=== PATIENT | male | born 1970 | race Caucasian/White ===

== ENCOUNTER 2017-06-14 12:54 | Emergency (ER) | payer OTHER ==
[2017-06-14 13:02] VITALS: BP 105/61; PULSE 82; O2SAT 96
--- NOTE | 2017-06-14 13:23 | ERPHSYRPT ---
- History of Present Illness Time Seen by Provider: 06/14/17 13:16 Source: patient, family Exam Limitations: no limitations Patient Subjective Stated Complaint: Pt states "I was in [facility] not to long ago and they hit my rt foot off of a chair and it still hurts." Triage Nursing Assessment: Pt alert and oriented X 3, skin pwd pt ambulates with a limp, able to put weight on his foot, able to speak in full sentences. Physician History: 47-year-old male came to the emergency room with complaining of right foot and right ankle pain, which has been for last 2-3 weeks. Patient states that he was at [facility] and was admitted four weeks ago with multiorgan failure in ICU at [facility] where his right ankle and foot hit by the chair and since then he has a pain in his top part of the right fourth and lateral side of right ankle. Patient denies any swelling or redness, but has little bit difficulty in walking due to pain. Method of Injury: other (chair hit right foot and ankle) Allergies/Adverse Reactions: No Known Drug Allergies Allergy (Verified 06/14/17 13:03) Home Medications: Atorvastatin Calcium [Lipitor 20MG Tablet] 80 mg PO HS 03/22/15 [History] Buspirone HCl [Buspar] 7.5 mg PO BID 03/22/15 [History] Insulin Detemir [Levemir] 60 unit SQ BID 03/22/15 [History] Magnesium 400 tab PO BID 07/10/15 [History] Aspirin EC 325 mg [Ecotrin 325 MG] 325 mg PO DAILY 01/18/16 [History] Carvedilol 37.5 mg PO BID 01/18/16 [History] Pregabalin [Lyrica 100Mg] 100 mg PO TID 01/18/16 [History] Venlafaxine HCl ER 75 mg [Effexor XR 75 MG] 75 mg PO DAILY 01/18/16 [ History] Acetaminophen/Diphenhydramine [Tylenol Pm Ex-Strength Caplet] 500 mg PO HSPRN PRN 02/07/16 [History] Allopurinol 100 mg [Zyloprim 100 mg] 100 mg PO BID 02/07/16 [History] Desvenlafaxine Succinate [Pristiq] 50 mg PO DAILY 02/07/16 [History] Hydrocodone Bit/Acetaminophen [Martelle 10-325 Tablet] 1 each PO Q4-6HPRN PRN 02/06 [History] Isosorbide Mononitrate 30 mg [Imdur 30 MG] 30 mg PO DAILY 02/07/16 [History ] Metformin HCl 500 mg [Glucophage 500 MG] 500 mg PO BID 02/07/16 [History] Hx Tetanus, Diphtheria Vaccination/Date Given: Yes Hx Influenza Vaccination/Date Given: Yes Hx Pneumococcal Vaccination/Date Given: Yes Immunizations Up to Date: Yes - Review of Systems Constitutional: No Symptoms Eyes: No Symptoms Musculoskeletal: Injury (right foot and ankle injury ), No Deformity, No Joint Redness, No Joint Pain, No Joint Swelling - Past Medical History Pertinent Past Medical History: Yes Neurological History: No Pertinent History ENT History: No Pertinent History Cardiac History: Coronary Artery Disease, High Cholesterol, Hypertension, Myocardial Infarction ([place]) Respiratory History: No Pertinent History Endocrine Medical History: Diabetes Type II Musculoskeletal History: Other GI Medical History: Pancreatitis History: No Pertinent History Psycho-Social History: No Pertinent History Male Reproductive Disorders: No Pertinent History Other Medical History: 6 [place]'S IN PAST SINCE FEBRUARY 2015 PER PT REPORT, STENT X1 , chronic back pain - Past Surgical History Past Surgical History: Yes Neuro Surgical History: No Pertinent History Cardiac: Cardiac Catheterization, Cardiac Stent, Internal Defibrillator Respiratory: No Pertinent History Gastrointestinal: Cholecystectomy, Hernia Repair Genitourinary: No Pertinent History Musculoskeletal: Orthopedic Surgery Male Surgical History: No Pertinent History Other Surgical History: elbow - Social History Smoking Status: Former smoker Exposure to second hand smoke: Yes Alcohol Use: Socially Drug Use: none Patient Lives Alone: No Significant Family History: heart disease, diabetes, hypertension - Nursing Vital Signs Nursing Vital Signs: Initial Vital Signs Temperature 97.8 F 06/14/17 12:56 Pulse Rate 82 06/14/17 12:56 Respiratory Rate 16 06/14/17 12:56 Blood Pressure 105/61 06/14/17 12:56 O2 Sat by Pulse Oximetry 96 06/14/17 12:56 Pain Scale Pain Intensity 7 - Physical Exam General Appearance: no apparent distress Eyes, Ears, Nose, Throat Exam: normal ENT inspection Neck Exam: normal inspection Cardiovascular/Respiratory Exam: chest non-tender Gastrointestinal/Abdominal Exam: non-tender Ankle Exam: right ankle: soft tissue tenderness Foot Exam: right foot: soft tissue tenderness SpO2: 96 Oxygen Delivery: Room Air Ordered Tests: Active Orders 24 hr Category Date Time Status ANKLE (3 VIEWS) Stat Exams 06/14/17 13:01 Taken FOOT (MINIMUM 3 VIEWS) Stat Exams 06/14/17 13:01 Taken - Departure Time of Disposition: 13:31 Departure Disposition: Home Clinical Impression: Foot pain, right Ankle joint pain Qualifiers: Laterality: right Qualified Code(s): M25.571 - Pain in right ankle and joints of right foot Condition: Stable Critical Care Time: No Referrals: GIRMA JACKSON [Primary Care Provider] - Instructions: Foot Pain Additional Instructions: SPRAINS/STRAINS/CONTUSIONS 1. Rest the affected area as much as possible for the next few days. 2. Apply ice to the affected area for 20-30 minutes at a time, several times a day. 3. If you receive an elastic wrap, wear it only while awake for comfort and support. Re-wrap the elastic wrap if it feels too tight or too loose. 4. If swelling is present, elevate the affected part above the level of the heart for at least 2 to 3 days. 5. Use splints, slings, or crutches as instructed. 6. Watch for severe swelling, coldness, numbness, and discoloration of the fingers and toes. See your family physician or return to the emergency department if any of these are noted.
--- NOTE | 2017-06-14 20:37 | XRAY ---
Indication: Ankle pain. No known injury. Comparison: July 15, 2007. 3 views of the right ankle again demonstrates tiny spurring of the distal tibia anteriorly with now tiny well circumscribed ossification posterior to the ankle either degenerative versus old injury. No other bony, articular, or soft tissue abnormalities.
--- NOTE | 2017-06-14 20:42 | XRAY ---
Indication: Foot pain. No known injury. Comparison: July 15, 2007. 3 nonweightbearing views of the right foot obtained. No bony, articular, or soft tissue abnormalities.
== END 2017-06-14 13:37 | disposition home or self-care (01) ==
LOC: ED 12:54
DX: M25.571 Pain in right ankle and joints of right foot (principal); W22.8XXA Striking against or struck by other objects, initial encounter
CPT/HCPCS: 73610; 73630; 99283

== ENCOUNTER 2017-09-24 08:43 | Observation (INO) | payer MEDICARE, OTHER ==
--- NOTE | 2017-09-24 09:06 | ERPHSYRPT ---
- History of Present Illness Time Seen by Provider: 09/24/17 08:56 Source: patient Exam Limitations: no limitations Patient Subjective Stated Complaint: increase sob for 2 days now, no fever, cough nonproductive, Triage Nursing Assessment: pt alert, walked in ,resp easy, skin w/d, chest clear Physician History: 47-year-old white male with history of hypercholesterolemia coronary artery disease high blood pressure diabetes chronic pain patient arrives with shortness of breath cough symptoms 2 days states she's been aching all over nausea and vomiting. No fevers no chest pain. Past medical history includes coronary artery disease, hypercholesterolemia, high blood pressure, myocardial infarction, diabetes, pancreatitis, multiple myocardial infarction, cardiac stent, chronic back pain. Past surgical history includes cardiac catheter cardiac stent defibrillator pacer, cholecystectomy, hernia repair, elbow surgery. Social history patient denies tobacco use.. Timing/Duration: today Activities at Onset: none Severity of Dyspnea-Max: moderate Severity of Dyspnea-Current: moderate Possible Cause: occasional episodes Modifying Factors: Improves With: nothing (no) Associated Symptoms: cough, No constant, No intermittent, No anxiety, No chest pain/discomfort, No edema, No fever, No insomnia, No loss of appetite, No lightheadedness, No wheezing, No weakness, No ankle swelling, No chills, No hemoptysis, No calf pain, No dizziness, No heaviness, No heart racing, No lightheadedness, No leg swelling, No muscle spasms feet, No muscle spasms hands , No painful breathing, No productive cough, No sweating, No tightness, No tingling face International travel in last 2 weeks: No Allergies/Adverse Reactions: No Known Drug Allergies Allergy (Verified 09/24/17 08:55) Home Medications: Atorvastatin Calcium [Lipitor 20MG Tablet] 80 mg PO HS 03/22/15 [History] Buspirone HCl [Buspar] 7.5 mg PO BID 03/22/15 [History] Magnesium 400 tab PO BID 07/10/15 [History] Aspirin EC 325 mg [Ecotrin 325 MG] 325 mg PO DAILY 01/18/16 [History] Carvedilol 25 mg PO BID 01/18/16 [History] Pregabalin [Lyrica 100Mg] 100 mg PO TID 01/18/16 [History] Venlafaxine HCl ER 75 mg [Effexor XR 75 MG] 75 mg PO DAILY 01/18/16 [ History] Acetaminophen/Diphenhydramine [Tylenol Pm Ex-Strength Caplet] 500 mg PO HSPRN PRN 02/07/16 [History] Allopurinol 100 mg [Zyloprim 100 mg] 100 mg PO BID 02/07/16 [History] Metformin HCl 500 mg [Glucophage 500 MG] 500 mg PO BID 02/07/16 [History] Albuterol Sulfate Mdi [Proair Hfa MDI] 09/24/17 [History] Aripiprazole [Aripiprazole] 09/24/17 [History] Liraglutide [Victoza 2-Devin] 09/24/17 [History] Sacubitril/Valsartan [Entresto 24 mg-26 mg Tablet] 09/24/17 [History] Testosterone Cypionate [Depo-Testosterone] 09/24/17 [History] Tiotropium [place] [Spiriva] 18 cap 09/24/17 [History] Warfarin Sodium [Warfarin Sodium] 5 mg DAILY 09/24/17 [History] Zolpidem Tartrate [Zolpidem Tartrate] 09/24/17 [History] Hx Tetanus, Diphtheria Vaccination/Date Given: No Hx Influenza Vaccination/Date Given: No Hx Pneumococcal Vaccination/Date Given: No Immunizations Up to Date: Yes - Review of Systems Constitutional: No Fever, No Chills Eyes: No Symptoms, No Discharge, No Eye Pain, No Eye Redness, No Itchy, No Photophobia, No Tearing, No Vision Changes, No Double Vision, No Foreign Body Sensation Ears, Nose, & Throat: No Symptoms, No Ear Pain, No Ear Discharge, No Hearing Changes, No Tinnitus, No Nose Pain, No Nose Congestion, No Nose Discharge, No Sinus Drainage, No Epistaxis, No Mouth Pain, No Mouth Swelling, No Loose Teeth, No Throat Pain, No Throat Swelling, No Hoarse, No Painful Swallowing, No Snoring , No Stridor Respiratory: Cough, Dyspnea, No Cyanosis, No Stridor, No Wheezing Cardiac: No Chest Pain, No Edema, No Syncope Abdominal/Gastrointestinal: Nausea, Vomiting, No Abdominal Pain, No Diarrhea, No Constipation, No Hematemesis, No Hematochezia, No Melena, No Dysphagia, No Appetite Changes Genitourinary Symptoms: No Dysuria Musculoskeletal: Myalgias, No Arthralgias, No Back Pain, No Neck Pain, No Deformity, No Fall, No Injury, No Joint Redness, No Joint Pain, No Joint Swelling, No Other Skin: No Rash Neurological: No Dizziness, No Focal Weakness, No Sensory Changes Psychological: No Symptoms Endocrine: No Symptoms All Other Systems: Reviewed and Negative - Past Medical History Pertinent Past Medical History: Yes Neurological History: Migraines, Peripheral Neuropathy, Other ENT History: No Pertinent History Cardiac History: Congestive Heart Failure, Other Respiratory History: Pneumonia, Other Endocrine Medical History: Diabetes Type II, Other Musculoskeletal History: Osteoarthritis GI Medical History: Pancreatitis History: No Pertinent History Psycho-Social History: No Pertinent History Male Reproductive Disorders: No Pertinent History Other Medical History: numbness in R foot, great toe to dorsum of foot. Kidney failure noted. 3L O2 at night. Defibrillator. - Past Surgical History Past Surgical History: Yes Neuro Surgical History: No Pertinent History Cardiac: Cardiac Catheterization, Cardiac Stent, Internal Defibrillator Respiratory: No Pertinent History Gastrointestinal: Cholecystectomy, Hernia Repair Genitourinary: No Pertinent History Musculoskeletal: Orthopedic Surgery Male Surgical History: No Pertinent History Other Surgical History: elbow - Social History Smoking Status: Never smoker Exposure to second hand smoke: No Alcohol Use: Socially Drug Use: none Patient Lives Alone: No Significant Family History: heart disease, diabetes, hypertension - Nursing Vital Signs Nursing Vital Signs: Initial Vital Signs Temperature 97.4 F 09/24/17 08:51 Pulse Rate 109 H 09/24/17 08:51 Respiratory Rate 20 09/24/17 08:51 Blood Pressure 112/78 09/24/17 08:51 O2 Sat by Pulse Oximetry 93 L 09/24/17 08:51 Pain Scale Pain Intensity 3 - Physical Exam General Appearance: no apparent distress, alert, other (occasional cough) Eye Exam: PERRL/EOMI Ears, Nose, Throat Exam: hearing grossly normal, normal ENT inspection, normal pharynx, No abnormal TM (R), No abnormal TM (L), No sinus pain/drainage, No hearing decreased, No nasal congestion, No pharyngeal erythema, No tonsillar exudate, No tonsillar swelling Neck Exam: normal inspection, non-tender, supple, full range of motion Respiratory Exam: normal breath sounds, lungs clear, airway intact, No chest tenderness, No respiratory distress, No diminished breath sounds, No accessory muscle use, No prolonged expirations, No crackles/rales, No rhonchi, No wheezing , No pleural rub Cardiovascular/Chest Exam: normal heart sounds, regular rate/rhythm Abdominal/Gastrointestinal Exam: soft, No tenderness, No distention, No mass Extremity Exam: non-tender, normal range of motion, normal inspection, no calf tenderness, no pedal edema Peripheral Pulses Exam: dorsalis-pedis (R): 2+, dorsalis-pedis (L): 2+ Neurologic Exam: alert, oriented x 3, cooperative, systems project manager II-XII nml as tested, sensation nml, No motor deficits Skin Exam: normal color, warm, No dry SpO2 Interpretation: normal (93%) SpO2: 93 Oxygen Delivery: Room Air - Course Nursing assessment & vital signs reviewed: Yes EKG Interpreted by Me: RATE (100 bpm), Sinus Rhythm, Left [place] Deviation, Other (EKG: Sinus rhythm, 100 bpm, left axis deviation, no acute ST or T wave changes noted\) - Radiology Exams Chest X-ray Interpretation: Discussed w/ radiologist (chest x-ray: Right middle lobe atelectasis/infiltrate, left-sided single lead pacer, bony thorax intact) Ordered Tests: Active Orders 24 hr Category Date Time Status Skein Winding Operator STAT Care 09/24/17 09:01 Active EKG-ER Only STAT Care 09/24/17 09:00 Active IV Insertion STAT Care 09/24/17 09:00 Active Pulse Oximetry (ED) STAT Care 09/24/17 09:00 Active CHEST 1 VIEW (PORTABLE) Stat Exams 09/24/17 09:00 Completed ARTERIAL BLOOD GASES Urgent Lab 09/24/17 09:01 Completed BLOOD CULTURE Stat Lab 09/24/17 10:35 Received CBC W DIFF Stat Lab 09/24/17 09:00 Completed CMP Stat Lab 09/24/17 09:00 Completed CULTURE,SPUTUM Stat Lab 09/24/17 10:25 Uncollected D-DIMER QUANTITATION Stat Lab 09/24/17 09:00 Completed NT PRO BNP Stat Lab 09/24/17 09:00 Completed PROTIME WITH INR Stat Lab 09/24/17 09:00 Completed PTT Stat Lab 09/24/17 09:00 Completed TROPONIN Q3H Lab 09/24/17 09:00 Completed TROPONIN Q3H Lab 09/24/17 12:00 Ordered TROPONIN Q3H Lab 09/24/17 15:00 Ordered TROPONIN Q3H Lab 09/24/17 18:00 Ordered TROPONIN Q3H Lab 09/24/17 21:00 Ordered Respiratory Nebulizer STAT RT 09/24/17 10:22 Completed Medication Summary Generic Name Dose Route Start Last Admin Trade Name Freq PRN Reason Stop Dose Admin Ceftriaxone Sodium/Dextrose 1 g in 50 mls @ 100 mls/hr 09/24/17 11:23 Rocephin 1 Gm-D5w 50 Ml Bag IV 09/24/17 11:52 STAT STA Methylprednisolone Sodium Succinate 125 mg 09/24/17 11:23 Solu-Medrol 125 Mg IV 09/24/17 11:24 STAT ONE Discontinued Medications Generic Name Dose Route Start Last Admin Trade Name Freq PRN Reason Stop Dose Admin Albuterol/Ipratropium 3 ml 09/24/17 10:21 09/24/17 10:32 Duoneb 0.5-3 Mg/3 Ml Neb IH 09/24/17 10:22 3 ml STAT ONE Administration Albuterol/Ipratropium Confirm 09/24/17 10:28 Duoneb 0.5-3 Mg/3 Ml Neb Administered 09/24/17 10:29 Dose 3 ml IH .STK-MED ONE Lab/Rad Data: Laboratory Result Diagrams 09/24/17 09:00 09/24/17 09:00 Laboratory Results 09/24/17 09/24/17 09/24/17 Range/Units 09:01 09:00 09:00 WBC (4.0-10.5) K/mm3 RBC (4.1-5.6) M/mm3 Hgb (12.5-18.0) gm/dl Hct (42-50) % MCV (78-100) fl MCH (26-32) pg MCHC (32-36) g/dl RDW (11.5-14.0) % Plt Count (150-450) K/mm3 MPV (6-9.5) fl Gran % (36.0-66.0) % Lymphocytes % (24.0-44.0) % Monocytes % (0.0-12.0) % Eosinophils % (0.00-5.0) % Basophils % (0.0-0.4) % Basophils # (0-0.4) INR 2.19 (0.8-3.0) APTT 49.2 H (24.1-36.1) SECONDS D-Dimer < 215.0 (0-500) ng/mL Puncture Site RIGHT RADIAL pCO2 43 (35-45) mmHg pO2 58 L (75-100) mmHg Base Excess 4.4 H (-2.0-2.0) O2 Saturation 90.8 L (94-100) g/dF ABG pH 7.44 (7.35-7.45) ABG HCO3 29.2 H* (22-28) ABG O2 Sat (Measured) 92.9 L (95-100) % Gideon Test YES A-a Gradient 38 a/A Ratio 0.60 Hemoglobin 15.8 Carboxyhemoglobin 1.7 (0.0-6.9) % THgb Methemoglobin 0.5 L (1.4-1.5) % Temperature 37.0 C POC O2 Flow Rate 21 % Sodium (136-145) mEq/L Potassium 4.4 (3.5-5.1) mEq/L Chloride (98-107) mEq/L Carbon Dioxide (21-32) mEq/L Anion Gap (5-15) MEQ/L BUN (9-20) mg/dL Creatinine (0.55-1.30) mg/dl Estimated GFR ML/MIN Glucose (70-110) MG/DL Calcium (8.5-10.1) mg/dL Total Bilirubin (0.2-1.0) mg/dL AST (15-37) U/L ALT (12-78) U/L Alkaline Phosphatase (46-116) U/L Troponin I (0.000-0.056) ng/ml NT-Pro-B Natriuret Pep (0-125) pg/ml Serum Total Protein (6.4-8.2) gm/dL Albumin (3.4-5.0) g/dL Influenza Type A Ag NEGATIVE (NEGATIVE) Influenza Type B Ag NEGATIVE (NEGATIVE) RSV (PCR) NEGATIVE (Negative) 09/24/17 09/24/17 09/24/17 Range/Units 09:00 09:00 09:00 WBC 7.1 (4.0-10.5) K/mm3 RBC 5.16 (4.1-5.6) M/mm3 Hgb 14.7 (12.5-18.0) gm/dl Hct 46.9 (42-50) % MCV 90.9 (78-100) fl MCH 28.5 (26-32) pg MCHC 31.3 L (32-36) g/dl RDW 16.1 H (11.5-14.0) % Plt Count 201 (150-450) K/mm3 MPV 11.2 H (6-9.5) fl Gran % 64.0 (36.0-66.0) % Lymphocytes % 16.4 L (24.0-44.0) % Monocytes % 14.3 H (0.0-12.0) % Eosinophils % 5.0 (0.00-5.0) % Basophils % 0.3 (0.0-0.4) % Basophils # 0.02 (0-0.4) INR (0.8-3.0) APTT (24.1-36.1) SECONDS D-Dimer (0-500) ng/mL Puncture Site pCO2 (35-45) mmHg pO2 (75-100) mmHg Base Excess (-2.0-2.0) O2 Saturation (94-100) g/dF ABG pH (7.35-7.45) ABG HCO3 (22-28) ABG O2 Sat (Measured) (95-100) % Gideon Test A-a Gradient a/A Ratio Hemoglobin Carboxyhemoglobin (0.0-6.9) % THgb Methemoglobin (1.4-1.5) % Temperature C POC O2 Flow Rate % Sodium 130 L (136-145) mEq/L Potassium 3.9 (3.5-5.1) mEq/L Chloride 100 (98-107) mEq/L Carbon Dioxide 27.4 (21-32) mEq/L Anion Gap 6.4 (5-15) MEQ/L BUN 11 (9-20) mg/dL Creatinine 1.01 (0.55-1.30) mg/dl Estimated GFR > 60 ML/MIN Glucose 120 H (70-110) MG/DL Calcium 8.3 L (8.5-10.1) mg/dL Total Bilirubin 0.40 (0.2-1.0) mg/dL AST 26 (15-37) U/L ALT 34 (12-78) U/L Alkaline Phosphatase 73 (46-116) U/L Troponin I 0.024 (0.000-0.056) ng/ml NT-Pro-B Natriuret Pep 544 H (0-125) pg/ml Serum Total Protein 6.8 (6.4-8.2) gm/dL Albumin 3.2 L (3.4-5.0) g/dL Influenza Type A Ag (NEGATIVE) Influenza Type B Ag (NEGATIVE) RSV (PCR) (Negative) - Progress Progress: improved Air Movement: fair Progress Note: 09/24/17 11:24 Patient improved after DuoNeb treatment still feels somewhat short of breath. Case is discussed with Dr. Desai who is contract law specialist for the patient's physician, Dr. Ley. Patient is a high risk patient he has had multiple MIs as well as cardiac stent and pacemaker. Will go ahead and give patient Solu-Medrol 125 plan to admit patient for pneumonia and continue serial enzymes. Diagnosis pneumonia, bronchospasm. Blood Culture(s) Obtained: Yes Antibiotics given: Yes - Departure Time of Disposition: 11:25 Departure Disposition: Observation Clinical Impression: Shortness of breath, Bronchospasm Pneumonia Qualifiers: Pneumonia type: due to unspecified organism Laterality: right Lung location: middle lobe of lung Qualified Code(s): J18.1 - Lobar pneumonia, unspecified organism Condition: Fair Critical Care Time: No Referrals: GIRMA LEY [Primary Care Provider] -
[2017-09-24 09:17] LABS: BASOPHIL % 0.3 % (0.0-0.4); Lymphocytes % 16.4 % (24.0-44.0); Mean Cell Volume 90.9 fl (78-100); Mean Corpuscular Hemoglobin 28.5 pg (26-32); Mean Platelet Volume 11.2 fl (6-9.5); Monocytes % 14.3 % (0.0-12.0); Platelet Count 201 K/mm3 (150-450); Red Blood Count 5.16 M/mm3 (4.1-5.6); Red Cell Distribution Width 16.1 % (11.5-14.0); White Blood Count 7.1 K/mm3 (4.0-10.5)
[2017-09-24 09:27] LABS: A-aADO2 38; ARTERIAL BLD GAS O2 SATURATION 92.9 % (95-100); ARTERIAL BLOOD GAS BASE EXCESS 4.4 (-2.0-2.0); ARTERIAL BLOOD GAS FIO2 21 %; ARTERIAL BLOOD GAS PO2 58 mmHg (75-100); ARTERIAL BLOOD GAS pH 7.44 (7.35-7.45)
[2017-09-24 09:28] LABS: ALLEN TEST OK? YES
--- NOTE | 2017-09-24 09:28 | XRAY ---
Indication: Cough and short of breath. Comparison: September 15, 2016. Portable chest now demonstrates right middle lobe infiltrate/atelectasis. Remaining heart and lungs unremarkable again with left-sided single lead pacemaker. Bony thorax intact.
[2017-09-24 09:49] LABS: ALBUMIN 3.2 g/dL (3.4-5.0); ALKALINE PHOSPHATASE 73 U/L (46-116); ANION GAP 6.4 MEQ/L (5-15); BLOOD UREA NITROGEN 11 mg/dL (9-20); CHLORIDE 100 mEq/L (98-107); Carbon Dioxide 27.4 mEq/L (21-32); Glucose 120 MG/DL (70-110); Potassium 3.9 mEq/L (3.5-5.1); SGOT/AST 26 U/L (15-37); SGPT/ALT 34 U/L (12-78); SODIUM 130 mEq/L (136-145); Total Protein 6.8 gm/dL (6.4-8.2)
[2017-09-24 09:53] LABS: INR 2.19 (0.8-3.0); PROTIME 24.6 SECONDS (8.83-12.87)
[2017-09-24 09:55] LABS: PTT 49.2 SECONDS (24.1-36.1)
[2017-09-24] MEDS ORDERED: DUONEB 0.5-3 MG/3 ml Neb IH ONE ×2 (10:21→10:28)
[2017-09-24] MEDS ORDERED: solu-MEDROL 125 MG IV ONE (11:23)
[2017-09-24] MEDS ORDERED: ROCEPHIN 1 Gm-D5w 50 ml Bag** 1 G/50 ML IVPB IV STA (11:23)
[2017-09-24] MEDS ORDERED: solu-MEDROL 125 MG ONE (11:26)
[2017-09-24] MEDS ORDERED: ROCEPHIN 1 Gm-D5w 50 ml Bag** 1 G/50 ML IVPB IV ONE (11:26)
[2017-09-24] MEDS ORDERED: DUONEB 0.5-3 MG/3 ml Neb IH PRN (12:21)
[2017-09-24] MEDS: Zithromax 500 MG/ 250 ML NaCl Premix 500 MG/250 ML IVPB IV SCH (13:29)
[2017-09-24] MEDS ORDERED: Lasix 40 MG/4 ML IV ONE (16:12)
[2017-09-24] MEDS ORDERED: OXYCODONE HCL PO PRN (16:30)
[2017-09-24] MEDS ORDERED: INSULIN DEGLUDEC SQ SCH (16:30)
[2017-09-24] MEDS ORDERED: Nitrostat 0.4 MG Tablet SL SCH (16:30)
[2017-09-24] MEDS ORDERED: ACETAMINOPHEN PO PRN (16:30)
[2017-09-24] MEDS ORDERED: Ventolin Hfa MDI IH PRN (16:30)
[2017-09-24] MEDS ORDERED: MEDICATION INTERVENTION MC PRN ×2 (16:57→17:02)
[2017-09-24] MEDS ORDERED: PROVENTIL COMMON CANISTER IH PRN (17:09)
[2017-09-24] MEDS: solu-MEDROL 125 MG IV SCH ×2 (17:49→23:22)
[2017-09-24] MEDS: PERCOCET TABLET 5/325MG PO PRN ×2 (17:50→22:31)
[2017-09-24] MEDS: Coumadin 5 MG PO SCH (17:50)
[2017-09-24] MEDS: Glucophage 500 MG PO SCH (17:51)
[2017-09-24] MEDS: LYRICA 100MG PO SCH ×2 (17:51→21:34)
[2017-09-24] MEDS: COREG 12.5 MG PO SCH (21:31)
[2017-09-24] MEDS: ENTRESTO 49 MG-51 MG TABLET PO SCH (21:31)
[2017-09-24] MEDS: ZYLOPRIM 300 MG PO SCH (21:32)
[2017-09-24] MEDS: LIPITOR 40MG PO SCH (21:32)
[2017-09-24] MEDS: NovoLOG Insulin SQ PRN (21:38)
[2017-09-24] MEDS ORDERED: ZYLOPRIM 100 MG PO SCH (22:00)
[2017-09-24] MEDS ORDERED: NON-FORMULARY ITEM (Carvedilol [Carvedilol] 25 MG) PO SCH (22:00)
[2017-09-24] MEDS ORDERED: NON-FORMULARY ITEM (Sacubitril/Valsartan [Entresto 24 Mg-26 Mg Tablet] 1 TAB) PO SCH (22:00)
[2017-09-24] MEDS ORDERED: ATORVASTATIN CALCIUM 80 MG PO SCH (22:00)
[2017-09-24] MEDS: Ambien 10 MG PO PRN (22:31)
[2017-09-25] MEDS: solu-MEDROL 125 MG IV SCH (05:06)
[2017-09-25] MEDS: PERCOCET TABLET 5/325MG PO PRN ×5 (05:15→21:56)
[2017-09-25 05:42] LABS: BASOPHIL % 0.2 % (0.0-0.4); Lymphocytes % 12.9 % (24.0-44.0); Mean Cell Volume 90.6 fl (78-100); Mean Corpuscular Hemoglobin 28.1 pg (26-32); Mean Platelet Volume 11.8 fl (6-9.5); Monocytes % 3.9 % (0.0-12.0); Platelet Count 192 K/mm3 (150-450); Red Blood Count 5.24 M/mm3 (4.1-5.6); Red Cell Distribution Width 15.6 % (11.5-14.0); White Blood Count 5.2 K/mm3 (4.0-10.5)
[2017-09-25 06:00] LABS: ALBUMIN 2.9 g/dL (3.4-5.0); ALKALINE PHOSPHATASE 76 U/L (46-116); ANION GAP 10.7 MEQ/L (5-15); BLOOD UREA NITROGEN 15 mg/dL (9-20); CHLORIDE 101 mEq/L (98-107); Glucose 302 MG/DL (70-110); Potassium 4.4 mEq/L (3.5-5.1); SGOT/AST 24 U/L (15-37); SGPT/ALT 29 U/L (12-78); SODIUM 132 mEq/L (136-145); Total Protein 6.7 gm/dL (6.4-8.2)
[2017-09-25] MEDS ORDERED: Spiriva 18 Mcg/Cap Inhaler IH ONE (06:38)
[2017-09-25] MEDS: Spiriva 18 Mcg/Cap Inhaler IH SCH (06:53)
[2017-09-25] MEDS: Glucophage 500 MG PO SCH ×2 (07:32→16:57)
[2017-09-25] MEDS: NovoLOG Insulin SQ PRN ×3 (07:32→20:09)
--- NOTE | 2017-09-25 07:57 | HP ---
CHIEF COMPLAINT: Shortness of breath, increased swelling in the abdomen and arms. HISTORY OF PRESENT ILLNESS: The patient is a 47 year-old white male patient with a known history of coronary artery disease. He sees Dr. Solorio in [place]. He has a known myocardiopathy. His last ejection fraction was noted to be 30%. He did have left bundle branch block-type pattern on his EKG. The patient reports that the entire family has been sick recently at home with upper respiratory symptoms. The patient presented himself to the emergency room due to the above complaints concerned about his heart. PAST MEDICAL/SURGICAL HISTORY: Otherwise significant for diabetes mellitus type 2, osteoarthritis. He has had previous history of pancreatitis. He has previous history of kidney failure. He wears oxygen at night. He had an implanted defibrillator. HOME MEDICATIONS: Currently include atorvastatin 80 mg daily, Buspar 7.5 mg b.i.d., magnesium 400 mg b.i.d., aspirin 325 a day, carvedilol 25 mg b.i.d., Lyrica 100 mg t.i.d., Effexor 75 mg a day, Allopurinol 100 mg b.i.d., Metformin 500 mg b.i.d., Albuterol, Victoza, Entresto , testosterone injections, Spiriva, warfarin 5 mg a day , aripiprazole and Ambien. ALLERGIES: NKDA. PHYSICAL EXAMINATION: Revealed a well nourished, well developed 47 year-old white male presently sitting upright in bed and speaking with me without difficulty wearing oxygen per nasal cannula. VITAL SIGNS: Temperature 97.4F, pulse 109, respiratory rate 20, blood pressure 112/78. O2 saturation noted to be 93% on room air. HEENT: Normocephalic, atraumatic. Pupils equal round reactive to light. Extraocular movements intact. Oropharynx is pink and moist. NECK: Supple without lymphadenopathy, thyromegaly or JVD. CHEST: Clear to auscultation with good air movement bilaterally. HEART: Regular without significant murmurs, rubs or gallops heard. ABDOMEN: Soft, mildly distended. No palpable masses are felt. EXTREMITIES: Without significant clubbing, cyanosis or edema. NEUROLOGIC: The patient is alert and oriented x3. LAB DATA AND TESTS: Revealed atelectasis or infiltrate in the perihilar region. He had negative influenza A, B and respiratory syncytial virus. His pro-time was 2.19. His glucose 120, BUN 11, creatinine 1.01. Sodium was low at 130. Potassium was normal. Liver enzymes were normal. ProBNP was slightly elevated at 544. Troponin was 0.024. ASSESSMENT: A patient with exacerbation of his heart failure. He has been admitted. We will be giving him IV Lasix, will continue his usual home medications. We will be monitoring his troponins for any elevation aggressively. He has also been placed empirically on antibiotics and IV steroids for the infiltrate on his chest x-ray to cover the possibility of developing pneumonia.
--- NOTE | 2017-09-25 08:20 | PCM.NOTE ---
Date and Time: 09/25/17812 Subjective Assessment: He is still sob even with walking from the bed to the bathroom. Overnight the monitor showed HR into the 200s but when checked at bedside the HR would be low 100s. - Review of Systems Constitutional: No Fever Respiratory: Cough Objective Exam General Appearance: no apparent distress, alert, obese Neurologic Exam: oriented x 3, cooperative, normal mood/affect Skin Exam: normal color, warm, dry Ears, Nose, Throat Exam: moist mucous membranes Neck Exam: normal inspection Respiratory Exam: normal breath sounds, lungs clear, wheezing, No crackles/rales , No rhonchi Cardiovascular Exam: regular rate/rhythm, normal heart sounds, No murmur Extremity Exam: No pedal edema, No swelling Back Exam: normal inspection, No rash OBJECTIVE DATA Vital Signs: Vital Signs - 24 hr Temp Pulse Resp BP Pulse Ox 09/25/17 07:10 97.6 F 100 H 20 98/55 96 09/25/17 07:08 96 H 20 93 L 09/25/17 05:30 97.6 F 107 H 20 122/70 96 09/25/17 04:00 18 09/24/17 23:49 20 09/24/17 23:34 98.1 F 112 H 20 112/68 96 09/24/17 20:00 98.1 F 102 H 18 125/65 09/24/17 16:23 22 09/24/17 16:00 98.7 F 80 22 113/78 93 L 09/24/17 14:47 93 L 09/24/17 13:34 100 H 18 93 L 09/24/17 12:58 98.7 F 110 H 22 111/69 96 09/24/17 12:23 18 09/24/17 12:21 98.7 F 100 H 18 111/69 93 L 09/24/17 12:03 96 H 18 113/76 95 09/24/17 11:35 100 H 18 108/69 94 L 09/24/17 11:26 93 L 09/24/17 10:44 67 18 119/69 94 L 09/24/17 10:32 88 18 94 L 09/24/17 09:50 22 97 09/24/17 09:47 98.2 F 88 18 138/74 93 L 09/24/17 08:51 97.4 F 109 H 20 112/78 93 L Oxygen-Last 24 hours O2 Percentage 3 Liters = 32% O2 Percentage 3 Liters = 32% O2 Percentage 3 Liters = 32% O2 Percentage 3 Liters = 32% O2 Percentage 3 Liters = 32% O2 Percentage 3 Liters = 32% Pain Assessment - Last Documented Pain Intensity 6 Pain Scale Used 0-10 Pain Scale Intake and Output: Intake & Output 09/22/17 09/23/17 09/24/17 09/25/17 11:59 11:59 11:59 11:59 Intake Total 1598 Output Total 250 Balance 1348 Weight 113.398 kg Lab Results: Accuchecks Date 09/24/17 Date 09/24/17 Date 09/24/17 Date 09/24/17 Time 23:05 Time 16:30 Time 16:00 Accucheck Value: 245 Accucheck Value: 262 Accucheck Value: 132 Accucheck Value: 142 Accucheck Value: 128 Lab Results-Last 24 Hours 09/24/17 09/24/17 09/24/17 Range/Units 14:58 18:30 21:00 WBC (4.0-10.5) K/mm3 RBC (4.1-5.6) M/mm3 Hgb (12.5-18.0) gm/dl Hct (42-50) % MCV (78-100) fl MCH (26-32) pg MCHC (32-36) g/dl RDW (11.5-14.0) % Plt Count (150-450) K/mm3 MPV (6-9.5) fl Gran % (36.0-66.0) % Lymphocytes % (24.0-44.0) % Monocytes % (0.0-12.0) % Eosinophils % (0.00-5.0) % Basophils % (0.0-0.4) % Basophils # (0-0.4) Sodium (136-145) mEq/L Potassium (3.5-5.1) mEq/L Chloride (98-107) mEq/L Carbon Dioxide (21-32) mEq/L Anion Gap (5-15) MEQ/L BUN (9-20) mg/dL Creatinine (0.55-1.30) mg/dl Estimated GFR ML/MIN Glucose (70-110) MG/DL Calcium (8.5-10.1) mg/dL Total Bilirubin (0.2-1.0) mg/dL AST (15-37) U/L ALT (12-78) U/L Alkaline Phosphatase (46-116) U/L Troponin I 0.022 0.018 0.023 (0.000-0.056) ng/ml Serum Total Protein (6.4-8.2) gm/dL Albumin (3.4-5.0) g/dL 09/25/17 09/25/17 Range/Units 05:25 05:25 WBC 5.2 (4.0-10.5) K/mm3 RBC 5.24 (4.1-5.6) M/mm3 Hgb 14.7 (12.5-18.0) gm/dl Hct 47.5 (42-50) % MCV 90.6 (78-100) fl MCH 28.1 (26-32) pg MCHC 30.9 L (32-36) g/dl RDW 15.6 H (11.5-14.0) % Plt Count 192 (150-450) K/mm3 MPV 11.8 H (6-9.5) fl Gran % 83.0 H (36.0-66.0) % Lymphocytes % 12.9 L (24.0-44.0) % Monocytes % 3.9 (0.0-12.0) % Eosinophils % 0.0 (0.00-5.0) % Basophils % 0.2 (0.0-0.4) % Basophils # 0.01 (0-0.4) Sodium 132 L (136-145) mEq/L Potassium 4.4 (3.5-5.1) mEq/L Chloride 101 (98-107) mEq/L Carbon Dioxide 25.0 (21-32) mEq/L Anion Gap 10.7 (5-15) MEQ/L BUN 15 (9-20) mg/dL Creatinine 1.11 (0.55-1.30) mg/dl Estimated GFR > 60 ML/MIN Glucose 302 H (70-110) MG/DL Calcium 8.8 (8.5-10.1) mg/dL Total Bilirubin 0.30 (0.2-1.0) mg/dL AST 24 (15-37) U/L ALT 29 (12-78) U/L Alkaline Phosphatase 76 (46-116) U/L Troponin I (0.000-0.056) ng/ml Serum Total Protein 6.7 (6.4-8.2) gm/dL Albumin 2.9 L (3.4-5.0) g/dL Multi-Disciplinary Progress Notes: Multi-Disciplinary Progress Notes 09/24/17 15:14 Case Management Note by Julia Syed MEDICARE OUTPATIENT OBSERVATION GIVEN TO PT SIGNED AND COPY TO CHART AND PT. Initialized on 09/24/17 15:14 - END OF NOTE Assessment/Plan (1) CHF (congestive heart failure) Current Visit: No Status: Chronic Qualifiers: Congestive heart failure type: systolic Congestive heart failure chronicity : acute on chronic Qualified Code(s): I50.23 - Acute on chronic systolic ( congestive) heart failure Assessment & Plan: Will give more IV lasix daily; recheck labs again tomorrow. If no echo done with in the last 6 mo, needs to be repeated. Code(s): I50.9 - HEART FAILURE, UNSPECIFIED (2) Pneumonia Current Visit: Yes Status: Acute Qualifiers: Pneumonia type: due to unspecified organism Laterality: right Lung location: middle lobe of lung Qualified Code(s): J18.1 - Lobar pneumonia, unspecified organism Assessment & Plan: On zithromax and rocephin, with IV solumedrol at 80mg IV q6h. Code(s): J18.9 - PNEUMONIA, UNSPECIFIED ORGANISM (3) Shortness of breath Current Visit: Yes Status: Acute Assessment & Plan: I think both due to pneumonia and CHF exacerbation. Code(s): R06.02 - SHORTNESS OF BREATH (4) Diabetes mellitus, insulin dependent (IDDM), uncontrolled Current Visit: No Status: Acute Qualifiers: Diabetes mellitus complication status: with neurologic complications Diabetes mellitus complication detail: with unspecified neuropathy Qualified Code(s): E10.40 - Type 1 diabetes mellitus with diabetic neuropathy, unspecified ; E10.65 - Type 1 diabetes mellitus with hyperglycemia; E10.65 - Type 1 diabetes mellitus with hyperglycemia; E10.65 - Type 1 diabetes mellitus with hyperglycemia; E10.65 - Type 1 diabetes mellitus with hyperglycemia Assessment & Plan: Will restart home Victoza. Code(s): E10.65 - TYPE 1 DIABETES MELLITUS WITH HYPERGLYCEMIA (5) Anticoagulation adequate Current Visit: Yes Status: Acute Assessment & Plan: Pt on coumadin since this summer, he was on blood thinner with hx afib but found to have "a blood clot in my heart" and bridged with lovenox to coumadin. Current INR sufficient. Followed by Dr. Solorio. Code(s): Z79.01 - [facility] (CURRENT) USE OF ANTICOAGULANTS
[2017-09-25] MEDS ORDERED: NovoLOG Insulin SQ PRN (08:37)
[2017-09-25] MEDS: Klor Con 10 MEQ PO SCH (09:07)
[2017-09-25] MEDS: Abilify 10 MG PO SCH (09:08)
[2017-09-25] MEDS: Vitamin C 500 MG PO SCH (09:08)
[2017-09-25] MEDS: Ecotrin 325 MG PO SCH (09:09)
[2017-09-25] MEDS: Zithromax 500 MG/ 250 ML NaCl Premix 500 MG/250 ML IVPB IV SCH (09:09)
[2017-09-25] MEDS: LYRICA 100MG PO SCH ×3 (09:09→21:57)
[2017-09-25] MEDS: ROCEPHIN 1 Gm-D5w 50 ml Bag** 1 G/50 ML IVPB IV SCH (09:09)
[2017-09-25] MEDS: MAG-OX 400 PO SCH (09:09)
[2017-09-25] MEDS: ZYLOPRIM 300 MG PO SCH ×2 (09:10→21:56)
[2017-09-25] MEDS: ENTRESTO 49 MG-51 MG TABLET PO SCH ×2 (09:10→21:56)
[2017-09-25] MEDS: COREG 12.5 MG PO SCH ×2 (09:10→21:56)
[2017-09-25] MEDS ORDERED: PATIENT OWN MEDICATION SQ SCH (10:00)
[2017-09-25] MEDS ORDERED: NON-FORMULARY ITEM (Aripiprazole [Aripiprazole] 5 mg) PO SCH (10:00)
[2017-09-25] MEDS ORDERED: MAGNESIUM PO SCH (10:00)
[2017-09-25] MEDS ORDERED: NON-FORMULARY ITEM (Potassium Chloride [K-Dur] 20 MEQ) PO SCH (10:00)
[2017-09-25] MEDS ORDERED: FLUCELVAX QUAD 2017-2018 SYR IM ONE (10:00)
[2017-09-25] MEDS ORDERED: Lasix 40 MG PO SCH (10:00)
[2017-09-25] MEDS ORDERED: Coumadin 2 MG PO SCH (10:00)
[2017-09-25] MEDS: PATIENT OWN MEDICATION SQ SCH ×2 (10:28→10:29)
[2017-09-25] MEDS: Furosemide 100mg/10 ml Vial IV SCH (10:28)
[2017-09-25] MEDS: solu-MEDROL 40 MG IV SCH ×2 (14:10→21:57)
[2017-09-25] MEDS: Coumadin 5 MG PO SCH (17:54)
[2017-09-25] MEDS: LIPITOR 40MG PO SCH (21:57)
[2017-09-25] MEDS: Ambien 10 MG PO PRN (21:57)
[2017-09-26] MEDS: PERCOCET TABLET 5/325MG PO PRN ×2 (02:53→07:02)
[2017-09-26 05:41] LABS: Mean Cell Volume 90.8 fl (78-100); Mean Corpuscular Hemoglobin 28.2 pg (26-32); Mean Platelet Volume 11.1 fl (6-9.5); Platelet Count 225 K/mm3 (150-450); Red Cell Distribution Width 15.7 % (11.5-14.0); White Blood Count 11.3 K/mm3 (4.0-10.5)
[2017-09-26] MEDS: solu-MEDROL 40 MG IV SCH (06:00)
[2017-09-26 06:26] LABS: ANION GAP 13.1 MEQ/L (5-15); BLOOD UREA NITROGEN 18 mg/dL (9-20); CHLORIDE 102 mEq/L (98-107); Carbon Dioxide 25.7 mEq/L (21-32); Glucose 351 MG/DL (70-110); Potassium 4.6 mEq/L (3.5-5.1); SODIUM 136 mEq/L (136-145)
[2017-09-26] MEDS: Spiriva 18 Mcg/Cap Inhaler IH SCH (07:13)
[2017-09-26] MEDS: NovoLOG Insulin SQ PRN (08:26)
[2017-09-26] MEDS: Glucophage 500 MG PO SCH (08:26)
[2017-09-26] MEDS: ENTRESTO 49 MG-51 MG TABLET PO SCH (10:00)
[2017-09-26 10:08] LABS: INR 4.61 (0.8-3.0); PROTIME 52.1 SECONDS (8.83-12.87)
[2017-09-26] MEDS: ROCEPHIN 1 Gm-D5w 50 ml Bag** 1 G/50 ML IVPB IV SCH (10:11)
[2017-09-26] MEDS: Furosemide 100mg/10 ml Vial IV SCH (10:11)
[2017-09-26] MEDS: ZYLOPRIM 300 MG PO SCH (10:12)
[2017-09-26] MEDS: Ecotrin 325 MG PO SCH (10:12)
[2017-09-26] MEDS: MAG-OX 400 PO SCH (10:12)
[2017-09-26] MEDS: Abilify 10 MG PO SCH (10:12)
[2017-09-26] MEDS: LYRICA 100MG PO SCH (10:12)
[2017-09-26] MEDS: Vitamin C 500 MG PO SCH (10:12)
[2017-09-26] MEDS: COREG 12.5 MG PO SCH (10:12)
--- NOTE | 2017-09-26 10:12 | PCM.DS ---
Discharge Summary Date of Admission: 09/24/17 12:15 Date of Discharge: 09/26/17 Admitting Physician: GIRMA JACKSON Primary Care Provider: GIRMA JACKSON Allergies Allergies No Known Drug Allergies Allergy (Verified 09/24/17 08:55) Hospital Summary - Vitals & Intake/Output Vital Signs: Vital Signs Temperature 97.9 F 09/26/17 06:50 Pulse Rate 102 H 09/26/17 07:13 Respiratory Rate 18 09/26/17 08:00 Blood Pressure 124/78 09/26/17 06:50 O2 Sat by Pulse Oximetry 91 L 09/26/17 07:13 Oxygen-Last Documented O2 Percentage 3 Liters = 32% Intake & Output: Intake & Output 09/23/17 09/24/17 09/25/17 09/26/17 11:59 11:59 11:59 11:59 Intake Total 1977 144 Output Total 250 600 Balance 1728 840 Weight 113.398 kg - Lab Result Diagrams: 09/26/17 05:25 09/26/17 05:25 Lab Results-Last 24 Hrs: Accuchecks Date 09/26/17 Date 09/25/17 Time 07:30 Time 20:30 Accucheck Value: 351 Accucheck Value: 354 Accucheck Value: 283 Accucheck Value: 311 Lab Results-Last 24 Hours 09/25/17 09/26/17 09/26/17 Range/Units 05:00 05:25 05:25 WBC 11.3 H (4.0-10.5) K/mm3 RBC 4.90 (4.1-5.6) M/mm3 Hgb 13.8 (12.5-18.0) gm/dl Hct 44.5 (42-50) % MCV 90.8 (78-100) fl MCH 28.2 (26-32) pg MCHC 31.0 L (32-36) g/dl RDW 15.7 H (11.5-14.0) % Plt Count 225 (150-450) K/mm3 MPV 11.1 H (6-9.5) fl INR (0.8-3.0) Sodium 136 (136-145) mEq/L Potassium 4.6 (3.5-5.1) mEq/L Chloride 102 (98-107) mEq/L Carbon Dioxide 25.7 (21-32) mEq/L Anion Gap 13.1 (5-15) MEQ/L BUN 18 (9-20) mg/dL Creatinine 1.04 (0.55-1.30) mg/dl Estimated GFR > 60 ML/MIN Glucose 351 H (70-110) MG/DL Hemoglobin A1c 7.2 H (4.5-6.2) Calcium 9.0 (8.5-10.1) mg/dL NT-Pro-B Natriuret Pep 1225 H (0-125) pg/ml 09/26/17 Range/Units 06:00 WBC (4.0-10.5) K/mm3 RBC (4.1-5.6) M/mm3 Hgb (12.5-18.0) gm/dl Hct (42-50) % MCV (78-100) fl MCH (26-32) pg MCHC (32-36) g/dl RDW (11.5-14.0) % Plt Count (150-450) K/mm3 MPV (6-9.5) fl INR 4.61 H (0.8-3.0) Sodium (136-145) mEq/L Potassium (3.5-5.1) mEq/L Chloride (98-107) mEq/L Carbon Dioxide (21-32) mEq/L Anion Gap (5-15) MEQ/L BUN (9-20) mg/dL Creatinine (0.55-1.30) mg/dl Estimated GFR ML/MIN Glucose (70-110) MG/DL Hemoglobin A1c (4.5-6.2) Calcium (8.5-10.1) mg/dL NT-Pro-B Natriuret Pep (0-125) pg/ml Micro Results-Entire Visit: Accuchecks Date 09/26/17 Date 09/25/17 Time 07:30 Time 20:30 Accucheck Value: 351 Accucheck Value: 354 Accucheck Value: 283 Accucheck Value: 311 - Procedures and Test Procedures and Tests throughout Hospitalization: Therapy Orders & Screens 09/24/17 13:26 Respiratory Nebulizer PRN Comment: Diagnosis: Shortness of Breath 09/24/17 13:58 Oxygen NASAL CANNULA 3 lpm Comment: Diagnosis: Shortness of Breath 09/26/17 07:00 Respiratory MDI BID Comment: Diagnosis: Shortness of Breath - Discharge Disposition: Home, Self-Care Condition: Fair Prescriptions: New Prednisone 20 mg [Deltasone 20 mg] 20 mg PO DAILY #5 tablet Cefdinir 300 mg [Omnicef 300 mg] 300 mg PO BID #10 capsule Continue Atorvastatin Calcium [Lipitor 20MG Tablet] 80 mg PO HS Magnesium 400 tab PO DAILY Furosemide [Lasix] 40 mg PO BID #0 tablet Pregabalin [Lyrica 100Mg] 100 mg PO TID Carvedilol 25 mg PO BID Aspirin EC 325 mg [Ecotrin 325 MG] 325 mg PO DAILY Allopurinol 100 mg [Zyloprim 100 mg] 300 mg PO BID Metformin HCl 500 mg [Glucophage 500 MG] 500 mg PO BID Potassium Chloride [K-Dur] 20 meq PO DAILY #30 tab.er.prt Albuterol Sulfate [Ventolin Hfa] 18 gm IH Q4H PRN #1 hfa.aer.ad PRN Reason: Shortness Of Breath Nitroglycerin 0.4 mg Tablet [Nitrostat 0.4 MG Tablet] 0.4 mg SL .[id number] #1 bottle Zolpidem Tartrate 10 mg PO HS Tiotropium [place] [Spiriva] 18 inh DAILY Testosterone Cypionate [Depo-Testosterone] 1.2 ml IM UD Sacubitril/Valsartan [Entresto 24 mg-26 mg Tablet] 24 - 26 mg PO BID Liraglutide [Victoza 2-Devin] 1.2 mg SQ DAILY Aripiprazole 5 mg PO DAILY Albuterol Sulfate Mdi [Proair Hfa MDI] 18 gm IH Q4H PRN PRN PRN Reason: Shortness Of Breath Ascorbic Acid/Ascorbate Sodium [Vit C-Lesli Hips 500 mg Chew Tb] 1,000 mg PO DAILY Oxycodone HCl/Acetaminophen [Percocet 7.5-325 mg Tablet] 1 tab PO Q4-6HPRN PRN PRN Reason: Pain Insulin Lispro [Humalog] 100 unit SQ UD Insulin Degludec [Tresiba Flextouch U-100] 100 ml SQ DAILY Changed Warfarin Sodium 0 mg PO DAILY #1 tablet Additional Instructions: no warfarin today or tomorrow. Restart at 4mg daily on Thursday and have INR on Thursday drawn. Follow up with: GIRMA JACKSON [Primary Care Provider] - 10/20/17 10:15 am Forms: Patient Portal Information
[2017-09-26] MEDS: Klor Con 10 MEQ PO SCH (10:14)
[2017-09-26] MEDS: PATIENT OWN MEDICATION SQ SCH ×2 (10:14→10:15)
--- NOTE | 2017-09-26 10:15 | PCM.DS ---
Discharge Summary Date of Admission: 09/24/17 12:15 Date of Discharge: 09/26/17 Admitting Physician: GIRMA JACKSON Primary Care Provider: GIRMA JACKSON Allergies Allergies No Known Drug Allergies Allergy (Verified 09/24/17 08:55) Hospital Summary - Hospital Course Hospital Course: He presented to the ED where he was found to have pneumonia and copd exacerbation. He was treated with rocephin and azithromycin and iv steroids. He did well and was tolerating room air. His home medications for diabetes and heart failure were continued except he was place on IV lasix. He was feeling well on the morning of discharge and anxious to go home. He intermittently used nasal cannule oxygen which is what he does at home already. He had no chest pains, swelling or shortness of breath at the time of discharge. With the antibiotics his inr was supratherapeutic on the morning of discharge with no bleeding. He was given instructions to hold for today and tomorrow and repeat level on Thursday. He follows with Dr. Solorio for cardiology. He and his had good understanding and requested discharge to home today. - Vitals & Intake/Output Vital Signs: Vital Signs Temperature 97.9 F 09/26/17 06:50 Pulse Rate 102 H 09/26/17 07:13 Respiratory Rate 18 09/26/17 08:00 Blood Pressure 124/78 09/26/17 06:50 O2 Sat by Pulse Oximetry 91 L 09/26/17 07:13 Oxygen-Last Documented O2 Percentage 3 Liters = 32% Intake & Output: Intake & Output 09/23/17 09/24/17 09/25/17 09/26/17 11:59 11:59 11:59 11:59 Intake Total 1978 1440 Output Total 250 600 Balance 1728 840 Weight 113.398 kg - Lab Result Diagrams: 09/26/17 05:25 09/26/17 05:25 Lab Results-Last 24 Hrs: Accuchecks Date 09/26/17 Date 09/25/17 Time 07:30 Time 20:30 Accucheck Value: 351 Accucheck Value: 354 Accucheck Value: 283 Accucheck Value: 311 Lab Results-Last 24 Hours 09/25/17 09/26/17 09/26/17 Range/Units 05:00 05:25 05:25 WBC 11.3 H (4.0-10.5) K/mm3 RBC 4.90 (4.1-5.6) M/mm3 Hgb 13.8 (12.5-18.0) gm/dl Hct 44.5 (42-50) % MCV 90.8 (78-100) fl MCH 28.2 (26-32) pg MCHC 31.0 L (32-36) g/dl RDW 15.7 H (11.5-14.0) % Plt Count 225 (150-450) K/mm3 MPV 11.1 H (6-9.5) fl INR (0.8-3.0) Sodium 136 (136-145) mEq/L Potassium 4.6 (3.5-5.1) mEq/L Chloride 102 (98-107) mEq/L Carbon Dioxide 25.7 (21-32) mEq/L Anion Gap 13.1 (5-15) MEQ/L BUN 18 (9-20) mg/dL Creatinine 1.04 (0.55-1.30) mg/dl Estimated GFR > 60 ML/MIN Glucose 351 H (70-110) MG/DL Hemoglobin A1c 7.2 H (4.5-6.2) Calcium 9.0 (8.5-10.1) mg/dL NT-Pro-B Natriuret Pep 1225 H (0-125) pg/ml 09/26/ Range/Units 06:00 WBC (4.0-10.5) K/mm3 RBC (4.1-5.6) M/mm3 Hgb (12.5-18.0) gm/dl Hct (42-50) % MCV (78-100) fl MCH (26-32) pg MCHC (32-36) g/dl RDW (11.5-14.0) % Plt Count (150-450) K/mm3 MPV (6-9.5) fl INR 4.61 H (0.8-3.0) Sodium (136-145) mEq/L Potassium (3.5-5.1) mEq/L Chloride (98-107) mEq/L Carbon Dioxide (21-32) mEq/L Anion Gap (5-15) MEQ/L BUN (9-20) mg/dL Creatinine (0.55-1.30) mg/dl Estimated GFR ML/MIN Glucose (70-110) MG/DL Hemoglobin A1c (4.5-6.2) Calcium (8.5-10.1) mg/dL NT-Pro-B Natriuret Pep (0-125) pg/ml Micro Results-Entire Visit: Accuchecks Date 09/26/17 Date 09/25/17 Time 07:30 Time 20:30 Accucheck Value: 351 Accucheck Value: 354 Accucheck Value: 283 Accucheck Value: 311 - Procedures and Test Procedures and Tests throughout Hospitalization: Therapy Orders & Screens 09/24/17 13:26 Respiratory Nebulizer PRN Comment: Diagnosis: Shortness of Breath 09/24/17 13:58 Oxygen NASAL CANNULA 3 lpm Comment: Diagnosis: Shortness of Breath 09/26/17 07:00 Respiratory MDI BID Comment: Diagnosis: Shortness of Breath Discharge Exam General Appearance: no apparent distress, alert Neurologic Exam: alert, oriented x 3, cooperative, normal mood/affect, nml cerebellar function, sensation nml, No motor deficits Skin Exam: normal color, warm, dry Eye Exam: PERRL, EOMI, eyes nml inspection Ears, Nose, Throat Exam: normal ENT inspection, pharynx normal, moist mucous membranes Neck Exam: normal inspection, non-tender, supple, full range of motion Respiratory Exam: normal breath sounds, lungs clear, No respiratory distress Cardiovascular Exam: regular rate/rhythm, normal heart sounds Gastrointestinal/Abdomen Exam: soft, No tenderness, No mass Extremity Exam: normal inspection, normal range of motion Back Exam: normal inspection, normal range of motion, No CVA tenderness, No vertebral tenderness Male Genitalia Exam: deferred Rectal Exam: deferred Final Diagnosis/Problem List - Final Discharge Diagnosis/Problem (1) Pneumonia Status: Acute (2) COPD exacerbation Status: Acute (3) Congestive heart failure Status: Chronic (4) Diabetes mellitus, insulin dependent (IDDM), uncontrolled Status: Acute (5) Supratherapeutic INR Status: Acute - Discharge Disposition: Home, Self-Care Condition: Fair Prescriptions: New Prednisone 20 mg [Deltasone 20 mg] 20 mg PO DAILY #5 tablet Cefdinir 300 mg [Omnicef 300 mg] 300 mg PO BID #10 capsule Continue Atorvastatin Calcium [Lipitor 20MG Tablet] 80 mg PO HS Magnesium 400 tab PO DAILY Furosemide [Lasix] 40 mg PO BID #0 tablet Pregabalin [Lyrica 100Mg] 100 mg PO TID Carvedilol 25 mg PO BID Aspirin EC 325 mg [Ecotrin 325 MG] 325 mg PO DAILY Allopurinol 100 mg [Zyloprim 100 mg] 300 mg PO BID Metformin HCl 500 mg [Glucophage 500 MG] 500 mg PO BID Potassium Chloride [K-Dur] 20 meq PO DAILY #30 tab.er.prt Albuterol Sulfate [Ventolin Hfa] 18 gm IH Q4H PRN #1 hfa.aer.ad PRN Reason: Shortness Of Breath Nitroglycerin 0.4 mg Tablet [Nitrostat 0.4 MG Tablet] 0.4 mg SL .[id number] #1 bottle Zolpidem Tartrate 10 mg PO HS Tiotropium [place] [Spiriva] 18 inh DAILY Testosterone Cypionate [Depo-Testosterone] 1.2 ml IM UD Sacubitril/Valsartan [Entresto 24 mg-26 mg Tablet] 24 - 26 mg PO BID Liraglutide [Victoza 2-Devin] 1.2 mg SQ DAILY Aripiprazole 5 mg PO DAILY Albuterol Sulfate Mdi [Proair Hfa MDI] 18 gm IH Q4H PRN PRN PRN Reason: Shortness Of Breath Ascorbic Acid/Ascorbate Sodium [Vit C-Lesli Hips 500 mg Chew Tb] 1,000 mg PO DAILY Oxycodone HCl/Acetaminophen [Percocet 7.5-325 mg Tablet] 1 tab PO Q4-6HPRN PRN PRN Reason: Pain Insulin Lispro [Humalog] 100 unit SQ UD Insulin Degludec [Tresiba Flextouch U-100] 100 ml SQ DAILY Changed Warfarin Sodium 0 mg PO DAILY #1 tablet Instructions: Heart Failure, Chronic Obstructive Pulmonary Disease, Pneumonia - - Adult, Shortness of Breath, Chest Pain Additional Instructions: no warfarin today or tomorrow. Restart at 4mg daily on Thursday and have INR on Thursday drawn. Follow up with: GIRMA JACKSON [Primary Care Provider] - 10/20/17 10:15 am Forms: Patient Portal Information
[2017-09-26] MEDS: Zithromax 500 MG/ 250 ML NaCl Premix 500 MG/250 ML IVPB IV SCH (10:31)
[2017-09-26 11:28] VITALS: BP 125/76; PULSE 105; O2SAT 92
[2017-10-02] MEDS ORDERED: DEPO-TESTOSTERONE IM SCH (10:00)
== END 2017-09-26 11:30 | disposition home or self-care (01) ==
LOC: ED 08:43 → MED SURG 12:15
PROVIDERS: ADMIT Family Medicine; ATTEND Family Medicine
DX: J18.1 Lobar pneumonia, unspecified organism (principal); J44.1 Chronic obstructive pulmonary disease with (acute) exacerbation; I50.23 Acute on chronic systolic (congestive) heart failure; I50.84 End stage heart failure; E10.65 Type 1 diabetes mellitus with hyperglycemia; R79.1 Abnormal coagulation profile; Z79.4 Long term (current) use of insulin; Z79.899 Other long term (current) drug therapy; I25.10 Atherosclerotic heart disease of native coronary artery without angina pectoris; M19.90 Unspecified osteoarthritis, unspecified site; Z99.81 Dependence on supplemental oxygen; Z95.810 Presence of automatic (implantable) cardiac defibrillator; Z79.01 Long term (current) use of anticoagulants
CPT/HCPCS: 36000; 36415; 36600; 71010; 80048; 80053; 82375; 82803; 82962; 83036; 83880; 84484; 85025; 85027; 85379; 85610; 85730; 87040; 87070; 87631; 93005; 93041; 93268; 94640; 94760; 96360; 96365; 96367; 96374; 99285; G0008; G0378; J0456; J0696; J1940; J2920; J2930; 90682; A9270-GY

== ENCOUNTER 2017-09-28 08:17 | Inpatient (IN) | payer MEDICARE, OTHER ==
[2017-09-28] MEDS ORDERED: TYLENOL 325 MG PO ONE (08:58)
[2017-09-28] MEDS ORDERED: SUBLIMAZE 100 MCG/2 ML IV ONE ×2 (08:58→10:14)
[2017-09-28] MEDS ORDERED: Sodium Chloride 0.9% 1000 ML 1,000 ML IV SCH (09:00)
[2017-09-28] MEDS ORDERED: DUONEB 0.5-3 MG/3 ml Neb IH ONE ×2 (09:03→09:13)
--- NOTE | 2017-09-28 09:03 | ERPHSYRPT ---
- History of Present Illness Time Seen by Provider: 09/28/17 08:52 Source: patient Patient Subjective Stated Complaint: pt states he was admittied in hospital for a few days for pnuemonia and discharged on 09/26/17/ states he began running a fever last night. Triage Nursing Assessment: pt flushed, warm, dry. lung sounds diminshed throughout. dry cough noted. Physician History: CC: fever, cough Hx; 47 y/o patient of Dr Ley with hx of CHF on coumadidn. He was admitted last week with pneumonia. He is on levaquin. He has chronic CHF. He had flu vaccine in hospital. Flu swab negative on admission. He has full body aches, headache, cough, wheezing, fever, chills, malaise. Symptoms severe. Timing/Duration: day(s) (few) Severity: severe Allergies/Adverse Reactions: No Known Drug Allergies Allergy (Verified 09/28/17 08:35) Home Medications: Atorvastatin Calcium [Lipitor 20MG Tablet] 80 mg PO HS 03/22/15 [History] Magnesium 400 tab PO DAILY 07/10/15 [History] Aspirin EC 325 mg [Ecotrin 325 MG] 325 mg PO DAILY 01/18/16 [History] Carvedilol 25 mg PO BID 01/18/16 [History] Pregabalin [Lyrica 100Mg] 100 mg PO TID 01/18/16 [History] Allopurinol 100 mg [Zyloprim 100 mg] 300 mg PO BID 02/07/16 [History] Metformin HCl 500 mg [Glucophage 500 MG] 500 mg PO BID 02/07/16 [History] Albuterol Sulfate Mdi [Proair Hfa MDI] 18 gm IH Q4H PRN PRN 09/24/17 [ History] Aripiprazole 5 mg PO DAILY 09/24/17 [History] Ascorbic Acid/Ascorbate Sodium [Vit C-Lesli Hips 500 mg Chew Tb] 1,000 mg PO DAILY 09/24/17 [History] Insulin Degludec [Tresiba Flextouch U-100] 100 ml SQ DAILY 09/24/17 [History] Insulin Lispro [Humalog] 100 unit SQ UD 09/24/17 [History] Liraglutide [Victoza 2-Devin] 1.2 mg SQ DAILY 09/24/17 [History] Oxycodone HCl/Acetaminophen [Percocet 7.5-325 mg Tablet] 1 tab PO Q4-6HPRN PRN 09/24/17 [History] Sacubitril/Valsartan [Entresto 24 mg-26 mg Tablet] 24 - 26 mg PO BID 09/24/17 [ History] Testosterone Cypionate [Depo-Testosterone] 1.2 ml IM UD 09/24/17 [History] Tiotropium [place] [Spiriva] 18 inh DAILY 09/24/17 [History] Zolpidem Tartrate 10 mg PO HS 09/24/17 [History] Warfarin Sodium 4 mg PO DAILY 09/28/17 [History] Hx Tetanus, Diphtheria Vaccination/Date Given: Yes (up to date) Hx Influenza Vaccination/Date Given: Yes Hx Pneumococcal Vaccination/Date Given: No Immunizations Up to Date: Yes - Review of Systems Constitutional: Fever, Chills, Fatigue, Malaise, Weakness Eyes: No Symptoms Ears, Nose, & Throat: Throat Pain Respiratory: Cough, Dyspnea Cardiac: No Chest Pain Abdominal/Gastrointestinal: No Abdominal Pain, No Vomiting, No Diarrhea Genitourinary Symptoms: No Dysuria Musculoskeletal: Myalgias Skin: No Rash Neurological: Headache, No Focal Weakness, No Parasthesia All Other Systems: Reviewed and Negative - Past Medical History Pertinent Past Medical History: Yes Neurological History: Migraines, Peripheral Neuropathy, Other ENT History: No Pertinent History Cardiac History: Congestive Heart Failure, Other Respiratory History: Pneumonia, Other Endocrine Medical History: Diabetes Type II, Other Musculoskeletal History: Osteoarthritis, Other GI Medical History: Pancreatitis History: No Pertinent History Psycho-Social History: No Pertinent History Male Reproductive Disorders: No Pertinent History Other Medical History: AICD. CHF - Past Surgical History Past Surgical History: Yes Neuro Surgical History: No Pertinent History Cardiac: Cardiac Catheterization, Cardiac Stent, Internal Defibrillator Respiratory: No Pertinent History Gastrointestinal: Cholecystectomy, Hernia Repair Genitourinary: No Pertinent History Musculoskeletal: Orthopedic Surgery Male Surgical History: No Pertinent History Other Surgical History: elbow - Social History Smoking Status: Former smoker Exposure to second hand smoke: No Alcohol Use: Socially Drug Use: none Patient Lives Alone: No Significant Family History: heart disease, diabetes, hypertension - Nursing Vital Signs Nursing Vital Signs: Initial Vital Signs Temperature 9.7 F 09/28/17 08:30 Pulse Rate 118 H 09/28/17 08:30 Respiratory Rate 24 09/28/17 08:30 Blood Pressure 98/66 09/28/17 08:30 O2 Sat by Pulse Oximetry 91 L 09/28/17 08:30 Pain Scale Pain Intensity 4 - Physical Exam General Appearance: alert Eye Exam: PERRL/EOMI Ears, Nose, Throat Exam: normal ENT inspection, dry mucous membranes Neck Exam: normal inspection, non-tender, supple, No meningismus Respiratory Exam: rhonchi, wheezing Cardiovascular Exam: regular rate/rhythm Gastrointestinal/Abdomen Exam: soft, No tenderness, No distention Back Exam: normal inspection Extremity Exam: normal inspection, normal range of motion, pedal edema (trace) Neurologic Exam: alert, oriented x 3, cooperative, chip applying machine tender II-XII nml as tested, sensation nml, No motor deficits Skin Exam: warm, dry, No rash SpO2 Interpretation: borderline oxygenation SpO2: 91 Oxygen Delivery: Room Air - Course Nursing assessment & vital signs reviewed: Yes EKG Interpreted by Me: RATE ([id number]), Sinus Tach, NORMAL AXIS, Other (IVCD, QTc 429, no acute change from prior) - Radiology Exams cxr X-ray Interpretation: Teleradiologist Report (nonacute chest) Ordered Tests: Active Orders 24 hr Category Date Time Status Director Of Food And Nutrition Services STAT Care 09/28/17 08:57 Active Clean Catch Urine Specimen STAT Care 09/28/17 08:57 Active EKG-ER Only STAT Care 09/28/17 09:03 Active IV Insertion STAT Care 09/28/17 08:57 Active Pulse Oximetry (ED) STAT Care 09/28/17 08:57 Active CHEST 1 VIEW (PORTABLE) Stat Exams 09/28/17 08:57 Completed BLOOD CULTURE Stat Lab 09/28/17 09:21 Received CBC W DIFF Stat Lab 09/28/17 08:50 Completed CMP Stat Lab 09/28/17 08:50 Completed CULTURE,URINE Stat Lab 09/28/17 08:57 Ordered Lactic Acid Stat Lab 09/28/17 08:57 Completed Manual Differential NC Stat Lab 09/28/17 08:50 Completed NT PRO BNP Stat Lab 09/28/17 08:50 Completed PROTIME WITH INR Stat Lab 09/28/17 08:50 Completed PTT Stat Lab 09/28/17 08:50 Completed UA Stat Lab 09/28/17 08:57 Ordered Respiratory Nebulizer STAT RT 09/28/17 09:03 Completed Medication Summary Generic Name Dose Route Start Last Admin Trade Name Behzad PRN Reason Stop Dose Admin Sodium Chloride 1,000 mls @ 100 mls/hr 09/28/17 09:00 09/28/17 09:31 Sodium Chloride 0.9% 1000 Ml IV 10/28/17 08:59 100 mls/hr .Q10H DESTINEE Administration Discontinued Medications Generic Name Dose Route Start Last Admin Trade Name Behzad PRN Reason Stop Dose Admin Acetaminophen 975 mg 09/28/17 08:58 09/28/17 09:31 Tylenol 325 Mg PO 09/28/17 08:59 975 mg STAT ONE Administration Acetaminophen Confirm 09/28/17 09:29 Tylenol 325 Mg Administered 09/28/17 09:30 Dose 975 mg .ROUTE .STK-MED ONE Albuterol/Ipratropium 3 ml 09/28/17 09:03 09/28/17 09:24 Duoneb 0.5-3 Mg/3 Ml Neb IH 09/28/17 09:04 3 ml STAT ONE Administration Albuterol/Ipratropium Confirm 09/28/17 09:13 Duoneb 0.5-3 Mg/3 Ml Neb Administered 09/28/17 09:14 Dose 3 ml IH .STK-MED ONE Fentanyl Citrate 50 mcg 09/28/17 08:58 09/28/17 09:31 Sublimaze 100 Mcg/2 Ml IV 09/28/17 08:59 50 mcg STAT ONE Administration Fentanyl Citrate Confirm 09/28/17 09:29 Sublimaze 100 Mcg/2 Ml Administered 09/28/17 09:30 Dose 100 mcg .ROUTE .STK-MED ONE Fentanyl Citrate 50 mcg 09/28/17 10:14 09/28/17 10:23 Sublimaze 100 Mcg/2 Ml IV 09/28/17 10:15 50 mcg STAT ONE Administration Fentanyl Citrate Confirm 09/28/17 10:22 Sublimaze 100 Mcg/2 Ml Administered 09/28/17 10:23 Dose 100 mcg .ROUTE .STK-MED ONE Lab/Rad Data: Laboratory Result Diagrams 09/28/17 08:50 09/28/17 08:50 Laboratory Results 09/28/17 09/28/17 09/28/17 Range/Units 08:57 08:50 08:50 WBC (4.0-10.5) K/mm3 RBC (4.1-5.6) M/mm3 Hgb (12.5-18.0) gm/dl Hct (42-50) % MCV (78-100) fl MCH (26-32) pg MCHC (32-36) g/dl RDW (11.5-14.0) % Plt Count (150-450) K/mm3 MPV (6-9.5) fl Segmented Neutrophils (36.-66.) % Band Neutrophils (0.0-2.0) % Lymphocytes (Manual) (24-44) % Monocytes (Manual) (0.0-12.0) % Eosinophils (Manual) (0.00-3.0) % Differential Comment Toxic Granulation Platelet Estimate (NORMAL) Poikilocytosis Anisocytosis INR (0.8-3.0) APTT (24.1-36.1) SECONDS Sodium (136-145) mEq/L Potassium (3.5-5.1) mEq/L Chloride (98-107) mEq/L Carbon Dioxide (21-32) mEq/L Anion Gap (5-15) MEQ/L BUN (9-20) mg/dL Creatinine (0.55-1.30) mg/dl Estimated GFR ML/MIN Glucose (70-110) MG/DL Lactic Acid 1.6 (0.4-2.0) Calcium (8.5-10.1) mg/dL Total Bilirubin (0.2-1.0) mg/dL AST (15-37) U/L ALT (12-78) U/L Alkaline Phosphatase (46-116) U/L NT-Pro-B Natriuret Pep 849 H (0-125) pg/ml Serum Total Protein (6.4-8.2) gm/dL Albumin (3.4-5.0) g/dL Influenza Type A Ag POSITIVE (NEGATIVE) Influenza Type B Ag NEGATIVE (NEGATIVE) RSV (PCR) NEGATIVE (Negative) 09/28/17 09/28/17 09/28/17 Range/Units 08:50 08:50 08:50 WBC 11.5 H (4.0-10.5) K/mm3 RBC 5.15 (4.1-5.6) M/mm3 Hgb 14.6 (12.5-18.0) gm/dl Hct 46.0 (42-50) % MCV 89.3 (78-100) fl MCH 28.3 (26-32) pg MCHC 31.7 L (32-36) g/dl RDW 15.9 H (11.5-14.0) % Plt Count 194 (150-450) K/mm3 MPV 11.1 H (6-9.5) fl Segmented Neutrophils 71 H (36.-66.) % Band Neutrophils 1 (0.0-2.0) % Lymphocytes (Manual) 13 L (24-44) % Monocytes (Manual) 14 H (0.0-12.0) % Eosinophils (Manual) 1 (0.00-3.0) % Differential Comment ABNORMAL Toxic Granulation 1+ Platelet Estimate NORMAL (NORMAL) Poikilocytosis 1+ Anisocytosis 1+ INR 2.05 (0.8-3.0) APTT 38.6 H (24.1-36.1) SECONDS Sodium 136 (136-145) mEq/L Potassium 3.3 L (3.5-5.1) mEq/L Chloride 99 (98-107) mEq/L Carbon Dioxide 31.2 (21-32) mEq/L Anion Gap 8.9 (5-15) MEQ/L BUN 17 (9-20) mg/dL Creatinine 1.10 (0.55-1.30) mg/dl Estimated GFR > 60 ML/MIN Glucose 171 H (70-110) MG/DL Lactic Acid (0.4-2.0) Calcium 7.9 L (8.5-10.1) mg/dL Total Bilirubin 0.40 (0.2-1.0) mg/dL AST 24 (15-37) U/L ALT 29 (12-78) U/L Alkaline Phosphatase 65 (46-116) U/L NT-Pro-B Natriuret Pep (0-125) pg/ml Serum Total Protein 6.3 L (6.4-8.2) gm/dL Albumin 2.9 L (3.4-5.0) g/dL Influenza Type A Ag (NEGATIVE) Influenza Type B Ag (NEGATIVE) RSV (PCR) (Negative) - Progress Progress Note: 09/28/17 10:33 Pt already on omnicef and prednisone. He continues to wheeze. Neb given. He has positive flu A. He has headache but no nuchal rigidity. He has multiple comorbidities making him high risk for flu. Called Dr Ley who advised obs, tamiflu. Pt agrees. Discussed with .: Jil Will see patient in: hospital (observation) Counseled pt/family regarding: lab results, diagnosis, need for follow-up, rad results - Departure Time of Disposition: 10:34 Departure Disposition: Observation Clinical Impression: Influenza A, Hx of chronic congestive heart failure, Type 2 diabetes mellitus, COPD exacerbation Condition: Fair Critical Care Time: No Referrals: GIRMA LEY [Primary Care Provider] -
[2017-09-28 09:07] LABS: Mean Cell Volume 89.3 fl (78-100); Mean Corpuscular Hemoglobin 28.3 pg (26-32); Mean Platelet Volume 11.1 fl (6-9.5); Platelet Count 194 K/mm3 (150-450); Red Blood Count 5.15 M/mm3 (4.1-5.6); Red Cell Distribution Width 15.9 % (11.5-14.0); White Blood Count 11.5 K/mm3 (4.0-10.5)
[2017-09-28 09:23] LABS: ALBUMIN 2.9 g/dL (3.4-5.0); ALKALINE PHOSPHATASE 65 U/L (46-116); ANION GAP 8.9 MEQ/L (5-15); BLOOD UREA NITROGEN 17 mg/dL (9-20); CHLORIDE 99 mEq/L (98-107); Carbon Dioxide 31.2 mEq/L (21-32); Glucose 171 MG/DL (70-110); Potassium 3.3 mEq/L (3.5-5.1); SGOT/AST 24 U/L (15-37); SGPT/ALT 29 U/L (12-78); SODIUM 136 mEq/L (136-145); Total Protein 6.3 gm/dL (6.4-8.2)
--- NOTE | 2017-09-28 09:26 | XRAY ---
Indication: Fever and short of breath. Possible sepsis. Comparison: September 15, 2016. Portable chest is clear today. Heart and mediastinal structures within normal limits again with left-sided single lead pacemaker. Bony thorax intact. No new/acute findings. Impression: Nonacute chest.
[2017-09-28 09:28] LABS: BAND 1 % (0.0-2.0); Eosinophil 1 % (0.00-3.0); Total Cells Counted 100
[2017-09-28 09:29] LABS: ANISOCYTOSIS 1+; Platelet Estimate NORMAL (NORMAL); Poikilocytosis 1+; Toxic Granulation 1+
[2017-09-28] MEDS ORDERED: TYLENOL 325 MG ONE (09:29)
[2017-09-28] MEDS ORDERED: SUBLIMAZE 100 MCG/2 ML ONE ×2 (09:29→10:22)
[2017-09-28 09:48] LABS: INR 2.05 (0.8-3.0)
[2017-09-28 09:51] LABS: PTT 38.6 SECONDS (24.1-36.1)
[2017-09-28 10:35] LABS: Bilirubin NEGATIVE (NEGATIVE); COMPLETE URINE MICROSCOPIC? YES; Collection Type CCMS; Glucose NEGATIVE (NEGATIVE); Leukocyte Esterase TRACE (NEGATIVE)
[2017-09-28] MEDS ORDERED: PROVENTIL 2.5 MG/3 ML NEB IH ONE ×2 (10:35→10:59)
[2017-09-28] MEDS ORDERED: Tamiflu 75MG Capsule PO ONE ×2 (10:35→11:00)
[2017-09-28 10:40] LABS: Bacteria FEW /HPF (NEGATIVE); Epithelial Cells FEW /HPF (FEW)
[2017-09-28] MEDS ORDERED: NovoLOG Insulin SQ PRN (11:21)
[2017-09-28] MEDS ORDERED: TYLENOL 325 MG PO PRN (11:21)
[2017-09-28] MEDS: DUONEB 0.5-3 MG/3 ml Neb IH SCH ×4 (11:30→22:37)
[2017-09-28] MEDS: Sodium Chloride 0.9% W/ 20 mEq KCl/LITER 1,000 ML IV SCH (12:15)
[2017-09-28] MEDS: solu-MEDROL 125 MG IV SCH ×3 (12:15→23:42)
[2017-09-28] MEDS ORDERED: OXYCODONE HCL PO PRN (15:00)
[2017-09-28] MEDS ORDERED: DUONEB 0.5-3 MG/3 ml Neb IH SCH (15:00)
[2017-09-28] MEDS ORDERED: ACETAMINOPHEN PO PRN (15:00)
[2017-09-28] MEDS ORDERED: ALBUTEROL SULFATE IH PRN (15:10)
[2017-09-28] MEDS: PERCOCET TABLET 5/325MG PO PRN ×3 (15:12→23:42)
[2017-09-28] MEDS ORDERED: Nitrostat 0.4 MG Tablet SL SCH (15:15)
[2017-09-28] MEDS ORDERED: PROVENTIL 2.5 MG/3 ML NEB IH PRN (15:27)
[2017-09-28] MEDS ORDERED: MEDICATION INTERVENTION MC PRN (15:45)
[2017-09-28] MEDS: Lasix 40 MG PO SCH (16:14)
[2017-09-28] MEDS: COREG 12.5 MG PO SCH (16:14)
[2017-09-28] MEDS: Abilify 10 MG PO SCH (16:14)
[2017-09-28] MEDS: LYRICA 100MG PO SCH ×2 (16:14→21:15)
[2017-09-28] MEDS: MAG-OX 400 PO SCH (16:14)
[2017-09-28] MEDS: TORAdol 30 mg Injection IV PRN (16:15)
[2017-09-28] MEDS: ENTRESTO 49 MG-51 MG TABLET PO SCH ×2 (16:15→21:14)
[2017-09-28] MEDS: Klor Con 10 MEQ PO SCH (16:18)
[2017-09-28] MEDS: ZYLOPRIM 300 MG PO SCH (16:18)
[2017-09-28] MEDS: NovoLOG Insulin SQ PRN ×2 (17:02→21:25)
[2017-09-28] MEDS: PATIENT OWN MEDICATION SQ SCH ×2 (17:03)
[2017-09-28] MEDS ORDERED: Coumadin 2 MG PO SCH (18:00)
--- NOTE | 2017-09-28 19:25 | PCM.HP ---
History of Present Illness - Chief Complaint Chief Complaint: Shortness of Breath History of Present Illness: Mr.DICKERSON HINKLE is a 47 year old male pt of mine from [facility] with PMHx DM and CHF who was readmitted to the hospital today after being discharged 2 days ago. He actually felt good upon disharge, then the next day had increased cough and body aches. Started running fever to 101 and came in to ER today where he was dx with Influenza A. He was wheezy and placed on IV steroids. He lives alone and just felt too bad to go home by himself. He feels much better this afternoon/evening. - Review of Systems Constitutional: Fever, Chills, Fatigue Respiratory: Cough, Wheezing Cardiac: Chest Pain ("started to have some" earlier; none currently. Pt has chronic CP.) Abdominal/Gastrointestinal: Vomiting (x1) Psychological: No Anxiety, No Depression, No Suicidal Ideations, No Homicidal Ideations All Other Systems: Reviewed and Negative Medications & Allergies Home Medications: Home Medication List Atorvastatin Calcium [Lipitor 20MG Tablet] 80 mg PO HS 03/22/15 [History Confirmed 09/28/17] Magnesium 400 tab PO DAILY 07/10/15 [History Confirmed 09/28/17] Furosemide [Lasix] 40 mg PO BID #0 tablet 09/20/15 [Rx Confirmed 09/28/17] Aspirin EC 325 mg [Ecotrin 325 MG] 325 mg PO DAILY 01/18/16 [History Confirmed 09/28/17] Carvedilol 25 mg PO BID 01/18/16 [History Confirmed 09/28/17] Pregabalin [Lyrica 100Mg] 100 mg PO TID 01/18/16 [History Confirmed 09/28/17] Allopurinol 100 mg [Zyloprim 100 mg] 300 mg PO BID 02/07/16 [History Confirmed 09/28/17] Metformin HCl 500 mg [Glucophage 500 MG] 500 mg PO BID 02/07/16 [History Confirmed 09/28/17] Albuterol Sulfate [Ventolin Hfa] 18 gm IH Q4H PRN #1 hfa.aer.ad 09/18/16 [Rx Confirmed 09/28/17] Nitroglycerin 0.4 mg Tablet [Nitrostat 0.4 MG Tablet] 0.4 mg SL .[id number] #1 bottle 09/18/16 [Rx Confirmed 09/28/17] Potassium Chloride [K-Dur] 20 meq PO DAILY #30 tab.er.prt 09/18/16 [Rx Confirmed 09/28/17] Albuterol Sulfate Mdi [Proair Hfa MDI] 18 gm IH Q4H PRN PRN 09/24/17 [ History Confirmed 09/28/17] Aripiprazole 5 mg PO DAILY 09/24/17 [History Confirmed 09/28/17] Ascorbic Acid/Ascorbate Sodium [Vit C-Lesli Hips 500 mg Chew Tb] 1,000 mg PO DAILY 09/24/17 [History Confirmed 09/28/17] Insulin Degludec [Tresiba Flextouch U-100] 100 ml SQ DAILY 09/24/17 [History Confirmed 09/28/17] Insulin Lispro [Humalog] 100 unit SQ UD 09/24/17 [History Confirmed 09/28/17] Liraglutide [Victoza 2-Devin] 1.2 mg SQ DAILY 09/24/17 [History Confirmed 09/28/17 ] Oxycodone HCl/Acetaminophen [Percocet 7.5-325 mg Tablet] 1 tab PO Q4-6HPRN PRN 09/24/17 [History Confirmed 09/28/17] Sacubitril/Valsartan [Entresto 24 mg-26 mg Tablet] 24 - 26 mg PO BID 09/24/17 [ History Confirmed 09/28/17] Testosterone Cypionate [Depo-Testosterone] 1.2 ml IM UD 09/24/17 [History Confirmed 09/28/17] Tiotropium [place] [Spiriva] 18 inh DAILY 09/24/17 [History Confirmed 09/28/17] Zolpidem Tartrate 10 mg PO HS 09/24/17 [History Confirmed 09/28/17] Cefdinir 300 mg [Omnicef 300 mg] 300 mg PO BID #10 capsule 09/26/17 [Rx Confirmed 09/28/17] Prednisone 20 mg [Deltasone 20 mg] 20 mg PO DAILY #5 tablet 09/26/17 [Rx Confirmed 09/28/17] Warfarin Sodium 4 mg PO DAILY 09/28/17 [History Confirmed 09/28/17] Allergies/Adverse Reactions: Allergies Allergy/AdvReac Type Severity Reaction Status Date / Time No Known Drug Allergies Allergy Verified 09/28/17 08:35 - Past Medical History Past Medical History: Yes Neurological History: Migraines, Peripheral Neuropathy, Other ENT History: No Pertinent History Cardiac History: Congestive Heart Failure, Other Respiratory History: Pneumonia, Other Endocrine Medical History: Diabetes Type II, Other Musculoskelatal History: Osteoarthritis, Other GI Medical History: Pancreatitis History: No Pertinent History Pyscho-Social History: No Pertinent History Male Reproductive Disorders: No Pertinent History Comment: AICD. . - Past Surgical History Past Surgical History: Yes Neuro Surgical History: No Pertinent History Cardiac History: Cardiac Catheterization, Cardiac Stent, Internal Defibrillator Respiratory Surgery: No Pertinent History GI Surgical History: Cholecystectomy, Hernia Repair Genitourinary Surgical Hx: No Pertinent History Musculskeletal Surgical Hx: Orthopedic Surgery Male Surgical History: No Pertinent History Other Surgical History: elbow - Social History Smoking Status: Former smoker Exposure to second hand smoke: No Alcohol: None Drug Use: none Significant Family History: heart disease, diabetes, hypertension - Physical Exam Vital Signs: Vital Signs - 24 hr Temp Pulse Resp BP Pulse Ox 09/28/17 18:30 91 H 20 95 09/28/17 16:00 97.6 F 96 H 20 123/69 93 L 09/28/17 15:32 92 H 16 93 L 09/28/17 11:28 97.7 F 105 H 24 121/83 95 09/28/17 10:56 91 H 20 93 L 09/28/17 10:50 74 22 121/75 09/28/17 10:34 91 L 09/28/17 10:13 78 18 147/74 95 09/28/17 09:27 111 H 18 92/59 94 L 09/28/17 09:25 113 H 20 94 L 09/28/17 09:18 94 L 09/28/17 08:30 9.7 F 118 H 24 98/66 91 L Oxygen-Last 24 hours O2 Percentage 3 Liters = 32% O2 Percentage 3 Liters = 32% O2 Percentage 2 Liters = 28% O2 Percentage 2 Liters = 28% General Appearance: no apparent distress, alert Neurologic Exam: oriented x 3, cooperative Eye Exam: eyes nml inspection Ears, Nose, Throat Exam: moist mucous membranes Neck Exam: normal inspection, non-tender, No lymphadenopathy Respiratory Exam: normal breath sounds, lungs clear, No crackles/rales, No rhonchi, No wheezing Cardiovascular Exam: regular rate/rhythm, normal heart sounds, No murmur Gastrointestinal/Abdomen Exam: soft, normal bowel sounds, No tenderness, No distention, No mass, No guarding, No rebound Extremity Exam: normal inspection, No pedal edema, No swelling Skin Exam: normal color, warm, diaphoresis Results - Labs Lab/Micro Results: Accuchecks Date 09/28/17 Date 09/28/17 Accucheck Value: 286 Accucheck Value: 187 Accuchecks Date 09/28/17 Date 09/28/17 Accucheck Value: 286 Accucheck Value: 187 - Other Procedures and Tests Respiratory Therapy 09/28/17 11:35 Respiratory Nebulizer Q4H 09/28/17 11:44 Oxygen NASAL CANNULA 3 lpm 09/28/17 11:45 RT Screen per Nursing Assess ONCE Assessment/Plan (1) Influenza A Current Visit: Yes Status: Acute Assessment & Plan: On Tamiflu, with IV fluids and steroids. Code(s): J10.1 - FLU DUE TO OTH IDENT INFLUENZA VIRUS W OTH RESP MANIFEST (2) COPD (chronic obstructive pulmonary disease) Current Visit: Yes Status: Acute Qualifiers: COPD type: emphysema Assessment & Plan: He is on po cefdinir for a COPD exacerbation. Continued. (3) Hx of chronic congestive heart failure Current Visit: Yes Status: Chronic Assessment & Plan: Will check BNP in a.m.; he is currently asx, with no LE edema and no audible crackles. Code(s): Z86.79 - PERSONAL HISTORY OF OTHER DISEASES OF THE CIRCULATORY SYSTEM (4) Chest pain Current Visit: No Status: Acute Qualifiers: Chest pain type: other chest pain Qualified Code(s): R07.89 - Other chest pain; R07.8 - Other chest pain Assessment & Plan: Unsure if cardiac, he does have chronic chest pain. Will go ahead and get a couple of troponins tonight and a repeat EKG. Code(s): R07.9 - CHEST PAIN, UNSPECIFIED (5) Supratherapeutic INR Current Visit: No Status: Acute Assessment & Plan: now down to normal level ; will recheck him in the morning. Code(s): R79.1 - ABNORMAL COAGULATION PROFILE
[2017-09-28] MEDS: LIPITOR 40MG PO SCH (21:14)
[2017-09-28] MEDS: Tamiflu 75MG Capsule PO SCH (21:15)
[2017-09-28] MEDS: CEFDINIR PO SCH (21:20)
[2017-09-28] MEDS: Ambien 10 MG PO PRN (21:25)
[2017-09-28] MEDS ORDERED: NON-FORMULARY ITEM (Sacubitril/Valsartan [Entresto 24 Mg-26 Mg Tablet] 1 TAB) PO SCH (22:00)
[2017-09-28] MEDS ORDERED: ATORVASTATIN CALCIUM 80 MG PO SCH (22:00)
[2017-09-28] MEDS ORDERED: NON-FORMULARY ITEM (Carvedilol [Carvedilol] 25 MG) PO SCH (22:00)
[2017-09-28] MEDS ORDERED: CEFDINIR 300 MG PO SCH (22:00)
[2017-09-28] MEDS ORDERED: ZYLOPRIM 100 MG PO SCH (22:00)
[2017-09-29] MEDS: Sodium Chloride 0.9% W/ 20 mEq KCl/LITER 1,000 ML IV SCH ×3 (00:20→17:25)
[2017-09-29] MEDS: TORAdol 30 mg Injection IV PRN (03:19)
[2017-09-29 06:01] LABS: INR 1.42 (0.8-3.0); PROTIME 15.8 SECONDS (8.83-12.87)
[2017-09-29] MEDS: PERCOCET TABLET 5/325MG PO PRN ×5 (06:12→22:34)
[2017-09-29] MEDS: solu-MEDROL 125 MG IV SCH ×3 (06:13→17:25)
[2017-09-29 06:16] LABS: ALBUMIN 2.6 g/dL (3.4-5.0); ALKALINE PHOSPHATASE 70 U/L (46-116); ANION GAP 10.5 MEQ/L (5-15); BLOOD UREA NITROGEN 25 mg/dL (9-20); CHLORIDE 102 mEq/L (98-107); Carbon Dioxide 28.4 mEq/L (21-32); Glucose 384 MG/DL (70-110); Potassium 4.4 mEq/L (3.5-5.1); SGOT/AST 23 U/L (15-37); SGPT/ALT 34 U/L (12-78); SODIUM 137 mEq/L (136-145); Total Protein 6.1 gm/dL (6.4-8.2)
[2017-09-29] MEDS: DUONEB 0.5-3 MG/3 ml Neb IH SCH ×5 (07:05→23:43)
[2017-09-29] MEDS: ZYLOPRIM 300 MG PO SCH ×2 (07:39→16:22)
[2017-09-29] MEDS: NovoLOG Insulin SQ PRN ×4 (07:39→21:47)
--- NOTE | 2017-09-29 09:04 | PCM.NOTE ---
Date and Time: 09/29/17 0900 Subjective Assessment: He is feeling much better today. - Review of Systems Constitutional: No Fever Respiratory: Cough, Short Of Breath Objective Exam General Appearance: no apparent distress, alert Neurologic Exam: oriented x 3, cooperative Skin Exam: normal color, warm, diaphoresis Ears, Nose, Throat Exam: moist mucous membranes Neck Exam: normal inspection Respiratory Exam: diminished breath sounds, wheezing (exp scattered), No crackles/rales, No rhonchi Cardiovascular Exam: regular rate/rhythm, normal heart sounds, No murmur Extremity Exam: No pedal edema, No swelling Back Exam: normal inspection, No rash OBJECTIVE DATA Vital Signs: Vital Signs - 24 hr Temp Pulse Resp BP Pulse Ox 09/29/17 07:19 98.4 F 88 18 131/77 92 L 09/29/17 03:35 97.3 F 92 H 20 114/65 93 L 09/29/17 03:22 86 18 93 L 09/29/17 00:00 97.4 F 95 H 20 111/62 91 L 09/28/17 22:38 87 18 94 L 09/28/17 19:54 97.5 F 97 H 20 123/74 93 L 09/28/17 18:30 91 H 20 95 09/28/17 16:00 97.6 F 96 H 20 123/69 93 L 09/28/17 15:32 92 H 16 93 L 09/28/17 11:28 97.7 F 105 H 24 121/83 95 09/28/17 10:56 91 H 20 93 L 09/28/17 10:50 74 22 121/75 09/28/17 10:34 91 L 09/28/17 10:13 78 18 147/74 95 09/28/17 09:27 111 H 18 92/59 94 L 09/28/17 09:25 113 H 20 94 L 09/28/17 09:18 94 L Oxygen-Last 24 hours O2 Percentage 3 Liters = 32% O2 Percentage 3 Liters = 32% O2 Percentage 3 Liters = 32% O2 Percentage 3 Liters = 32% O2 Percentage 3 Liters = 32% O2 Percentage 2 Liters = 28% O2 Percentage 2 Liters = 28% Pain Assessment - Last Documented Pain Intensity 7 Pain Scale Used 0-10 Pain Scale Intake and Output: Intake & Output 12/16/17 09/27/17 09/28/17 09/29/17 11:59 11:59 11:59 11:59 Intake Total 2837 Output Total 1250 Balance 1587 Weight 118.025 kg Lab Results: Accuchecks Date 09/29/17 Date 09/28/17 Date 09/28/17 Date 09/28/17 Time 07:30 Time 23:00 Accucheck Value: 317 Accucheck Value: 368 Accucheck Value: 286 Accucheck Value: 187 Lab Results-Last 24 Hours 09/28/17 09/28/17 09/29/17 Range/Units 19:52 22:42 05:10 INR (0.8-3.0) Sodium 137 (136-145) mEq/L Potassium 4.4 (3.5-5.1) mEq/L Chloride 102 (98-107) mEq/L Carbon Dioxide 28.4 (21-32) mEq/L Anion Gap 10.5 (5-15) MEQ/L BUN 25 H (9-20) mg/dL Creatinine 1.16 (0.55-1.30) mg/dl Estimated GFR > 60 ML/MIN Glucose 384 H (70-110) MG/DL Calcium 8.2 L (8.5-10.1) mg/dL Total Bilirubin 0.30 (0.2-1.0) mg/dL AST 23 (15-37) U/L ALT 34 (12-78) U/L Alkaline Phosphatase 70 (46-116) U/L Troponin I 0.019 0.018 (0.000-0.056) ng/ml NT-Pro-B Natriuret Pep 1198 H (0-125) pg/ml Serum Total Protein 6.1 L (6.4-8.2) gm/dL Albumin 2.6 L (3.4-5.0) g/dL 09/29/17 Range/Units 05:10 INR 1.42 (0.8-3.0) Sodium (136-145) mEq/L Potassium (3.5-5.1) mEq/L Chloride (98-107) mEq/L Carbon Dioxide (21-32) mEq/L Anion Gap (5-15) MEQ/L BUN (9-20) mg/dL Creatinine (0.55-1.30) mg/dl Estimated GFR ML/MIN Glucose (70-110) MG/DL Calcium (8.5-10.1) mg/dL Total Bilirubin (0.2-1.0) mg/dL AST (15-37) U/L ALT (12-78) U/L Alkaline Phosphatase (46-116) U/L Troponin I (0.000-0.056) ng/ml NT-Pro-B Natriuret Pep (0-125) pg/ml Serum Total Protein (6.4-8.2) gm/dL Albumin (3.4-5.0) g/dL Assessment/Plan (1) Influenza A Current Visit: Yes Status: Acute Assessment & Plan: Continue current treatment with tamiflu and steroids IV. Feeling better. Code(s): J10.1 - FLU DUE TO OTH IDENT INFLUENZA VIRUS W OTH RESP MANIFEST (2) COPD (chronic obstructive pulmonary disease) Current Visit: Yes Status: Acute Qualifiers: COPD type: emphysema (3) Hx of chronic congestive heart failure Current Visit: Yes Status: Chronic Assessment & Plan: Will turn down IV fluids today. Code(s): Z86.79 - PERSONAL HISTORY OF OTHER DISEASES OF THE CIRCULATORY SYSTEM (4) Chest pain Current Visit: No Status: Acute Qualifiers: Chest pain type: other chest pain Qualified Code(s): R07.89 - Other chest pain; R07.8 - Other chest pain Assessment & Plan: No complaint. Code(s): R07.9 - CHEST PAIN, UNSPECIFIED (5) Supratherapeutic INR Current Visit: No Status: Acute Assessment & Plan: INR low this morning - will increase coumadin and start lovenox. Code(s): R79.1 - ABNORMAL COAGULATION PROFILE
[2017-09-29] MEDS: DELTASONE 20 MG PO SCH (09:57)
[2017-09-29] MEDS: Ecotrin 325 MG PO SCH (09:57)
[2017-09-29] MEDS: ENOXAPARIN SODIUM SQ SCH (09:57)
[2017-09-29] MEDS: Tamiflu 75MG Capsule PO SCH ×2 (09:58→21:46)
[2017-09-29] MEDS: Klor Con 10 MEQ PO SCH (09:58)
[2017-09-29] MEDS: MAG-OX 400 PO SCH (09:58)
[2017-09-29] MEDS: LYRICA 100MG PO SCH ×3 (09:58→21:46)
[2017-09-29] MEDS: Lasix 40 MG PO SCH ×2 (09:58→16:22)
[2017-09-29] MEDS: COREG 12.5 MG PO SCH ×2 (09:58→21:46)
[2017-09-29] MEDS: PATIENT OWN MEDICATION SQ SCH ×2 (09:59→10:00)
[2017-09-29] MEDS: ENTRESTO 49 MG-51 MG TABLET PO SCH ×2 (10:00→21:46)
[2017-09-29] MEDS ORDERED: NON-FORMULARY ITEM (Potassium Chloride [K-Dur] 20 MEQ) PO SCH (10:00)
[2017-09-29] MEDS ORDERED: Spiriva 18 Mcg/Cap Inhaler IH SCH (10:00)
[2017-09-29] MEDS ORDERED: NON-FORMULARY ITEM (Aripiprazole [Aripiprazole] 5 mg) PO SCH (10:00)
[2017-09-29] MEDS ORDERED: INSULIN DEGLUDEC SQ SCH (10:00)
[2017-09-29] MEDS ORDERED: MAGNESIUM PO SCH (10:00)
[2017-09-29] MEDS: Abilify 10 MG PO SCH (10:06)
[2017-09-29] MEDS: CEFDINIR PO SCH ×2 (10:08→21:45)
[2017-09-29] MEDS: Coumadin 2.5 MG PO SCH (17:26)
[2017-09-29] MEDS: Coumadin 2 MG PO SCH (17:26)
[2017-09-29] MEDS: LIPITOR 40MG PO SCH (21:46)
[2017-09-29] MEDS: Ambien 10 MG PO PRN (22:34)
[2017-09-30] MEDS: solu-MEDROL 125 MG IV SCH ×5 (00:12→23:51)
[2017-09-30] MEDS: PERCOCET TABLET 5/325MG PO PRN ×5 (03:13→23:51)
[2017-09-30] MEDS: DUONEB 0.5-3 MG/3 ml Neb IH SCH ×6 (03:17→23:27)
[2017-09-30] MEDS: Sodium Chloride 0.9% W/ 20 mEq KCl/LITER 1,000 ML IV SCH (06:38)
[2017-09-30 08:21] LABS: Mean Cell Volume 87.7 fl (78-100); Mean Corpuscular Hemoglobin 28.2 pg (26-32); Mean Platelet Volume 11.2 fl (6-9.5); Platelet Count 256 K/mm3 (150-450); Red Blood Count 5.36 M/mm3 (4.1-5.6); Red Cell Distribution Width 15.6 % (11.5-14.0); White Blood Count 16.5 K/mm3 (4.0-10.5)
[2017-09-30] MEDS: ZYLOPRIM 300 MG PO SCH ×2 (08:23→17:16)
[2017-09-30] MEDS: NovoLOG Insulin SQ PRN ×4 (08:24→22:13)
[2017-09-30 08:42] LABS: INR 1.63 (0.8-3.0); PROTIME 18.2 SECONDS (8.83-12.87)
--- NOTE | 2017-09-30 08:44 | PCM.NOTE ---
Date and Time: 09/30/17 0839 Subjective Assessment: He was unable to sleep last night due to increasing SOB. Feels swollen now. He had a nebulizer tx this morning that didn't help. Objective Exam General Appearance: no apparent distress, alert Neurologic Exam: oriented x 3, cooperative Skin Exam: normal color, warm, dry, jaundice Respiratory Exam: diminished breath sounds, wheezing, pleural rub (exp scattered ), other (tachypnea, mild), No crackles/rales, No rhonchi Cardiovascular Exam: normal heart sounds, tachycardia, No murmur Extremity Exam: swelling (trace LE edema bilat. RUE edematous, generalized.) OBJECTIVE DATA Vital Signs: Vital Signs - 24 hr Temp Pulse Resp BP Pulse Ox 09/30/17 07:56 106 H 22 92 L 09/30/17 07:15 97.5 F 105 H 18 154/95 94 L 09/30/17 03:18 97.5 F 102 H 15 135/82 93 L 09/30/17 03:17 106 H 16 93 L 09/30/17 00:00 97.9 F 120 H 15 143/95 92 L 09/29/17 23:43 107 H 18 96 09/29/17 20:07 106 H 19 92 L 09/29/17 20:00 97.8 F 110 H 15 136/94 92 L 09/29/17 16:00 97.7 F 108 H 18 128/87 92 L 09/29/17 15:12 88 20 09/29/17 11:33 97.5 F 106 H 18 142/92 93 L 09/29/17 11:29 88 20 Pain Assessment - Last Documented Pain Intensity 8 Pain Scale Used 0-10 Pain Scale Intake and Output: Intake & Output 09/27/17 09/28/17 09/29/17 09/30/17 11:59 11:59 11:59 11:59 Intake Total 2837 2342 Output Total 1250 Balance 1587 2342 Weight 118.025 kg Lab Results: Accuchecks Date 09/29/17 Date 09/29/17 Date 09/29/17 Time 21:30 Time 17:52 Time 11:40 Accucheck Value: 396 Accucheck Value: 286 Accucheck Value: 328 Lab Results-Last 24 Hours 09/30/17 Range/Units 08:18 WBC 16.5 H (4.0-10.5) K/mm3 RBC 5.36 (4.1-5.6) M/mm3 Hgb 15.1 (12.5-18.0) gm/dl Hct 47.0 (42-50) % MCV 87.7 (78-100) fl MCH 28.2 (26-32) pg MCHC 32.1 (32-36) g/dl RDW 15.6 H (11.5-14.0) % Plt Count 256 (150-450) K/mm3 MPV 11.2 H (6-9.5) fl Assessment/Plan (1) Influenza A Current Visit: Yes Status: Acute Assessment & Plan: On tamiflu. Code(s): J10.1 - FLU DUE TO OTH IDENT INFLUENZA VIRUS W OTH RESP MANIFEST (2) CHF (congestive heart failure) Current Visit: No Status: Chronic Assessment & Plan: acute on chronic, 80mg IV lasix daily and recheck BNP now and in the morning. Code(s): I50.9 - HEART FAILURE, UNSPECIFIED (3) COPD (chronic obstructive pulmonary disease) Current Visit: Yes Status: Acute Qualifiers: COPD type: emphysema Assessment & Plan: will check CXR again today. (4) Chest pain Current Visit: No Status: Acute Qualifiers: Chest pain type: other chest pain Code(s): R07.9 - CHEST PAIN, UNSPECIFIED (5) Supratherapeutic INR Current Visit: No Status: Acute Assessment & Plan: recheck INR. Code(s): R79.1 - ABNORMAL COAGULATION PROFILE
[2017-09-30] MEDS: Furosemide 100mg/10 ml Vial IV SCH (09:05)
[2017-09-30] MEDS: Ecotrin 325 MG PO SCH (09:24)
[2017-09-30] MEDS: MAG-OX 400 PO SCH (09:24)
[2017-09-30] MEDS: Klor Con 10 MEQ PO SCH (09:25)
[2017-09-30] MEDS: Abilify 10 MG PO SCH (09:25)
[2017-09-30] MEDS: COREG 12.5 MG PO SCH ×2 (09:28→22:08)
[2017-09-30] MEDS: Tamiflu 75MG Capsule PO SCH ×2 (09:28→22:08)
[2017-09-30] MEDS: CEFDINIR PO SCH ×2 (09:29→22:10)
[2017-09-30] MEDS: LYRICA 100MG PO SCH ×3 (09:29→22:08)
[2017-09-30] MEDS: DELTASONE 20 MG PO SCH (09:29)
[2017-09-30] MEDS: ENTRESTO 49 MG-51 MG TABLET PO SCH ×2 (09:31→22:10)
[2017-09-30 09:47] LABS: ALKALINE PHOSPHATASE 84 U/L (46-116); BLOOD UREA NITROGEN 26 mg/dL (9-20); CHLORIDE 101 mEq/L (98-107); Carbon Dioxide 26.1 mEq/L (21-32); Glucose 357 MG/DL (70-110); Potassium 4.5 mEq/L (3.5-5.1); SGOT/AST 21 U/L (15-37); SGPT/ALT 32 U/L (12-78); SODIUM 136 mEq/L (136-145); Total Protein 6.3 gm/dL (6.4-8.2)
--- NOTE | 2017-09-30 09:53 | XRAY ---
Indication: Flulike symptoms. Short of breath, fever, chills one week. Comparison: September 28 PA/lateral chest demonstrates interval developing bilateral perihilar infiltrates and small bibasilar effusions. Heart is not enlarged with stable left-sided single lead pacemaker.
[2017-09-30] MEDS: PATIENT OWN MEDICATION SQ SCH ×2 (10:03)
[2017-09-30] MEDS: ENOXAPARIN SODIUM SQ SCH (10:06)
[2017-09-30] MEDS: Coumadin 2 MG PO SCH (17:16)
[2017-09-30] MEDS: Coumadin 2.5 MG PO SCH (17:17)
[2017-09-30] MEDS: LIPITOR 40MG PO SCH (22:09)
[2017-09-30] MEDS: Ambien 10 MG PO PRN (22:15)
[2017-10-01] MEDS: DUONEB 0.5-3 MG/3 ml Neb IH SCH ×2 (03:48→07:21)
[2017-10-01] MEDS: PERCOCET TABLET 5/325MG PO PRN ×2 (04:03→07:56)
[2017-10-01] MEDS: solu-MEDROL 125 MG IV SCH (06:05)
[2017-10-01] MEDS: COREG 12.5 MG PO SCH (07:44)
[2017-10-01] MEDS: Klor Con 10 MEQ PO SCH (07:44)
[2017-10-01] MEDS: Ecotrin 325 MG PO SCH (07:45)
[2017-10-01] MEDS: DELTASONE 20 MG PO SCH (07:45)
[2017-10-01] MEDS: ZYLOPRIM 300 MG PO SCH (07:45)
[2017-10-01] MEDS: LYRICA 100MG PO SCH (07:45)
[2017-10-01] MEDS: MAG-OX 400 PO SCH (07:45)
[2017-10-01] MEDS: Tamiflu 75MG Capsule PO SCH (07:45)
[2017-10-01] MEDS: Abilify 10 MG PO SCH (07:45)
[2017-10-01] MEDS: Furosemide 100mg/10 ml Vial IV SCH (07:46)
[2017-10-01] MEDS: ENOXAPARIN SODIUM SQ SCH (07:46)
[2017-10-01] MEDS: ENTRESTO 49 MG-51 MG TABLET PO SCH (07:47)
[2017-10-01] MEDS: CEFDINIR PO SCH (07:47)
[2017-10-01] MEDS: PATIENT OWN MEDICATION SQ SCH ×2 (07:49)
[2017-10-01] MEDS: NovoLOG Insulin SQ PRN (07:50)
[2017-10-01 08:05] LABS: Mean Cell Volume 87.9 fl (78-100); Mean Corpuscular Hemoglobin 28.1 pg (26-32); Mean Platelet Volume 11.3 fl (6-9.5); Platelet Count 278 K/mm3 (150-450); Red Cell Distribution Width 15.8 % (11.5-14.0); White Blood Count 16.2 K/mm3 (4.0-10.5)
[2017-10-01 08:09] VITALS: BP 145/92; PULSE 97; O2SAT 94
[2017-10-01 08:35] LABS: ANION GAP 12.3 MEQ/L (5-15); BLOOD UREA NITROGEN 25 mg/dL (9-20); CHLORIDE 101 mEq/L (98-107); Carbon Dioxide 26.1 mEq/L (21-32); Glucose 361 MG/DL (70-110); Potassium 4.6 mEq/L (3.5-5.1); SODIUM 135 mEq/L (136-145)
--- NOTE | 2017-10-01 08:38 | PCM.DS ---
Discharge Summary Date of Admission: 09/30/17 08:39 Admitting Physician: GIRMA JACKSON Primary Care Provider: GIRMA JACKSON Allergies Allergies No Known Drug Allergies Allergy (Verified 09/28/17 08:35) Hospital Summary - Hospital Course Hospital Course: He was admitted through the ER with influenza A, has COPD and CHF. During his stay after receiving IV fluids he had some CHF exacerbation and was given 80mg IV lasix. He is feeling much better this morning, breathing is better and swelling is decreased. He would like to go home. - Vitals & Intake/Output Vital Signs: Vital Signs Temperature 97.5 F 10/01/17 08:00 Pulse Rate 97 H 10/01/17 08:00 Respiratory Rate 18 10/01/17 08:00 Blood Pressure 145/92 10/01/17 08:00 O2 Sat by Pulse Oximetry 94 L 10/01/17 08:00 Oxygen-Last Documented O2 Percentage 3 Liters = 32% Intake & Output: Intake & Output 09/28/17 09/29/17 09/30/17 10/01/17 11:59 11:59 11:59 11:59 Intake Total 960 Output Total 300 2800 Balance -300 -1840 - Lab Result Diagrams: 10/01/17 07:50 09/30/17 08:18 Lab Results-Last 24 Hrs: Accuchecks Date 09/30/17 Date 09/30/17 Time 11:30 Accucheck Value: 385 Accucheck Value: 297 Lab Results-Last 24 Hours 10/01/17 Range/Units 07:50 WBC 16.2 H (4.0-10.5) K/mm3 RBC 5.20 (4.1-5.6) M/mm3 Hgb 14.6 (12.5-18.0) gm/dl Hct 45.7 (42-50) % MCV 87.9 (78-100) fl MCH 28.1 (26-32) pg MCHC 31.9 L (32-36) g/dl RDW 15.8 H (11.5-14.0) % Plt Count 278 (150-450) K/mm3 MPV 11.3 H (6-9.5) fl Micro Results-Entire Visit: Accuchecks Date 09/30/17 Date 09/30/17 Time 11:30 Accucheck Value: 385 Accucheck Value: 297 - Radiology Exams Ordered Rad Exams-Entire Visit: Radiology Procedures Category Date Time Status CHEST 2 VIEWS (PA AND LAT) Routine Exams 09/30/17 09:43 Completed Discharge Exam General Appearance: no apparent distress, alert Neurologic Exam: oriented x 3, cooperative Skin Exam: normal color, warm, dry, No rash Respiratory Exam: lungs clear, diminished breath sounds, No crackles/rales, No rhonchi, No wheezing Cardiovascular Exam: regular rate/rhythm, normal heart sounds, No murmur Extremity Exam: pedal edema (trace LE edema bilat) Back Exam: normal inspection, No rash Final Diagnosis/Problem List - Final Discharge Diagnosis/Problem (1) Influenza A Current Visit: Yes Status: Acute Assessment & Plan: Much improved, home to finish 5d of tamiflu. (2) CHF (congestive heart failure) Current Visit: No Status: Chronic Assessment & Plan: much improved; resume home dose of po lasix. (3) COPD (chronic obstructive pulmonary disease) Current Visit: Yes Status: Chronic (4) Chest pain Current Visit: No Status: Resolved (5) Supratherapeutic INR Current Visit: No Status: Acute Assessment & Plan: Will check INR again today. - Discharge Disposition: Home, Self-Care Condition: Stable Prescriptions: New Oseltamivir 75 mg [Tamiflu 75MG Capsule] 75 mg PO BID #4 cap Continue Atorvastatin Calcium [Lipitor 20MG Tablet] 80 mg PO HS Magnesium 400 tab PO DAILY Furosemide [Lasix] 40 mg PO BID #0 tablet Pregabalin [Lyrica 100Mg] 100 mg PO TID Carvedilol 25 mg PO BID Aspirin EC 325 mg [Ecotrin 325 MG] 325 mg PO DAILY Allopurinol 100 mg [Zyloprim 100 mg] 300 mg PO BID Metformin HCl 500 mg [Glucophage 500 MG] 500 mg PO BID Potassium Chloride [K-Dur] 20 meq PO DAILY #30 tab.er.prt Albuterol Sulfate [Ventolin Hfa] 18 gm IH Q4H PRN #1 hfa.aer.ad PRN Reason: Shortness Of Breath Nitroglycerin 0.4 mg Tablet [Nitrostat 0.4 MG Tablet] 0.4 mg SL [id number] #1 bottle Zolpidem Tartrate 10 mg PO HS Tiotropium [place] [Spiriva] 18 inh DAILY Testosterone Cypionate [Depo-Testosterone] 1.2 ml IM UD Sacubitril/Valsartan [Entresto 24 mg-26 mg Tablet] 24 - 26 mg PO BID Liraglutide [Victoza 2-Devin] 1.2 mg SQ DAILY Aripiprazole 5 mg PO DAILY Albuterol Sulfate Mdi [Proair Hfa MDI] 18 gm IH Q4H PRN PRN PRN Reason: Shortness Of Breath Ascorbic Acid/Ascorbate Sodium [Vit C-Lesli Hips 500 mg Chew Tb] 1,000 mg PO DAILY Oxycodone HCl/Acetaminophen [Percocet 7.5-325 mg Tablet] 1 tab PO Q4-6HPRN PRN PRN Reason: Pain Insulin Lispro [Humalog] 100 unit SQ UD Insulin Degludec [Tresiba Flextouch U-100] 100 ml SQ DAILY Cefdinir 300 mg [Omnicef 300 mg] 300 mg PO BID #10 capsule Warfarin Sodium 4 mg PO DAILY Prednisone 20 mg [Deltasone 20 mg] 20 mg PO DAILY #17 tablet Follow up with: GIRMA JACKSON [Primary Care Provider] -
[2017-10-01 08:55] LABS: INR 2.07 (0.8-3.0); PROTIME 23.2 SECONDS (8.83-12.87)
== END 2017-10-01 10:20 | disposition home or self-care (01) | DRG 195 ==
LOC: ED 08:17 → MED SURG 11:10 → OBSVTOIN 09-30 08:39
PROVIDERS: ADMIT Family Medicine; ATTEND Family Medicine
DX: J09.X2 Influenza due to identified novel influenza A virus with other respiratory manifestations (principal); I50.9 Heart failure, unspecified; J44.9 Chronic obstructive pulmonary disease, unspecified; R07.9 Chest pain, unspecified; R79.1 Abnormal coagulation profile
CPT/HCPCS: 36000; 36415; 71010; 71020; 80048; 80053; 81000; 82962; 83605; 83880; 84484; 85025; 85027; 85610; 85730; 87040; 87086; 87631; 93005; 93041; 94640; 94760; 96360; 96361; 96374; 96376; 99285; G0378; J1650; J1885; J1940; J2930; J3010; A9270-GY

== ENCOUNTER 2017-11-23 13:08 | Observation (INO) | payer MEDICARE, OTHER ==
[2017-11-23] MEDS ORDERED: Lasix 40 MG/4 ML IV ONE (13:43)
[2017-11-23] MEDS ORDERED: Lasix 40 MG/4 ML ONE (13:48)
--- NOTE | 2017-11-23 13:51 | ERPHSYRPT ---
- History of Present Illness Time Seen by Provider: 11/23/17 15:46 Source: patient, family Exam Limitations: no limitations Patient Subjective Stated Complaint: Pt states "I woke up and I was short of breath today." Triage Nursing Assessment: Pt alert and oriented X 3, skin pwd. PT ambulates with a limp, able to speak in clear full sentences. Slightly tachypneic Physician History: The patient is a 47-year-old male with his complaining of increasing shortness of breath for the past 2 days. He also has increasing edema of his feet, ankles, and lower legs. Increasing edema has been going on for one week. He estimates he has gained 5 pounds in the last week. He shortness of breath is much worse when lying flat on his back. He will not sleep on his back because of the shortness of breath. 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 He called his doctor today and was told to come to the ER. He denies fever or chills. His past medical history is significant for CHF, cardiac defibrillator , COPD, high cholesterol, gout, diabetes, and low testosterone. Timing/Duration: day(s) (2) Activities at Onset: none Severity of Dyspnea-Max: moderate Severity of Dyspnea-Current: moderate Possible Cause: frequent episodes Modifying Factors: Improves With: lying down Associated Symptoms: chest pain/discomfort, edema, ankle swelling, leg swelling , No wheezing Allergies/Adverse Reactions: No Known Drug Allergies Allergy (Verified 09/28/17 08:35) Home Medications: Atorvastatin Calcium [Lipitor 20MG Tablet] 80 mg PO HS 03/22/15 [History] Magnesium 400 tab PO DAILY 07/10/15 [History] Aspirin EC 325 mg [Ecotrin 325 MG] 325 mg PO DAILY 01/18/16 [History] Carvedilol 25 mg PO BID 01/18/16 [History] Pregabalin [Lyrica 100Mg] 100 mg PO TID 01/18/16 [History] Allopurinol 100 mg [Zyloprim 100 mg] 300 mg PO BID 02/07/16 [History] Metformin HCl 500 mg [Glucophage 500 MG] 500 mg PO BID 02/07/16 [History] Albuterol Sulfate Mdi [Proair Hfa MDI] 18 gm IH Q4H PRN PRN 09/24/17 [ History] Aripiprazole 5 mg PO DAILY 09/24/17 [History] Ascorbic Acid/Ascorbate Sodium [Vit C-Lesli Hips 500 mg Chew Tb] 1,000 mg PO DAILY 09/24/17 [History] Insulin Degludec [Tresiba Flextouch U-100] 100 ml SQ DAILY 09/24/17 [History] Insulin Lispro [Humalog] 100 unit SQ UD 09/24/17 [History] Liraglutide [Victoza 2-Devin] 1.2 mg SQ DAILY 09/24/17 [History] Oxycodone HCl/Acetaminophen [Percocet 7.5-325 mg Tablet] 1 tab PO Q4-6HPRN PRN 09/24/17 [History] Sacubitril/Valsartan [Entresto 24 mg-26 mg Tablet] 24 - 26 mg PO BID 09/24/17 [ History] Testosterone Cypionate [Depo-Testosterone] 1.2 ml IM UD 09/24/17 [History] Tiotropium Bruno [Spiriva] 18 inh IN DAILY 09/24/17 [History] Zolpidem Tartrate 10 mg PO HS 09/24/17 [History] Warfarin Sodium 4 mg PO DAILY 09/28/17 [History] Hx Tetanus, Diphtheria Vaccination/Date Given: Yes Hx Influenza Vaccination/Date Given: Yes Hx Pneumococcal Vaccination/Date Given: No Immunizations Up to Date: Yes - Review of Systems Constitutional: No Fever, No Chills Eyes: No Symptoms Ears, Nose, & Throat: No Symptoms Respiratory: Dyspnea Cardiac: Chest Pain, Edema, PND Abdominal/Gastrointestinal: No Abdominal Pain, No Nausea, No Vomiting, No Diarrhea Genitourinary Symptoms: No Dysuria Musculoskeletal: No Back Pain, No Neck Pain Skin: No Rash Neurological: No Dizziness, No Focal Weakness, No Sensory Changes Psychological: No Symptoms Endocrine: No Symptoms Hematologic/Lymphatic: No Symptoms Immunological/Allergic: No Symptoms All Other Systems: Reviewed and Negative - Past Medical History Pertinent Past Medical History: Yes Neurological History: Migraines, Peripheral Neuropathy, Other ENT History: No Pertinent History Cardiac History: Congestive Heart Failure, Other Respiratory History: Pneumonia, Other Endocrine Medical History: Diabetes Type II, Other Musculoskeletal History: Osteoarthritis, Other GI Medical History: Pancreatitis History: No Pertinent History Psycho-Social History: No Pertinent History Male Reproductive Disorders: No Pertinent History Other Medical History: AICD. . - Past Surgical History Past Surgical History: Yes Neuro Surgical History: No Pertinent History Cardiac: Cardiac Catheterization, Cardiac Stent, Internal Defibrillator Respiratory: No Pertinent History Gastrointestinal: Cholecystectomy, Hernia Repair Genitourinary: No Pertinent History Musculoskeletal: Orthopedic Surgery Male Surgical History: No Pertinent History Other Surgical History: elbow - Social History Smoking Status: Former smoker Exposure to second hand smoke: No Alcohol Use: Socially Drug Use: none Patient Lives Alone: No Significant Family History: heart disease, diabetes, hypertension - Nursing Vital Signs Nursing Vital Signs: Initial Vital Signs Temperature 98.1 F 11/23/17 13:13 Pulse Rate 104 H 11/23/17 13:13 Respiratory Rate 22 11/23/17 13:13 Blood Pressure 119/74 11/23/17 13:13 O2 Sat by Pulse Oximetry 96 11/23/17 13:13 Pain Scale Pain Intensity 0 - Physical Exam General Appearance: mild distress Eye Exam: PERRL/EOMI Ears, Nose, Throat Exam: hearing grossly normal Neck Exam: normal inspection, supple Respiratory Exam: normal breath sounds Cardiovascular/Chest Exam: normal heart sounds, regular rate/rhythm, edema Abdominal/Gastrointestinal Exam: soft, No tenderness, No distention, No mass Rectal Exam: not done Extremity Exam: non-tender, normal range of motion, normal inspection, no calf tenderness, no pedal edema Neurologic Exam: alert, oriented x 3, 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, 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, sensation nml, No motor deficits Skin Exam: normal color, warm, No dry SpO2 Interpretation: normal SpO2: 96 Oxygen Delivery: Room Air - Course EKG Interpreted by Me: RATE, Sinus Rhythm, NORMAL AXIS, NORMAL INTERVALS, Left Bundle Branch Block - Radiology Exams Chest X-ray Interpretation: Reviewed by me, Teleradiologist Report, Negative (per Dr Larios.) Ordered Tests: Active Orders 24 hr Category Date Time Status Closing Agent STAT Care 11/23/17 13:44 Active IV Insertion STAT Care 11/23/17 13:43 Active Oxygen-ED Only NASAL CANNULA 2 lpm Care 11/23/17 13:43 Active Pulse Oximetry (ED) STAT Care 11/23/17 13:43 Active CHEST 2 VIEWS (PA AND LAT) Stat Exams 11/23/17 13:44 Completed CBC W DIFF Stat Lab 11/23/17 13:40 Completed CMP Stat Lab 11/23/17 13:40 Completed Lactic Acid Stat Lab 11/23/17 13:43 Results NT PRO BNP Stat Lab 11/23/17 13:40 Completed PROTIME WITH INR Stat Lab 11/23/17 13:40 Completed PTT Stat Lab 11/23/17 13:40 Completed TROPONIN Q3H Lab 11/23/17 13:40 Completed TROPONIN Q3H Lab 11/23/17 16:45 Ordered TROPONIN Q3H Lab 11/23/17 19:45 Ordered TROPONIN Q3H Lab 11/23/17 22:45 Ordered TROPONIN Q3H Lab 11/24/17 01:45 Ordered Medication Summary Discontinued Medications Generic Name Dose Route Start Last Admin Trade Name Freq PRN Reason Stop Dose Admin Furosemide 40 mg 11/23/17 13:43 11/23/17 13:49 Lasix 40 Mg/4 Ml IV 11/23/17 13:44 40 mg STAT ONE Administration Furosemide Confirm 11/23/17 13:48 Lasix 40 Mg/4 Ml Administered 11/23/17 13:49 Dose 40 mg .ROUTE .STK-MED ONE Morphine Sulfate 4 mg 11/23/17 13:52 11/23/17 13:55 Morphine Sulfate 4 Mg Inj IV 11/23/17 13:53 4 mg STAT ONE Administration Morphine Sulfate Confirm 11/23/17 13:54 Morphine Sulfate 4 Mg Inj Administered 11/23/17 13:55 Dose 4 mg .ROUTE .STK-MED ONE Morphine Sulfate 4 mg 11/23/17 15:17 11/23/17 15:42 Morphine Sulfate 4 Mg Inj IV 11/23/17 15:18 4 mg STAT ONE Administration Morphine Sulfate Confirm 11/23/17 15:41 Morphine Sulfate 4 Mg Inj Administered 11/23/17 15:42 Dose 4 mg .ROUTE .STK-MED ONE Ondansetron HCl 4 mg 11/23/17 13:52 11/23/17 13:55 Zofran 4 Mg/2 Ml Vial IV 11/23/17 13:53 4 mg STAT ONE Administration Ondansetron HCl Confirm 11/23/17 13:54 Zofran 4 Mg/2 Ml Vial Administered 11/23/17 13:55 Dose 4 mg .ROUTE .STK-MED ONE Lab/Rad Data: Laboratory Result Diagrams 11/23/17 13:40 11/23/17 13:40 Laboratory Results 11/23/17 11/23/17 11/23/17 Range/Units 13:43 13:40 13:40 WBC (4.0-10.5) K/mm3 RBC (4.1-5.6) M/mm3 Hgb (12.5-18.0) gm/dl Hct (42-50) % MCV (78-100) fl MCH (26-32) pg MCHC (32-36) g/dl RDW (11.5-14.0) % Plt Count (150-450) K/mm3 MPV (6-9.5) fl Gran % (36.0-66.0) % Lymphocytes % (24.0-44.0) % Monocytes % (0.0-12.0) % Eosinophils % (0.00-5.0) % Basophils % (0.0-0.4) % Basophils # (0-0.4) INR 2.19 (0.8-3.0) APTT 41.9 H (24.1-36.1) SECONDS Sodium (136-145) mEq/L Potassium (3.5-5.1) mEq/L Chloride (98-107) mEq/L Carbon Dioxide (21-32) mEq/L Anion Gap (5-15) MEQ/L BUN (9-20) mg/dL Creatinine (0.55-1.30) mg/dl Estimated GFR ML/MIN Glucose (70-110) MG/DL Lactic Acid 3.5 H (0.4-2.0) Calcium (8.5-10.1) mg/dL Total Bilirubin (0.2-1.0) mg/dL AST (15-37) U/L ALT (12-78) U/L Alkaline Phosphatase (46-116) U/L Troponin I < 0.017 (0.000-0.056) ng/ml NT-Pro-B Natriuret Pep (0-125) pg/ml Serum Total Protein (6.4-8.2) gm/dL Albumin (3.4-5.0) g/dL 11/23/17 11/23/17 Range/Units 13:40 13:40 WBC 8.7 (4.0-10.5) K/mm3 RBC 5.60 (4.1-5.6) M/mm3 Hgb 15.5 (12.5-18.0) gm/dl Hct 49.3 (42-50) % MCV 88.0 (78-100) fl MCH 27.7 (26-32) pg MCHC 31.4 L (32-36) g/dl RDW 15.8 H (11.5-14.0) % Plt Count 182 (150-450) K/mm3 MPV 11.6 H (6-9.5) fl Gran % 69.2 H (36.0-66.0) % Lymphocytes % 17.0 L (24.0-44.0) % Monocytes % 8.6 (0.0-12.0) % Eosinophils % 4.7 (0.00-5.0) % Basophils % 0.5 (0.0-0.4) % Basophils # 0.04 (0-0.4) INR (0.8-3.0) APTT (24.1-36.1) SECONDS Sodium 138 (136-145) mEq/L Potassium 4.2 (3.5-5.1) mEq/L Chloride 103 (98-107) mEq/L Carbon Dioxide 23.7 (21-32) mEq/L Anion Gap 15.4 H (5-15) MEQ/L BUN 16 (9-20) mg/dL Creatinine 1.13 (0.55-1.30) mg/dl Estimated GFR > 60 ML/MIN Glucose 305 H (70-110) MG/DL Lactic Acid (0.4-2.0) Calcium 8.5 (8.5-10.1) mg/dL Total Bilirubin 0.40 (0.2-1.0) mg/dL AST 33 (15-37) U/L ALT 45 (12-78) U/L Alkaline Phosphatase 70 (46-116) U/L Troponin I (0.000-0.056) ng/ml NT-Pro-B Natriuret Pep 172 H (0-125) pg/ml Serum Total Protein 6.3 L (6.4-8.2) gm/dL Albumin 3.4 (3.4-5.0) g/dL - Progress Progress: improved Air Movement: good Blood Culture(s) Obtained: Yes Antibiotics given: Yes Discussed with : Lloyd Will see patient in: hospital (observation) Counseled pt/family regarding: lab results, diagnosis, rad results - Departure Time of Disposition: 15:48 Departure Disposition: Observation (pe DR Desai) Clinical Impression: CHF (congestive heart failure) Condition: Stable Critical Care Time: No Referrals: GIRMA JACKSON [Primary Care Provider] - Instructions: Heart Failure
[2017-11-23] MEDS ORDERED: MORPHINE SULFATE 4 MG INJ IV ONE ×2 (13:52→15:17)
[2017-11-23] MEDS ORDERED: Zofran 4 MG/2 ML VIAL IV ONE (13:52)
[2017-11-23 13:54] LABS: Lactic Acid 3.5 (0.4-2.0)
[2017-11-23] MEDS ORDERED: Zofran 4 MG/2 ML VIAL ONE (13:54)
[2017-11-23] MEDS ORDERED: MORPHINE SULFATE 4 MG INJ ONE ×2 (13:54→15:41)
--- NOTE | 2017-11-23 14:21 | XRAY ---
Indication: Chest pain and short of breath. Extremity swelling. Comparison: September 30, 2017. PA/lateral chest hyperinflated and now clear. Heart and mediastinal structures within normal limits. Stable left-sided single lead pacemaker. Bony thorax intact. Impression: Nonacute hyperinflated chest.
[2017-11-23 14:24] LABS: BASOPHIL % 0.5 % (0.0-0.4); Basophil (Absolute #) 0.04 (0-0.4); Eosinophil % 4.7 % (0.00-5.0); Eosinophil (Absolute #) 0.41 (0-0.5); Granulocyte Absolute (ANC) 6.02 (1.4-6.9); Granulocytes % 69.2 % (36.0-66.0); Hematocrit 49.3 % (42-50); Hemoglobin 15.5 gm/dl (12.5-18.0); Lymphocyte (Absolute #) 1.48 (1.0-4.6); Mean Corpuscular Hemoglobin 27.7 pg (26-32); Mean Corpuscular Hgb Concent. 31.4 g/dl (32-36); Mean Platelet Volume 11.6 fl (6-9.5); Monocyte (Absolute #) 0.75 (0.0-1.3); Monocytes % 8.6 % (0.0-12.0); Platelet Count 182 K/mm3 (150-450); Red Cell Distribution Width 15.8 % (11.5-14.0); White Blood Count 8.7 K/mm3 (4.0-10.5)
[2017-11-23 14:26] LABS: INR 2.19 (0.8-3.0)
[2017-11-23 14:29] LABS: PTT 41.9 SECONDS (24.1-36.1)
[2017-11-23 14:40] LABS: ALBUMIN 3.4 g/dL (3.4-5.0); ALKALINE PHOSPHATASE 70 U/L (46-116); ANION GAP 15.4 MEQ/L (5-15); BLOOD UREA NITROGEN 16 mg/dL (9-20); CHLORIDE 103 mEq/L (98-107); Calcium 8.5 mg/dL (8.5-10.1); Carbon Dioxide 23.7 mEq/L (21-32); Creatinine 1 1.13 mg/dl (0.55-1.30); EST GLOMERULAR FILTRATION RATE > 60 ML/MIN; Glucose 305 MG/DL (70-110); NT PRO BNP 172 pg/ml (0-125); Potassium 4.2 mEq/L (3.5-5.1); SGOT/AST 33 U/L (15-37); SGPT/ALT 45 U/L (12-78); SODIUM 138 mEq/L (136-145); Total Protein 6.3 gm/dL (6.4-8.2)
[2017-11-23] MEDS ORDERED: ROCEPHIN 1 Gm-D5w 50 ml Bag** 1 G/50 ML IVPB IV STA (15:48)
[2017-11-23] MEDS ORDERED: ROCEPHIN 1 Gm-D5w 50 ml Bag** 1 G/50 ML IVPB IV ONE (15:54)
[2017-11-23] MEDS: MORPHINE SULFATE 2 MG INJ IV PRN ×2 (17:32→20:43)
[2017-11-23] MEDS ORDERED: NovoLOG Insulin SQ PRN (18:27)
[2017-11-23] MEDS: Lasix 40 MG/4 ML IV SCH (20:32)
[2017-11-23] MEDS ORDERED: PROVENTIL COMMON CANISTER IH PRN (21:02)
[2017-11-23] MEDS ORDERED: DESYREL 50 MG PO PRN (22:00)
[2017-11-23] MEDS ORDERED: Lyrica 50MG PO SCH (22:00)
[2017-11-23] MEDS ORDERED: LIPITOR 40MG PO SCH (22:00)
[2017-11-23] MEDS: ZOCOR 20MG PO SCH (22:22)
[2017-11-23] MEDS: COREG 12.5 MG PO SCH (22:22)
[2017-11-23] MEDS: NEURONTIN 300 MG PO SCH (22:23)
[2017-11-23] MEDS: PERCOCET TABLET 5/325MG PO PRN (23:18)
[2017-11-23] MEDS: Glucophage 500 MG PO SCH (23:18)
[2017-11-24 05:40] LABS: Hematocrit 49.6 % (42-50); Hemoglobin 15.4 gm/dl (12.5-18.0); Mean Cell Volume 88.9 fl (78-100); Mean Corpuscular Hemoglobin 27.6 pg (26-32); Mean Platelet Volume 11.6 fl (6-9.5); Platelet Count 190 K/mm3 (150-450); Red Blood Count 5.58 M/mm3 (4.1-5.6); Red Cell Distribution Width 16.1 % (11.5-14.0); White Blood Count 10.5 K/mm3 (4.0-10.5)
[2017-11-24 06:10] LABS: ANION GAP 11.2 MEQ/L (5-15); BLOOD UREA NITROGEN 17 mg/dL (9-20); CHLORIDE 102 mEq/L (98-107); Calcium 8.6 mg/dL (8.5-10.1); Carbon Dioxide 29.8 mEq/L (21-32); EST GLOMERULAR FILTRATION RATE > 60 ML/MIN; Glucose 137 MG/DL (70-110); NT PRO BNP 152 pg/ml (0-125); SODIUM 139 mEq/L (136-145)
[2017-11-24] MEDS ORDERED: DESYREL 50 MG PO PRN (07:07)
[2017-11-24] MEDS ORDERED: Nitrostat 0.4 MG Tablet SL SCH (07:30)
[2017-11-24] MEDS: PERCOCET TABLET 5/325MG PO PRN ×4 (07:38→19:58)
[2017-11-24] MEDS: Glucophage 500 MG PO SCH ×2 (08:10→17:21)
--- NOTE | 2017-11-24 09:08 | XRAY ---
Indication: Short of breath. Comparison: One day earlier. PA/lateral chest demonstrates developing subtle bilateral perihilar interstitial opacities without consolidation/large effusion. Heart is not enlarged with stable left-sided single lead pacemaker.
[2017-11-24] MEDS ORDERED: NEURONTIN 300 MG PO PRN (09:30)
[2017-11-24] MEDS: ROCEPHIN 1 Gm-D5w 50 ml Bag** 1 G/50 ML IVPB IV SCH (09:45)
[2017-11-24] MEDS: Vitamin C 500 MG PO SCH (09:48)
[2017-11-24] MEDS: Klor Con 10 MEQ PO SCH ×2 (09:48→21:23)
[2017-11-24] MEDS: Mobic 7.5 MG PO SCH (09:49)
[2017-11-24] MEDS: LYRICA 100MG PO SCH ×3 (09:49→21:24)
[2017-11-24] MEDS: Effexor XR 75 MG PO SCH (09:49)
[2017-11-24] MEDS: NEURONTIN 300 MG PO SCH ×3 (09:49→21:24)
[2017-11-24] MEDS: COREG 12.5 MG PO SCH ×2 (09:49→21:22)
[2017-11-24] MEDS: Lasix 40 MG/4 ML IV SCH ×2 (09:49→17:21)
[2017-11-24] MEDS: Ecotrin 325 MG PO SCH (09:54)
[2017-11-24] MEDS: MAG-OX 400 PO SCH (09:54)
[2017-11-24] MEDS: ZYLOPRIM 300 MG PO SCH (09:54)
[2017-11-24] MEDS ORDERED: ZYLOPRIM 100 MG PO SCH (10:00)
[2017-11-24] MEDS ORDERED: SACUBITRIL PO SCH (10:00)
[2017-11-24] MEDS ORDERED: MAGNESIUM PO SCH (10:00)
[2017-11-24] MEDS ORDERED: NON-FORMULARY ITEM (Potassium Chloride [K-Dur] 20 MEQ) PO SCH (10:00)
[2017-11-24] MEDS ORDERED: INSULIN DEGLUDEC SQ SCH (10:00)
[2017-11-24] MEDS ORDERED: Spiriva 18 Mcg/Cap Inhaler IH SCH (10:00)
[2017-11-24] MEDS ORDERED: VALSARTAN PO SCH (10:00)
[2017-11-24] MEDS ORDERED: Coumadin 2 MG PO SCH (10:00)
[2017-11-24] MEDS: PATIENT OWN MEDICATION PO SCH ×2 (10:54→21:25)
[2017-11-24] MEDS: PATIENT OWN MEDICATION SQ SCH ×2 (11:08)
--- NOTE | 2017-11-24 16:08 | PCM.HP ---
History of Present Illness - Chief Complaint Chief Complaint: CHF History of Present Illness: Mr.DICKERSON HINKLE is a 47 year old male with DM, HTN, and CHF who c/o 2-3 d of increaseing SOB and leg edema. He came to ER and was admitted for CHF exacerbation. He c/o orthopnea as well. His BNP was not elevated and CXR initially was nl; today the CXR has some perihilar airspace opacities. He is feeling a little better this morning, less dyspnea on exertion. Is now on 40mg lasix IV BID. He has been taking his home lasix. States he just feels it's not working anymore. - Review of Systems Constitutional: No Fever Respiratory: Cough, Orthopnea, Short Of Breath Cardiac: Chest Pain (yesterday and the day before, L sided, no radiation, no palpitations) Musculoskeletal: Back Pain (chronic) Skin: Rash (has been treated by me for folliculitis recently) Medications & Allergies Home Medications: Home Medication List Atorvastatin Calcium [Lipitor 20MG Tablet] 80 mg PO HS 03/22/15 [History Confirmed 11/23/17] Magnesium 400 tab PO DAILY 07/10/15 [History Confirmed 11/23/17] Furosemide [Lasix] 40 mg PO BID #0 tablet 09/20/15 [Rx Confirmed 11/23/17] Aspirin EC 325 mg [Ecotrin 325 MG] 325 mg PO DAILY 01/18/16 [History Confirmed 11/23/17] Carvedilol 25 mg PO BID 01/18/16 [History Confirmed 11/23/17] Pregabalin [Lyrica 100Mg] 100 mg PO TID 01/18/16 [History Confirmed 11/23/17] Allopurinol 100 mg [Zyloprim 100 mg] 300 mg PO DAILY 02/07/16 [History Confirmed 11/23/17] Metformin HCl 500 mg [Glucophage 500 MG] 500 mg PO BID 02/07/16 [History Confirmed 11/23/17] Albuterol Sulfate [Ventolin Hfa] 18 gm IH Q4H PRN #1 hfa.aer.ad 09/18/16 [Rx Confirmed 11/23/17] Nitroglycerin 0.4 mg Tablet [Nitrostat 0.4 MG Tablet] 0.4 mg SL .[id number] #1 bottle 09/18/16 [Rx Confirmed 11/23/17] Ascorbic Acid/Ascorbate Sodium [Vit C-Lesli Hips 500 mg Chew Tb] 1,000 mg PO DAILY 09/24/17 [History Confirmed 11/23/17] Insulin Lispro [Humalog] 100 unit SQ UD 09/24/17 [History Confirmed 11/23/17] Liraglutide [Victoza 2-Devin] 1.2 mg SQ DAILY 09/24/17 [History Confirmed 11/23/17 ] Oxycodone HCl/Acetaminophen [Percocet 7.5-325 mg Tablet] 1 tab PO Q4-6HPRN PRN 09/24/17 [History Confirmed 11/23/17] Sacubitril/Valsartan [Entresto 24 mg-26 mg Tablet] 24 - 26 mg PO BID 09/24/17 [ History Confirmed 11/23/17] Tiotropium [place] [Spiriva] 18 inh IN DAILY 09/24/17 [History Confirmed ] Warfarin Sodium 5 mg PO DAILY 09/28/17 [History Confirmed 11/23/17] Gabapentin [Gabapentin] 300 mg PO TID 11/23/17 [History Confirmed 11/23/17] Meloxicam [Meloxicam] 15 mg PO DAILY 11/23/17 [History Confirmed 11/23/17] Potassium Chloride [K-Dur] 20 meq PO BID 11/23/17 [History Confirmed 11/23/17] Ropinirole HCl [Ropinirole HCl] 1 mg PO QHS 11/23/17 [History Confirmed 11/24/17 ] Trazodone HCl [Trazodone HCl] 100 mg PO QHS PRN 11/23/17 [History Confirmed 09/28] Venlafaxine HCl [Venlafaxine HCl ER] 150 mg PO DAILY 11/23/17 [History Confirmed 11/23/17] Gabapentin 300 mg PO HSPRN PRN 11/24/17 [History Confirmed 11/24/17] Insulin Degludec [Tresiba Flextouch U-200] 100 unit SQ QAM 11/24/17 [History Confirmed 11/24/17] Allergies/Adverse Reactions: Allergies Allergy/AdvReac Type Severity Reaction Status Date / Time No Known Drug Allergies Allergy Verified 09/28/17 08:35 - Past Medical History Past Medical History: Yes Neurological History: Migraines, Peripheral Neuropathy, Other ENT History: No Pertinent History Cardiac History: Congestive Heart Failure, Other Respiratory History: Pneumonia, Other Endocrine Medical History: Diabetes Type II, Other Musculoskelatal History: Other GI Medical History: Pancreatitis History: No Pertinent History Pyscho-Social History: No Pertinent History Male Reproductive Disorders: No Pertinent History Comment: AICD - Past Surgical History Past Surgical History: Yes Neuro Surgical History: No Pertinent History Cardiac History: Cardiac Catheterization, Cardiac Stent, Internal Defibrillator Respiratory Surgery: No Pertinent History GI Surgical History: Cholecystectomy, Hernia Repair Genitourinary Surgical Hx: No Pertinent History Musculskeletal Surgical Hx: Orthopedic Surgery Male Surgical History: No Pertinent History Other Surgical History: elbow - Social History Smoking Status: Former smoker Exposure to second hand smoke: No Alcohol: None Drug Use: none Significant Family History: heart disease, diabetes, hypertension - Physical Exam Vital Signs: Vital Signs - 24 hr Temp Pulse Resp BP Pulse Ox 11/24/17 12:57 97.7 F 86 20 113/71 97 11/24/17 08:30 76 12 96 11/24/17 07:15 97.8 F 68 18 100/55 94 L 11/24/17 04:00 97.6 F 76 16 86/47 94 L 11/24/17 00:00 98.0 F 66 18 101/63 91 L 11/23/17 23:24 94 L 11/23/17 21:41 93 H 20 93 L 11/23/17 20:00 97.3 F 91 H 18 143/66 90 L 11/23/17 16:39 97.6 F 93 H 20 109/69 95 Oxygen-Last 24 hours O2 Percentage 2 Liters = 28% O2 Percentage 3 Liters = 32% O2 Percentage 3 Liters = 32% O2 Percentage 2 Liters = 28% Oxygen Flowrate (L/min)-RT 3 Oxygen Flowrate (L/min)-RT 2 General Appearance: no apparent distress, obese Neurologic Exam: alert, oriented x 3, cooperative Eye Exam: eyes nml inspection Neck Exam: normal inspection, non-tender, supple, No lymphadenopathy Respiratory Exam: normal breath sounds, lungs clear, No crackles/rales, No rhonchi, No wheezing Cardiovascular Exam: regular rate/rhythm, normal heart sounds, No murmur Gastrointestinal/Abdomen Exam: soft, normal bowel sounds, No tenderness, No distention, No mass, No guarding, No rebound Back Exam: normal inspection, rash (scattered erythematous papules, fading, over upper/mid back) Skin Exam: warm, dry, rash (scattered erythematous papules, fading) Results - Labs Lab/Micro Results: Accuchecks Date 11/24/17 Date 11/24/17 Date 11/23/17 Time 10:55 Time 07:47 Accucheck Value: 185 Accucheck Value: 110 Accucheck Value: 156 Lab Results-Last 24 Hours 11/23/17 11/23/17 11/23/17 Range/Units 16:45 16:53 19:49 WBC (4.0-10.5) K/mm3 RBC (4.1-5.6) M/mm3 Hgb (12.5-18.0) gm/dl Hct (42-50) % MCV (78-100) fl MCH (26-32) pg MCHC (32-36) g/dl RDW (11.5-14.0) % Plt Count (150-450) K/mm3 MPV (6-9.5) fl Sodium (136-145) mEq/L Potassium (3.5-5.1) mEq/L Chloride (98-107) mEq/L Carbon Dioxide (21-32) mEq/L Anion Gap (5-15) MEQ/L BUN (9-20) mg/dL Creatinine (0.55-1.30) mg/dl Estimated GFR ML/MIN Glucose (70-110) MG/DL Lactic Acid 1.7 (0.4-2.0) Calcium (8.5-10.1) mg/dL Troponin I < 0.017 < 0.017 (0.000-0.056) ng/ml NT-Pro-B Natriuret Pep (0-125) pg/ml 11/23/17 11/24/17 11/24/17 Range/Units 22:59 02:19 05:00 WBC 10.5 (4.0-10.5) K/mm3 RBC 5.58 (4.1-5.6) M/mm3 Hgb 15.4 (12.5-18.0) gm/dl Hct 49.6 (42-50) % MCV 88.9 (78-100) fl MCH 27.6 (26-32) pg MCHC 31.0 L (32-36) g/dl RDW 16.1 H (11.5-14.0) % Plt Count 190 (150-450) K/mm3 MPV 11.6 H (6-9.5) fl Sodium (136-145) mEq/L Potassium (3.5-5.1) mEq/L Chloride (98-107) mEq/L Carbon Dioxide (21-32) mEq/L Anion Gap (5-15) MEQ/L BUN (9-20) mg/dL Creatinine (0.55-1.30) mg/dl Estimated GFR ML/MIN Glucose (70-110) MG/DL Lactic Acid (0.4-2.0) Calcium (8.5-10.1) mg/dL Troponin I < 0.017 < 0.017 (0.000-0.056) ng/ml NT-Pro-B Natriuret Pep (0-125) pg/ml 11/24/17 Range/Units 05:00 WBC (4.0-10.5) K/mm3 RBC (4.1-5.6) M/mm3 Hgb (12.5-18.0) gm/dl Hct (42-50) % MCV (78-100) fl MCH (26-32) pg MCHC (32-36) g/dl RDW (11.5-14.0) % Plt Count (150-450) K/mm3 MPV (6-9.5) fl Sodium 139 (136-145) mEq/L Potassium 4.0 (3.5-5.1) mEq/L Chloride 102 (98-107) mEq/L Carbon Dioxide 29.8 (21-32) mEq/L Anion Gap 11.2 (5-15) MEQ/L BUN 17 (9-20) mg/dL Creatinine 1.20 (0.55-1.30) mg/dl Estimated GFR > 60 ML/MIN Glucose 137 H (70-110) MG/DL Lactic Acid (0.4-2.0) Calcium 8.6 (8.5-10.1) mg/dL Troponin I (0.000-0.056) ng/ml NT-Pro-B Natriuret Pep 152 H (0-125) pg/ml Accuchecks Date 11/24/17 Date 11/24/17 Date 11/23/17 Time 10:55 Time 07:47 Accucheck Value: 185 Accucheck Value: 110 Accucheck Value: 156 - Radiology Impressions Radiology Exams & Impressions: Radiology Procedures Category Date Time Status ECHO W/2D AND DOPPLER [US] Routine Exams 11/24/17 07:00 Taken - Other Procedures and Tests Respiratory Therapy 11/23/17 21:02 Respiratory MDI UD 11/24/17 10:00 Respiratory MDI UD Assessment/Plan (1) CHF (congestive heart failure) Current Visit: Yes Status: Chronic Qualifiers: Heart failure chronicity: acute on chronic Assessment & Plan: echo pending. improving. I thin kthe original labs/imaging did not reflect the pt's condition. recheck in a.m. lasix 40mg IV BID; when nearing discharge, consider other diuretics. Code(s): I50.9 - HEART FAILURE, UNSPECIFIED (2) Diabetes mellitus, insulin dependent (IDDM), uncontrolled Current Visit: No Status: Chronic Qualifiers: Diabetes mellitus complication status: with neurologic complications Diabetes mellitus complication detail: with unspecified neuropathy Qualified Code(s): E10.40 - Type 1 diabetes mellitus with diabetic neuropathy, unspecified ; E10.65 - Type 1 diabetes mellitus with hyperglycemia; E10.65 - Type 1 diabetes mellitus with hyperglycemia; E10.65 - Type 1 diabetes mellitus with hyperglycemia; E10.65 - Type 1 diabetes mellitus with hyperglycemia Assessment & Plan: cover with ss insulin here in addition to home insulin. Code(s): E10.65 - TYPE 1 DIABETES MELLITUS WITH HYPERGLYCEMIA (3) Chest pain Current Visit: No Status: Resolved Qualifiers: Chest pain type: other chest pain Assessment & Plan: ID ruled out with troponin neg x5. Code(s): R07.9 - CHEST PAIN, UNSPECIFIED
[2017-11-24] MEDS ORDERED: Coumadin 5 MG PO SCH (18:00)
[2017-11-24] MEDS: ZOCOR 20MG PO SCH (21:24)
[2017-11-24] MEDS ORDERED: Requip 0.5 MG PO SCH (22:00)
[2017-11-24] MEDS ORDERED: ROPINIROLE HCL PO SCH (22:00)
[2017-11-25] MEDS: PERCOCET TABLET 5/325MG PO PRN ×3 (01:04→09:36)
[2017-11-25 04:04] VITALS: O2SAT 92
[2017-11-25 06:11] LABS: Hemoglobin 15.4 gm/dl (12.5-18.0); Mean Cell Volume 88.8 fl (78-100); Mean Corpuscular Hemoglobin 27.9 pg (26-32); Mean Corpuscular Hgb Concent. 31.4 g/dl (32-36); Mean Platelet Volume 11.6 fl (6-9.5); Platelet Count 178 K/mm3 (150-450); Red Blood Count 5.52 M/mm3 (4.1-5.6); Red Cell Distribution Width 15.9 % (11.5-14.0); White Blood Count 9.7 K/mm3 (4.0-10.5)
[2017-11-25 06:31] LABS: ANION GAP 12.9 MEQ/L (5-15); BLOOD UREA NITROGEN 18 mg/dL (9-20); CHLORIDE 102 mEq/L (98-107); Calcium 8.5 mg/dL (8.5-10.1); Creatinine 1 1.05 mg/dl (0.55-1.30); EST GLOMERULAR FILTRATION RATE > 60 ML/MIN; Glucose 189 MG/DL (70-110); Potassium 4.4 mEq/L (3.5-5.1); SODIUM 141 mEq/L (136-145)
[2017-11-25 07:16] VITALS: BP 107/68; PULSE 94
[2017-11-25] MEDS: Glucophage 500 MG PO SCH (07:50)
--- NOTE | 2017-11-25 09:13 | PCM.DS ---
Discharge Summary Date of Admission: 11/23/17 16:30 Admitting Physician: MILY PALMA Primary Care Provider: GIRMA JACKSON Allergies Allergies No Known Drug Allergies Allergy (Verified 09/28/17 08:35) Hospital Summary - Hospital Course Hospital Course: Pt had LE edema and increasing SOB at home, came to hospital and has been treated for CHF exacerbation with IV lasix. Yesterday he felt better, and today he is back to baseline. He had an echo cardiogram which is pending. Troponins were negative. CXR was initially clear, then showed some perihilar opacities. - Vitals & Intake/Output Vital Signs: Vital Signs Temperature 98.5 F 11/25/17 07:15 Pulse Rate 94 H 11/25/17 07:15 Respiratory Rate 18 11/25/17 07:15 Blood Pressure 107/68 11/25/17 07:15 O2 Sat by Pulse Oximetry 92 L 11/25/17 07:15 Oxygen-Last Documented O2 Percentage 3 Liters = 32% Intake & Output: Intake & Output 11/22/17 11/23/17 11/24/17 11/25/17 11:59 11:59 11:59 11:59 Intake Total 2640 1920 Output Total 1900 2650 Balance 740 -730 Weight 122.3 kg 122.7 kg - Lab Result Diagrams: 11/25/17 05:55 11/25/17 05:55 Lab Results-Last 24 Hrs: Accuchecks Date 11/24/17 Date 11/24/17 Time 16:27 Time 10:55 Accucheck Value: 159 Accucheck Value: 214 Accucheck Value: 146 Accucheck Value: 185 Lab Results-Last 24 Hours 11/25/17 11/25/17 Range/Units 05:55 05:55 WBC 9.7 (4.0-10.5) K/mm3 RBC 5.52 (4.1-5.6) M/mm3 Hgb 15.4 (12.5-18.0) gm/dl Hct 49.0 (42-50) % MCV 88.8 (78-100) fl MCH 27.9 (26-32) pg MCHC 31.4 L (32-36) g/dl RDW 15.9 H (11.5-14.0) % Plt Count 178 (150-450) K/mm3 MPV 11.6 H (6-9.5) fl Sodium 141 (136-145) mEq/L Potassium 4.4 (3.5-5.1) mEq/L Chloride 102 (98-107) mEq/L Carbon Dioxide 30.0 (21-32) mEq/L Anion Gap 12.9 (5-15) MEQ/L BUN 18 (9-20) mg/dL Creatinine 1.05 (0.55-1.30) mg/dl Estimated GFR > 60 ML/MIN Glucose 189 H (70-110) MG/DL Calcium 8.5 (8.5-10.1) mg/dL Micro Results-Entire Visit: Accuchecks Date 11/24/17 Date 11/24/17 Time 16:27 Time 10:55 Accucheck Value: 159 Accucheck Value: 214 Accucheck Value: 146 Accucheck Value: 185 - Radiology Exams Ordered Rad Exams-Entire Visit: Radiology Procedures Category Date Time Status ECHO W/2D AND DOPPLER [US] Routine Exams 11/24/17 07:00 Taken - Procedures and Test Procedures and Tests throughout Hospitalization: Therapy Orders & Screens 11/23/17 17:01 RT Screen per Nursing Assess ONCE Comment: Protocol Order Physician Instructions: Greater than 3 points order RT Admission Screen Reason For Exam: Triggered on Admission Diagnosis: CHF Diagnosis: CHF Pneumonia: No Home O2: Yes: at night Asthma: No CHF: Yes Home CPAP/BIPAP: No Home Nebs/MDI: No Total Points: 8 11/23/17 21:02 Respiratory MDI UD Comment: ALBUTEROL MDI Q4PRN Diagnosis: CHF 11/24/17 10:00 Respiratory MDI UD Comment: SPIRIVA QAM Diagnosis: CHF Discharge Exam General Appearance: no apparent distress, alert Neurologic Exam: oriented x 3, cooperative Skin Exam: normal color, warm, dry, No rash Respiratory Exam: normal breath sounds, lungs clear, No crackles/rales, No rhonchi, No wheezing Cardiovascular Exam: regular rate/rhythm, normal heart sounds, No murmur Extremity Exam: No pedal edema, No swelling Final Diagnosis/Problem List - Final Discharge Diagnosis/Problem (1) CHF (congestive heart failure) Current Visit: Yes Status: Chronic Assessment & Plan: Doing much better - will send home on bumex. (2) Diabetes mellitus, insulin dependent (IDDM), uncontrolled Current Visit: No Status: Chronic (3) Insomnia Current Visit: Yes Status: Acute Assessment & Plan: Pt is on trazodone 100mg and states it doesn't work very well - will try 150 mg po qhs at home. (4) COPD exacerbation Current Visit: No Status: Acute Assessment & Plan: also treating with rocepadelan; home on cefdinir to finish 1 wk of abx. - Discharge Disposition: Home, Self-Care Condition: Stable Prescriptions: New Bumetanide 1 mg [Bumex 1 mg] 3 mg PO BID DIURETIC #60 tablet Cefdinir 300 mg [Omnicef 300 mg] 300 mg PO BID #10 capsule Trazodone HCl 150 mg PO DAILY PRN #30 tablet PRN Reason: Insomnia Continue Atorvastatin Calcium [Lipitor 20MG Tablet] 80 mg PO HS Magnesium 400 tab PO DAILY Pregabalin [Lyrica 100Mg] 100 mg PO TID Carvedilol 25 mg PO BID Aspirin EC 325 mg [Ecotrin 325 MG] 325 mg PO DAILY Allopurinol 100 mg [Zyloprim 100 mg] 300 mg PO DAILY Metformin HCl 500 mg [Glucophage 500 MG] 500 mg PO BID Albuterol Sulfate [Ventolin Hfa] 18 gm IH Q4H PRN #1 hfa.aer.ad PRN Reason: Shortness Of Breath Nitroglycerin 0.4 mg Tablet [Nitrostat 0.4 MG Tablet] 0.4 mg SL [id number] #1 bottle Tiotropium [place] [Spiriva] 18 inh IN DAILY Sacubitril/Valsartan [Entresto 24 mg-26 mg Tablet] 24 - 26 mg PO BID Liraglutide [Victoza 2-Devin] 1.2 mg SQ DAILY Ascorbic Acid/Ascorbate Sodium [Vit C-Lesli Hips 500 mg Chew Tb] 1,000 mg PO DAILY Oxycodone HCl/Acetaminophen [Percocet 7.5-325 mg Tablet] 1 tab PO Q4-6HPRN PRN PRN Reason: Pain Insulin Lispro [Humalog] 100 unit SQ UD Warfarin Sodium 5 mg PO DAILY Potassium Chloride [K-Dur] 20 meq PO BID Venlafaxine HCl [Venlafaxine HCl ER] 150 mg PO DAILY Ropinirole HCl 1 mg PO QHS Insulin Degludec [Tresiba Flextouch U-200] 100 unit SQ QAM Discontinued Furosemide [Lasix] 40 mg PO BID #0 tablet Trazodone HCl [Trazodone HCl] 100 mg PO QHS PRN PRN Reason: Insomnia Gabapentin [Gabapentin] 300 mg PO TID Meloxicam [Meloxicam] 15 mg PO DAILY Gabapentin 300 mg PO HSPRN PRN PRN Reason: Pain Instructions: Heart Failure Follow up with: GIRMA JACKSON [Primary Care Provider] -
[2017-11-25] MEDS: Effexor XR 75 MG PO SCH (09:37)
[2017-11-25] MEDS: Klor Con 10 MEQ PO SCH (09:37)
[2017-11-25] MEDS: Vitamin C 500 MG PO SCH (09:37)
[2017-11-25] MEDS: COREG 12.5 MG PO SCH (09:37)
[2017-11-25] MEDS: PATIENT OWN MEDICATION SQ SCH ×2 (09:38→09:39)
[2017-11-25] MEDS: ZYLOPRIM 300 MG PO SCH (09:38)
[2017-11-25] MEDS: ROCEPHIN 1 Gm-D5w 50 ml Bag** 1 G/50 ML IVPB IV SCH (09:38)
[2017-11-25] MEDS: MAG-OX 400 PO SCH (09:38)
[2017-11-25] MEDS: LYRICA 100MG PO SCH (09:38)
[2017-11-25] MEDS: Ecotrin 325 MG PO SCH (09:38)
[2017-11-25] MEDS: PATIENT OWN MEDICATION PO SCH (09:39)
[2017-11-25] MEDS: Mobic 7.5 MG PO SCH (09:52)
[2017-11-25] MEDS: NEURONTIN 300 MG PO SCH (09:52)
[2017-11-25] MEDS ORDERED: BUMEX 1 MG PO SCH (10:00)
== END 2017-11-25 10:30 | disposition home or self-care (01) ==
LOC: ED 13:08 → MED SURG 16:30
PROVIDERS: ADMIT Family Medicine; ATTEND Family Medicine
DX: I50.9 Heart failure, unspecified (principal); G47.00 Insomnia, unspecified; J44.1 Chronic obstructive pulmonary disease with (acute) exacerbation; E10.65 Type 1 diabetes mellitus with hyperglycemia; E10.40 Type 1 diabetes mellitus with diabetic neuropathy, unspecified; Z79.4 Long term (current) use of insulin; I10 Essential (primary) hypertension; Z79.899 Other long term (current) drug therapy; K86.1 Other chronic pancreatitis; Z95.810 Presence of automatic (implantable) cardiac defibrillator; R07.9 Chest pain, unspecified
CPT/HCPCS: 36000; 36415; 71046; 80048; 80053; 82962; 83605; 83880; 84484; 85025; 85027; 85610; 85730; 87040; 93041; 93268; 93306; 94640; 94760; 94762; 96365; 96374; 96375; 99285; G0378; J0696; J1940; J2270; J2405; A9270-GY

== ENCOUNTER 2018-07-13 08:23 | Emergency (ER) | payer MEDICARE, OTHER ==
--- NOTE | 2018-07-13 08:45 | ERPHSYRPT ---
- History of Present Illness Time Seen by Provider: 07/13/18 08:34 Source: patient Exam Limitations: no limitations Patient Subjective Stated Complaint: pt states he was moving a dvd player 3 days ago when he fell stepping off his porch. reports right sided rib pain, states pain is worse with movement and inspiration. Triage Nursing Assessment: pt is aox3, pupils perrl, afebrile, radial pulses strong and equal, resps easy and non labored, skin pink warm dry. tenderness localized to right rib area. skin is intact. Physician History: 48-year-old white male with history of chronic pain, migraines, peripheral neuropathy, atherosclerotic coronary artery disease, CHF, pneumonia, diabetes type 2, osteoarthritis. Patient is complaining of pain in his right upper anterior chest worse with palpation movement and breathing symptoms for 3 days. Patient states he was moving a DVD player when he fell injuring his chest. He states he is not having any shortness of breath he has no nausea no vomiting no other complaints. Past medical history includes chronic pain, atherosclerotic coronary artery disease, migraines, peripheral neuropathy, congestive heart failure, pneumonia, diabetes type 2, osteoarthritis, pancreatitis, I medic implantable cardiac defibrillator. Past medical history includes cardiac catheter, cardiac stents, internal defibrillator, cholecystectomy, hernia repair, orthopedic surgery on the patient 's elbow,. Social history patient is a former smoker Timing/Duration: day(s) (3 days) Severity: moderate Modifying Factors: Improves With: movement, other (deep breathing) Associated Symptoms: chest pain (pain right upper anterio chest with deeep breathing and movement), No nausea, No vomiting, No abdominal pain, No shortness of breath, No heartburn, No diaphoresis, No cough, No chills, No fever , No headaches, No loss of appetite, No malaise, No rash, No syncope, No seizure , No weakness Allergies/Adverse Reactions: No Known Drug Allergies Allergy (Verified 07/13/18 08:36) Home Medications: Atorvastatin Calcium [Lipitor 20MG Tablet] 80 mg PO HS 03/22/15 [History] Magnesium 400 tab PO DAILY 07/10/15 [History] Aspirin EC 325 mg [Ecotrin 325 MG] 325 mg PO DAILY 01/18/16 [History] Carvedilol 25 mg PO BID 01/18/16 [History] Pregabalin [Lyrica 100Mg] 100 mg PO TID 01/18/16 [History] Allopurinol 100 mg [Zyloprim 100 mg] 300 mg PO DAILY 02/07/16 [History] Metformin HCl 500 mg [Glucophage 500 MG] 500 mg PO BID 02/07/16 [History] Ascorbic Acid/Ascorbate Sodium [Vit C-Lesli Hips 500 mg Chew Tb] 1,000 mg PO DAILY 09/24/17 [History] Insulin Lispro [Humalog] 100 unit SQ UD 09/24/17 [History] Liraglutide [Victoza 2-Devin] 1.2 mg SQ DAILY 09/24/17 [History] Oxycodone HCl/Acetaminophen [Percocet 7.5-325 mg Tablet] 1 tab PO Q4-6HPRN PRN 09/24/17 [History] Sacubitril/Valsartan [Entresto 24 mg-26 mg Tablet] 24 - 26 mg PO BID 09/24/17 [ History] Tiotropium [place] [Spiriva] 18 inh IN DAILY 09/24/17 [History] Warfarin Sodium 5 mg PO DAILY 09/28/17 [History] Potassium Chloride [K-Dur] 20 meq PO BID 11/23/17 [History] Ropinirole HCl 1 mg PO QHS 11/23/17 [History] Venlafaxine HCl [Venlafaxine HCl ER] 150 mg PO DAILY 11/23/17 [History] Insulin Degludec [Tresiba Flextouch U-200] 100 unit SQ QAM 11/24/17 [History] Hx Tetanus, Diphtheria Vaccination/Date Given: Yes Hx Influenza Vaccination/Date Given: No Hx Pneumococcal Vaccination/Date Given: No Immunizations Up to Date: Yes - Review of Systems Constitutional: No Fever, No Chills Eyes: No Symptoms Ears, Nose, & Throat: No Symptoms Respiratory: Other (pain right upper anterior chest with breathing and movement. ), No Cough, No Dyspnea Cardiac: Chest Pain (pain right upper anteriorchest with breathing and movement) Abdominal/Gastrointestinal: No Abdominal Pain, No Nausea, No Vomiting, No Diarrhea Genitourinary Symptoms: No Dysuria Musculoskeletal: No Back Pain, No Neck Pain Skin: No Rash Neurological: No Dizziness, No Focal Weakness, No Sensory Changes Psychological: No Symptoms Endocrine: No Symptoms All Other Systems: Reviewed and Negative - Past Medical History Pertinent Past Medical History: Yes Neurological History: Migraines, Peripheral Neuropathy, Other ENT History: No Pertinent History Cardiac History: Hypertension, Myocardial Infarction ([place]) Respiratory History: Pneumonia, Other Endocrine Medical History: Diabetes Type II Musculoskeletal History: Other GI Medical History: Pancreatitis History: No Pertinent History Psycho-Social History: No Pertinent History Male Reproductive Disorders: No Pertinent History Other Medical History: AICD - Past Surgical History Past Surgical History: Yes Neuro Surgical History: No Pertinent History Cardiac: Internal Defibrillator, Pacemaker Respiratory: No Pertinent History Gastrointestinal: Cholecystectomy, Hernia Repair Genitourinary: No Pertinent History Musculoskeletal: Orthopedic Surgery Male Surgical History: No Pertinent History Other Surgical History: elbow - Social History Smoking Status: Never smoker Exposure to second hand smoke: No Alcohol Use: Socially Drug Use: none Patient Lives Alone: No Significant Family History: heart disease, diabetes, hypertension - Nursing Vital Signs Nursing Vital Signs: Initial Vital Signs Temperature 97.8 F 07/13/18 08:28 Pulse Rate 83 07/13/18 08:28 Respiratory Rate 20 07/13/18 08:28 Blood Pressure 110/78 07/13/18 08:28 O2 Sat by Pulse Oximetry 96 07/13/18 08:28 Pain Scale Pain Intensity 9 - Physical Exam General Appearance: mild distress Eye Exam: PERRL/EOMI, eyes nml inspection Ears, Nose, Throat Exam: normal ENT inspection, TMs normal, pharynx normal, moist mucous membranes Neck Exam: normal inspection, non-tender, supple, full range of motion Respiratory Exam: normal breath sounds, chest tenderness (Pain right anterior upper chest with breathing and movement), lungs clear, airway intact, No respiratory distress, No diminished breath sounds, No accessory muscle use, No prolonged expirations, No crackles/rales, No rhonchi, No wheezing, No stridor, No pleural rub Cardiovascular Exam: regular rate/rhythm, normal heart sounds, normal peripheral pulses Gastrointestinal/Abdomen Exam: soft, normal bowel sounds, No tenderness, No mass Back Exam: normal inspection, normal range of motion, No CVA tenderness, No vertebral tenderness Extremity Exam: normal inspection, normal range of motion, pelvis stable Neurologic Exam: alert, oriented x 3, cooperative, normal mood/affect, nml cerebellar function, nml station & gait, sensation nml, No motor deficits Skin Exam: normal color, warm, dry, No rash Lymphatic Exam: No adenopathy SpO2 Interpretation: normal (96%) SpO2: 96 Oxygen Delivery: Room Air - Course Nursing assessment & vital signs reviewed: Yes - Radiology Exams Right Ribs X-ray Interpretation: Discussed w/ radiologist (x-ray right ribs: Mild acromioclavicular degenerative arthropathy. Epigastric ingested medication/ pil. Cholecystectomy clips and partially visualized cardio pacer lead. No other bony, articular, or soft tissue abnormalities.) Chest X-ray Interpretation: Discussed w/ radiologist (chest x-ray: Normal heart and lungs and left sided bleed pacemaker bony thorax intact no new/acute findings) Ordered Tests: Active Orders 24 hr Category Date Time Status EKG-ER Only STAT Care 07/13/18 08:38 Active CHEST 1 VIEW (PORTABLE) Stat Exams 07/13/18 08:40 Completed RIBS UNILATERAL Stat Exams 07/13/18 09:11 Completed - Progress Progress: improved Progress Note: 07/13/18 09:40 This is a 48-year-old white male with history of chronic pain, migraines peripheral neuropathy congestive heart failure pneumonia, diabetes type 2, arthritis, pancreatitis, atherosclerotic coronary artery disease. He arrives with complaint of pain in his right upper anterior chest and ribs symptoms for 3 days he states he fell and struck his chest on a DVD player. Patient has pain worse with breathing and movement he is point tender in the right upper anterior chest. Patient's EKG is remarkable for sinus rhythm, 81 bpm normal axis left bundle branch block no changes since November 23, 2017 chest x-ray and right ribs negative for fractures normal heart and lungs pacer defibrillator in place. Will go ahead and give patient morphine 4 mg IM. Patient is on the hydrocodone and Lyrica at home for pain he is to resume this. - Departure Time of Disposition: 09:43 Departure Disposition: Home Clinical Impression: Rib pain Chest wall contusion Qualifiers: Encounter type: initial encounter Laterality: right Qualified Code(s): S20.211A - Contusion of right front wall of thorax, initial encounter Condition: Fair Critical Care Time: No Referrals: GIRMA JACKSON [Primary Care Provider] - Instructions: Bruised Rib Additional Instructions: Return home. Pain medications as prescribed by your family doctor/pain automation control integrator. Avoid repetitive bending twisting lifting pulling. Follow-up with your family doctor if symptoms worse no better in 48 hours or persist longer than one week. Return for acute distress or for severe symptoms.
--- NOTE | 2018-07-13 09:21 | XRAY ---
Indication: Pain following fall 3 days ago. Comparison: None 2 views of the right ribs demonstrates mild acromioclavicular degenerative arthropathy, epigastric ingested medication/pill, cholecystectomy clips, and partially visualized cardiopacer lead. No other bony, articular, or soft tissue abnormalities.
--- NOTE | 2018-07-13 09:21 | XRAY ---
Indication: Right-sided pain following fall 3 days ago. Comparison: November 24, 2017. Portable chest demonstrates normal heart and lungs again with left-sided single lead pacemaker. Bony thorax intact. No new/acute findings.
[2018-07-13] MEDS ORDERED: MORPHINE SULFATE 4 MG INJ IM ONE (09:39)
[2018-07-13] MEDS ORDERED: MORPHINE SULFATE 4 MG INJ ONE (09:50)
[2018-07-13 10:20] VITALS: BP 93/73; PULSE 67; O2SAT 100
== END 2018-07-13 10:20 | disposition home or self-care (01) ==
LOC: ED 08:23
DX: R07.81 Pleurodynia (principal); S20.211A Contusion of right front wall of thorax, initial encounter; W17.89XA Other fall from one level to another, initial encounter; I25.10 Atherosclerotic heart disease of native coronary artery without angina pectoris; G62.9 Polyneuropathy, unspecified; I50.9 Heart failure, unspecified; E11.9 Type 2 diabetes mellitus without complications; Z79.4 Long term (current) use of insulin; M19.90 Unspecified osteoarthritis, unspecified site; Z95.810 Presence of automatic (implantable) cardiac defibrillator; Z79.899 Other long term (current) drug therapy; I25.2 Old myocardial infarction
CPT/HCPCS: 71045; 71100; 93005; 96372; 99284; J2270

== ENCOUNTER 2018-11-14 14:04 | Emergency (ER) | payer MEDICARE ==
[2018-11-14] MEDS ORDERED: BABY ASPIRIN 81 MG CHEW PO ONE (14:10)
[2018-11-14] MEDS ORDERED: Sodium Chloride 0.9% 1000 ML 1,000 ML IV SCH (14:15)
[2018-11-14] MEDS ORDERED: Sodium Chloride 0.9% 1000 ML 1,000 ML ONE (14:25)
[2018-11-14 14:26] LABS: Hematocrit 49.9 % (42-50); Hemoglobin 15.9 gm/dl (12.5-18.0); Mean Cell Volume 94.9 fl (78-100); Mean Corpuscular Hemoglobin 30.2 pg (26-32); Mean Corpuscular Hgb Concent. 31.9 g/dl (32-36); Mean Platelet Volume 10.8 fl (6-9.5); Platelet Count 227 K/mm3 (150-450); Red Blood Count 5.26 M/mm3 (4.1-5.6); Red Cell Distribution Width 14.9 % (11.5-14.0); White Blood Count 7.2 K/mm3 (4.0-10.5)
[2018-11-14 14:32] LABS: INR 4.97 (0.8-3.0); PROTIME 58.8 SECONDS (8.83-12.87)
[2018-11-14] MEDS ORDERED: NITRO-BID 2% UD PACKETS TOP ONE (14:39)
[2018-11-14] MEDS ORDERED: Zofran 4 MG/2 ML VIAL IV ONE (14:39)
[2018-11-14] MEDS ORDERED: Hydromorphone 1 mg/ml Ampule IV ONE (14:41)
[2018-11-14] MEDS ORDERED: NITRO-BID 2% UD PACKETS ONE (14:43)
[2018-11-14] MEDS ORDERED: Zofran 4 MG/2 ML VIAL ONE (14:43)
[2018-11-14] MEDS ORDERED: Hydromorphone 1 mg/ml Ampule ONE (14:43)
[2018-11-14 14:46] LABS: ALKALINE PHOSPHATASE 124 U/L (38-126); ANION GAP 14.7 MEQ/L (5-15); BLOOD UREA NITROGEN 16 mg/dL (9-20); CHLORIDE 103 mmol/L (98-107); Calcium 8.9 mg/dL (8.4-10.2); Carbon Dioxide 25 mmol/L (22-30); Creatinine 1 0.71 mg/dL (0.66-1.25); Glucose 203 mg/dL (74-106); NT PRO BNP 107 pg/mL (0-450); Potassium 4.2 mmol/L (3.5-5.1); SGOT/AST 51 U/L (17-59); SGPT/ALT 51 U/L (0-50); SODIUM 138 mmol/L (137-145); Total Protein 7.1 g/dL (6.3-8.2)
--- NOTE | 2018-11-14 15:16 | ERPHSYRPT ---
- History of Present Illness Time Seen by Provider: 11/14/18 14:30 Patient Subjective Stated Complaint: Pt states "About 3 days ago I started to have chest pain. It is getting worse and worse. I have had several heart attacks and I have stents placed" Triage Nursing Assessment: Pt alert and oriented X 3, skin pwd. PT ambualtes with a limp, pt has knee brace on his left knee. Pt able to speak in clear full sentences. Pt in no apparent respiratory distress. Physician History: PATIENT WITH A HISTORY OF COPD, CHF, TYPE 2 DIABETES, CORONARY ARTERY DISEASE, MYOCARDIAL INFARCTIONS X 6, CORONARY STENT X 1 COMPLAINS OF SUBSTERNAL CHEST PAINS FOR 3 DAYS, HAS NO RELIEF AFTER TAKING MULTIPLE DOSE OF SUBLINGL Timing/Duration: day(s) Activities at Onset: none Location: substernal Chest Pain Radiation: no radiation Severity of Pain-Max: moderate Severity of Pain-Current: moderate Modifying Factors: Improves With: nothing Associated Symptoms: denies symptoms Prior Chest Pain/Cardiac Workup: cardiac cath Nitro Today/Relief: 0.4 mg x 2, mild relief Aspirin Treatment Today: 81 mg x 4, provided at home Allergies/Adverse Reactions: No Known Drug Allergies Allergy (Verified 07/13/18 08:36) Home Medications: Atorvastatin Calcium [Lipitor 20MG Tablet] 80 mg PO HS 03/22/15 [History] Magnesium 400 tab PO DAILY 07/10/15 [History] Aspirin EC 325 mg [Ecotrin 325 MG] 325 mg PO DAILY 01/18/16 [History] Carvedilol 25 mg PO BID 01/18/16 [History] Pregabalin [Lyrica 100Mg] 100 mg PO TID 01/18/16 [History] Allopurinol 100 mg [Zyloprim 100 mg] 300 mg PO DAILY 02/07/16 [History] Metformin HCl 500 mg [Glucophage 500 MG] 500 mg PO BID 02/07/16 [History] Ascorbic Acid/Ascorbate Sodium [Vit C-Lesli Hips 500 mg Chew Tb] 1,000 mg PO DAILY 09/24/17 [History] Insulin Lispro [Humalog] 100 unit SQ UD 09/24/17 [History] Liraglutide [Victoza 2-Devin] 1.2 mg SQ DAILY 09/24/17 [History] Oxycodone HCl/Acetaminophen [Percocet 7.5-325 mg Tablet] 1 tab PO Q4-6HPRN PRN 09/24/17 [History] Sacubitril/Valsartan [Entresto 24 mg-26 mg Tablet] 24 - 26 mg PO BID 09/24/17 [ History] Tiotropium [place] [Spiriva] 18 inh IN DAILY 09/24/17 [History] Warfarin Sodium 5 mg PO DAILY 09/28/17 [History] Potassium Chloride [K-Dur] 20 meq PO BID 11/23/17 [History] Venlafaxine HCl [Venlafaxine HCl ER] 150 mg PO DAILY 11/23/17 [History] Insulin Degludec [Tresiba Flextouch U-200] 100 unit SQ QAM 11/24/17 [History] Empagliflozin [Jardiance] 10 mg PO DAILY 11/14/18 [History] Spironolactone [Aldactone] 50 mg PO DAILY 11/14/18 [History] Hx Tetanus, Diphtheria Vaccination/Date Given: Yes Hx Influenza Vaccination/Date Given: No Hx Pneumococcal Vaccination/Date Given: No Immunizations Up to Date: Yes - Review of Systems Constitutional: No Fever, No Chills Eyes: No Symptoms Ears, Nose, & Throat: No Symptoms Respiratory: No Symptoms, No Cough, No Dyspnea Cardiac: No Symptoms, No Chest Pain, No Edema, No Syncope Abdominal/Gastrointestinal: No Symptoms, No Abdominal Pain, No Nausea, No Vomiting, No Diarrhea Genitourinary Symptoms: No Symptoms, No Dysuria Musculoskeletal: No Symptoms, No Back Pain, No Neck Pain Skin: No Symptoms, No Rash Neurological: No Dizziness, No Focal Weakness, No Sensory Changes Psychological: No Symptoms Endocrine: No Symptoms All Other Systems: Reviewed and Negative - Past Medical History Pertinent Past Medical History: Yes Neurological History: Migraines, Peripheral Neuropathy, Other ENT History: No Pertinent History Cardiac History: Hypertension, Myocardial Infarction ([place]) Respiratory History: Pneumonia, Other Endocrine Medical History: Diabetes Type II Musculoskeletal History: Other GI Medical History: Pancreatitis History: No Pertinent History Psycho-Social History: No Pertinent History Male Reproductive Disorders: No Pertinent History Other Medical History: AICD - Past Surgical History Past Surgical History: Yes Neuro Surgical History: No Pertinent History Cardiac: Internal Defibrillator, Pacemaker Respiratory: No Pertinent History Gastrointestinal: Cholecystectomy, Hernia Repair Genitourinary: No Pertinent History Musculoskeletal: Orthopedic Surgery Male Surgical History: No Pertinent History Other Surgical History: elbow - Social History Smoking Status: Former smoker Exposure to second hand smoke: No Alcohol Use: Socially Drug Use: none Patient Lives Alone: No Significant Family History: heart disease, diabetes, hypertension - Nursing Vital Signs Nursing Vital Signs: Initial Vital Signs Temperature 98.6 F 11/14/18 14:18 Pulse Rate 94 H 11/14/18 14:18 Respiratory Rate 16 11/14/18 14:18 Blood Pressure 106/74 11/14/18 14:18 O2 Sat by Pulse Oximetry 94 L 11/14/18 14:18 Pain Scale Pain Intensity 5 - Physical Exam General Appearance: no apparent distress (APPEARS IN NO ACUTE DISTRESS), alert Eye Exam: PERRL/EOMI, eyes nml inspection Ears, Nose, Throat Exam: normal ENT inspection, moist mucous membranes Neck Exam: normal inspection, non-tender, supple, full range of motion Respiratory Exam: normal breath sounds, lungs clear, No respiratory distress Cardiovascular Exam: regular rate/rhythm, normal heart sounds Gastrointestinal/Abdomen Exam: soft, normal bowel sounds, No tenderness, No mass Back Exam: normal inspection, No CVA tenderness, No vertebral tenderness Extremity Exam: normal inspection, normal range of motion Neurologic Exam: alert, oriented x 3, cooperative, normal mood/affect, sensation nml, No motor deficits Skin Exam: normal color, warm, dry SpO2 Interpretation: normal SpO2: 98 - Course EKG Interpreted by Me: RATE, Sinus Rhythm, NORMAL AXIS - Radiology Exams Chest X-ray Interpretation: Interpreted by me, No Infiltrates (NO EVIDENCE OF INFILTRATES, LEFT HEMITHORAX DEFIBRILLATOR) Ordered Tests: Active Orders 24 hr Category Date Time Status Administrative Specialist STAT Care 11/14/18 14:11 Active EKG-ER Only STAT Care 11/14/18 14:10 Active IV Insertion STAT Care 11/14/18 14:10 Active Oxygen-ED Only Nasal Cannula 2 lpm Care 11/14/18 14:10 Active CHEST 1 VIEW (PORTABLE) Stat Exams 11/14/18 14:11 Completed CBC W DIFF Stat Lab 11/14/18 14:22 Completed CMP Stat Lab 11/14/18 14:22 Completed Manual Differential NC Stat Lab 11/14/18 14:22 Completed NT PRO BNP Stat Lab 11/14/18 14:22 Completed PROTIME WITH INR Stat Lab 11/14/18 14:22 Completed TROPONIN Q3H Lab 11/14/18 14:22 Completed TROPONIN Q3H Lab 11/14/18 17:15 Ordered TROPONIN Q3H Lab 11/14/18 20:15 Ordered TROPONIN Q3H Lab 11/14/18 23:15 Ordered TROPONIN Q3H Lab 11/15/18 02:15 Ordered Medication Summary Generic Name Dose Route Start Last Admin Trade Name Freq PRN Reason Stop Dose Admin Sodium Chloride 1,000 mls @ 50 mls/hr 11/14/18 14:15 11/14/18 14:29 Sodium Chloride 0.9% 1000 Ml IV 12/14/18 14:14 50 mls/hr .Q20H DESTINEE Administration Discontinued Medications Generic Name Dose Route Start Last Admin Trade Name Freq PRN Reason Stop Dose Admin Aspirin 324 mg 11/14/18 14:10 11/14/18 14:39 Baby Aspirin 81 Mg Chew PO 11/14/18 14:11 Not Given STAT ONE Hydromorphone HCl 1 mg 11/14/18 14:41 11/14/18 14:44 Hydromorphone 1 Mg/Ml Ampule IV 11/14/18 14:42 1 mg STAT ONE Administration Hydromorphone HCl Confirm 11/14/18 14:43 Hydromorphone 1 Mg/Ml Ampule Administered 11/14/18 14:44 Dose 1 mg .ROUTE .STK-MED ONE Nitroglycerin 1 gm 11/14/18 14:39 11/14/18 14:45 Nitro-Bid 2% Ud Packets TOP 11/14/18 14:40 1 gm STAT ONE Administration Nitroglycerin Confirm 11/14/18 14:43 Nitro-Bid 2% Ud Packets Administered 11/14/18 14:44 Dose 1 gm .ROUTE .STK-MED ONE Ondansetron HCl 4 mg 11/14/18 14:39 11/14/18 14:45 Zofran 4 Mg/2 Ml Vial IV 11/14/18 14:40 4 mg STAT ONE Administration Ondansetron HCl Confirm 11/14/18 14:43 Zofran 4 Mg/2 Ml Vial Administered 11/14/18 14:44 Dose 4 mg .ROUTE .STK-MED ONE Lab/Rad Data: Laboratory Result Diagrams 11/14/18 14:22 11/14/18 14:22 Laboratory Results 11/14/18 11/14/18 11/14/18 Range/Units 14:22 14:22 14:22 WBC (4.0-10.5) K/mm3 RBC (4.1-5.6) M/mm3 Hgb (12.5-18.0) gm/dl Hct (42-50) % MCV (78-100) fl MCH (26-32) pg MCHC (32-36) g/dl RDW (11.5-14.0) % Plt Count (150-450) K/mm3 MPV (6-9.5) fl Segmented Neutrophils (36.-66.) % Lymphocytes (Manual) (24-44) % Monocytes (Manual) (0.0-12.0) % Platelet Estimate (NORMAL) RBC Morphology Poikilocytosis Anisocytosis PT 58.8 H (8.83-12.87) SECONDS INR 4.97 H (0.8-3.0) Sodium 138 (137-145) mmol/L Potassium 4.2 (3.5-5.1) mmol/L Chloride 103 (98-107) mmol/L Carbon Dioxide 25 (22-30) mmol/L Anion Gap 14.7 (5-15) MEQ/L BUN 16 (9-20) mg/dL Creatinine 0.71 (0.66-1.25) mg/dL Estimated GFR > 60.0 ML/MIN Glucose 203 H (74-106) mg/dL Calcium 8.9 (8.4-10.2) mg/dL Total Bilirubin 0.60 (0.2-1.3) mg/dL AST 51 (17-59) U/L ALT 51 H (0-50) U/L Alkaline Phosphatase 124 (38-126) U/L Troponin I < 0.012 (0.000-0.034) ng/mL NT-Pro-B Natriuret Pep 107 (0-450) pg/mL Serum Total Protein 7.1 (6.3-8.2) g/dL Albumin 4.0 (3.5-5.0) g/dL 11/14/18 Range/Units 14:22 WBC 7.2 (4.0-10.5) K/mm3 RBC 5.26 (4.1-5.6) M/mm3 Hgb 15.9 (12.5-18.0) gm/dl Hct 49.9 (42-50) % MCV 94.9 (78-100) fl MCH 30.2 (26-32) pg MCHC 31.9 L (32-36) g/dl RDW 14.9 H (11.5-14.0) % Plt Count 227 (150-450) K/mm3 MPV 10.8 H (6-9.5) fl Segmented Neutrophils 68 H (36.-66.) % Lymphocytes (Manual) 26 (24-44) % Monocytes (Manual) 6 (0.0-12.0) % Platelet Estimate NORMAL (NORMAL) RBC Morphology ABNORMAL Poikilocytosis 1+ Anisocytosis 1+ PT (8.83-12.87) SECONDS INR (0.8-3.0) Sodium (137-145) mmol/L Potassium (3.5-5.1) mmol/L Chloride (98-107) mmol/L Carbon Dioxide (22-30) mmol/L Anion Gap (5-15) MEQ/L BUN (9-20) mg/dL Creatinine (0.66-1.25) mg/dL Estimated GFR ML/MIN Glucose (74-106) mg/dL Calcium (8.4-10.2) mg/dL Total Bilirubin (0.2-1.3) mg/dL AST (17-59) U/L ALT (0-50) U/L Alkaline Phosphatase (38-126) U/L Troponin I (0.000-0.034) ng/mL NT-Pro-B Natriuret Pep (0-450) pg/mL Serum Total Protein (6.3-8.2) g/dL Albumin (3.5-5.0) g/dL - Progress Progress: improved Progress Note: 11/14/18 15:47 PATIENT TOOK 4 BABY ASPIRIN THIS AM, ADMINISTERED NITROPASTE 1" ANTERIOR CHEST WALL, UNABLE TO GIVE SL NTG DUE TO BP 103/62, ADMINISTERED DILAUDID 1MG IV AND PAIN IMPROVED TO PAIN SCALE 5/10 Discussed with DrMia: Other (DISCUSSED WITH DR KOLB AT [place] [id number] ACCEPTS TRANSFER VIA [facility]) - Departure Time of Disposition: 16:15 Departure Disposition: Transfer Clinical Impression: ACUTE CHEST PAIN Condition: Stable Critical Care Time: No Referrals: GIRMA JACKSON [Primary Care Provider] -
[2018-11-14 15:23] LABS: ANISOCYTOSIS 1+; Lymphocytes 26 % (24-44); Monocyte 6 % (0.0-12.0); Neutrophils 68 % (36.-66.); Platelet Estimate NORMAL (NORMAL); Poikilocytosis 1+; Total Cells Counted 100
[2018-11-14 16:08] VITALS: BP 90/59; PULSE 100
--- NOTE | 2018-11-14 16:09 | XRAY ---
Indication: Chest pain. Comparison: July 13, 2018. Portable chest again demonstrates normal heart, lungs, and bony thorax with left-sided single lead pacemaker.
[2018-11-14 16:13] VITALS: O2SAT 98
== END 2018-11-14 16:21 | disposition short-term general hospital (02) ==
LOC: ED 14:04
DX: R07.9 Chest pain, unspecified (principal); G62.9 Polyneuropathy, unspecified; I25.2 Old myocardial infarction; E11.9 Type 2 diabetes mellitus without complications; I10 Essential (primary) hypertension; Z95.810 Presence of automatic (implantable) cardiac defibrillator; J44.9 Chronic obstructive pulmonary disease, unspecified; I50.9 Heart failure, unspecified; I25.10 Atherosclerotic heart disease of native coronary artery without angina pectoris; Z79.4 Long term (current) use of insulin; Z79.899 Other long term (current) drug therapy
CPT/HCPCS: 36000; 36415; 71045; 80053; 83880; 84484; 85025; 85610; 93005; 93041; 96360; 96374; 96375; 99285; J1170; J2405; A9270-GY

== ENCOUNTER 2019-04-26 09:58 | Emergency (ER) | payer MEDICARE ==
[2019-04-26] MEDS ORDERED: ULTRAM 50 MG PO ONE (10:50)
[2019-04-26] MEDS ORDERED: ULTRAM 50 MG ONE (10:52)
--- NOTE | 2019-04-26 10:56 | XRAY ---
Indication: Pain following fall. Comparison: None 2 views of the left lower leg demonstrates moderate medial knee degenerative changes, and mild scattered vascular calcifications. No other bony, articular, or soft tissue abnormalities.
--- NOTE | 2019-04-26 11:37 | ERPHSYRPT ---
- History of Present Illness Source: patient Exam Limitations: no limitations Patient Subjective Stated Complaint: STATES FELL TWO DAYS AGO AND IS NOW HAVING PAIN LEFT LOWER LEG. Triage Nursing Assessment: AMBULATED TO ROOM PER SELF WITH LEFT KNEE BRACE IN PLACE. Physician History: Pt is a 49 y/o male that presented to the ED with pain in L LE. Pt states, he fell on his L knee, but now he has pain in the leg on the L, and the pain is laterally. Pt did not take anything for pain. He did ice the area, but had no relief. Method of Injury: fell Occurred: days ago Quality: constant Severity of Pain-Max: mild Severity of Pain-Current: mild Lower Extremities Pain: leg: left (Pain in the leg. No change in ROM. Lateral discomfort) Modifying Factors: Improves With: pain medication Associated Symptoms: none Allergies/Adverse Reactions: No Known Drug Allergies Allergy (Verified 07/13/18 08:36) Home Medications: Atorvastatin Calcium [Lipitor 20MG Tablet] 80 mg PO HS 03/22/15 [History] Magnesium 400 tab PO DAILY 07/10/15 [History] Aspirin EC 325 mg [Ecotrin 325 MG] 325 mg PO DAILY 01/18/16 [History] Carvedilol 25 mg PO BID 01/18/16 [History] Pregabalin [Lyrica 100Mg] 100 mg PO TID 01/18/16 [History] Allopurinol 100 mg [Zyloprim 100 mg] 300 mg PO DAILY 02/07/16 [History] Ascorbic Acid/Ascorbate Sodium [Vit C-Lesli Hips 500 mg Chew Tb] 1,000 mg PO DAILY 09/24/17 [History] Insulin Lispro [Humalog] 100 unit SQ UD 09/24/17 [History] Liraglutide [Victoza 2-Devin] 1.2 mg SQ DAILY 09/24/17 [History] Sacubitril/Valsartan [Entresto 24 mg-26 mg Tablet] 24 - 26 mg PO BID 09/24/17 [ History] Potassium Chloride [K-Dur] 20 meq PO BID 11/23/17 [History] Venlafaxine HCl [Venlafaxine HCl ER] 150 mg PO DAILY 11/23/17 [History] Insulin Degludec [Tresiba Flextouch U-200] 100 unit SQ QAM 11/24/17 [History] Empagliflozin [Jardiance] 10 mg PO DAILY 11/14/18 [History] Spironolactone [Aldactone] 50 mg PO DAILY 11/14/18 [History] Clopidogrel Bisulfate 75 mg [PLAVIX 75 MG Tablet] 75 mg PO DAILY 04/26/19 [History] Hydrocodone/APAP 10/325 mg [[place] 10/325 MG Tablet] 1 tab PO Q4H PRN PRN 04/26/19 [History] Ropinirole HCl [Requip] 1 mg PO HS 04/26/19 [History] Zolpidem Tartrate 10 mg [Ambien 10 MG] 10 mg PO HS 04/26/19 [History] Hx Tetanus, Diphtheria Vaccination/Date Given: No Hx Influenza Vaccination/Date Given: No Hx Pneumococcal Vaccination/Date Given: No - Review of Systems Constitutional: No Fever, No Chills Respiratory: No Cough, No Dyspnea Cardiac: No Chest Pain, No Edema, No Syncope Musculoskeletal: Myalgias (of the L leg) Skin: No Rash Neurological: No Dizziness, No Focal Weakness, No Sensory Changes - Past Medical History Pertinent Past Medical History: Yes Neurological History: Migraines, Peripheral Neuropathy, Other ENT History: No Pertinent History Cardiac History: Hypertension, Myocardial Infarction ([place]) Respiratory History: Pneumonia, Other Endocrine Medical History: Diabetes Type II Musculoskeletal History: Other GI Medical History: Pancreatitis History: No Pertinent History Psycho-Social History: No Pertinent History Male Reproductive Disorders: No Pertinent History Other Medical History: AICD - Past Surgical History Past Surgical History: Yes Neuro Surgical History: No Pertinent History Cardiac: Angioplasty, Cardiac Catheterization, Cardiac Stent, Internal Defibrillator, Pacemaker Respiratory: No Pertinent History Gastrointestinal: Cholecystectomy, Hernia Repair Genitourinary: No Pertinent History Musculoskeletal: Orthopedic Surgery Male Surgical History: No Pertinent History Other Surgical History: elbow - Social History Smoking Status: Former smoker Exposure to second hand smoke: No Alcohol Use: Socially Drug Use: none Patient Lives Alone: No Significant Family History: heart disease, diabetes, hypertension - Nursing Vital Signs Nursing Vital Signs: Initial Vital Signs Temperature 97.6 F 04/26/19 10:06 Pulse Rate 90 04/26/19 10:06 Respiratory Rate 16 04/26/19 10:06 Blood Pressure 107/70 04/26/19 10:06 O2 Sat by Pulse Oximetry 96 04/26/19 10:06 Pain Scale Pain Intensity 8 - Physical Exam General Appearance: alert Eyes, Ears, Nose, Throat Exam: moist mucous membranes Neck Exam: non-tender, supple Back Exam: normal inspection, No vertebral tenderness Hips Exam: bilateral: non-tender, normal inspection Legs Exam: right leg: non-tender, left leg: pain, bilateral leg: normal inspection, normal range of motion, no evidence of injury SpO2: 96 - Radiology Exams Left Lower Leg X-ray Interpretation: Reviewed by me (moderate medial knee degenerative changes. Mild vascular calcifications. No other bony articular or soft tissue abnormalities.) Ordered Tests: Active Orders 24 hr Category Date Time Status LOWER LEG Stat Exams 04/26/19 10:47 Completed Medication Summary Discontinued Medications Generic Name Dose Route Start Last Admin Trade Name Freq PRN Reason Stop Dose Admin Tramadol HCl 100 mg 04/26/19 10:50 04/26/19 10:53 Ultram 50 Mg PO 04/26/19 10:51 100 mg STAT ONE Administration Tramadol HCl Confirm 04/26/19 10:52 Ultram 50 Mg Administered 04/26/19 10:53 Dose 100 mg .ROUTE .STK-MED ONE - Progress Discussed with : Jil Will see patient in: office Counseled pt/family regarding: need for follow-up - Departure Departure Disposition: Home Clinical Impression: Left leg pain Condition: Stable Critical Care Time: No Referrals: GIRMA JACKSON [Primary Care Provider] - Additional Instructions: Ice the leg and use OTC meds for pain as needed. F/U with PCP.
[2019-04-26 11:51] VITALS: BP 147/77; PULSE 87; O2SAT 95
== END 2019-04-26 11:48 | disposition home or self-care (01) ==
LOC: ED 09:58
DX: M79.605 Pain in left leg (principal); Z95.810 Presence of automatic (implantable) cardiac defibrillator; I10 Essential (primary) hypertension
CPT/HCPCS: 73590; 99283; A9270-GY

== ENCOUNTER 2019-09-23 11:05 | Emergency (ER) | payer MEDICARE ==
--- NOTE | 2019-09-23 11:09 | ERPHSYRPT ---
- History of Present Illness Time Seen by Provider: 09/23/19 11:09 Source: patient, family Exam Limitations: no limitations Physician History: 49 y/o white male presents with injury to his left ankle. pt twisted it yesterday. pain not improved. pt takes percocet daily for chronic back and knee pain. Method of Injury: twisted Occurred: yesterday Quality: aching (mild) Severity of Pain-Max: mild Severity of Pain-Current: mild Lower Extremities Pain: ankle: left Modifying Factors: Improves With: movement Associated Symptoms: other (hurts to bear weight.) Allergies/Adverse Reactions: No Known Drug Allergies Allergy (Verified 09/23/19 11:22) Home Medications: Atorvastatin Calcium [Lipitor 20MG Tablet] 80 mg PO HS 03/22/15 [History] Magnesium 400 tab PO DAILY 07/10/15 [History] Aspirin EC 325 mg [Ecotrin 325 MG] 325 mg PO DAILY 01/18/16 [History] Carvedilol 25 mg PO BID 01/18/16 [History] Pregabalin [Lyrica 100Mg] 100 mg PO TID 01/18/16 [History] Allopurinol 100 mg [Zyloprim 100 mg] 300 mg PO DAILY 02/07/16 [History] Ascorbic Acid/Ascorbate Sodium [Vit C-Lesli Hips 500 mg Chew Tb] 1,000 mg PO DAILY 09/24/17 [History] Insulin Lispro [Humalog] 100 unit SQ UD 09/24/17 [History] Liraglutide [Victoza 2-Devin] 1.2 mg SQ DAILY 09/24/17 [History] Sacubitril/Valsartan [Entresto 24 mg-26 mg Tablet] 24 - 26 mg PO BID 09/24/17 [ History] Potassium Chloride [K-Dur] 20 meq PO BID 11/23/17 [History] Venlafaxine HCl [Venlafaxine HCl ER] 150 mg PO DAILY 11/23/17 [History] Insulin Degludec [Tresiba Flextouch U-200] 100 unit SQ QAM 11/24/17 [History] Empagliflozin [Jardiance] 10 mg PO DAILY 11/14/18 [History] Spironolactone [Aldactone] 50 mg PO DAILY 11/14/18 [History] Clopidogrel Bisulfate 75 mg [PLAVIX 75 MG Tablet] 75 mg PO DAILY 04/26/19 [History] Hydrocodone/APAP 10/325 mg [[place] 10/325 MG Tablet] 1 tab PO Q4H PRN PRN 04/26/19 [History] Ropinirole HCl [Requip] 1 mg PO HS 04/26/19 [History] Zolpidem Tartrate 10 mg [Ambien 10 MG] 10 mg PO HS 04/26/19 [History] Ezetimibe 10 mg PO DAILY 09/23/19 [History] Hx Tetanus, Diphtheria Vaccination/Date Given: No Hx Influenza Vaccination/Date Given: No Hx Pneumococcal Vaccination/Date Given: No - Review of Systems Constitutional: No Symptoms Eyes: No Symptoms Ears, Nose, & Throat: No Symptoms Respiratory: No Symptoms Cardiac: No Symptoms Abdominal/Gastrointestinal: No Symptoms Genitourinary Symptoms: No Symptoms Musculoskeletal: Injury (left ankle) Skin: No Symptoms Neurological: No Symptoms Psychological: No Symptoms Endocrine: No Symptoms Hematologic/Lymphatic: No Symptoms Immunological/Allergic: No Symptoms All Other Systems: Reviewed and Negative - Past Medical History Pertinent Past Medical History: Yes Neurological History: Migraines, Peripheral Neuropathy, Other ENT History: No Pertinent History Cardiac History: Hypertension, Myocardial Infarction ([place]) Respiratory History: Pneumonia, Other Endocrine Medical History: Diabetes Type II Musculoskeletal History: Other GI Medical History: Pancreatitis History: No Pertinent History Psycho-Social History: No Pertinent History Male Reproductive Disorders: No Pertinent History Other Medical History: AICD - Past Surgical History Past Surgical History: Yes Neuro Surgical History: No Pertinent History Cardiac: Angioplasty, Cardiac Catheterization, Cardiac Stent, Internal Defibrillator, Pacemaker Respiratory: No Pertinent History Gastrointestinal: Cholecystectomy, Hernia Repair Genitourinary: No Pertinent History Musculoskeletal: Orthopedic Surgery Male Surgical History: No Pertinent History Other Surgical History: elbow - Social History Smoking Status: Former smoker Exposure to second hand smoke: No Alcohol Use: Socially Drug Use: none Patient Lives Alone: No Significant Family History: heart disease, diabetes, hypertension - Nursing Vital Signs Nursing Vital Signs: Initial Vital Signs Temperature 97.7 F 09/23/19 11:10 Pulse Rate 98 H 09/23/19 11:10 Blood Pressure 116/73 09/23/19 11:10 O2 Sat by Pulse Oximetry 94 L 09/23/19 11:10 Pain Scale Pain Intensity 8 - Physical Exam General Appearance: no apparent distress, alert, anxiety Eyes, Ears, Nose, Throat Exam: normal ENT inspection, moist mucous membranes Neck Exam: normal inspection, non-tender, supple, full range of motion Cardiovascular/Respiratory Exam: chest non-tender Gastrointestinal/Abdominal Exam: non-tender Back Exam: normal inspection, normal range of motion, No CVA tenderness, No vertebral tenderness Hips Exam: bilateral: non-tender, normal inspection, normal range of motion, no evidence of injury Legs Exam: bilateral leg: non-tender, normal inspection, normal range of motion , no evidence of injury Knees Exam: bilateral knee: non-tender, normal inspection, normal range of motion, no evidence of injury Ankle Exam: right ankle: non-tender, normal range of motion, no evidence of injury, left ankle: normal inspection, soft tissue tenderness, swelling Foot Exam: bilateral foot: non-tender, normal inspection, normal range of motion , no evidence of injury Neuro/Tendon Exam: normal sensation, normal motor functions, normal tendon functions Mental Status Exam: alert, oriented x 3, cooperative Skin Exam: normal color, warm, dry SpO2 Interpretation: normal, borderline oxygenation O2 Delivery: Room Air - Course Nursing assessment & vital signs reviewed: Yes Ordered Tests: Active Orders 24 hr Category Date Time Status ANKLE (3 VIEWS) Stat Exams 09/23/19 11:20 Completed - Progress Progress: unchanged Progress Note: 09/23/19 12:05 xray left ankle-no acute fx or dislocation Counseled pt/family regarding: diagnosis, need for follow-up, rad results - Departure Departure Disposition: Home Clinical Impression: Ankle sprain Condition: Stable Critical Care Time: No Referrals: GIRMA JACKSON [Primary Care Provider] - Additional Instructions: ice pack to left ankle 3 times daily for 2 days. elevate left leg above level of heart when not ambulating. follow up with primary doctor for persistent symptoms Prescriptions: Carisoprodol 350 mg [Soma 350 mg] 350 mg PO Q8H PRN PRN #10 tablet PRN Reason: Muscle Spasms
[2019-09-23 11:22] VITALS: BP 116/73; PULSE 98; O2SAT 94
--- NOTE | 2019-09-23 12:02 | XRAY ---
Indication: Pain following twisting injury. Comparison: None 3 views of the left ankle demonstrates mild anterolateral soft tissue swelling and scattered vascular calcifications. No other bony, articular, or soft tissue abnormalities.
== END 2019-09-23 12:14 | disposition home or self-care (01) ==
LOC: ED 11:05
DX: S93.402A Sprain of unspecified ligament of left ankle, initial encounter (principal); X50.1XXA Overexertion from prolonged static or awkward postures, initial encounter; I10 Essential (primary) hypertension; E11.9 Type 2 diabetes mellitus without complications; G62.9 Polyneuropathy, unspecified; Z79.899 Other long term (current) drug therapy; I25.2 Old myocardial infarction; Z95.810 Presence of automatic (implantable) cardiac defibrillator
CPT/HCPCS: 73610; 99283

== ENCOUNTER 2020-06-17 13:07 | Emergency (ER) | payer MEDICARE ==
--- NOTE | 2020-06-17 13:25 | ERPHSYRPT ---
- History of Present Illness Time Seen by Provider: 06/17/20 13:20 Historian: patient Exam Limitations: no limitations Physician History: pt had onset of shortness of breath today and has noted that his implanted defib is making noises. mild CP and had CP af few days ago. no fever, no trauma, no N/V or abd pain. Timing/Duration: today Activities at Onset: none Quality: dullness Chest Pain Radiation: no radiation Severity of Pain-Max: mild Severity of Pain-Current: mild Associated Symptoms: shortness of breath Prior Chest Pain/Cardiac Workup: cardiac cath, recently seen/treated Nitro Today/Relief: no nitro taken today (pressure dropped prior to NTG in ER and could not give. ) Aspirin Treatment Today: 325 mg x 1, provided at home Allergies/Adverse Reactions: No Known Drug Allergies Allergy (Verified 06/17/20 13:19) Home Medications: Atorvastatin Calcium [Lipitor 20MG Tablet] 80 mg PO HS 03/22/15 [History] Magnesium 400 tab PO DAILY 07/10/15 [History] Aspirin EC 325 mg [Ecotrin 325 MG] 325 mg PO DAILY 01/18/16 [History] Pregabalin [Lyrica 100Mg] 100 mg PO TID 01/18/16 [History] carvediloL [Carvedilol] 12.5 mg PO BID 01/18/16 [History] Allopurinol 100 mg [Zyloprim 100 mg] 300 mg PO DAILY 02/07/16 [History] Ascorbic Acid/Ascorbate Sodium [Vit C-Lesli Hips 500 mg Chew Tb] 1,000 mg PO DAILY 09/24/17 [History] Insulin Lispro [Humalog] 100 unit SQ UD 09/24/17 [History] Liraglutide [Victoza 2-Devin] 1.2 mg SQ DAILY 09/24/17 [History] Sacubitril/Valsartan [Entresto 24 mg-26 mg Tablet] 24 - 26 mg PO BID 09/24/17 [History] Potassium Chloride [K-Dur] 10 meq PO BID 11/23/17 [History] Venlafaxine HCl [Venlafaxine HCl ER] 150 mg PO DAILY 11/23/17 [History] Insulin Degludec [Tresiba Flextouch U-200] 100 unit SQ QAM 11/24/17 [History] Empagliflozin [Jardiance] 25 mg PO DAILY 11/14/18 [History] Spironolactone [Aldactone] 50 mg PO DAILY 11/14/18 [History] Clopidogrel Bisulfate 75 mg [PLAVIX 75 MG Tablet] 75 mg PO DAILY 04/26/19 [History] Zolpidem Tartrate 10 mg [Ambien 10 MG] 10 mg PO HS 04/26/19 [History] Ezetimibe 10 mg PO DAILY 09/23/19 [History] Apixaban [Eliquis] 5 mg DAILY 06/17/20 [History] Fenofibrate,Micronized [Fenofibrate] 1 ea DAILY 06/17/20 [History] Insulin Degludec [Tresiba] 5 units DAILY 06/17/20 [History] Metformin HCl 500 mg [Glucophage 500 MG] 500 mg BID 06/17/20 [History] Niacin [Niaspan] 1 ea DAILY 06/17/20 [History] Pioglitazone 30 mg [Actos 30 MG] 1 ea DAILY 06/17/20 [History] Hx Tetanus, Diphtheria Vaccination/Date Given: No Hx Influenza Vaccination/Date Given: No Hx Pneumococcal Vaccination/Date Given: No - Review of Systems Constitutional: No Fever, No Chills Eyes: No Symptoms Ears, Nose, & Throat: No Symptoms Respiratory: Dyspnea, Dyspnea on Exertion (VENCES), No Cough Cardiac: Chest Pain, No Edema, No Syncope Abdominal/Gastrointestinal: No Abdominal Pain, No Nausea, No Vomiting, No Diarrhea Genitourinary Symptoms: No Dysuria Musculoskeletal: No Back Pain, No Neck Pain Skin: No Rash Neurological: No Dizziness, No Focal Weakness, No Sensory Changes Psychological: No Symptoms Endocrine: No Symptoms All Other Systems: Reviewed and Negative - Past Medical History Pertinent Past Medical History: Yes Neurological History: Migraines, Peripheral Neuropathy, Other ENT History: No Pertinent History Cardiac History: Hypertension, Myocardial Infarction (IA) Respiratory History: Pneumonia, Other Endocrine Medical History: Diabetes Type II Musculoskeletal History: Other GI Medical History: Pancreatitis History: No Pertinent History Psycho-Social History: No Pertinent History Male Reproductive Disorders: No Pertinent History Other Medical History: AICD - Past Surgical History Past Surgical History: Yes Neuro Surgical History: No Pertinent History Cardiac: Angioplasty, Cardiac Catheterization, Cardiac Stent, Internal Defibrillator, Pacemaker Respiratory: No Pertinent History Gastrointestinal: Cholecystectomy, Hernia Repair Genitourinary: No Pertinent History Musculoskeletal: Orthopedic Surgery Male Surgical History: No Pertinent History Other Surgical History: elbow - Social History Smoking Status: Former smoker Exposure to second hand smoke: No Alcohol Use: Socially Drug Use: none Patient Lives Alone: No Significant Family History: heart disease, diabetes, hypertension - Nursing Vital Signs Nursing Vital Signs: Initial Vital Signs Temperature 98.0 F 06/17/20 13:20 Pulse Rate 125 H 06/17/20 13:20 Respiratory Rate 16 06/17/20 13:20 Blood Pressure 126/107 06/17/20 13:20 O2 Sat by Pulse Oximetry 98 06/17/20 13:20 Pain Scale Pain Intensity 5 - Physical Exam General Appearance: no apparent distress, alert Eye Exam: PERRL/EOMI, eyes nml inspection Ears, Nose, Throat Exam: normal ENT inspection, moist mucous membranes Neck Exam: normal inspection, non-tender, supple, full range of motion Respiratory Exam: normal breath sounds, lungs clear, No respiratory distress Cardiovascular Exam: regular rate/rhythm, normal heart sounds Gastrointestinal/Abdomen Exam: soft, No tenderness, No mass Rectal Exam: deferred Back Exam: normal inspection, No CVA tenderness, No vertebral tenderness Extremity Exam: normal inspection, normal range of motion Neurologic Exam: alert, oriented x 3, cooperative, normal mood/affect, sensation nml, No motor deficits Skin Exam: normal color, warm, dry - Course Nursing assessment & vital signs reviewed: Yes EKG Interpreted by Me: A-fib, Right Bundle Branch Block, Non-specific ST Changes, Other (IVCD) - Radiology Exams Chest X-ray Interpretation: Reviewed by me, Other (increased interstitial markings) Ordered Tests: Active Orders 24 hr Category Date Time Status Synthetic Plasterer STAT Care 06/17/20 13:27 Active EKG-ER Only STAT Care 06/17/20 13:25 Active IV Insertion STAT Care 06/17/20 13:37 Active IV Insertion-2nd Peripheral STAT Care 06/17/20 13:37 Active Oxygen-ED Only Nasal Cannula 2 lpm Care 06/17/20 13:39 Active PO Fluid Challenge STAT Care 06/17/20 14:44 Active Pulse Oximetry (ED) STAT Care 06/17/20 13:25 Active CHEST 1 VIEW (PORTABLE) Stat Exams 06/17/20 14:40 Taken CBC W DIFF Stat Lab 06/17/20 13:20 Completed CMP Stat Lab 06/17/20 13:20 Completed D-DIMER QUANTITATIVE Stat Lab 06/17/20 13:20 Completed NT PRO BNP Stat Lab 06/17/20 13:20 Completed TROPONIN Q3H Lab 06/17/20 13:20 Completed TROPONIN Q3H Lab 06/17/20 16:30 Ordered TROPONIN Q3H Lab 06/17/20 19:30 Ordered TROPONIN Q3H Lab 06/17/20 22:30 Ordered TROPONIN Q3H Lab 06/18/20 01:30 Ordered UA W/RFX UR CULTURE Stat Lab 06/17/20 14:29 Completed Respiratory Therapy Assessment ONCE RT 06/17/20 14:51 Active Medication Summary Generic Name Dose Route Start Last Admin Trade Name Freq PRN Reason Stop Dose Admin Sodium Chloride 1,000 mls @ 100 mls/hr 06/17/20 13:30 06/17/20 13:43 Sodium Chloride 0.9% 1000 Ml IV 07/17/20 13:29 100 mls/hr .Q10H DESTINEE Administration Sodium Chloride 1,000 mls @ 999 mls/hr 06/17/20 14:29 06/17/20 14:34 Sodium Chloride 0.9% 1000 Ml IV 06/17/20 15:29 999 mls/hr .Q1H1M STA Administration Dopamine HCl/Dextrose 250 mls @ 21.262 mls/hr 06/17/20 14:47 Dopamine 400 Mg/D5w 250ml Premix IV 07/17/20 14:46 .[id number] PRN SEVERE HYPOTENSION Protocol 5 MCG/KG/MIN Discontinued Medications Generic Name Dose Route Start Last Admin Trade Name Freq PRN Reason Stop Dose Admin Albuterol Sulfate 2.5 mg 06/17/20 14:18 06/17/20 14:50 Proventil 2.5 Mg/3 Ml Neb IH 06/17/20 14:19 2.5 mg STAT ONE Administration Albuterol Sulfate Confirm 06/17/20 14:45 Proventil 2.5 Mg/3 Ml Neb Administered 06/17/20 14:46 Dose 2.5 mg IH .STK-MED ONE Sodium Chloride 1,000 mls @ 999 mls/hr 06/17/20 13:30 06/17/20 14:36 Sodium Chloride 0.9% 1000 Ml IV 06/17/20 14:30 Infused .Q1H1M STA Infusion Insulin Human Regular 5 unit 06/17/20 14:31 06/17/20 14:35 Humulin R IV 06/17/20 14:32 5 unit STAT ONE Administration Insulin Human Regular Confirm 06/17/20 14:34 Humulin R Administered 06/17/20 14:35 Dose 5 unit .ROUTE .STK-MED ONE Morphine Sulfate 4 mg 06/17/20 14:12 06/17/20 14:17 Morphine Sulfate 4 Mg Inj IV 06/17/20 14:13 4 mg STAT ONE Administration Morphine Sulfate Confirm 06/17/20 14:16 Morphine Sulfate 4 Mg Inj Administered 06/17/20 14:17 Dose 4 mg .ROUTE .STK-MED ONE Sodium Bicarbonate 50 meq 06/17/20 14:15 06/17/20 14:18 Sodium Bicarbonate 50 Meq/50 Ml Vial IV 06/17/20 14:16 50 meq STAT ONE Administration Sodium Bicarbonate Confirm 06/17/20 14:16 Sodium Bicarbonate 50 Meq/50 Ml Abboject Administered 06/17/20 14:17 Dose 50 meq IV .STK-MED ONE Lab/Rad Data: Laboratory Result Diagrams 06/17/20 13:20 06/17/20 13:20 Laboratory Results 06/17/20 06/17/20 06/17/20 Range/Units 14:29 13:20 13:20 WBC (4.0-10.5) K/mm3 RBC (4.1-5.6) M/mm3 Hgb (12.5-18.0) gm/dl Hct (42-50) % MCV (78-100) fl MCH (26-32) pg MCHC (32-36) g/dl RDW (11.5-14.0) % Plt Count (150-450) K/mm3 MPV (7.5-11.0) fl Gran % (36.0-66.0) % Eos # (Auto) (0-0.5) Absolute Lymphs (auto) (1.0-4.6) Absolute Monos (auto) (0.0-1.3) Lymphocytes % (24.0-44.0) % Monocytes % (0.0-12.0) % Eosinophils % (0.00-5.0) % Basophils % (0.0-0.4) % Absolute Granulocytes (1.4-6.9) Basophils # (0-0.4) D-Dimer 215 (215-500) ng/mL Sodium (137-145) mmol/L Potassium (3.5-5.1) mmol/L Chloride (98-107) mmol/L Carbon Dioxide (22-30) mmol/L Anion Gap (5-15) MEQ/L BUN (9-20) mg/dL Creatinine (0.66-1.25) mg/dL Estimated GFR ML/MIN Glucose (74-106) mg/dL Calcium (8.4-10.2) mg/dL Total Bilirubin (0.2-1.3) mg/dL AST (17-59) U/L ALT (0-50) U/L Alkaline Phosphatase (38-126) U/L Troponin I < 0.012 (0.000-0.034) ng/mL NT-Pro-B Natriuret Pep (0-450) pg/mL Serum Total Protein (6.3-8.2) g/dL Albumin (3.5-5.0) g/dL Urine Color COLORLESS (YELLOW) Urine Appearance CLEAR (CLEAR) Urine pH 7.0 (5-6) Ur Specific [place] 1.005 (1.005-1.025) Urine Protein NEGATIVE (Negative) Urine Ketones NEGATIVE (NEGATIVE) Urine Blood NEGATIVE (0-5) Julian/ul Urine Nitrite NEGATIVE (NEGATIVE) Urine Bilirubin NEGATIVE (NEGATIVE) Urine Urobilinogen NEGATIVE (0-1) mg/dL Ur Leukocyte Esterase NEGATIVE (NEGATIVE) Urine WBC (Auto) NONE (0-5) /HPF Urine RBC (Auto) NONE (0-2) /HPF U Epithel Cells (Auto) NONE (FEW) /HPF Urine Bacteria (Auto) NONE (NEGATIVE) /HPF Urine Culture Reflexed NO (NO) Urine Glucose >=500 (NEGATIVE) mg/dL 06/17/20 06/17/20 Range/Units 13:20 13:20 WBC 9.6 (4.0-10.5) K/mm3 RBC 4.31 (4.1-5.6) M/mm3 Hgb 13.2 (12.5-18.0) gm/dl Hct 41.9 L (42-50) % MCV 97.2 (78-100) fl MCH 30.6 (26-32) pg MCHC 31.5 L (32-36) g/dl RDW 15.1 H (11.5-14.0) % Plt Count 238 (150-450) K/mm3 MPV 11.0 (7.5-11.0) fl Gran % 58.6 (36.0-66.0) % Eos # (Auto) 0.41 (0-0.5) Absolute Lymphs (auto) 2.26 (1.0-4.6) Absolute Monos (auto) 1.25 (0.0-1.3) Lymphocytes % 23.6 L (24.0-44.0) % Monocytes % 13.1 H (0.0-12.0) % Eosinophils % 4.3 (0.00-5.0) % Basophils % 0.4 (0.0-0.4) % Absolute Granulocytes 5.61 (1.4-6.9) Basophils # 0.04 (0-0.4) D-Dimer (215-500) ng/mL Sodium 130 L (137-145) mmol/L Potassium 6.6 H* (3.5-5.1) mmol/L Chloride 98 (98-107) mmol/L Carbon Dioxide 19 L (22-30) mmol/L Anion Gap 20.0 H (5-15) MEQ/L BUN 57 H (9-20) mg/dL Creatinine 2.40 H (0.66-1.25) mg/dL Estimated GFR 30.7 ML/MIN Glucose 224 H (74-106) mg/dL Calcium 9.4 (8.4-10.2) mg/dL Total Bilirubin 0.80 (0.2-1.3) mg/dL AST 27 (17-59) U/L ALT 29 (0-50) U/L Alkaline Phosphatase 77 (38-126) U/L Troponin I (0.000-0.034) ng/mL NT-Pro-B Natriuret Pep 505 H (0-450) pg/mL Serum Total Protein 7.8 (6.3-8.2) g/dL Albumin 4.3 (3.5-5.0) g/dL Urine Color (YELLOW) Urine Appearance (CLEAR) Urine pH (5-6) Ur Specific [place] (1.005-1.025) Urine Protein (Negative) Urine Ketones (NEGATIVE) Urine Blood (0-5) Julian/ul Urine Nitrite (NEGATIVE) Urine Bilirubin (NEGATIVE) Urine Urobilinogen (0-1) mg/dL Ur Leukocyte Esterase (NEGATIVE) Urine WBC (Auto) (0-5) /HPF Urine RBC (Auto) (0-2) /HPF U Epithel Cells (Auto) (FEW) /HPF Urine Bacteria (Auto) (NEGATIVE) /HPF Urine Culture Reflexed (NO) Urine Glucose (NEGATIVE) mg/dL - Progress Progress: improved, re-examined Air Movement: good Progress Note: 06/17/20 14:55 interogation of pacer reveals no firing and no events, tech states that this may have been alrms the [pt heard but not indicating shock needed. 06/17/20 15:11 discussed with pt and Dr. 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 Blood Culture(s) Obtained: No Antibiotics given: No Discussed with Dr.: Other (/ Jo [facility]) Will see patient in: ED Counseled pt/family regarding: lab results, diagnosis, need for follow-up, rad results - Departure Departure Disposition: Transfer Clinical Impression: Shortness of breath, Chest pain at rest, New onset a-fib, Hyperkalemia, Hypotension, Acute renal failure (ARF) Condition: Critical Critical Care Time: Yes Critical Care Time(excluding separately billable procedures): Critical 105-134 mins (bp dropped to 70s and required resus with IVF and to correct K 125 minutes) Referrals: GIRMA ARMANDO [Primary Care Provider] -
[2020-06-17] MEDS ORDERED: Sodium Chloride 0.9% 1000 ML 1,000 ML ONE ×3 (13:29→14:34)
[2020-06-17] MEDS ORDERED: Sodium Chloride 0.9% 1000 ML 1,000 ML IV SCH (13:30)
[2020-06-17] MEDS ORDERED: Sodium Chloride 0.9% 1000 ML 1,000 ML IV STA ×2 (13:30→14:29)
[2020-06-17 13:53] LABS: Absolute Neutrophil Ct (ANC) 5.61 (1.4-6.9); BASOPHIL % 0.4 % (0.0-0.4); Basophil (Absolute #) 0.04 (0-0.4); Eosinophil % 4.3 % (0.00-5.0); Eosinophil (Absolute #) 0.41 (0-0.5); Hematocrit 41.9 % (42-50); Hemoglobin 13.2 gm/dl (12.5-18.0); Lymphocyte (Absolute #) 2.26 (1.0-4.6); Lymphocytes % 23.6 % (24.0-44.0); Mean Cell Volume 97.2 fl (78-100); Mean Corpuscular Hemoglobin 30.6 pg (26-32); Mean Corpuscular Hgb Concent. 31.5 g/dl (32-36); Monocyte (Absolute #) 1.25 (0.0-1.3); Monocytes % 13.1 % (0.0-12.0); Neutrophil % 58.6 % (36.0-66.0); Platelet Count 238 K/mm3 (150-450); Red Blood Count 4.31 M/mm3 (4.1-5.6); Red Cell Distribution Width 15.1 % (11.5-14.0); White Blood Count 9.6 K/mm3 (4.0-10.5)
[2020-06-17 14:06] LABS: ALBUMIN 4.3 g/dL (3.5-5.0); BILIRUBIN,TOTAL 0.8 mg/dL (0.2-1.3); Calcium 9.4 mg/dL (8.4-10.2); Creatinine 1 2.4 mg/dL (0.66-1.25); EST GLOMERULAR FILTRATION RATE 30.7 ML/MIN; Total Protein 7.8 g/dL (6.3-8.2)
[2020-06-17] MEDS ORDERED: MORPHINE SULFATE 4 MG INJ IV ONE (14:12)
[2020-06-17 14:14] LABS: Potassium 6.6 mmol/L (3.5-5.1)
[2020-06-17] MEDS ORDERED: Sodium Bicarbonate 50 MEQ/50 ML VIAL IV ONE (14:15)
[2020-06-17] MEDS ORDERED: SODIUM BICARBONATE 50 MEQ/50 ML ABBOJECT IV ONE (14:16)
[2020-06-17] MEDS ORDERED: MORPHINE SULFATE 4 MG INJ ONE (14:16)
[2020-06-17] MEDS ORDERED: PROVENTIL 2.5 MG/3 ML NEB IH ONE ×2 (14:18→14:45)
[2020-06-17] MEDS ORDERED: HUMULIN R IV ONE (14:31)
[2020-06-17] MEDS ORDERED: HUMULIN R ONE (14:34)
[2020-06-17 14:36] LABS: Appearance CLEAR (CLEAR); Bilirubin NEGATIVE (NEGATIVE); Blood NEGATIVE Ery/ul (0-5); Glucose >=500 mg/dL (NEGATIVE); Ketones NEGATIVE (NEGATIVE); Leukocyte Esterase NEGATIVE (NEGATIVE); Nitrite NEGATIVE (NEGATIVE); Protein,Urine Dip NEGATIVE (Negative); Specific Gravity 1.005 (1.005-1.025); Urobilinogen NEGATIVE mg/dL (0-1)
[2020-06-17] MEDS ORDERED: Dopamine 400 MG/D5W 250ML PREMIX 250 ML IV PRN (14:47)
[2020-06-17 15:12] VITALS: BP 88/60; PULSE 90; O2SAT 97
--- NOTE | 2020-06-17 22:00 | XRAY ---
Indication: Malfunctioning defibrillator. Comparison: November 14, 2018. Portable apical lordotic chest remains clear. Heart is not enlarged again with left-sided single-lead pacemaker. New coronary stent graft. Bony thorax intact. No acute findings.
== END 2020-06-17 15:44 | disposition short-term general hospital (02) ==
LOC: ED 13:07
DX: R06.02 Shortness of breath (principal); R07.9 Chest pain, unspecified; I48.91 Unspecified atrial fibrillation; E87.5 Hyperkalemia; I95.9 Hypotension, unspecified; N17.9 Acute kidney failure, unspecified; Z95.810 Presence of automatic (implantable) cardiac defibrillator; Z79.01 Long term (current) use of anticoagulants; Z79.899 Other long term (current) drug therapy; E11.9 Type 2 diabetes mellitus without complications; G62.9 Polyneuropathy, unspecified; I25.2 Old myocardial infarction
CPT/HCPCS: 36000; 36415; 71045; 80053; 81001; 83880; 84484; 85025; 85379; 93005; 93041; 94640; 94760; 96360; 96361; 96374; 96375; 99285; 99291; 99292; J1815; J2270; J7609; A9270-GY

== ENCOUNTER 2021-07-07 15:06 | Emergency (ER) | payer MEDICARE ==
[2021-07-07 16:10] LABS: Absolute Neutrophil Ct (ANC) 3.66 (1.4-6.9); BASOPHIL % 0.6 % (0.0-0.4); Basophil (Absolute #) 0.04 (0-0.4); Eosinophil % 5.8 % (0.00-5.0); Eosinophil (Absolute #) 0.38 (0-0.5); Hematocrit 40.2 % (42-50); Hemoglobin 12.7 gm/dl (12.5-18.0); Lymphocyte (Absolute #) 1.72 (1.0-4.6); Lymphocytes % 26.1 % (24.0-44.0); Mean Corpuscular Hgb Concent. 31.6 g/dl (32-36); Mean Platelet Volume 10.4 fl (7.5-11.0); Monocyte (Absolute #) 0.78 (0.0-1.3); Monocytes % 11.9 % (0.0-12.0); Neutrophil % 55.6 % (36.0-66.0); Platelet Count 204 K/mm3 (150-450); Red Blood Count 4.23 M/mm3 (4.1-5.6); White Blood Count 6.6 K/mm3 (4.0-10.5)
[2021-07-07 16:38] LABS: ALBUMIN 4.2 g/dL (3.5-5.0); ALKALINE PHOSPHATASE 70 U/L (38-126); ANION GAP 14.1 MEQ/L (5-15); BLOOD UREA NITROGEN 12 mg/dL (9-20); CHLORIDE 100 mmol/L (98-107); Calcium 9.1 mg/dL (8.4-10.2); Carbon Dioxide 28 mmol/L (22-30); Creatinine 1 0.99 mg/dL (0.66-1.25); EST GLOMERULAR FILTRATION RATE > 60.0 ML/MIN; Glucose 119 mg/dL (74-106); NT PRO BNP 104 pg/mL (0-900); SGOT/AST 70 U/L (17-59); SGPT/ALT 43 U/L (0-50); SODIUM 140 mmol/L (137-145); Total Protein 6.9 g/dL (6.3-8.2)
[2021-07-07 16:42] LABS: Potassium 2.8 mmol/L (3.5-5.1)
--- NOTE | 2021-07-07 16:54 | ERPHSYRPT ---
- History of Present Illness Time Seen by Provider: 07/07/21 16:51 Source: patient Exam Limitations: no limitations Patient Subjective Stated Complaint: pt reports BLE swelling and pain from the knees to bilat feet. denies injury. reports taking his daily medications per n ormal. Triage Nursing Assessment: pt is aox3, pupils perrl, afebrile, resps easy and non labored, cap refill < 3 seconds, pt skin pink warm dry, pt with minimal swelling to BLE. skin is intact, no pitting noted. Physician History: This 51-year-old male with significant past medical history of chronic combined systolic and diastolic congestive heart failure started having some swelling on his leg for last 3 to 4 days. He denies any chest pain shortness of breath nausea vomiting abdominal pain fever or chills. Patient also states that he has been taking his all his medication on regular basis. Timing/Duration: day(s) Activities at Onset: none Nitro Today/Relief: no nitro taken today Aspirin Treatment Today: no aspirin today Associated Symptoms: denies symptoms Allergies/Adverse Reactions: No Known Drug Allergies Allergy (Verified 07/07/21 15:45) Home Medications: Atorvastatin Calcium [Lipitor 20MG Tablet] 80 mg PO HS 03/22/15 [History] Magnesium 400 tab PO DAILY 07/10/15 [History] Aspirin EC 325 mg [Ecotrin 325 MG] 325 mg PO DAILY 01/18/16 [History] Pregabalin [Lyrica 100Mg] 100 mg PO TID 01/18/16 [History] carvediloL [Carvedilol] 12.5 mg PO BID 01/18/16 [History] Allopurinol 100 mg [Zyloprim 100 mg] 300 mg PO DAILY 02/07/16 [History] Ascorbic Acid/Ascorbate Sodium [Vit C-Lesli Hips 500 mg Chew Tb] 1,000 mg PO DAILY 09/24/17 [History] Insulin Lispro [Humalog] 100 unit SQ UD 09/24/17 [History] Liraglutide [Victoza 2-Devin] 1.2 mg SQ DAILY 09/24/17 [History] Sacubitril/Valsartan [Entresto 24 mg-26 mg Tablet] 24 - 26 mg PO BID 09/24/17 [History] Potassium Chloride [K-Dur] 10 meq PO BID 11/23/17 [History] Venlafaxine HCl [Venlafaxine HCl ER] 150 mg PO DAILY 11/23/17 [History] Insulin Degludec [Tresiba Flextouch U-200] 100 unit SQ QAM 11/24/17 [History] Empagliflozin [Jardiance] 25 mg PO DAILY 11/14/18 [History] Spironolactone [Aldactone] 50 mg PO DAILY 11/14/18 [History] Clopidogrel Bisulfate 75 mg [PLAVIX 75 MG Tablet] 75 mg PO DAILY 04/26/19 [History] Zolpidem Tartrate 10 mg [Ambien 10 MG] 10 mg PO HS 04/26/19 [History] Ezetimibe 10 mg PO DAILY 09/23/19 [History] Apixaban [Eliquis] 5 mg DAILY 06/17/20 [History] Fenofibrate,Micronized [Fenofibrate] 1 ea DAILY 06/17/20 [History] Insulin Degludec [Tresiba] 5 units DAILY 06/17/20 [History] Metformin HCl 500 mg [Glucophage 500 MG] 500 mg BID 06/17/20 [History] Niacin [Niaspan] 1 ea DAILY 06/17/20 [History] Pioglitazone 30 mg [Actos 30 MG] 1 ea DAILY 06/17/20 [History] Hx Tetanus, Diphtheria Vaccination/Date Given: Yes Hx Influenza Vaccination/Date Given: No Hx Pneumococcal Vaccination/Date Given: No Immunizations Up to Date: Yes Travel Risk - International Travel Have you traveled outside of the country in past 3 weeks: No - Coronavirus Screening Are you exhibiting any of the following symptoms?: No Close contact with a COVID-19 positive Pt in past 14-21 Days: No - Vaccine Status Have you recieved a Covid-19 vaccination: No - Review of Systems Constitutional: No Fever, No Chills Eyes: No Symptoms Ears, Nose, & Throat: No Symptoms Respiratory: No Cough, No Dyspnea Cardiac: Edema, No Chest Pain, No Syncope Abdominal/Gastrointestinal: No Abdominal Pain, No Nausea, No Vomiting, No Diarrhea Genitourinary Symptoms: No Dysuria Musculoskeletal: No Back Pain, No Neck Pain Skin: No Rash Neurological: No Dizziness, No Focal Weakness, No Sensory Changes Psychological: No Symptoms Endocrine: No Symptoms All Other Systems: Reviewed and Negative - Past Medical History Pertinent Past Medical History: Yes Neurological History: Migraines, Peripheral Neuropathy, Other ENT History: No Pertinent History Cardiac History: Hypertension, Myocardial Infarction ([place]) Respiratory History: Pneumonia, Other Endocrine Medical History: Diabetes Type II Musculoskeletal History: Other GI Medical History: Pancreatitis History: No Pertinent History Psycho-Social History: No Pertinent History Male Reproductive Disorders: No Pertinent History Other Medical History: AICD - Past Surgical History Past Surgical History: Yes Neuro Surgical History: No Pertinent History Cardiac: Angioplasty, Cardiac Catheterization, Cardiac Stent, Internal Defibrillator, Pacemaker Respiratory: No Pertinent History Gastrointestinal: Cholecystectomy, Hernia Repair Genitourinary: No Pertinent History Musculoskeletal: Orthopedic Surgery Male Surgical History: No Pertinent History Other Surgical History: elbow - Social History Smoking Status: Former smoker Exposure to second hand smoke: No Alcohol Use: Socially Drug Use: none Patient Lives Alone: No Significant Family History: heart disease, diabetes, hypertension - Nursing Vital Signs Nursing Vital Signs: Initial Vital Signs Temperature 98.0 F 07/07/21 15:39 Pulse Rate 83 07/07/21 15:39 Respiratory Rate 20 07/07/21 15:39 Blood Pressure 117/79 07/07/21 15:39 O2 Sat by Pulse Oximetry 96 07/07/21 15:39 Pain Scale Pain Intensity 8 - Physical Exam General Appearance: no apparent distress, alert Eye Exam: PERRL/EOMI, eyes nml inspection Ears, Nose, Throat Exam: normal ENT inspection, moist mucous membranes Neck Exam: normal inspection, non-tender, supple Respiratory Exam: normal breath sounds, crackles/rales, No respiratory distress Cardiovascular Exam: regular rate/rhythm, normal heart sounds, edema Gastrointestinal/Abdomen Exam: soft, No tenderness, No mass Back Exam: normal inspection, No CVA tenderness, No vertebral tenderness Extremity Exam: normal inspection, normal range of motion Neurologic Exam: alert, oriented x 3, cooperative, normal mood/affect, nml cerebellar function, sensation nml, No motor deficits Skin Exam: normal color, warm, dry Lymphatic Exam: No adenopathy SpO2: 96 - Course Nursing assessment & vital signs reviewed: Yes EKG Interpreted by Me: Sinus Rhythm, Non-specific ST Changes Ordered Tests: Active Orders 24 hr Category Date Time Status EKG-ER Only STAT Care 07/07/21 15:54 Active EKG-ER Only STAT Care 07/07/21 17:04 Active CHEST 2 VIEWS (PA AND LAT) Stat Exams 07/07/21 15:54 Taken CBC W DIFF Stat Lab 07/07/21 16:05 Completed CMP Stat Lab 07/07/21 16:05 Completed NT PRO BNP Stat Lab 07/07/21 16:05 Completed TROPONIN Q3H Lab 07/07/21 16:05 Completed TROPONIN Q3H Lab 07/07/21 19:00 Ordered TROPONIN Q3H Lab 07/07/21 22:00 Ordered TROPONIN Q3H Lab 07/08/21 01:00 Ordered TROPONIN Q3H Lab 07/08/21 04:00 Ordered Medication Summary Discontinued Medications Generic Name Dose Route Start Last Admin Trade Name Freq PRN Reason Stop Dose Admin Potassium Chloride 20 meq in 100 mls @ 50 mls/hr 07/07/21 16:56 Potassium Chloride 20 Meq In Water 100ml IV 07/07/21 18:55 STAT ONE Potassium Bicarbonate 50 meq 07/07/21 16:55 07/07/21 17:14 K-Lyte 25 Meq PO 07/07/21 16:56 50 meq STAT ONE Administration Lab/Rad Data: Laboratory Result Diagrams 07/07/21 16:05 07/07/21 16:05 Laboratory Results 07/07/21 07/07/21 07/07/21 Range/Units 16:05 16:05 16:05 WBC 6.6 (4.0-10.5) K/mm3 RBC 4.23 (4.1-5.6) M/mm3 Hgb 12.7 (12.5-18.0) gm/dl Hct 40.2 L (42-50) % MCV 95.0 (78-100) fl MCH 30.0 (26-32) pg MCHC 31.6 L (32-36) g/dl RDW 16.0 H (11.5-14.0) % Plt Count 204 (150-450) K/mm3 MPV 10.4 (7.5-11.0) fl Gran % 55.6 (36.0-66.0) % Eos # (Auto) 0.38 (0-0.5) Absolute Lymphs (auto) 1.72 (1.0-4.6) Absolute Monos (auto) 0.78 (0.0-1.3) Lymphocytes % 26.1 (24.0-44.0) % Monocytes % 11.9 (0.0-12.0) % Eosinophils % 5.8 H (0.00-5.0) % Basophils % 0.6 (0.0-0.4) % Absolute Granulocytes 3.66 (1.4-6.9) Basophils # 0.04 (0-0.4) Sodium 140 (137-145) mmol/L Potassium 2.8 L* (3.5-5.1) mmol/L Chloride 100 (98-107) mmol/L Carbon Dioxide 28 (22-30) mmol/L Anion Gap 14.1 (5-15) MEQ/L BUN 12 (9-20) mg/dL Creatinine 0.99 (0.66-1.25) mg/dL Estimated GFR > 60.0 ML/MIN Glucose 119 H (74-106) mg/dL Calcium 9.1 (8.4-10.2) mg/dL Total Bilirubin 0.70 (0.2-1.3) mg/dL AST 70 H (17-59) U/L ALT 43 (0-50) U/L Alkaline Phosphatase 70 (38-126) U/L Troponin I < 0.012 (0.000-0.034) ng/mL NT-Pro-B Natriuret Pep 104 (0-900) pg/mL Serum Total Protein 6.9 (6.3-8.2) g/dL Albumin 4.2 (3.5-5.0) g/dL - Progress Progress: unchanged Air Movement: good Progress Note: 07/07/21 17:37 I talked to his at length. I got all his medication list and reviewed. I told his that he needs to get his potassium checked tomorrow morning. I also told his that he should also get extra 20 mEq of potassium which usually he takes in the evening should continue that. I also advised his to call Dr. Lang who is the creative engagement director and make an appointment because he may need further adjustment in his heart failure medication. Over the phone verbalize instruction understood. Blood Culture(s) Obtained: No Antibiotics given: No Counseled pt/family regarding: lab results, diagnosis, need for follow-up, rad results - Departure Departure Disposition: Home Clinical Impression: Hypokalemia due to excessive renal loss of potassium, Hx of chronic congestive heart failure, CHF (congestive heart failure) Condition: Stable Critical Care Time: No Referrals: GIRMA BULLOCK [Primary Care Provider] - Follow Up with PCP/3 days (Get Your Potassium level checked in Lab in AM, please tell them to call with report to Dr osorio office) Instructions: Heart Failure Additional Instructions: During your ER visit we checked all your blood tests including complete blood count comprehensive metabolic panel troponin chest x-ray EKG they were all unremarkable except for your potassium level which was 2.8. We have given you 50 mEq of potassium. As you suggested you are also taking potassium so continue taking potassium pills. We have ordered a blood test for you which you should get it tomorrow morning and let laboratory personnel know that they should be calling results to Dr. Osorio's office. Call Dr. Osorio's office to know the results of your potassium and asked for further advice. Discharge/Care Plan ESTHER GODFREY was seen on 07/07/21 in the Emergency Room. The patient was counseled regarding Diagnosis,Lab results, Imaging studies, need for follow up and when to return to the Emergency Room. Prescriptions given: Discharge Note I have spoken with the patient and/or caregivers. I have explained the patient's condition, diagnosis and treatment plan based on the information available to me at this time. I have answered the patient's and/or caregiver's questions and addressed any concerns. The patient and/or caregivers have as good understanding of the patient's diagnosis, condition and treatment plan as can be expected at this point. The vital signs have been stable. The patient's condition is stable and appropriate for discharge from the emergency department. The patient will pursue further outpatient evaluation with the primary care physician or other designated or consulting physician as outlined in the [facility] instructions. The patient and/or caregivers are agreeable to this plan of care and follow-up instructions have been explained in detail. The patient and/or caregivers have received these instruction. The patient/and or caregivers are aware that any significant change in condition or worsening of symptoms should prompt an immediate return to this or the closest emergency department or call 911. ESTHER GODFREY was seen on 07/07/21 n the Emergency Room. At that time you were treated for an emergent condition, during your visit Laboratory, Radiology and/or other procedures may have been ordered. It is very important that you follow-up with your Primary Care Physician GIRMA BULLOCK within the next 24-48 hours to review your Emergency Room visit and the final results of testing that was ordered. Some test results such as Urine Cultures, Blood Cultures, and other cultures if ordered will not be finalized for 24-48 hours. If you do not have a Primary Care Provider please call the medical records department at [phone] ext [phone] to obtain a copy of your results or you may sign into our patient portal to obtain these results by visiting us @ [email or web address] and completing the following steps: 1. Click on the Patient Portal link 2. Click the Patient Self Enrollment Link to complete the enrollment form and entering your 3. Once the enrollment form is completed you will receive an email with a temporary ID and password at the email address you provided. 4. Next choose a user name and password. Your user name must be at least 4 characters long and your password must be at least 4 characters long. 5. Choose a security question from the list and provide your answer to the question. If you already have signed into the Health Portal you may access your Health Care Information 04/05 by the following steps: 1. Login to our website @ [email or web address] 2. Enter your original user name and password. FAQS The [facility] Portal is an online tool that contains your Lab Results, Radiology Reports, Visit History, Discharge Instructions and Health Summary Lab and Radiology Results will not be available for 72 hours on the portal. The Portal is a secure site, passwords are encryted and URLs are re-written so they cannot be copied and pasted. You and authorized family members are the only ones who can access your Portal. Also there is a timeout feature that protects your information if you leave the Portal page open. If you have technical difficulty please use the Contact Us link on the page this will allow you to submit any questions you have regarding the Portal or you may contact the Medical Record Department at [phone] ext [phone]. Forms: Patient Portal Information
[2021-07-07] MEDS ORDERED: K-LYTE 25 MEQ PO ONE (16:55)
[2021-07-07] MEDS ORDERED: POTASSIUM CHLORIDE 20 mEq IN WATER 100ML 20 MEQ/100 ML BAG IV ONE (16:56)
[2021-07-07] MEDS ORDERED: K-LYTE 25 MEQ ONE (17:13)
[2021-07-07 17:36] VITALS: O2SAT 96
[2021-07-07 18:08] VITALS: BP 107/69; PULSE 75
--- NOTE | 2021-07-07 19:03 | XRAY ---
Indication: Leg swelling. Comparison: June 17, 2020. PA/lateral chest again hyperinflated and clear. Heart not enlarged again with coronary stent and left pacemaker. Bony thorax intact. No new/acute findings.
== END 2021-07-07 18:02 | disposition home or self-care (01) ==
LOC: ED 15:06
DX: E87.6 Hypokalemia (principal); I50.9 Heart failure, unspecified; Z79.899 Other long term (current) drug therapy; I10 Essential (primary) hypertension; E11.9 Type 2 diabetes mellitus without complications; I25.2 Old myocardial infarction
CPT/HCPCS: 36415; 71046; 80053; 83880; 84484; 85025; 93005; 99284; A9270-GY

== ENCOUNTER 2021-08-03 10:42 | Emergency (ER) | payer MEDICARE ==
[2021-08-03 10:59] VITALS: O2SAT 97
[2021-08-03 11:21] LABS: Absolute Neutrophil Ct (ANC) 3.63 (1.4-6.9); BASOPHIL % 0.6 % (0.0-0.4); Basophil (Absolute #) 0.04 (0-0.4); Eosinophil % 6.8 % (0.00-5.0); Eosinophil (Absolute #) 0.44 (0-0.5); Hematocrit 46.6 % (42-50); Hemoglobin 14.8 gm/dl (12.5-18.0); Lymphocyte (Absolute #) 1.68 (1.0-4.6); Lymphocytes % 25.8 % (24.0-44.0); Mean Cell Volume 95.1 fl (78-100); Mean Corpuscular Hemoglobin 30.2 pg (26-32); Mean Corpuscular Hgb Concent. 31.8 g/dl (32-36); Mean Platelet Volume 11.3 fl (7.5-11.0); Monocyte (Absolute #) 0.71 (0.0-1.3); Monocytes % 10.9 % (0.0-12.0); Neutrophil % 55.9 % (36.0-66.0); Platelet Count 227 K/mm3 (150-450); Red Cell Distribution Width 15.6 % (11.5-14.0); White Blood Count 6.5 K/mm3 (4.0-10.5)
--- NOTE | 2021-08-03 11:40 | ERPHSYRPT ---
- History of Present Illness Time Seen by Provider: 08/03/21 10:43 Source: patient Exam Limitations: no limitations Patient Subjective Stated Complaint: "my defibrilator made a like alarming sound." Triage Nursing Assessment: pt to ED c/o defibrilator making sounds. pt states he has had this happen once before and he reports his potassium levels were abnormal. has not had recent labs drawn. denies CP, SOB, or any other assoicated sx. reports hx multiple MIs and defib was placed in 2014 after an DC. Physician History: 51 years old male with multiple medical problems including coronary artery disease/stent, congestive heart failure pacemaker/defibrillator placement, on Eliquis, diabetes mellitus, hypertension presented in the ER after he heard a beeping sound from his defibrillator earlier around 9 AM. Patient denies any delivery of shock but does recall having similar beeping sound in the past with low or high potassium. Denies any chest pain palpitations or shortness of breath. No fever chills or cough reported. Timing/Duration: today, sudden, improved Severity: mild Modifying Factors: Improves With: nothing Associated Symptoms: denies symptoms Allergies/Adverse Reactions: No Known Drug Allergies Allergy (Verified 08/03/21 10:59) Home Medications: Atorvastatin Calcium [Lipitor 20MG Tablet] 80 mg PO HS 03/22/15 [History] Magnesium 400 tab PO DAILY 07/10/15 [History] Pregabalin [Lyrica 100Mg] 100 mg PO TID 01/18/16 [History] carvediloL [Carvedilol] 12.5 mg PO BID 01/18/16 [History] Allopurinol 100 mg [Zyloprim 100 mg] 300 mg PO DAILY 02/07/16 [History] Ascorbic Acid/Ascorbate Sodium [Vit C-Lesli Hips 500 mg Chew Tb] 1,000 mg PO DAILY 09/24/17 [History] Insulin Lispro [Humalog] 100 unit SQ UD 09/24/17 [History] Liraglutide [Victoza 2-Devin] 1.2 mg SQ DAILY 09/24/17 [History] Sacubitril/Valsartan [Entresto 24 mg-26 mg Tablet] 24 - 26 mg PO BID 09/24/17 [History] Potassium Chloride [K-Dur] 10 meq PO BID 11/23/17 [History] Venlafaxine HCl [Venlafaxine HCl ER] 150 mg PO DAILY 11/23/17 [History] Insulin Degludec [Tresiba Flextouch U-200] 100 unit SQ QAM 11/24/17 [History] Empagliflozin [Jardiance] 25 mg PO DAILY 11/14/18 [History] Clopidogrel Bisulfate 75 mg [PLAVIX 75 MG Tablet] 75 mg PO DAILY 04/26/19 [History] Zolpidem Tartrate 10 mg [Ambien 10 MG] 10 mg PO HS 04/26/19 [History] Ezetimibe 10 mg PO DAILY 09/23/19 [History] Apixaban [Eliquis] 5 mg DAILY 06/17/20 [History] Fenofibrate,Micronized [Fenofibrate] 1 ea DAILY 06/17/20 [History] Insulin Degludec [Tresiba] 5 units DAILY 06/17/20 [History] Niacin [Niaspan] 1 ea DAILY 06/17/20 [History] Pioglitazone 30 mg [Actos 30 MG] 1 ea DAILY 06/17/20 [History] Bumetanide [Bumex] 2 mg PO BID 07/07/21 [History] Hydrocodone/Acetaminophen [Hydrocodone-Acetamin 10-325 mg] 1 tablet PO Q4H PRN PRN 07/07/21 [History] Isosorbide Mononitrate 30 mg [Imdur 30 MG] 30 mg PO DAILY 07/07/21 [History] Pregabalin [Lyrica 150Mg] 150 mg PO TID 07/07/21 [History] Ropinirole HCl 1 mg PO HS 07/07/21 [History] Hx Tetanus, Diphtheria Vaccination/Date Given: Yes Hx Influenza Vaccination/Date Given: Yes Hx Pneumococcal Vaccination/Date Given: No Immunizations Up to Date: Yes Travel Risk - International Travel Have you traveled outside of the country in past 3 weeks: No - Coronavirus Screening Are you exhibiting any of the following symptoms?: No Close contact with a COVID-19 positive Pt in past 14-21 Days: No - Vaccine Status Have you recieved a Covid-19 vaccination: No - Review of Systems Constitutional: No Symptoms Eyes: No Symptoms Ears, Nose, & Throat: No Symptoms Respiratory: No Symptoms Cardiac: No Symptoms Abdominal/Gastrointestinal: No Symptoms Genitourinary Symptoms: No Symptoms Musculoskeletal: No Symptoms Skin: No Symptoms Neurological: No Symptoms Psychological: No Symptoms Endocrine: No Symptoms Hematologic/Lymphatic: No Symptoms Immunological/Allergic: No Symptoms - Past Medical History Pertinent Past Medical History: Yes Neurological History: Migraines, Peripheral Neuropathy, Other ENT History: No Pertinent History Cardiac History: Hypertension, Myocardial Infarction ([place]) Respiratory History: Pneumonia, Other Endocrine Medical History: Diabetes Type II Musculoskeletal History: Other GI Medical History: Pancreatitis History: No Pertinent History Psycho-Social History: No Pertinent History Male Reproductive Disorders: No Pertinent History Other Medical History: AICD - Past Surgical History Past Surgical History: Yes Neuro Surgical History: No Pertinent History Cardiac: Angioplasty, Cardiac Catheterization, Cardiac Stent, Internal Defibrillator, Pacemaker Respiratory: No Pertinent History Gastrointestinal: Cholecystectomy, Hernia Repair Genitourinary: No Pertinent History Musculoskeletal: Orthopedic Surgery Male Surgical History: No Pertinent History Other Surgical History: elbow - Social History Smoking Status: Former smoker Exposure to second hand smoke: No Alcohol Use: Socially Drug Use: none Patient Lives Alone: No Significant Family History: heart disease, diabetes, hypertension - Nursing Vital Signs Nursing Vital Signs: Initial Vital Signs Temperature 97.8 F 08/03/21 10:54 Pulse Rate 88 08/03/21 10:54 Respiratory Rate 20 08/03/21 10:54 Blood Pressure 134/83 08/03/21 10:54 O2 Sat by Pulse Oximetry 97 08/03/21 10:54 Pain Scale Pain Intensity 0 - Physical Exam General Appearance: no apparent distress, alert, anxiety Eye Exam: PERRL/EOMI, eyes nml inspection Ears, Nose, Throat Exam: normal ENT inspection, TMs normal, pharynx normal Neck Exam: normal inspection, non-tender, supple, full range of motion Respiratory Exam: normal breath sounds, lungs clear Cardiovascular Exam: regular rate/rhythm, normal heart sounds Gastrointestinal/Abdomen Exam: soft, normal bowel sounds, No tenderness Extremity Exam: normal inspection, normal range of motion Neurologic Exam: alert, oriented x 3, cooperative Skin Exam: normal color SpO2 Interpretation: normal SpO2: 97 O2 Delivery: Room Air - Course EKG Interpreted by Me: RATE (77), Sinus Rhythm, Right Bundle Branch Block, Other (Paced rhythm. Diffuse Q waves. No ST elevation.) Ordered Tests: Active Orders 24 hr Category Date Time Status Barrel Planer STAT Care 08/03/21 11:16 Completed EKG-ER Only STAT Care 08/03/21 11:15 Completed IV Insertion STAT Care 08/03/21 11:15 Completed CHEST 1 VIEW (PORTABLE) Stat Exams 08/03/21 11:15 Completed CBC W DIFF Stat Lab 08/03/21 11:15 Completed CMP Stat Lab 08/03/21 11:15 Completed NT PRO BNP Stat Lab 08/03/21 11:15 Completed TROPONIN Q3H Lab 08/03/21 11:15 Completed Lab/Rad Data: Laboratory Result Diagrams 08/03/21 11:15 08/03/21 11:15 Laboratory Results 08/03/21 08/03/21 08/03/21 Range/Units 11:15 11:15 11:15 WBC 6.5 (4.0-10.5) K/mm3 RBC 4.90 (4.1-5.6) M/mm3 Hgb 14.8 (12.5-18.0) gm/dl Hct 46.6 (42-50) % MCV 95.1 (78-100) fl MCH 30.2 (26-32) pg MCHC 31.8 L (32-36) g/dl RDW 15.6 H (11.5-14.0) % Plt Count 227 (150-450) K/mm3 MPV 11.3 H (7.5-11.0) fl Gran % 55.9 (36.0-66.0) % Eos # (Auto) 0.44 (0-0.5) Absolute Lymphs (auto) 1.68 (1.0-4.6) Absolute Monos (auto) 0.71 (0.0-1.3) Lymphocytes % 25.8 (24.0-44.0) % Monocytes % 10.9 (0.0-12.0) % Eosinophils % 6.8 H (0.00-5.0) % Basophils % 0.6 (0.0-0.4) % Absolute Granulocytes 3.63 (1.4-6.9) Basophils # 0.04 (0-0.4) Sodium 141 (137-145) mmol/L Potassium 3.8 (3.5-5.1) mmol/L Chloride 103 (98-107) mmol/L Carbon Dioxide 25 (22-30) mmol/L Anion Gap 16.3 H (5-15) MEQ/L BUN 15 (9-20) mg/dL Creatinine 0.97 (0.66-1.25) mg/dL Estimated GFR > 60.0 ML/MIN Glucose 181 H (74-106) mg/dL Calcium 9.3 (8.4-10.2) mg/dL Total Bilirubin 0.50 (0.2-1.3) mg/dL AST 34 (17-59) U/L ALT 31 (0-50) U/L Alkaline Phosphatase 86 (38-126) U/L Troponin I < 0.012 (0.000-0.034) ng/mL NT-Pro-B Natriuret Pep 90.1 (0-900) pg/mL Serum Total Protein 7.3 (6.3-8.2) g/dL Albumin 4.5 (3.5-5.0) g/dL - Progress Progress: unchanged Progress Note: 08/03/21 12:31 Patient remained asymptomatic throughout stay in the ER. EKG did not show any acute ST elevations. Negative troponins. Chest x-ray negative for any acute findings reviewed by me, official report pending. Interrogation reports no firing/discharge and good battery life. Do not know exactly what was the reason for that sound. Patient reports her cardiology Dr. Vang has referred him to another manager functional/management specialist for this evaluation which has happened in the past but he could not keep up appointment because of COVID-19. He is advised to follow-up with his manager functional and get another referral to be seen by management specialist. Discussed signs symptoms of worsening needing return to ER which he seems understanding Counseled pt/family regarding: lab results, diagnosis, need for follow-up, rad results - Departure Departure Disposition: Home Clinical Impression: Disorder of defibrillator function Qualifiers: Encounter type: initial encounter Qualified Code(s): T82.198A - Other mechanical complication of other cardiac electronic device, initial encounter Condition: Stable Critical Care Time: No Referrals: GIRMA BULLOCK [Primary Care Provider] - Follow Up with PCP/3 days MAINOR VANG MD [NON-STAFF PHY W/O PRIVILEGES] - (Call in 2 days for reevaluation) Instructions: Automatic Cardioverter Defibrillator Implantation (DC) Additional Instructions: Follow-up with your primary care and manager functional for reevaluation. Return to ER if has any delivery of shock by your defibrillator, having chest pain palpitations or shortness of breath etc.
[2021-08-03 11:48] LABS: ALBUMIN 4.5 g/dL (3.5-5.0); ALKALINE PHOSPHATASE 86 U/L (38-126); ANION GAP 16.3 MEQ/L (5-15); BLOOD UREA NITROGEN 15 mg/dL (9-20); CHLORIDE 103 mmol/L (98-107); Calcium 9.3 mg/dL (8.4-10.2); Carbon Dioxide 25 mmol/L (22-30); Creatinine 1 0.97 mg/dL (0.66-1.25); EST GLOMERULAR FILTRATION RATE > 60.0 ML/MIN; Glucose 181 mg/dL (74-106); NT PRO BNP 90.1 pg/mL (0-900); Potassium 3.8 mmol/L (3.5-5.1); SGOT/AST 34 U/L (17-59); SGPT/ALT 31 U/L (0-50); SODIUM 141 mmol/L (137-145); Total Protein 7.3 g/dL (6.3-8.2)
[2021-08-03 12:36] VITALS: BP 109/81; PULSE 76
--- NOTE | 2021-08-03 17:01 | XRAY ---
Indication: "Defibrillator issue." Comparison: July 07, 2021. Portable chest remains clear. Heart not enlarged again with coronary stent and left pacemaker. Bony thorax intact. No new/acute findings.
== END 2021-08-03 12:44 | disposition home or self-care (01) ==
LOC: ED 10:42
DX: T82.198A Other mechanical complication of other cardiac electronic device, initial encounter (principal); I25.2 Old myocardial infarction; Z79.899 Other long term (current) drug therapy; E11.9 Type 2 diabetes mellitus without complications; I10 Essential (primary) hypertension
CPT/HCPCS: 36000; 36415; 71045; 80053; 83880; 84484; 85025; 93005; 93041; 99284

== ENCOUNTER 2022-02-06 15:41 | Emergency (ER) | payer MEDICARE ==
--- NOTE | 2022-02-06 15:53 | ERPHSYRPT ---
- History of Present Illness Time Seen by Provider: 02/06/22 15:53 Historian: patient Exam Limitations: no limitations Patient Subjective Stated Complaint: chest pain/shortness of breath Triage Nursing Assessment: Pt ambulated back to room unassisted, alert and oriented x 3, complains of sharp chest pain 8/10 and shortness of brath. Pt states he fell stairs onto concrete and was holding a cup in hand which he fell on his chest with. vitals WNL, lungs clear, heart sounds regular, pt increases with inspiration. Physician History: This is a 51-year-old obese white male patient of Dr. Maximilian Gao who has a pacemaker defibrillator in place and a significant cardiac history on Plavix/Eliquis who fell onto a porch steps hitting his left chest anteriorly, right hand and his head at noon today. Patient presents with left anterior chest wall pain and right hand pain. Patient is on hydrocodone daily. Timing/Duration: today Activities at Onset: none Quality: sharpness, stabbing Location: other (Left anterior chest wall) Chest Pain Radiation: no radiation Severity of Pain-Max: moderate Severity of Pain-Current: moderate Modifying Factors: Improves With: movement, other (Deep breathing) Associated Symptoms: denies symptoms Prior Chest Pain/Cardiac Workup: cardiac cath, heart attack Nitro Today/Relief: no nitro taken today Aspirin Treatment Today: no aspirin today Allergies/Adverse Reactions: No Known Drug Allergies Allergy (Verified 02/06/22 16:03) Home Medications: Atorvastatin Calcium [Lipitor 20MG Tablet] 80 mg PO HS 03/22/15 [History] Magnesium 400 tab PO DAILY 07/10/15 [History] carvediloL [Carvedilol] 25 mg PO BID 01/18/16 [History] Allopurinol 100 mg [Zyloprim 100 mg] 300 mg PO DAILY 02/07/16 [History] Insulin Lispro [Humalog] 0 unit SQ UD 09/24/17 [History] Liraglutide [Victoza 2-Devin] 1.2 mg SQ DAILY 09/24/17 [History] Sacubitril/Valsartan [Entresto 24 mg-26 mg Tablet] 24 - 26 mg PO BID 09/24/17 [History] Potassium Chloride [K-Dur] 10 meq PO BID 11/23/17 [History] Venlafaxine HCl [Venlafaxine HCl ER] 150 mg PO DAILY 11/23/17 [History] Insulin Degludec [Tresiba Flextouch U-200] 100 unit SQ QAM 11/24/17 [History] Empagliflozin [Jardiance] 25 mg PO DAILY 11/14/18 [History] Clopidogrel Bisulfate 75 mg [PLAVIX 75 MG Tablet] 75 mg PO DAILY 04/26/19 [History] Zolpidem Tartrate 10 mg [Ambien 10 MG] 10 mg PO HS 04/26/19 [History] Ezetimibe 10 mg PO DAILY 09/23/19 [History] Apixaban [Eliquis] 5 mg PO DAILY 06/17/20 [History] Fenofibrate,Micronized [Fenofibrate] 134 mg PO DAILY 06/17/20 [History] Niacin [Niaspan] 1,000 mg PO DAILY 06/17/20 [History] Pioglitazone 30 mg [Actos 30 MG] 30 mg PO DAILY 06/17/20 [History] Bumetanide [Bumex] 2 mg PO BID 07/07/21 [History] Hydrocodone/Acetaminophen [Hydrocodone-Acetamin 10-325 mg] 1 tablet PO Q4H PRN PRN 07/07/21 [History] Isosorbide Mononitrate 30 mg [Imdur 30 MG] 30 mg PO DAILY 07/07/21 [History] Pregabalin [Lyrica 150Mg] 150 mg PO TID 07/07/21 [History] Ropinirole HCl 1 mg PO HS 07/07/21 [History] Carvedilol 12.5 mg [Coreg 12.5 mg] 12.5 mg PO BID 02/06/22 [History] Hx Tetanus, Diphtheria Vaccination/Date Given: Yes Hx Influenza Vaccination/Date Given: Yes Hx Pneumococcal Vaccination/Date Given: No Immunizations Up to Date: Yes Travel Risk - International Travel Have you traveled outside of the country in past 3 weeks: No - Coronavirus Screening Are you exhibiting any of the following symptoms?: No Close contact with a COVID-19 positive Pt in past 14-21 Days: No - Vaccine Status Have you recieved a Covid-19 vaccination: No - Review of Systems Constitutional: No Symptoms Eyes: No Symptoms Ears, Nose, & Throat: No Symptoms Respiratory: No Symptoms Cardiac: No Symptoms Abdominal/Gastrointestinal: No Symptoms Genitourinary Symptoms: No Symptoms Musculoskeletal: Injury (Left anterior chest wall and right hand) Skin: No Symptoms Neurological: No Symptoms Psychological: No Symptoms Endocrine: No Symptoms Hematologic/Lymphatic: No Symptoms Immunological/Allergic: No Symptoms All Other Systems: Reviewed and Negative - Past Medical History Pertinent Past Medical History: Yes Neurological History: Migraines, Peripheral Neuropathy, Other ENT History: No Pertinent History Cardiac History: Hypertension, Myocardial Infarction ([place]) Respiratory History: Pneumonia, Other Endocrine Medical History: Diabetes Type II Musculoskeletal History: Other GI Medical History: Pancreatitis History: No Pertinent History Psycho-Social History: No Pertinent History Male Reproductive Disorders: No Pertinent History Other Medical History: AICD - Past Surgical History Past Surgical History: Yes Neuro Surgical History: No Pertinent History Cardiac: Angioplasty, Cardiac Catheterization, Cardiac Stent, Internal Defibrillator, Pacemaker Respiratory: No Pertinent History Gastrointestinal: Cholecystectomy, Hernia Repair Genitourinary: No Pertinent History Musculoskeletal: Orthopedic Surgery Male Surgical History: No Pertinent History Other Surgical History: elbow - Social History Smoking Status: Former smoker Exposure to second hand smoke: No Alcohol Use: Socially Drug Use: none Patient Lives Alone: No Significant Family History: heart disease, diabetes, hypertension - Nursing Vital Signs Nursing Vital Signs: Initial Vital Signs Temperature 97.2 F 02/06/22 15:42 Pulse Rate 93 H 02/06/22 15:42 Respiratory Rate 22 02/06/22 15:42 Blood Pressure 112/65 02/06/22 15:42 O2 Sat by Pulse Oximetry 97 02/06/22 15:42 Pain Scale Pain Intensity 3 - Physical Exam General Appearance: mild distress, alert, anxiety, obese Eye Exam: PERRL/EOMI, eyes nml inspection Ears, Nose, Throat Exam: normal ENT inspection, moist mucous membranes Neck Exam: normal inspection, non-tender, supple, full range of motion Respiratory Exam: normal breath sounds, chest tenderness (Left anterior chest wall. Worsens with palpation), lungs clear, airway intact, No respiratory distress Cardiovascular Exam: regular rate/rhythm, normal heart sounds, normal peripheral pulses Gastrointestinal/Abdomen Exam: soft, normal bowel sounds, No tenderness Rectal Exam: not done Back Exam: normal inspection, normal range of motion, No CVA tenderness, No vertebral tenderness Extremity Exam: normal inspection, normal range of motion, pelvis stable Neurologic Exam: alert, oriented x 3, cooperative, associate vice president II-XII nml as tested, normal mood/affect Skin Exam: normal color, warm, dry Lymphatic Exam: No adenopathy SpO2 Interpretation: normal SpO2: 97 O2 Delivery: Room Air - Course Nursing assessment & vital signs reviewed: Yes EKG Interpreted by Me: RATE (89), Sinus Rhythm, NORMAL INTERVALS, Right Bundle Branch Block, NORMAL ST-T, Other (no acute ischemia) Ordered Tests: Active Orders 24 hr Category Date Time Status EKG-ER Only STAT Care 02/06/22 15:53 Active IV Insertion STAT Care 02/06/22 15:53 Active Pulse Oximetry (ED) STAT Care 02/06/22 15:53 Active CHEST 1 VIEW (PORTABLE) Stat Exams 02/06/22 15:54 Completed HAND (MINIMUM 3 VIEWS) Stat Exams 02/06/22 16:37 Completed HEAD WITHOUT CONTRAST [CT] Stat Exams 02/06/22 17:27 Taken CBC W DIFF Stat Lab 02/06/22 16:00 Completed CMP Stat Lab 02/06/22 16:00 Completed TROPONIN Q3H Lab 02/06/22 16:00 Completed TROPONIN Q3H Lab 02/06/22 19:00 Ordered TROPONIN Q3H Lab 02/06/22 22:00 Ordered TROPONIN Q3H Lab 02/07/22 01:00 Ordered TROPONIN Q3H Lab 02/07/22 04:00 Ordered Medication Summary Discontinued Medications Generic Name Dose Route Start Last Admin Trade Name Behzad PRN Reason Stop Dose Admin Morphine Sulfate 2 mg 02/06/22 15:54 02/06/22 15:59 Morphine Sulfate 2 Mg/Ml Inj IV 02/06/22 15:55 2 mg STAT ONE Administration Morphine Sulfate Confirm 02/06/22 15:57 Morphine Sulfate 2 Mg/Ml Inj Administered 02/06/22 15:58 Dose 2 mg .ROUTE .STK-MED ONE Morphine Sulfate 4 mg 02/06/22 16:36 02/06/22 16:57 Morphine Sulfate 4 Mg/Ml Injection IV 02/06/22 16:37 4 mg STAT ONE Administration Morphine Sulfate Confirm 02/06/22 16:56 Morphine Sulfate 4 Mg/Ml Injection Administered 02/06/22 16:57 Dose 4 mg .ROUTE .STK-MED ONE Ondansetron HCl 4 mg 02/06/22 15:54 02/06/22 15:59 Ondansetron Hcl 4 Mg/2 Ml Vial IV 02/06/22 15:55 4 mg STAT ONE Administration Ondansetron HCl Confirm 02/06/22 15:57 Ondansetron Hcl 4 Mg/2 Ml Vial Administered 02/06/22 15:58 Dose 4 mg .ROUTE .STK-MED ONE Lab/Rad Data: Laboratory Result Diagrams 02/06/22 16:00 02/06/22 16:00 Laboratory Results 02/06/22 02/06/22 02/06/22 Range/Units 16:00 16:00 16:00 WBC 7.3 (4.0-10.5) K/mm3 RBC 5.47 (4.1-5.6) M/mm3 Hgb 16.7 (12.5-18.0) gm/dl Hct 49.5 (42-50) % MCV 90.5 (78-100) fl MCH 30.5 (26-32) pg MCHC 33.7 (32-36) g/dl RDW 15.2 H (11.5-14.0) % Plt Count 304 (150-450) K/mm3 MPV 10.4 (7.5-11.0) fl Gran % 67.5 H (36.0-66.0) % Eos # (Auto) 0.19 (0-0.5) Absolute Lymphs (auto) 1.58 (1.0-4.6) Absolute Monos (auto) 0.58 (0.0-1.3) Lymphocytes % 21.5 L (24.0-44.0) % Monocytes % 7.9 (0.0-12.0) % Eosinophils % 2.6 (0.00-5.0) % Basophils % 0.5 (0.0-0.4) % Absolute Granulocytes 4.95 (1.4-6.9) Basophils # 0.04 (0-0.4) Sodium 138 (137-145) mmol/L Potassium 4.1 (3.5-5.1) mmol/L Chloride 101 (98-107) mmol/L Carbon Dioxide 21 L (22-30) mmol/L Anion Gap 19.6 H (5-15) MEQ/L BUN 17 (9-20) mg/dL Creatinine 0.81 (0.66-1.25) mg/dL Estimated GFR > 60.0 ML/MIN Glucose 171 H (74-106) mg/dL Calcium 9.4 (8.4-10.2) mg/dL Total Bilirubin 0.80 (0.2-1.3) mg/dL AST 50 (17-59) U/L ALT 40 (0-50) U/L Alkaline Phosphatase 106 (38-126) U/L Troponin I < 0.012 (0.000-0.034) ng/mL Serum Total Protein 7.9 (6.3-8.2) g/dL Albumin 4.7 (3.5-5.0) g/dL - Progress Progress: improved, re-examined Air Movement: good Progress Note: 02/06/22 17:50 Right hand x-ray shows no acute fracture or dislocation. Chest x-ray shows no acute cardiopulmonary process. Bony thorax is intact. 02/06/22 19:13 CAT scan of head without contrast shows no acute intracranial abnormality. Blood Culture(s) Obtained: No Antibiotics given: No Counseled pt/family regarding: lab results, diagnosis, need for follow-up, rad results - Departure Departure Disposition: Home Clinical Impression: Fall with no significant injury, Contusion of right hand, Chest wall discomfort Condition: Stable Critical Care Time: No Referrals: GIRMA BULLOCK [Primary Care Provider] - Follow up/PCP as directed Instructions: Chest Pain (DC), Preventing Falls Additional Instructions: Take your medications as prescribed. Follow-up with your primary care physician for further evaluation and management.
[2022-02-06] MEDS ORDERED: Zofran 4 MG/2 ML VIAL IV ONE (15:54)
[2022-02-06] MEDS ORDERED: MORPHINE SULFATE 2 MG INJ IV ONE (15:54)
[2022-02-06] MEDS ORDERED: MORPHINE SULFATE 2 MG INJ ONE (15:57)
[2022-02-06] MEDS ORDERED: Zofran 4 MG/2 ML VIAL ONE (15:57)
[2022-02-06 16:08] LABS: Absolute Neutrophil Ct (ANC) 4.95 (1.4-6.9); Basophil (Absolute #) 0.04 (0-0.4); Eosinophil % 2.6 % (0.00-5.0); Eosinophil (Absolute #) 0.19 (0-0.5); Hematocrit 49.5 % (42-50); Hemoglobin 16.7 gm/dl (12.5-18.0); Lymphocyte (Absolute #) 1.58 (1.0-4.6); Lymphocytes % 21.5 % (24.0-44.0); Mean Cell Volume 90.5 fl (78-100); Mean Corpuscular Hemoglobin 30.5 pg (26-32); Mean Corpuscular Hgb Concent. 33.7 g/dl (32-36); Mean Platelet Volume 10.4 fl (7.5-11.0); Monocyte (Absolute #) 0.58 (0.0-1.3); Monocytes % 7.9 % (0.0-12.0); Neutrophil % 67.5 % (36.0-66.0); Platelet Count 304 K/mm3 (150-450); Red Blood Count 5.47 M/mm3 (4.1-5.6); Red Cell Distribution Width 15.2 % (11.5-14.0); White Blood Count 7.3 K/mm3 (4.0-10.5)
[2022-02-06 16:20] LABS: ALBUMIN 4.7 g/dL (3.5-5.0); ALKALINE PHOSPHATASE 106 U/L (38-126); ANION GAP 19.6 MEQ/L (5-15); BLOOD UREA NITROGEN 17 mg/dL (9-20); CHLORIDE 101 mmol/L (98-107); Calcium 9.4 mg/dL (8.4-10.2); Carbon Dioxide 21 mmol/L (22-30); Creatinine 1 0.81 mg/dL (0.66-1.25); EST GLOMERULAR FILTRATION RATE > 60.0 ML/MIN; Glucose 171 mg/dL (74-106); Potassium 4.1 mmol/L (3.5-5.1); SGOT/AST 50 U/L (17-59); SGPT/ALT 40 U/L (0-50); SODIUM 138 mmol/L (137-145); Total Protein 7.9 g/dL (6.3-8.2)
[2022-02-06] MEDS ORDERED: MORPHINE SULFATE 4 MG INJ IV ONE (16:36)
--- NOTE | 2022-02-06 16:37 | XRAY ---
Indication: Chest pain. Comparison: November 26, 2021 Portable chest unchanged again hyperinflated and clear. Heart not enlarged again with left pacemaker and coronary stent graft. Bony thorax intact. No new/acute findings.
--- NOTE | 2022-02-06 16:52 | XRAY ---
Indication: Injury following fall. Comparison: None 3 view right hand demonstrates small 3rd metacarpal head bony exostosis and distal forearm vascular calcifications. No other bony, articular, or soft tissue abnormalities.
[2022-02-06] MEDS ORDERED: MORPHINE SULFATE 4 MG INJ ONE (16:56)
[2022-02-06 19:05] VITALS: BP 103/74; PULSE 83
[2022-02-06 19:14] VITALS: O2SAT 97
--- NOTE | 2022-02-07 08:57 | XRAY ---
Indication: Posterior head injury following fall. Multiple contiguous axial images obtained through the head without contrast. Comparison: None Normal appearing brain parenchyma, ventricles, and bony calvarium for patient's age. Visualized paranasal sinuses and mastoid air cells are clear. Impression: Normal CT head without contrast exam.
== END 2022-02-06 19:17 | disposition home or self-care (01) ==
LOC: ED 15:41
DX: S60.221A Contusion of right hand, initial encounter (principal); W10.8XXA Fall (on) (from) other stairs and steps, initial encounter; Y92.008 Other place in unspecified non-institutional (private) residence as the place of occurrence of the external cause; R07.89 Other chest pain; I10 Essential (primary) hypertension; E11.42 Type 2 diabetes mellitus with diabetic polyneuropathy; Z95.810 Presence of automatic (implantable) cardiac defibrillator; Z79.4 Long term (current) use of insulin; Z79.01 Long term (current) use of anticoagulants; Z79.891 Long term (current) use of opiate analgesic; Z79.899 Other long term (current) drug therapy
CPT/HCPCS: 36000; 36415; 70450; 71045; 73130; 80053; 84484; 85025; 93005; 94760; 96374; 96375; 96376; 99284; J2270; J2405

== ENCOUNTER 2023-11-03 13:36 | Observation (INO) | payer MEDICARE ==
--- NOTE | 2023-11-03 13:59 | ERPHSYRPT ---
- History of Present Illness Time Seen by Provider: 11/03/23 13:56 Source: patient Exam Limitations: no limitations Patient Subjective Stated Complaint: SOB Triage Nursing Assessment: Patient ambulated back to ED and transferred self to bed. Patient A+O X3. Patient's skin pink, warm and dry. Patient complains of SOB and chest pain that started two days ago. Patient complains of swelling to Thomas hands. Patient complains of chest pain 4/10. Lungs noted to be diminished throughout. Patient complains of productive dry thick white mucus. Physician History: Patient is a 53-year-old male with history of diabetes hypertension hyperlipidemia OK cardiac stents, CHF presents to our ED for evaluation of chest pain shortness of breath and swelling and swelling of his arms. Symptoms started 2 days ago. Symptoms have been progressive. Symptoms are mild to moderate in intensity. Shortness of breath worse with activity improved with rest. No associated nausea vomiting or diaphoresis. Patient voices no other complaints or concerns at this time. Portions of this note were created with voice recognition technology. There may be grammatical, spelling, punctuation or sound alike errors Timing/Duration: day(s) Severity: moderate Modifying Factors: Improves With: nothing Associated Symptoms: denies symptoms Allergies/Adverse Reactions: No Known Drug Allergies Allergy (Verified 11/03/23 13:41) Home Medications: Atorvastatin Calcium [Lipitor 20MG Tablet] 80 mg PO HS 03/22/15 [History] Magnesium 400 tab PO DAILY 07/10/15 [History] carvediloL [Carvedilol] 25 mg PO BID 01/18/16 [History] Allopurinol 100 mg [Zyloprim 100 mg] 300 mg PO DAILY 02/07/16 [History] Insulin Lispro [Humalog] 0 unit SQ UD 09/24/17 [History] Liraglutide [Victoza 2-Devin] 1.2 mg SQ DAILY 09/24/17 [History] Sacubitril/Valsartan [Entresto 24 mg-26 mg Tablet] 24 - 26 mg PO BID 09/24/17 [History] Potassium Chloride [K-Dur] 10 meq PO BID 11/23/17 [History] Venlafaxine HCl [Venlafaxine HCl ER] 150 mg PO DAILY 11/23/17 [History] Insulin Degludec [Tresiba Flextouch U-200] 100 unit SQ QAM 11/24/17 [History] Empagliflozin [Jardiance] 25 mg PO DAILY 11/14/18 [History] Clopidogrel Bisulfate [PLAVIX 75 MG Tablet] 75 mg PO DAILY 04/26/19 [History] Zolpidem Tartrate 10 mg [Ambien 10 MG] 10 mg PO HS 04/26/19 [History] Ezetimibe 10 mg PO DAILY 09/23/19 [History] Apixaban [Eliquis] 5 mg PO DAILY 06/17/20 [History] Fenofibrate,Micronized [Fenofibrate] 134 mg PO DAILY 06/17/20 [History] Niacin [Niaspan] 1,000 mg PO DAILY 06/17/20 [History] Pioglitazone 30 mg [Actos 30 MG] 30 mg PO DAILY 06/17/20 [History] Bumetanide [Bumex] 2 mg PO BID 07/07/21 [History] Hydrocodone/Acetaminophen [Hydrocodone-Acetamin 10-325 mg] 1 tablet PO Q4H PRN PRN 07/07/21 [History] Isosorbide Mononitrate 30 mg [Imdur 30 MG] 30 mg PO DAILY 07/07/21 [History] Pregabalin [Lyrica 150Mg] 150 mg PO TID 07/07/21 [History] Ropinirole HCl 1 mg PO HS 07/07/21 [History] Carvedilol 12.5 mg [Coreg 12.5 mg] 12.5 mg PO BID 02/06/22 [History] Hx Tetanus, Diphtheria Vaccination/Date Given: Yes Hx Influenza Vaccination/Date Given: Yes Hx Pneumococcal Vaccination/Date Given: No Immunizations Up to Date: Yes Travel Risk - International Travel Have you traveled outside of the country in past 3 weeks: No - Coronavirus Screening Are you exhibiting any of the following symptoms?: No Close contact with a COVID-19 positive Pt in past 14-21 Days: No - Vaccine Status Have you recieved a Covid-19 vaccination: No - Review of Systems Constitutional: No Symptoms, No Fever, No Chills Eyes: No Symptoms Ears, Nose, & Throat: No Symptoms Respiratory: No Symptoms, No Cough, No Dyspnea Cardiac: No Symptoms, No Chest Pain, No Edema, No Syncope Abdominal/Gastrointestinal: No Symptoms, No Abdominal Pain, No Nausea, No Vomiting, No Diarrhea Genitourinary Symptoms: No Symptoms, No Dysuria Musculoskeletal: No Symptoms, No Back Pain, No Neck Pain Skin: No Symptoms, No Rash Neurological: No Symptoms, No Dizziness, No Focal Weakness, No Sensory Changes Psychological: No Symptoms Endocrine: No Symptoms Hematologic/Lymphatic: No Symptoms Immunological/Allergic: No Symptoms All Other Systems: Reviewed and Negative - Past Medical History Pertinent Past Medical History: Yes Neurological History: No Pertinent History ENT History: No Pertinent History Cardiac History: High Cholesterol, Hypertension, Myocardial Infarction (OK), Other Respiratory History: Other Endocrine Medical History: Diabetes Type II Musculoskeletal History: Osteoarthritis GI Medical History: Pancreatitis History: No Pertinent History Psycho-Social History: No Pertinent History Male Reproductive Disorders: No Pertinent History Other Medical History: COVID APPROXIMATELY 2 MONTHS AGO. NO RESIDUAL. NOT VACCINATED. PMHX: PER PATIENT HAS 5 STENTS BUT NO CABG. HAS DEFIBRILLATOR PLACED 2014 WITH HX OF ACTIVATION PER PATIENT "A FEW TIMES". PER PATIENT HEART FUNCTION 15-20%. SEVERE OA LEFT KNEE - BONE ON BONE BUT UNABLE TO HAVE REPLACEMENT DUE TO HEART. 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 - Past Surgical History Past Surgical History: Yes Neuro Surgical History: No Pertinent History Cardiac: Angioplasty, Cardiac Catheterization, Cardiac Stent, Internal Def ibrillator, Pacemaker Respiratory: No Pertinent History Gastrointestinal: Cholecystectomy, Hernia Repair Genitourinary: No Pertinent History Musculoskeletal: Orthopedic Surgery Male Surgical History: No Pertinent History Other Surgical History: elbow - Social History Smoking Status: Former smoker Exposure to second hand smoke: No Alcohol Use: Socially Drug Use: none Patient Lives Alone: No Significant Family History: heart disease, diabetes, hypertension - Nursing Vital Signs Nursing Vital Signs: Initial Vital Signs Temperature 97.6 F 11/03/23 13:46 Pulse Rate 90 11/03/23 13:46 Respiratory Rate 18 11/03/23 13:46 Blood Pressure 157/106 11/03/23 13:46 O2 Sat by Pulse Oximetry 97 11/03/23 13:46 Pain Scale Pain Intensity 4 - Physical Exam General Appearance: no apparent distress, alert Eye Exam: PERRL/EOMI, eyes nml inspection Ears, Nose, Throat Exam: normal ENT inspection, TMs normal, pharynx normal, moist mucous membranes Neck Exam: normal inspection, non-tender, supple, full range of motion Respiratory Exam: normal breath sounds, lungs clear, No respiratory distress Cardiovascular Exam: regular rate/rhythm, normal heart sounds, normal peripheral pulses Gastrointestinal/Abdomen Exam: soft, normal bowel sounds, No tenderness, No mass Back Exam: normal inspection, normal range of motion, No CVA tenderness, No vertebral tenderness Extremity Exam: normal inspection, normal range of motion, pelvis stable Neurologic Exam: alert, oriented x 3, cooperative, normal mood/affect, sensation nml, No motor deficits Skin Exam: normal color, warm, dry, No rash Lymphatic Exam: No adenopathy SpO2 Interpretation: normal SpO2: 95 O2 Delivery: Room Air - Course Nursing assessment & vital signs reviewed: Yes EKG Interpreted by Me: RATE, Sinus Rhythm, NORMAL AXIS, Right Bundle Branch B lock - Radiology Exams Chest X-ray Interpretation: Interpreted by me (Early pulmonary edema) Ordered Tests: Active Orders 24 hr Category Date Time Status Truck Bracer STAT Care 11/03/23 13:55 Active EKG-ER Only STAT Care 11/03/23 13:54 Active Pulse Oximetry (ED) STAT Care 11/03/23 13:54 Active Telemetry q4h Care 11/03/23 15:31 Active CHEST 1 VIEW (PORTABLE) Stat Exams 11/03/23 15:33 Taken CBC W DIFF Stat Lab 11/03/23 14:15 Completed CMP Stat Lab 11/03/23 14:15 Completed D-DIMER QUANTITATIVE Stat Lab 11/03/23 14:15 Completed NT PRO BNPII Stat Lab 11/03/23 14:15 Completed TROPONIN Q4H Lab 11/03/23 14:15 Completed TROPONIN Q4H Lab 11/03/23 18:00 Ordered TROPONIN Q4H Lab 11/03/23 22:00 Ordered Transfer Order Routine Transfer 11/03/23 Ordered Medication Summary Generic Name Dose Route Start Last Admin Trade Name Freq PRN Reason Stop Dose Admin Furosemide 20 mg 11/04/23 10:00 Furosemide 20 Mg/Vial IV 12/04/23 09:59 QAM DESTINEE Potassium Chloride 20 meq in 100 mls @ 50 mls/hr 11/03/23 15:45 Potassium Chloride 20 Meq In Water 100ml IV 11/03/23 19:44 Q2H DESTINEE Magnesium Sulfate/Dextrose 100 mls @ 100 mls/hr 11/03/23 15:45 Magnesium 1 Gm / 100 Ml D5w IV 11/03/23 17:44 Q1H DESTINEE Discontinued Medications Generic Name Dose Route Start Last Admin Trade Name Behzad PRN Reason Stop Dose Admin Aspirin 324 mg 11/03/23 15:32 11/03/23 15:49 Aspirin 81 Mg Tab.Chew PO 11/03/23 15:33 324 mg STAT ONE Administration Aspirin Confirm 11/03/23 15:43 Aspirin 81 Mg Tab.Chew Administered 11/03/23 15:44 Dose 324 mg .ROUTE .STK-MED ONE Morphine Sulfate 2 mg 11/03/23 15:33 Morphine Sulfate 2 Mg/Ml Inj IV 11/03/23 15:34 STAT ONE Nitroglycerin 1 gm 11/03/23 15:31 11/03/23 15:49 Nitroglycerin 1 Gm Packet TOP 11/03/23 15:32 1 gm STAT ONE Administration Nitroglycerin Confirm 11/03/23 15:43 Nitroglycerin 1 Gm Packet Administered 11/03/23 15:44 Dose 1 gm .ROUTE .STK-MED ONE Potassium Chloride 40 meq 11/03/23 15:32 11/03/23 15:48 Potassium Chloride Tab 10 Meq Tab PO 11/03/23 15:33 40 meq STAT ONE Administration Potassium Chloride Confirm 11/03/23 15:43 Potassium Chloride Tab 10 Meq Tab Administered 11/03/23 15:44 Dose 40 meq .ROUTE .STK-MED ONE Lab/Rad Data: Laboratory Result Diagrams 11/03/23 14:15 11/03/23 14:15 Laboratory Results 11/03/23 11/03/23 11/03/23 Range/Units 14:15 14:15 14:15 WBC (4.0-10.5) x10^3/uL RBC (4.1-5.6) x10^6/uL Hgb (12.5-18.0) g/dL Hct (42-50) % MCV (78-100) fL MCH (26-32) pg MCHC (32-36) g/dL RDW (11.5-14.0) % Plt Count (150-450) x10^3/uL MPV (7.5-11.0) fL Gran % (36.0-66.0) % Immature Gran % (Auto) (0.00-0.4) % Nucleat RBC Rel Count (0.00-0.1) % Eos # (Auto) (0-0.5) x10^3/uL Immature Gran # (Auto) (0.00-0.03) x10^3u/L Absolute Lymphs (auto) (1.0-4.6) x10^3/uL Absolute Monos (auto) (0.0-1.3) x10^3/uL Absolute Nucleated RBC (0.00-0.01) x10^3u/L Lymphocytes % (24.0-44.0) % Monocytes % (0.0-12.0) % Eosinophils % (0.00-5.0) % Basophils % (0.0-0.4) % Absolute Granulocytes (1.4-6.9) x10^3/uL Basophils # (0-0.4) x10^3/uL D-Dimer 0.29 (0.0-0.50) mg/L Sodium 136 L (137-145) mmol/L Potassium 2.4 L* (3.5-5.1) mmol/L Chloride 104 (98-107) mmol/L Carbon Dioxide 26 (22-30) mmol/L Anion Gap 8.3 (5-15) MEQ/L BUN 8 L (9-20) mg/dL Creatinine 0.68 (0.66-1.25) mg/dL Estimated GFR 111.8 ML/MIN Glucose 282 H (74-106) mg/dL Calcium 8.4 (8.4-10.2) mg/dL Total Bilirubin 0.80 (0.2-1.3) mg/dL AST 27 (17-59) U/L ALT 14 (0-50) U/L Alkaline Phosphatase 110 (38-126) U/L Troponin I 0.018 (0.000-0.034) ng/mL NT-Pro-B Natriuret Pep 2640 (<300) pg/mL Serum Total Protein 6.2 L (6.3-8.2) g/dL Albumin 3.4 L (3.5-5.0) g/dL Influenza Type A Ag (NEGATIVE) Influenza Type B Ag (NEGATIVE) RSV (PCR) (NEGATIVE) SARS-CoV-2 (PCR) (NEGATIVE) 11/03/23 11/03/23 Range/Units 14:15 14:10 WBC 9.1 (4.0-10.5) x10^3/uL RBC 4.40 (4.1-5.6) x10^6/uL Hgb 13.2 (12.5-18.0) g/dL Hct 40.3 L (42-50) % MCV 91.6 (78-100) fL MCH 30.0 (26-32) pg MCHC 32.8 (32-36) g/dL RDW 15.2 H (11.5-14.0) % Plt Count 226 (150-450) x10^3/uL MPV 10.8 (7.5-11.0) fL Gran % 72.8 H (36.0-66.0) % Immature Gran % (Auto) 0.3 (0.00-0.4) % Nucleat RBC Rel Count 0.0 (0.00-0.1) % Eos # (Auto) 0.22 (0-0.5) x10^3/uL Immature Gran # (Auto) 0.03 (0.00-0.03) x10^3u/L Absolute Lymphs (auto) 1.40 (1.0-4.6) x10^3/uL Absolute Monos (auto) 0.76 (0.0-1.3) x10^3/uL Absolute Nucleated RBC 0.00 (0.00-0.01) x10^3u/L Lymphocytes % 15.4 L (24.0-44.0) % Monocytes % 8.4 (0.0-12.0) % Eosinophils % 2.4 (0.00-5.0) % Basophils % 0.7 (0.0-0.4) % Absolute Granulocytes 6.63 (1.4-6.9) x10^3/uL Basophils # 0.06 (0-0.4) x10^3/uL D-Dimer (0.0-0.50) mg/L Sodium (137-145) mmol/L Potassium (3.5-5.1) mmol/L Chloride (98-107) mmol/L Carbon Dioxide (22-30) mmol/L Anion Gap (5-15) MEQ/L BUN (9-20) mg/dL Creatinine (0.66-1.25) mg/dL Estimated GFR ML/MIN Glucose (74-106) mg/dL Calcium (8.4-10.2) mg/dL Total Bilirubin (0.2-1.3) mg/dL AST (17-59) U/L ALT (0-50) U/L Alkaline Phosphatase (38-126) U/L Troponin I (0.000-0.034) ng/mL NT-Pro-B Natriuret Pep (<300) pg/mL Serum Total Protein (6.3-8.2) g/dL Albumin (3.5-5.0) g/dL Influenza Type A Ag NEGATIVE (NEGATIVE) Influenza Type B Ag NEGATIVE (NEGATIVE) RSV (PCR) NEGATIVE (NEGATIVE) SARS-CoV-2 (PCR) NEGATIVE (NEGATIVE) - Progress Progress: improved Progress Note: Case discussed with Dr. Hernandez, hospitalist who accepts admission to observation. Plan of care discussed with patient. He agrees to admission to [facility] for further evaluation and treatment. 53-year-old male with a significant cardiac history presents to our ED with chest pain and shortness of breath. Workup reveals a elevated BNP, and a signi ficant hypokalemia. Potassium replacement initiated. Lasix administered. Chest x-ray reveals early pulmonary congestion. Portions of this note were created with voice recognition technology. There may be grammatical, spelling, punctuation or sound alike errors Complexity problem addressed is moderate acute complicated No critical care time Complex of data reviewed and analyzed is extensive. Test ordered test reviewed. Dr. Pack independently reviewed the EKG and the chest x-ray. Management discussed with hospitalist accepts admission to observation. Risk complication and or risk of morbidity/mortality of patient management is high. Patient requires hospitalization for further evaluation and treatment. Vital stable. Time spent to admit patient is approximately 20 minutes. Plan of care established for shared decision making. Portions of this note were created with voice recognition technology. There may be grammatical, spelling, punctuation or sound alike errors 11/03/23 16:08 Counseled pt/family regarding: lab results, diagnosis, need for follow-up, rad results - Departure Departure Disposition: Home Clinical Impression: ACS (acute coronary syndrome), SOB (shortness of breath), Hypokalemia Condition: Stable Critical Care Time: No Referrals: GIRMA BULLOCK [ACTIVE STAFF] - Follow up/PCP as directed
[2023-11-03 14:31] LABS: Absolute Neutrophil Ct (ANC) 6.63 x10^3/uL (1.4-6.9); BASOPHIL % 0.7 % (0.0-0.4); Basophil (Absolute #) 0.06 x10^3/uL (0-0.4); Eosinophil % 2.4 % (0.00-5.0); Eosinophil (Absolute #) 0.22 x10^3/uL (0-0.5); Hematocrit 40.3 % (42-50); Hemoglobin 13.2 g/dL (12.5-18.0); IMMATURE GRAN # 0.03 x10^3u/L (0.00-0.03); IMMATURE GRAN % 0.3 % (0.00-0.4); Lymphocytes % 15.4 % (24.0-44.0); Mean Cell Volume 91.6 fL (78-100); Mean Corpuscular Hgb Concent. 32.8 g/dL (32-36); Mean Platelet Volume 10.8 fL (7.5-11.0); Monocyte (Absolute #) 0.76 x10^3/uL (0.0-1.3); Monocytes % 8.4 % (0.0-12.0); Neutrophil % 72.8 % (36.0-66.0); Platelet Count 226 x10^3/uL (150-450); Red Cell Distribution Width 15.2 % (11.5-14.0); White Blood Count 9.1 x10^3/uL (4.0-10.5)
[2023-11-03 14:46] LABS: ALBUMIN 3.4 g/dL (3.5-5.0); ANION GAP 8.3 MEQ/L (5-15); BILIRUBIN,TOTAL 0.8 mg/dL (0.2-1.3); Calcium 8.4 mg/dL (8.4-10.2); Creatinine 1 0.68 mg/dL (0.66-1.25); EST GLOMERULAR FILTRATION RATE 111.8 ML/MIN; Total Protein 6.2 g/dL (6.3-8.2)
[2023-11-03 14:50] LABS: Potassium 2.4 mmol/L (3.5-5.1)
[2023-11-03 14:58] LABS: TROPONIN 0.018 ng/mL (0.000-0.034)
[2023-11-03 15:02] LABS: INFLUENZA A NEGATIVE (NEGATIVE); INFLUENZA B NEGATIVE (NEGATIVE); RESPIRATORY SYNCTIAL VIRUS NEGATIVE (NEGATIVE); SARS-CoV-2 Xpert Express NEGATIVE (NEGATIVE)
[2023-11-03] MEDS ORDERED: NITRO-BID 2% UD PACKETS TOP ONE (15:31)
[2023-11-03] MEDS ORDERED: BABY ASPIRIN 81 MG CHEW PO ONE (15:32)
[2023-11-03] MEDS ORDERED: Klor Con PO ONE (15:32)
[2023-11-03] MEDS ORDERED: MORPHINE SULFATE 2 MG INJ IV ONE (15:33)
[2023-11-03] MEDS ORDERED: BABY ASPIRIN 81 MG CHEW ONE (15:43)
[2023-11-03] MEDS ORDERED: Klor Con ONE (15:43)
[2023-11-03] MEDS ORDERED: NITRO-BID 2% UD PACKETS ONE (15:43)
--- NOTE | 2023-11-03 16:43 | XRAY ---
Indication: Chest pain. Short of breath. Comparison: February 06, 2022 Portable chest demonstrates borderline enlarging heart, central vascular prominence, and diffuse pulmonary edema favoring cardiac decompensation/CHF versus fluid overload. Superimposed pneumonia not completely excluded. Bony thorax intact again with left pacemaker.
[2023-11-03] MEDS ORDERED: Sodium Chloride 0.9% 1000 ML 0 ML ONE (16:44)
[2023-11-03] MEDS: POTASSIUM CHLORIDE 20 mEq IN WATER 100ML 20 MEQ/100 ML BAG IV SCH ×2 (16:45→18:37)
[2023-11-03] MEDS: Magnesium 1 Gm / 100 Ml D5W*** 100 ML IV SCH ×2 (16:45→17:45)
[2023-11-03] MEDS ORDERED: MORPHINE SULFATE 2 MG INJ ONE (16:47)
[2023-11-03] MEDS ORDERED: Sodium Chloride 0.9% 1000 ML 1,000 ML ONE (16:48)
--- NOTE | 2023-11-03 17:18 | PCM.HP ---
History of Present Illness - Chief Complaint Chief Complaint: ACS, Chest pain Date: 11/03/23 (16:12) History of Present Illness: is a 53 year old male admitted with chest pain and dyspnea. He reports dull ache in left chest pectoralis region. No radiation of pain. Pain came on at rest. No provocative or palliative factors. Symptoms started with dyspnea when he tried to lay down. He sat up and pain started. He can't remember if pain is similar to cardiac pain in the past. He says he feels like he is filling up with fluid. He has prior history of CHF. Arms feel swollen but no swelling in legs. No fever but has mild cough. No sore throat. No abdominal pain. He had some vomiting yesterday. No change in bowels or bladder. He has history of CAD and has stents and has history of KS. He has a defibrillator. He has PMH of CAD, DM type 2, HTN, HLD, Gout, and CHF. - Review of Systems Constitutional: No Symptoms, No Fever, No Chills Eyes: No Symptoms Ears, Nose, & Throat: No Symptoms Respiratory: Cough, Short Of Breath, No Wheezing Cardiac: Chest Pain, Edema, No Syncope, No Orthopnea, No PND Abdominal/Gastrointestinal: No Symptoms, No Abdominal Pain, No Nausea, No Vomiting, No Diarrhea Genitourinary Symptoms: No Symptoms, No Dysuria, No Frequency Musculoskeletal: No Symptoms Skin: No Symptoms Neurological: No Symptoms Psychological: No Symptoms Endocrine: No Symptoms Hematologic/Lymphatic: No Symptoms Immunological/Allergic: No Symptoms Medications & Allergies Home Medications: Home Medication List Atorvastatin Calcium [Lipitor 20MG Tablet] 80 mg PO HS 03/22/15 [History Confirmed 02/06/22] Magnesium 400 tab PO DAILY 07/10/15 [History Confirmed 02/06/22] carvediloL [Carvedilol] 25 mg PO BID 01/18/16 [History Confirmed 02/06/22] Allopurinol 100 mg [Zyloprim 100 mg] 300 mg PO DAILY 02/07/16 [History Confirmed 02/06/22] Nitroglycerin 0.4 mg Tablet [Nitrostat 0.4 MG Tablet] 0.4 mg SL .[id number] #1 bottle 12/08/16 [Rx Confirmed 02/06/22] Insulin Lispro [Humalog] 0 unit SQ UD 09/24/17 [History Confirmed 02/06/22] Liraglutide [Victoza 2-Devin] 1.2 mg SQ DAILY 09/24/17 [History Confirmed 02/06/22] Sacubitril/Valsartan [Entresto 24 mg-26 mg Tablet] 24 - 26 mg PO BID 09/24/17 [History Confirmed 02/06/22] Potassium Chloride [K-Dur] 10 meq PO BID 11/23/17 [History Confirmed 02/06/22] Venlafaxine HCl [Venlafaxine HCl ER] 150 mg PO DAILY 11/23/17 [History Confirmed 02/06/22] Insulin Degludec [Tresiba Flextouch U-200] 100 unit SQ QAM 11/24/17 [History Confirmed 02/06/22] Empagliflozin [Jardiance] 25 mg PO DAILY 11/14/18 [History Confirmed 02/06/22] Clopidogrel Bisulfate [PLAVIX 75 MG Tablet] 75 mg PO DAILY 04/26/19 [History Confirmed 02/06/22] Zolpidem Tartrate 10 mg [Ambien 10 MG] 10 mg PO HS 04/26/19 [History Confirmed 02/06/22] Ezetimibe 10 mg PO DAILY 09/23/19 [History Confirmed 02/06/22] Apixaban [Eliquis] 5 mg PO DAILY 06/17/20 [History Confirmed 02/06/22] Fenofibrate,Micronized [Fenofibrate] 134 mg PO DAILY 06/17/20 [History Confirmed 02/06/22] Niacin [Niaspan] 1,000 mg PO DAILY 06/17/20 [History Confirmed 02/06/22] Pioglitazone 30 mg [Actos 30 MG] 30 mg PO DAILY 06/17/20 [History Confirmed 02/06/22] Bumetanide [Bumex] 2 mg PO BID 07/07/21 [History Confirmed 02/06/22] Hydrocodone/Acetaminophen [Hydrocodone-Acetamin 10-325 mg] 1 tablet PO Q4H PRN PRN 07/07/21 [History Confirmed 02/06/22] Isosorbide Mononitrate 30 mg [Imdur 30 MG] 30 mg PO DAILY 07/07/21 [History Confirmed 02/06/22] Pregabalin [Lyrica 150Mg] 150 mg PO TID 07/07/21 [History Confirmed 02/06/22] Ropinirole HCl 1 mg PO HS 07/07/21 [History Confirmed 02/06/22] Carvedilol 12.5 mg [Coreg 12.5 mg] 12.5 mg PO BID 02/06/22 [History Confirmed 02/06/22] Allergies/Adverse Reactions: Allergies Allergy/AdvReac Type Severity Reaction Status Date / Time No Known Drug Allergies Allergy Verified 11/03/23 13:41 - Past Medical History Past Medical History: Yes Neurological History: No Pertinent History ENT History: No Pertinent History Cardiac History: High Cholesterol, Hypertension, Myocardial Infarction ([place]), Other Respiratory History: Other Endocrine Medical History: Diabetes Type II Musculoskelatal History: Osteoarthritis GI Medical History: Pancreatitis History: No Pertinent History Pyscho-Social History: No Pertinent History Male Reproductive Disorders: No Pertinent History Comment: COVID APPROXIMATELY 2 MONTHS AGO. NO RESIDUAL. NOT VACCINATED. PMHX: PER PATIENT HAS 5 STENTS BUT NO CABG. HAS DEFIBRILLATOR PLACED 2014 WITH HX OF ACTIVATION PER PATIENT "A FEW TIMES". PER PATIENT HEART FUNCTION 15-20%. SEVERE OA LEFT KNEE - BONE ON BONE BUT UNABLE TO HAVE REPLACEMENT DUE TO HEART. WEARING [facility] PER DIEM RN BRACE. - Past Surgical History Past Surgical History: Yes Neuro Surgical History: No Pertinent History Cardiac History: Angioplasty, Cardiac Catheterization, Cardiac Stent, Internal Defibrillator, Pacemaker Respiratory Surgery: No Pertinent History GI Surgical History: Cholecystectomy, Hernia Repair Genitourinary Surgical Hx: No Pertinent History Musculskeletal Surgical Hx: Orthopedic Surgery Male Surgical History: No Pertinent History Other Surgical History: elbow - Social History Smoking Status: Former smoker Exposure to second hand smoke: No Alcohol: None Drug Use: none Significant Family History: heart disease, diabetes, hypertension - Physical Exam Vital Signs: Vital Signs - 24 hr Temp Pulse Resp BP BP Pulse Ox 11/03/23 17:11 97.7 F 87 24 140/93 96 11/03/23 16:12 95 11/03/23 16:00 150/93 98 11/03/23 15:51 139/92 98 11/03/23 15:30 149/67 97 11/03/23 15:00 142/96 96 11/03/23 14:30 0 L 22 131/87 97 11/03/23 14:29 77 16 130/88 98 11/03/23 14:20 82 22 11/03/23 14:10 77 18 11/03/23 14:07 84 21 11/03/23 14:05 96 11/03/23 13:46 97.6 F 90 19 157/106 95 General Appearance: mild distress Neurologic Exam: alert, oriented x 3, cooperative, ore grader II-XII nml as tested Eye Exam: PERRL/EOMI, eyes nml inspection Ears, Nose, Throat Exam: normal ENT inspection Neck Exam: normal inspection, non-tender, supple, full range of motion Respiratory Exam: crackles/rales, No wheezing Cardiovascular Exam: regular rate/rhythm, normal heart sounds, normal peripheral pulses Gastrointestinal/Abdomen Exam: soft, normal bowel sounds, No tenderness, No distention, No mass Rectal Exam: deferred Back Exam: normal inspection Extremity Exam: normal inspection Skin Exam: normal color Lymphatic Exam: adenopathy Results - Labs Lab/Micro Results: Lab Results-Last 24 Hours 11/03/23 11/03/23 11/03/23 Range/Units 14:10 14:15 14:15 WBC 9.1 (4.0-10.5) x10^3/uL RBC 4.40 (4.1-5.6) x10^6/uL Hgb 13.2 (12.5-18.0) g/dL Hct 40.3 L (42-50) % MCV 91.6 (78-100) fL MCH 30.0 (26-32) pg MCHC 32.8 (32-36) g/dL RDW 15.2 H (11.5-14.0) % Plt Count 226 (150-450) x10^3/uL MPV 10.8 (7.5-11.0) fL Gran % 72.8 H (36.0-66.0) % Immature Gran % (Auto) 0.3 (0.00-0.4) % Nucleat RBC Rel Count 0.0 (0.00-0.1) % Eos # (Auto) 0.22 (0-0.5) x10^3/uL Immature Gran # (Auto) 0.03 (0.00-0.03) x10^3u/L Absolute Lymphs (auto) 1.40 (1.0-4.6) x10^3/uL Absolute Monos (auto) 0.76 (0.0-1.3) x10^3/uL Absolute Nucleated RBC 0.00 (0.00-0.01) x10^3u/L Lymphocytes % 15.4 L (24.0-44.0) % Monocytes % 8.4 (0.0-12.0) % Eosinophils % 2.4 (0.00-5.0) % Basophils % 0.7 (0.0-0.4) % Absolute Granulocytes 6.63 (1.4-6.9) x10^3/uL Basophils # 0.06 (0-0.4) x10^3/uL D-Dimer (0.0-0.50) mg/L Sodium 136 L (137-145) mmol/L Potassium 2.4 L* (3.5-5.1) mmol/L Chloride 104 (98-107) mmol/L Carbon Dioxide 26 (22-30) mmol/L Anion Gap 8.3 (5-15) MEQ/L BUN 8 L (9-20) mg/dL Creatinine 0.68 (0.66-1.25) mg/dL Estimated GFR 111.8 ML/MIN Glucose 282 H (74-106) mg/dL Calcium 8.4 (8.4-10.2) mg/dL Total Bilirubin 0.80 (0.2-1.3) mg/dL AST 27 (17-59) U/L ALT 14 (0-50) U/L Alkaline Phosphatase 110 (38-126) U/L Troponin I (0.000-0.034) ng/mL NT-Pro-B Natriuret Pep (<300) pg/mL Serum Total Protein 6.2 L (6.3-8.2) g/dL Albumin 3.4 L (3.5-5.0) g/dL Influenza Type A Ag NEGATIVE (NEGATIVE) Influenza Type B Ag NEGATIVE (NEGATIVE) RSV (PCR) NEGATIVE (NEGATIVE) SARS-CoV-2 (PCR) NEGATIVE (NEGATIVE) 11/03/23 11/03/23 Range/Units 14:15 14:15 WBC (4.0-10.5) x10^3/uL RBC (4.1-5.6) x10^6/uL Hgb (12.5-18.0) g/dL Hct (42-50) % MCV (78-100) fL MCH (26-32) pg MCHC (32-36) g/dL RDW (11.5-14.0) % Plt Count (150-450) x10^3/uL MPV (7.5-11.0) fL Gran % (36.0-66.0) % Immature Gran % (Auto) (0.00-0.4) % Nucleat RBC Rel Count (0.00-0.1) % Eos # (Auto) (0-0.5) x10^3/uL Immature Gran # (Auto) (0.00-0.03) x10^3u/L Absolute Lymphs (auto) (1.0-4.6) x10^3/uL Absolute Monos (auto) (0.0-1.3) x10^3/uL Absolute Nucleated RBC (0.00-0.01) x10^3u/L Lymphocytes % (24.0-44.0) % Monocytes % (0.0-12.0) % Eosinophils % (0.00-5.0) % Basophils % (0.0-0.4) % Absolute Granulocytes (1.4-6.9) x10^3/uL Basophils # (0-0.4) x10^3/uL D-Dimer 0.29 (0.0-0.50) mg/L Sodium (137-145) mmol/L Potassium (3.5-5.1) mmol/L Chloride (98-107) mmol/L Carbon Dioxide (22-30) mmol/L Anion Gap (5-15) MEQ/L BUN (9-20) mg/dL Creatinine (0.66-1.25) mg/dL Estimated GFR ML/MIN Glucose (74-106) mg/dL Calcium (8.4-10.2) mg/dL Total Bilirubin (0.2-1.3) mg/dL AST (17-59) U/L ALT (0-50) U/L Alkaline Phosphatase (38-126) U/L Troponin I 0.018 (0.000-0.034) ng/mL NT-Pro-B Natriuret Pep 2640 (<300) pg/mL Serum Total Protein (6.3-8.2) g/dL Albumin (3.5-5.0) g/dL Influenza Type A Ag (NEGATIVE) Influenza Type B Ag (NEGATIVE) RSV (PCR) (NEGATIVE) SARS-CoV-2 (PCR) (NEGATIVE) - Radiology Impressions Radiology Exams & Impressions: Radiology Procedures Category Date Time Status CHEST 1 VIEW (PORTABLE) Stat Exams 11/03/23 15:33 Completed Assessment/Plan (1) Chest pain at rest Current Visit: No Status: Acute Assessment & Plan: Chest pain at rest Prior history of CAD He can't remember if pain is similar to heart pain in the past Atypical pain Not relieved with NG. Symptoms started with orhthopnea and dyspnea. He feels like he is filling up with fluid EKG and troponin negative He does appear to have some exacerbation of CHF Plan diuresis and repeat EKG/troponin. Code(s): R07.9 - CHEST PAIN, UNSPECIFIED (2) Coronary artery disease Current Visit: Yes Status: Chronic Assessment & Plan: History of CAD with stents. History of [place] Follows with Dr. Lang Continue home meds Code(s): I25.10 - ATHSCL HEART DISEASE OF [place] CORONARY ARTERY W/O ANG PCTRS (3) Hypertension Current Visit: Yes Status: Chronic Assessment & Plan: Continue home meds Code(s): I10 - ESSENTIAL (PRIMARY) HYPERTENSION (4) Hyperlipidemia Current Visit: Yes Status: Chronic Assessment & Plan: Continue home meds Code(s): E78.5 - HYPERLIPIDEMIA, UNSPECIFIED (5) Type 2 diabetes mellitus Current Visit: No Status: Chronic Assessment & Plan: Monitor BS. SS insulin Continue home meds (6) CHF (congestive heart failure) Current Visit: No Status: Acute Assessment & Plan: History of CHF. EF not known He feels like he is filling up with fluid. Arms feel swollen No edema in legs He's had dyspnea and orthopnea Cxray suggests CHF Plan diuresis overnight. Code(s): I50.9 - HEART FAILURE, UNSPECIFIED (7) COPD (chronic obstructive pulmonary disease) Current Visit: No Status: Chronic Assessment & Plan: Plan bronchodilators prn Not wheezing now Telemedicine Encounter - Telemedicine Encounter Telemedicine Encounter: The entirety of this encounter was performed via Telemedicine" after consent obtained. Labs and imaging reviewed. Discussed with ER Provider 70 minutes spent on care of this patient. Chico Hernandez MD [facility]
[2023-11-03] MEDS ORDERED: FEVERALL 650 MG PR PRN (17:50)
[2023-11-03] MEDS ORDERED: Docusate Sodium 100 MG PO PRN (17:50)
[2023-11-03] MEDS: HUMALOG SQ PRN ×2 (18:13→22:45)
[2023-11-03] MEDS ORDERED: Nitrostat 0.4 MG Tablet SL PRN (18:15)
[2023-11-03] MEDS: NORCO 10-325 MG PO PRN ×2 (18:19→22:46)
[2023-11-03] MEDS ORDERED: Lasix 40 MG/4 ML IV ONE (18:27)
[2023-11-03] MEDS ORDERED: DUONEB 0.5-3 MG/3 ml Neb IH SCH (19:00)
[2023-11-03] MEDS ORDERED: DUONEB 0.5-3 MG/3 ml Neb IH ONE (19:17)
[2023-11-03] MEDS: TYLENOL 325 MG PO PRN (20:41)
[2023-11-03] MEDS ORDERED: NON-FORMULARY ITEM (Quetiapine Fumarate [Seroquel] 50 MG Tablet) PO SCH (22:00)
[2023-11-03] MEDS ORDERED: NON-FORMULARY ITEM (Atorvastatin Calcium 20 MG Tab) PO SCH (22:00)
[2023-11-03] MEDS ORDERED: NON-FORMULARY ITEM (Carvedilol [Carvedilol] 25 MG Tablet) PO SCH (22:00)
[2023-11-03] MEDS ORDERED: NON-FORMULARY ITEM (Sacubitril/Valsartan [Entresto 24 Mg-26 Mg Tablet] 1 EACH Tablet) PO SCH (22:00)
[2023-11-03 22:14] LABS: Hematocrit 42.6 % (42-50); Hemoglobin 13.6 g/dL (12.5-18.0)
[2023-11-03] MEDS ORDERED: Seroquel 25 MG ONE (22:37)
[2023-11-03] MEDS ORDERED: COREG 12.5 MG ONE (22:37)
[2023-11-04] MEDS ORDERED: POTASSIUM CHLORIDE 20 mEq IN WATER 100ML 20 MEQ/100 ML BAG IV ONE ×2 (03:54→09:30)
[2023-11-04] MEDS: NORCO 10-325 MG PO PRN ×5 (04:12→20:49)
[2023-11-04 04:58] LABS: Absolute Neutrophil Ct (ANC) 5.21 x10^3/uL (1.4-6.9); BASOPHIL % 0.7 % (0.0-0.4); Basophil (Absolute #) 0.06 x10^3/uL (0-0.4); Eosinophil % 4.2 % (0.00-5.0); Eosinophil (Absolute #) 0.34 x10^3/uL (0-0.5); Hematocrit 36.9 % (42-50); Hemoglobin 11.9 g/dL (12.5-18.0); IMMATURE GRAN # 0.02 x10^3u/L (0.00-0.03); IMMATURE GRAN % 0.2 % (0.00-0.4); Lymphocyte (Absolute #) 1.81 x10^3/uL (1.0-4.6); Lymphocytes % 22.2 % (24.0-44.0); Mean Cell Volume 92.3 fL (78-100); Mean Corpuscular Hemoglobin 29.8 pg (26-32); Mean Corpuscular Hgb Concent. 32.2 g/dL (32-36); Mean Platelet Volume 10.5 fL (7.5-11.0); Monocyte (Absolute #) 0.72 x10^3/uL (0.0-1.3); Monocytes % 8.8 % (0.0-12.0); Neutrophil % 63.9 % (36.0-66.0); Platelet Count 217 x10^3/uL (150-450); Red Cell Distribution Width 15.3 % (11.5-14.0); White Blood Count 8.2 x10^3/uL (4.0-10.5)
[2023-11-04 05:22] LABS: ALBUMIN 3.1 g/dL (3.5-5.0); BILIRUBIN,TOTAL 1.1 mg/dL (0.2-1.3); Calcium 7.5 mg/dL (8.4-10.2); Creatinine 1 0.71 mg/dL (0.66-1.25); EST GLOMERULAR FILTRATION RATE 110.4 ML/MIN; Total Protein 5.9 g/dL (6.3-8.2)
[2023-11-04 05:25] LABS: Potassium 2.8 mmol/L (3.5-5.1)
--- NOTE | 2023-11-04 05:35 | PCM.NOTE ---
Date and Time: 11/04/23531 Subjective Assessment: is a 53 year old male with a pmhx of CAD, DMII, HTN, HLD, Gout, and CHF who presented to ED 11/03/23 admitted with complaints of chest pain and dyspnea. CXR with borderline enlarging heart and central vascular prominence with diffuse pulmonary edema favoring CHF/ possible pneumonia. Initial EKG and troponins negative. Lab findings remarkable for hypokalemia, potassium at 2.6. Plan for diuresis, repeat ekg and trops in the a.m. 11/04/23: Met with patient bedside. Endorses continued shortness of breath and productive cough with clear sputum. Upper extremity edema has improved. Denies chest pain this morning. Discussed labs, potassium is still low. CXR with CHF/pneumonia. Lung sounds coarse on auscultation. Plan for potassium replenishment as well as continued diuresis. No change to repeat EKG. Denies fever, cp, abdominal pain, ZHAO, dizziness, N/V/D. - Review of Systems Constitutional: No Symptoms (BUE ) Eyes: No Symptoms Ears, Nose, & Throat: No Symptoms Respiratory: Cough, Short Of Breath Cardiac: Edema Abdominal/Gastrointestinal: No Symptoms Genitourinary Symptoms: No Symptoms Musculoskeletal: No Symptoms Skin: No Symptoms Neurological: No Symptoms Psychological: No Symptoms Endocrine: No Symptoms Hematologic/Lymphatic: No Symptoms Objective Exam General Appearance: no apparent distress Neurologic Exam: alert, oriented x 3, cooperative Skin Exam: normal color Eye Exam: PERRL Ears, Nose, Throat Exam: normal ENT inspection Neck Exam: normal inspection Respiratory Exam: crackles/rales Cardiovascular Exam: regular rate/rhythm, normal heart sounds Gastrointestinal/Abdomen Exam: soft, normal bowel sounds Extremity Exam: other (BUE edema trace) Back Exam: normal inspection Male Genitalia Exam: deferred OBJECTIVE DATA Vital Signs: Vital Signs - 24 hr Temp Pulse Resp BP BP Pulse Ox 11/04/23 04:00 98.0 F 86 17 114/57 94 L 11/04/23 00:00 97.8 F 112 H 19 108/61 99 11/03/23 19:55 96 11/03/23 19:50 98.2 F 103 H 17 119/60 94 L 11/03/23 17:21 97.7 F 87 24 140/93 96 11/03/23 17:11 97.7 F 87 24 140/93 96 11/03/23 16:12 95 11/03/23 16:00 150/93 98 11/03/23 15:51 139/92 98 11/03/23 15:30 149/67 97 11/03/23 15:00 142/96 96 11/03/23 14:30 0 L 22 131/87 97 11/03/23 14:29 77 16 130/88 98 11/03/23 14:20 82 22 11/03/23 14:10 77 18 11/03/23 14:07 84 21 11/03/23 14:05 96 11/03/23 13:46 97.6 F 90 19 157/106 95 Pain Assessment - Last Documented Pain Intensity 8 Pain Scale Used 0-10 Pain Scale Intake and Output: Intake & Output 11/01/23 11/02/23 11/03/23 11/04/23 11:59 11:59 11:59 11:59 Intake Total 1020 Output Total 3300 Balance -2280 Weight 111.7 kg Lab Results: Lab Results-Last 24 Hours 11/03/23 11/03/23 11/03/23 Range/Units 14:10 14:15 14:15 WBC 9.1 (4.0-10.5) x10^3/uL RBC 4.40 (4.1-5.6) x10^6/uL Hgb 13.2 (12.5-18.0) g/dL Hct 40.3 L (42-50) % MCV 91.6 (78-100) fL MCH 30.0 (26-32) pg MCHC 32.8 (32-36) g/dL RDW 15.2 H (11.5-14.0) % Plt Count 226 (150-450) x10^3/uL MPV 10.8 (7.5-11.0) fL Gran % 72.8 H (36.0-66.0) % Immature Gran % (Auto) 0.3 (0.00-0.4) % Nucleat RBC Rel Count 0.0 (0.00-0.1) % Eos # (Auto) 0.22 (0-0.5) x10^3/uL Immature Gran # (Auto) 0.03 (0.00-0.03) x10^3u/L Absolute Lymphs (auto) 1.40 (1.0-4.6) x10^3/uL Absolute Monos (auto) 0.76 (0.0-1.3) x10^3/uL Absolute Nucleated RBC 0.00 (0.00-0.01) x10^3u/L Lymphocytes % 15.4 L (24.0-44.0) % Monocytes % 8.4 (0.0-12.0) % Eosinophils % 2.4 (0.00-5.0) % Basophils % 0.7 (0.0-0.4) % Absolute Granulocytes 6.63 (1.4-6.9) x10^3/uL Basophils # 0.06 (0-0.4) x10^3/uL D-Dimer (0.0-0.50) mg/L Sodium 136 L (137-145) mmol/L Potassium 2.4 L* (3.5-5.1) mmol/L Chloride 104 (98-107) mmol/L Carbon Dioxide 26 (22-30) mmol/L Anion Gap 8.3 (5-15) MEQ/L BUN 8 L (9-20) mg/dL Creatinine 0.68 (0.66-1.25) mg/dL Estimated GFR 111.8 ML/MIN Glucose 282 H (74-106) mg/dL POC Glucometer (74 to 106) mg/dL Hemoglobin A1c (4.5-6.0) % Calcium 8.4 (8.4-10.2) mg/dL Magnesium (1.6-2.3) mg/dL Total Bilirubin 0.80 (0.2-1.3) mg/dL AST 27 (17-59) U/L ALT 14 (0-50) U/L Alkaline Phosphatase 110 (38-126) U/L Troponin I (0.000-0.034) ng/mL NT-Pro-B Natriuret Pep (<300) pg/mL Serum Total Protein 6.2 L (6.3-8.2) g/dL Albumin 3.4 L (3.5-5.0) g/dL Influenza Type A Ag NEGATIVE (NEGATIVE) Influenza Type B Ag NEGATIVE (NEGATIVE) RSV (PCR) NEGATIVE (NEGATIVE) SARS-CoV-2 (PCR) NEGATIVE (NEGATIVE) 11/03/23 11/03/23 11/03/23 Range/Units 14:15 14:15 14:15 WBC (4.0-10.5) x10^3/uL RBC (4.1-5.6) x10^6/uL Hgb (12.5-18.0) g/dL Hct (42-50) % MCV (78-100) fL MCH (26-32) pg MCHC (32-36) g/dL RDW (11.5-14.0) % Plt Count (150-450) x10^3/uL MPV (7.5-11.0) fL Gran % (36.0-66.0) % Immature Gran % (Auto) (0.00-0.4) % Nucleat RBC Rel Count (0.00-0.1) % Eos # (Auto) (0-0.5) x10^3/uL Immature Gran # (Auto) (0.00-0.03) x10^3u/L Absolute Lymphs (auto) (1.0-4.6) x10^3/uL Absolute Monos (auto) (0.0-1.3) x10^3/uL Absolute Nucleated RBC (0.00-0.01) x10^3u/L Lymphocytes % (24.0-44.0) % Monocytes % (0.0-12.0) % Eosinophils % (0.00-5.0) % Basophils % (0.0-0.4) % Absolute Granulocytes (1.4-6.9) x10^3/uL Basophils # (0-0.4) x10^3/uL D-Dimer 0.29 (0.0-0.50) mg/L Sodium (137-145) mmol/L Potassium (3.5-5.1) mmol/L Chloride (98-107) mmol/L Carbon Dioxide (22-30) mmol/L Anion Gap (5-15) MEQ/L BUN (9-20) mg/dL Creatinine (0.66-1.25) mg/dL Estimated GFR ML/MIN Glucose (74-106) mg/dL POC Glucometer (74 to 106) mg/dL Hemoglobin A1c 8.93 H (4.5-6.0) % Calcium (8.4-10.2) mg/dL Magnesium (1.6-2.3) mg/dL Total Bilirubin (0.2-1.3) mg/dL AST (17-59) U/L ALT (0-50) U/L Alkaline Phosphatase (38-126) U/L Troponin I 0.018 (0.000-0.034) ng/mL NT-Pro-B Natriuret Pep 2640 (<300) pg/mL Serum Total Protein (6.3-8.2) g/dL Albumin (3.5-5.0) g/dL Influenza Type A Ag (NEGATIVE) Influenza Type B Ag (NEGATIVE) RSV (PCR) (NEGATIVE) SARS-CoV-2 (PCR) (NEGATIVE) 11/03/23 11/03/23 11/03/23 Range/Units 18:07 18:30 20:47 WBC (4.0-10.5) x10^3/uL RBC (4.1-5.6) x10^6/uL Hgb (12.5-18.0) g/dL Hct (42-50) % MCV (78-100) fL MCH (26-32) pg MCHC (32-36) g/dL RDW (11.5-14.0) % Plt Count (150-450) x10^3/uL MPV (7.5-11.0) fL Gran % (36.0-66.0) % Immature Gran % (Auto) (0.00-0.4) % Nucleat RBC Rel Count (0.00-0.1) % Eos # (Auto) (0-0.5) x10^3/uL Immature Gran # (Auto) (0.00-0.03) x10^3u/L Absolute Lymphs (auto) (1.0-4.6) x10^3/uL Absolute Monos (auto) (0.0-1.3) x10^3/uL Absolute Nucleated RBC (0.00-0.01) x10^3u/L Lymphocytes % (24.0-44.0) % Monocytes % (0.0-12.0) % Eosinophils % (0.00-5.0) % Basophils % (0.0-0.4) % Absolute Granulocytes (1.4-6.9) x10^3/uL Basophils # (0-0.4) x10^3/uL D-Dimer (0.0-0.50) mg/L Sodium (137-145) mmol/L Potassium (3.5-5.1) mmol/L Chloride (98-107) mmol/L Carbon Dioxide (22-30) mmol/L Anion Gap (5-15) MEQ/L BUN (9-20) mg/dL Creatinine (0.66-1.25) mg/dL Estimated GFR ML/MIN Glucose (74-106) mg/dL POC Glucometer 224 H 239 H (74 to 106) mg/dL Hemoglobin A1c (4.5-6.0) % Calcium (8.4-10.2) mg/dL Magnesium (1.6-2.3) mg/dL Total Bilirubin (0.2-1.3) mg/dL AST (17-59) U/L ALT (0-50) U/L Alkaline Phosphatase (38-126) U/L Troponin I 0.018 (0.000-0.034) ng/mL NT-Pro-B Natriuret Pep (<300) pg/mL Serum Total Protein (6.3-8.2) g/dL Albumin (3.5-5.0) g/dL Influenza Type A Ag (NEGATIVE) Influenza Type B Ag (NEGATIVE) RSV (PCR) (NEGATIVE) SARS-CoV-2 (PCR) (NEGATIVE) 11/03/23 11/03/23 11/03/23 Range/Units 22:00 22:00 22:00 WBC (4.0-10.5) x10^3/uL RBC (4.1-5.6) x10^6/uL Hgb 13.6 (12.5-18.0) g/dL Hct 42.6 (42-50) % MCV (78-100) fL MCH (26-32) pg MCHC (32-36) g/dL RDW (11.5-14.0) % Plt Count (150-450) x10^3/uL MPV (7.5-11.0) fL Gran % (36.0-66.0) % Immature Gran % (Auto) (0.00-0.4) % Nucleat RBC Rel Count (0.00-0.1) % Eos # (Auto) (0-0.5) x10^3/uL Immature Gran # (Auto) (0.00-0.03) x10^3u/L Absolute Lymphs (auto) (1.0-4.6) x10^3/uL Absolute Monos (auto) (0.0-1.3) x10^3/uL Absolute Nucleated RBC (0.00-0.01) x10^3u/L Lymphocytes % (24.0-44.0) % Monocytes % (0.0-12.0) % Eosinophils % (0.00-5.0) % Basophils % (0.0-0.4) % Absolute Granulocytes (1.4-6.9) x10^3/uL Basophils # (0-0.4) x10^3/uL D-Dimer (0.0-0.50) mg/L Sodium (137-145) mmol/L Potassium (3.5-5.1) mmol/L Chloride (98-107) mmol/L Carbon Dioxide (22-30) mmol/L Anion Gap (5-15) MEQ/L BUN (9-20) mg/dL Creatinine (0.66-1.25) mg/dL Estimated GFR ML/MIN Glucose (74-106) mg/dL POC Glucometer (74 to 106) mg/dL Hemoglobin A1c (4.5-6.0) % Calcium (8.4-10.2) mg/dL Magnesium 1.9 (1.6-2.3) mg/dL Total Bilirubin (0.2-1.3) mg/dL AST (17-59) U/L ALT (0-50) U/L Alkaline Phosphatase (38-126) U/L Troponin I 0.022 (0.000-0.034) ng/mL NT-Pro-B Natriuret Pep (<300) pg/mL Serum Total Protein (6.3-8.2) g/dL Albumin (3.5-5.0) g/dL Influenza Type A Ag (NEGATIVE) Influenza Type B Ag (NEGATIVE) RSV (PCR) (NEGATIVE) SARS-CoV-2 (PCR) (NEGATIVE) 11/04/23 11/04/23 11/04/23 Range/Units 02:07 04:55 04:55 WBC 8.2 (4.0-10.5) x10^3/uL RBC 4.00 L (4.1-5.6) x10^6/uL Hgb 11.9 L (12.5-18.0) g/dL Hct 36.9 L (42-50) % MCV 92.3 (78-100) fL MCH 29.8 (26-32) pg MCHC 32.2 (32-36) g/dL RDW 15.3 H (11.5-14.0) % Plt Count 217 (150-450) x10^3/uL MPV 10.5 (7.5-11.0) fL Gran % 63.9 (36.0-66.0) % Immature Gran % (Auto) 0.2 (0.00-0.4) % Nucleat RBC Rel Count 0.0 (0.00-0.1) % Eos # (Auto) 0.34 (0-0.5) x10^3/uL Immature Gran # (Auto) 0.02 (0.00-0.03) x10^3u/L Absolute Lymphs (auto) 1.81 (1.0-4.6) x10^3/uL Absolute Monos (auto) 0.72 (0.0-1.3) x10^3/uL Absolute Nucleated RBC 0.00 (0.00-0.01) x10^3u/L Lymphocytes % 22.2 L (24.0-44.0) % Monocytes % 8.8 (0.0-12.0) % Eosinophils % 4.2 (0.00-5.0) % Basophils % 0.7 (0.0-0.4) % Absolute Granulocytes 5.21 (1.4-6.9) x10^3/uL Basophils # 0.06 (0-0.4) x10^3/uL D-Dimer (0.0-0.50) mg/L Sodium 135 L (137-145) mmol/L Potassium 3.0 L* D 2.8 L* (3.5-5.1) mmol/L Chloride 102 (98-107) mmol/L Carbon Dioxide 25 (22-30) mmol/L Anion Gap 10.0 (5-15) MEQ/L BUN 13 (9-20) mg/dL Creatinine 0.71 (0.66-1.25) mg/dL Estimated GFR 110.4 ML/MIN Glucose 208 H (74-106) mg/dL POC Glucometer (74 to 106) mg/dL Hemoglobin A1c (4.5-6.0) % Calcium 7.5 L (8.4-10.2) mg/dL Magnesium (1.6-2.3) mg/dL Total Bilirubin 1.10 (0.2-1.3) mg/dL AST 20 (17-59) U/L ALT 16 (0-50) U/L Alkaline Phosphatase 77 (38-126) U/L Troponin I (0.000-0.034) ng/mL NT-Pro-B Natriuret Pep (<300) pg/mL Serum Total Protein 5.9 L (6.3-8.2) g/dL Albumin 3.1 L (3.5-5.0) g/dL Influenza Type A Ag (NEGATIVE) Influenza Type B Ag (NEGATIVE) RSV (PCR) (NEGATIVE) SARS-CoV-2 (PCR) (NEGATIVE) Radiology Exams: Radiology Procedures Category Date Time Status CHEST 1 VIEW (PORTABLE) Stat Exams 11/03/23 15:33 Completed ECHO W/2D AND DOPPLER [US] Routine Exams 11/04/23 10:00 Ordered Assessment/Plan (1) Chest pain at rest Current Visit: Yes Status: Acute Assessment & Plan: Chest pain at rest Prior history of CAD He can't remember if pain is similar to heart pain in the past Atypical pain Not relieved with NG. Symptoms started with orhthopnea and dyspnea. He feels like he is filling up with fluid EKG and troponin negative He does appear to have some exacerbation of CHF Plan diuresis and repeat EKG/troponin. 11/04: -no further chest pain, EKG repeat no change -BUE edema improved -BNP elevated at 2640 -CXR demonstrating CHF/pneumonia - Coarse lung sounds on auscultation -continue diuresis Code(s): R07.9 - CHEST PAIN, UNSPECIFIED (2) Coronary artery disease Current Visit: Yes Status: Chronic Assessment & Plan: History of CAD with stents. History of [place] Follows with Dr. Lang Continue home meds Code(s): I25.10 - ATHSCL HEART DISEASE OF [place] CORONARY ARTERY W/O ANG PCTRS (3) Hypertension Current Visit: Yes Status: Chronic Assessment & Plan: Continue home meds Code(s): I10 - ESSENTIAL (PRIMARY) HYPERTENSION (4) Hyperlipidemia Current Visit: Yes Status: Chronic Assessment & Plan: Continue home meds Code(s): E78.5 - HYPERLIPIDEMIA, UNSPECIFIED (5) Type 2 diabetes mellitus Current Visit: No Status: Chronic Assessment & Plan: Monitor BS. SS insulin Continue home meds (6) CHF (congestive heart failure) Current Visit: No Status: Acute Assessment & Plan: History of CHF. EF not known He feels like he is filling up with fluid. Arms feel swollen No edema in legs He's had dyspnea and orthopnea Cxray suggests CHF Plan diuresis overnight. 11/04: -Improving edema to BUE - continue diuresis Code(s): I50.9 - HEART FAILURE, UNSPECIFIED (7) COPD (chronic obstructive pulmonary disease) Current Visit: No Status: Chronic Assessment & Plan: Plan bronchodilators prn Not wheezing now 11/04: -Supplemental oxygen with goal > 92% -RT eval -Requiring 2L, RA at baseline, try to wean, if not able, qualify for home oxygen -Azithromycin/rocephin (8) Hypokalemia -Potassium continues to be low, now at 2.8, will replenish per potassium protocol Code(s): R07.9 - CHEST PAIN, UNSPECIFIED (2) Coronary artery disease Current Visit: Yes Status: Chronic Code(s): I25.10 - ATHSCL HEART DISEASE OF [place] CORONARY ARTERY W/O ANG PCTRS (3) Hyperlipidemia Current Visit: Yes Status: Chronic Code(s): E78.5 - HYPERLIPIDEMIA, UNSPECIFIED (4) Hypertension Current Visit: Yes Status: Chronic Code(s): I10 - ESSENTIAL (PRIMARY) HYPERTENSION (5) CHF (congestive heart failure) Current Visit: No Status: Acute Code(s): I50.9 - HEART FAILURE, UNSPECIFIED (6) COPD (chronic obstructive pulmonary disease) Current Visit: No Status: Chronic (7) Type 2 diabetes mellitus Current Visit: No Status: Chronic (8) Hypokalemia Current Visit: Yes Status: Acute Code(s): E87.6 - HYPOKALEMIA
[2023-11-04] MEDS: TYLENOL 325 MG PO PRN ×2 (06:11→13:53)
[2023-11-04] MEDS ORDERED: MEDICATION INTERVENTION MC SCH (07:30)
[2023-11-04] MEDS: DUONEB 0.5-3 MG/3 ml Neb IH PRN ×2 (07:46→19:26)
[2023-11-04] MEDS: HUMALOG SQ PRN ×3 (07:55→16:25)
[2023-11-04] MEDS: PLAVIX Tablet PO SCH (09:41)
[2023-11-04] MEDS: Actos 30 MG PO SCH (09:41)
[2023-11-04] MEDS: Klor Con PO SCH ×4 (09:41→15:11)
[2023-11-04] MEDS: Protonix 40MG Tablet PO SCH (09:42)
[2023-11-04] MEDS: COREG 12.5 MG PO SCH ×2 (09:42→22:35)
[2023-11-04] MEDS: ENTRESTO 49 MG-51 MG TABLET PO SCH ×2 (09:42→22:35)
[2023-11-04] MEDS: Tricor 145 MG PO SCH (09:42)
[2023-11-04] MEDS: Effexor ER 37.5 MG PO SCH (09:43)
[2023-11-04] MEDS: POTASSIUM CHLORIDE 20 mEq IN WATER 100ML 100 ML IV SCH ×2 (09:45→12:08)
[2023-11-04] MEDS: Sodium Chloride 0.9% 250 ML 250 ML IV SCH ×2 (09:46→13:51)
[2023-11-04] MEDS: Lantus Insulin SQ SCH (09:53)
[2023-11-04] MEDS: Lasix 40 MG/4 ML IV SCH (09:56)
[2023-11-04] MEDS ORDERED: Lasix 20 MG/2 ML IV SCH (10:00)
[2023-11-04] MEDS ORDERED: FENOFIBRATE MICRONIZED 134 MG PO SCH (10:00)
[2023-11-04] MEDS ORDERED: NON-FORMULARY ITEM (Venlafaxine Hcl [Venlafaxine Hcl Er] 150 MG Cap.Er.24h) PO SCH (10:00)
[2023-11-04] MEDS ORDERED: NON-FORMULARY ITEM (Insulin Degludec [Tresiba Flextouch U-200] 200 UNIT/ML Insuln.Pen) SQ SCH (10:00)
[2023-11-04] MEDS ORDERED: NON-FORMULARY ITEM (Liraglutide [Victoza 2-Pak] 0.6 MG/0.1 ML Box) SQ SCH (10:00)
[2023-11-04] MEDS: ROCEPHIN 1 Gm-D5w 50 ml Bag** 1 G/50 ML IVPB IV SCH (10:46)
[2023-11-04] MEDS: Zithromax 500 MG/ 250 ML NaCl Premix 500 MG/250 ML IVPB IV SCH (11:41)
[2023-11-04] MEDS: ZOCOR 20MG PO SCH (22:34)
[2023-11-04] MEDS: Seroquel 25 MG PO SCH (22:35)
[2023-11-05] MEDS: NORCO 10-325 MG PO PRN ×6 (00:49→21:23)
[2023-11-05 05:15] LABS: ANION GAP 11.3 MEQ/L (5-15); Calcium 7.9 mg/dL (8.4-10.2); Creatinine 1 0.64 mg/dL (0.66-1.25); EST GLOMERULAR FILTRATION RATE 113.9 ML/MIN; Potassium 3.1 mmol/L (3.5-5.1)
--- NOTE | 2023-11-05 05:26 | PCM.NOTE ---
Date and Time: 11/05/23522 Subjective Assessment: is a 53 year old male with a pmhx of CAD, DMII, HTN, HLD, Gout, and CHF who presented to ED 11/03/23 admitted with complaints of chest pain and dyspnea. CXR with borderline enlarging heart and central vascular prominence with diffuse pulmonary edema favoring CHF/ possible pneumonia. Initial EKG and troponins negative. Lab findings remarkable for hypokalemia, potassium at 2.6. Plan for diuresis, repeat ekg and trops in the a.m. 11/04/23: Met with patient bedside. Endorses continued shortness of breath and productive cough with clear sputum. Upper extremity edema has improved. Denies chest pain this morning. Discussed labs, potassium is still low. CXR with CHF/pneumonia. Lung sounds coarse on auscultation. Plan for potassium replenishment as well as continued diuresis. No change to repeat EKG. Denies fever, cp, abdominal pain, ZHAO, dizziness, N/V/D. 11/05/23: Patient feeling better today although he states he still feels like his lungs are "full". Cough with clear production. Poor sleep, will add Trazadone. Oxygen down to 2L today. Will continue to wean. BUE edema improved. Discussed labs, potassium is low, will replenish today. No further episodes of chest pain. Denies fever,cp, abdominal pain, ZHAO, dizziness, N/V/D. Continue antibiotics and diuresis, plan for possible discharge tomorrow pending CXR results. - Review of Systems Constitutional: No Symptoms Eyes: No Symptoms Ears, Nose, & Throat: No Symptoms Respiratory: Cough, Short Of Breath Cardiac: No Symptoms Abdominal/Gastrointestinal: No Symptoms Genitourinary Symptoms: No Symptoms Musculoskeletal: No Symptoms Skin: No Symptoms Neurological: No Symptoms Psychological: No Symptoms Endocrine: No Symptoms Hematologic/Lymphatic: No Symptoms Immunological/Allergic: No Symptoms Objective Exam General Appearance: no apparent distress Neurologic Exam: alert, oriented x 3, cooperative Skin Exam: normal color Eye Exam: PERRL Neck Exam: normal inspection Respiratory Exam: crackles/rales Cardiovascular Exam: regular rate/rhythm, normal heart sounds Gastrointestinal/Abdomen Exam: soft, normal bowel sounds Extremity Exam: normal inspection Back Exam: normal inspection Male Genitalia Exam: deferred Rectal Exam: deferred OBJECTIVE DATA Vital Signs: Vital Signs - 24 hr Temp Pulse Resp BP Pulse Ox 11/05/23 04:00 90 16 109/64 91 L 11/05/23 00:00 98.5 F 87 25 H 126/83 94 L 11/04/23 20:00 97.6 F 90 19 123/70 90 L 11/04/23 19:26 83 24 95 11/04/23 16:00 97.9 F 82 16 112/69 93 L 11/04/23 11:39 97.7 F 93 H 16 116/83 97 11/04/23 07:49 81 16 92 L 11/04/23 07:38 98.0 F 83 16 120/76 100 Pain Assessment - Last Documented Pain Intensity 8 Pain Scale Used 0-10 Pain Scale Intake and Output: Intake & Output 11/02/23 11/03/23 11/04/23 11/05/23 11:59 11:59 11:59 11:59 Intake Total 1900 3979 Output Total 4400 1250 Balance -2500 2729 Weight 111.7 kg Lab Results: Lab Results-Last 24 Hours 11/04/23 11/04/23 11/04/23 Range/Units 04:55 05:26 07:19 Sodium 135 L (137-145) mmol/L Potassium 2.8 L* (3.5-5.1) mmol/L Chloride 102 (98-107) mmol/L Carbon Dioxide 25 (22-30) mmol/L Anion Gap 10.0 (5-15) MEQ/L BUN 13 (9-20) mg/dL Creatinine 0.71 (0.66-1.25) mg/dL Estimated GFR 110.4 ML/MIN Glucose 208 H (74-106) mg/dL POC Glucometer 171 H (74 to 106) mg/dL Calcium 7.5 L (8.4-10.2) mg/dL Magnesium 1.8 (1.6-2.3) mg/dL Total Bilirubin 1.10 (0.2-1.3) mg/dL AST 20 (17-59) U/L ALT 16 (0-50) U/L Alkaline Phosphatase 77 (38-126) U/L Serum Total Protein 5.9 L (6.3-8.2) g/dL Albumin 3.1 L (3.5-5.0) g/dL 11/04/23 11/04/23 11/04/23 Range/Units 08:38 11:36 14:00 Sodium (137-145) mmol/L Potassium 2.8 L* 3.7 D (3.5-5.1) mmol/L Chloride (98-107) mmol/L Carbon Dioxide (22-30) mmol/L Anion Gap (5-15) MEQ/L BUN (9-20) mg/dL Creatinine (0.66-1.25) mg/dL Estimated GFR ML/MIN Glucose (74-106) mg/dL POC Glucometer 159 H (74 to 106) mg/dL Calcium (8.4-10.2) mg/dL Magnesium (1.6-2.3) mg/dL Total Bilirubin (0.2-1.3) mg/dL AST (17-59) U/L ALT (0-50) U/L Alkaline Phosphatase (38-126) U/L Serum Total Protein (6.3-8.2) g/dL Albumin (3.5-5.0) g/dL 11/04/23 11/04/23 11/04/23 Range/Units 15:08 16:38 17:35 Sodium (137-145) mmol/L Potassium 4.0 (3.5-5.1) mmol/L Chloride (98-107) mmol/L Carbon Dioxide (22-30) mmol/L Anion Gap (5-15) MEQ/L BUN (9-20) mg/dL Creatinine (0.66-1.25) mg/dL Estimated GFR ML/MIN Glucose (74-106) mg/dL POC Glucometer 214 H 156 H (74 to 106) mg/dL Calcium (8.4-10.2) mg/dL Magnesium (1.6-2.3) mg/dL Total Bilirubin (0.2-1.3) mg/dL AST (17-59) U/L ALT (0-50) U/L Alkaline Phosphatase (38-126) U/L Serum Total Protein (6.3-8.2) g/dL Albumin (3.5-5.0) g/dL 11/04/23 11/04/23 Range/Units 20:59 20:59 Sodium (137-145) mmol/L Potassium (3.5-5.1) mmol/L Chloride (98-107) mmol/L Carbon Dioxide (22-30) mmol/L Anion Gap (5-15) MEQ/L BUN (9-20) mg/dL Creatinine (0.66-1.25) mg/dL Estimated GFR ML/MIN Glucose (74-106) mg/dL POC Glucometer 150 H 150 H (74 to 106) mg/dL Calcium (8.4-10.2) mg/dL Magnesium (1.6-2.3) mg/dL Total Bilirubin (0.2-1.3) mg/dL AST (17-59) U/L ALT (0-50) U/L Alkaline Phosphatase (38-126) U/L Serum Total Protein (6.3-8.2) g/dL Albumin (3.5-5.0) g/dL Radiology Exams: Radiology Procedures Category Date Time Status CHEST 1 VIEW (PORTABLE) Stat Exams 11/03/23 15:33 Completed ECHO W/2D AND DOPPLER [US] Routine Exams 11/04/23 10:00 Taken Assessment/Plan (1) Chest pain at rest Current Visit: Yes Status: Acute Assessment & Plan: Chest pain at rest Prior history of CAD He can't remember if pain is similar to heart pain in the past Atypical pain Not relieved with NG. Symptoms started with orhthopnea and dyspnea. He feels like he is filling up with fluid EKG and troponin negative He does appear to have some exacerbation of CHF Plan diuresis and repeat EKG/troponin. 11/04: -no further chest pain, EKG repeat no change -BUE edema improved -BNP elevated at 2640 -CXR demonstrating CHF/pneumonia - Coarse lung sounds on auscultation -continue diuresis Code(s): R07.9 - CHEST PAIN, UNSPECIFIED (2) Coronary artery disease Current Visit: Yes Status: Chronic Assessment & Plan: History of CAD with stents. History of [place] Follows with Dr. Lang Continue home meds Code(s): I25.10 - ATHSCL HEART DISEASE OF [place] CORONARY ARTERY W/O ANG PCTRS (3) Hypertension Current Visit: Yes Status: Chronic Assessment & Plan: Continue home meds Code(s): I10 - ESSENTIAL (PRIMARY) HYPERTENSION (4) Hyperlipidemia Current Visit: Yes Status: Chronic Assessment & Plan: Continue home meds Code(s): E78.5 - HYPERLIPIDEMIA, UNSPECIFIED (5) Type 2 diabetes mellitus Current Visit: No Status: Chronic Assessment & Plan: Monitor BS. SS insulin Continue home meds (6) CHF (congestive heart failure) Current Visit: No Status: Acute Assessment & Plan: History of CHF. EF not known He feels like he is filling up with fluid. Arms feel swollen No edema in legs He's had dyspnea and orthopnea Cxray suggests CHF Plan diuresis overnight. 11/04: -Improving edema to BUE - continue diuresis 11/05: -Continue diuresis, improving -Repeat cxr today Code(s): I50.9 - HEART FAILURE, UNSPECIFIED (7) COPD (chronic obstructive pulmonary disease) Current Visit: No Status: Chronic Assessment & Plan: Plan bronchodilators prn Not wheezing now 11/04: -Supplemental oxygen with goal > 92% -RT eval -Requiring 2L, RA at baseline, try to wean, if not able, qualify for home oxygen -Azithromycin/rocephin 11/05: -no wheezing -wean oxygen -continue abx (8) Hypokalemia -Potassium continues to be low, now at 2.8, will replenish per potassium protocol 11/05: -potassium low at 3.1, will replenish Code(s): R07.9 - CHEST PAIN, UNSPECIFIED Code(s): R07.9 - CHEST PAIN, UNSPECIFIED (2) Coronary artery disease Current Visit: Yes Status: Chronic Code(s): I25.10 - ATHSCL HEART DISEASE OF [place] CORONARY ARTERY W/O ANG PCTRS (3) Hyperlipidemia Current Visit: Yes Status: Chronic Code(s): E78.5 - HYPERLIPIDEMIA, UNSPECIFIED (4) Hypertension Current Visit: Yes Status: Chronic Code(s): I10 - ESSENTIAL (PRIMARY) HYPERTENSION (5) CHF (congestive heart failure) Current Visit: No Status: Acute Code(s): I50.9 - HEART FAILURE, UNSPECIFIED (6) COPD (chronic obstructive pulmonary disease) Current Visit: No Status: Chronic (7) Type 2 diabetes mellitus Current Visit: No Status: Chronic (8) Hypokalemia Current Visit: Yes Status: Acute Code(s): E87.6 - HYPOKALEMIA
[2023-11-05 06:15] LABS: Absolute Neutrophil Ct (ANC) 4.25 x10^3/uL (1.4-6.9); BASOPHIL % 0.9 % (0.0-0.4); Basophil (Absolute #) 0.07 x10^3/uL (0-0.4); Eosinophil % 5.9 % (0.00-5.0); Eosinophil (Absolute #) 0.44 x10^3/uL (0-0.5); Hematocrit 38.8 % (42-50); Hemoglobin 12.3 g/dL (12.5-18.0); IMMATURE GRAN # 0.02 x10^3u/L (0.00-0.03); IMMATURE GRAN % 0.3 % (0.00-0.4); Lymphocyte (Absolute #) 1.98 x10^3/uL (1.0-4.6); Lymphocytes % 26.5 % (24.0-44.0); Mean Cell Volume 92.2 fL (78-100); Mean Corpuscular Hemoglobin 29.2 pg (26-32); Mean Corpuscular Hgb Concent. 31.7 g/dL (32-36); Mean Platelet Volume 11.2 fL (7.5-11.0); Monocyte (Absolute #) 0.71 x10^3/uL (0.0-1.3); Monocytes % 9.5 % (0.0-12.0); Neutrophil % 56.9 % (36.0-66.0); Platelet Count 248 x10^3/uL (150-450); Red Blood Count 4.21 x10^6/uL (4.1-5.6); Red Cell Distribution Width 15.1 % (11.5-14.0); White Blood Count 7.5 x10^3/uL (4.0-10.5)
[2023-11-05] MEDS: Klor Con PO SCH ×4 (07:36→13:52)
[2023-11-05] MEDS: Effexor ER 37.5 MG PO SCH (09:20)
[2023-11-05] MEDS: Tricor 145 MG PO SCH (09:20)
[2023-11-05] MEDS: ENTRESTO 49 MG-51 MG TABLET PO SCH ×2 (09:20→21:24)
[2023-11-05] MEDS: PLAVIX Tablet PO SCH (09:20)
[2023-11-05] MEDS: COREG 12.5 MG PO SCH ×2 (09:20→21:24)
[2023-11-05] MEDS: Protonix 40MG Tablet PO SCH (09:20)
[2023-11-05] MEDS: Actos 30 MG PO SCH (09:20)
[2023-11-05] MEDS: Lantus Insulin SQ SCH (09:20)
[2023-11-05] MEDS: Lasix 40 MG/4 ML IV SCH (09:21)
[2023-11-05] MEDS: ROCEPHIN 1 Gm-D5w 50 ml Bag** 1 G/50 ML IVPB IV SCH (09:24)
[2023-11-05] MEDS: Zithromax 500 MG/ 250 ML NaCl Premix 500 MG/250 ML IVPB IV SCH (09:57)
[2023-11-05] MEDS ORDERED: ZITHROMAX IV*** 0 MG in Sodium Chloride 0.9% 250 ML 250 ML IV SCH (10:00)
--- NOTE | 2023-11-05 12:37 | XRAY ---
Indication: Follow-up pneumonia. Comparison: November 03, 2023 PA/lateral chest demonstrates diminished cardiomegaly now within normal limits and diminished pulmonary edema. New small bibasilar effusions with subsegmental atelectasis. Bony thorax intact again with left lead pacemaker.
[2023-11-05] MEDS: ZOCOR 20MG PO SCH (21:23)
[2023-11-05] MEDS: Seroquel 25 MG PO SCH (21:23)
[2023-11-05] MEDS: HUMALOG SQ PRN (21:51)
[2023-11-06] MEDS: NORCO 10-325 MG PO PRN ×3 (01:40→10:00)
[2023-11-06 04:46] LABS: BASOPHIL % 1.4 % (0.0-0.4); Basophil (Absolute #) 0.09 x10^3/uL (0-0.4); Eosinophil % 6.8 % (0.00-5.0); Eosinophil (Absolute #) 0.44 x10^3/uL (0-0.5); Hematocrit 41.5 % (42-50); Hemoglobin 12.9 g/dL (12.5-18.0); IMMATURE GRAN # 0.02 x10^3u/L (0.00-0.03); IMMATURE GRAN % 0.3 % (0.00-0.4); Lymphocyte (Absolute #) 1.79 x10^3/uL (1.0-4.6); Lymphocytes % 27.7 % (24.0-44.0); Mean Cell Volume 93.9 fL (78-100); Mean Corpuscular Hemoglobin 29.2 pg (26-32); Mean Corpuscular Hgb Concent. 31.1 g/dL (32-36); Mean Platelet Volume 10.6 fL (7.5-11.0); Monocyte (Absolute #) 0.52 x10^3/uL (0.0-1.3); Neutrophil % 55.8 % (36.0-66.0); Platelet Count 257 x10^3/uL (150-450); Red Blood Count 4.42 x10^6/uL (4.1-5.6); Red Cell Distribution Width 14.7 % (11.5-14.0); White Blood Count 6.5 x10^3/uL (4.0-10.5)
[2023-11-06 05:02] LABS: ALBUMIN 3.3 g/dL (3.5-5.0); ANION GAP 10.5 MEQ/L (5-15); BILIRUBIN,TOTAL 0.6 mg/dL (0.2-1.3); Creatinine 1 0.67 mg/dL (0.66-1.25); EST GLOMERULAR FILTRATION RATE 112.3 ML/MIN; Potassium 3.3 mmol/L (3.5-5.1); Total Protein 6.4 g/dL (6.3-8.2)
--- NOTE | 2023-11-06 05:48 | PCM.DS ---
Discharge Summary Date of Admission: 11/03/23 16:58 Date of Discharge: 11/06/23 Admitting Physician: ANTONIO BEATTY MD Primary Care Provider: NO FAMILY DOCTOR Allergies Allergies No Known Drug Allergies Allergy (Verified 11/03/23 13:41) Hospital Summary - Hospital Course Hospital Course: is a 53 year old male with a pmhx of CAD, DMII, HTN, HLD, Gout, and CHF who presented to ED 11/03/23 admitted with complaints of chest pain and dyspnea. CXR with borderline enlarging heart and central vascular prominence with diffuse pulmonary edema favoring CHF/ possible pneumonia. Initial EKG and repeat troponins negative. Lab findings remarkable for hypokalemia, potassium at 2.6. Plan for diuresis, repeat ekg and trops unremarkable. Admitted with CHF exac/CP/COPD exac/pneumonia. No further chest pain during admission. Treated with diuresis and antibiotics. Hypokalemia secondary to diuresis, will continue with potassium as OP. Dysnpnea and BUE edema. Patient now on RA. Does not qualify for home oxygen. Repeat CXR noting diminished cardiomegaly now within normal limits and diminished pulmonary edema. Patient ready for discharge. A dvised follow up with PCP and pulmonology. Discharge Note New Diagnosis: CHF/COPD exac possible pneumonia New Medications: Lasix, potassium Follow Up: PCP/Pulm Latest Assessment & Plan 1) Chest pain at rest Current Visit: Yes Status: Acute Assessment & Plan: Chest pain at rest Prior history of CAD He can't remember if pain is similar to heart pain in the past Atypical pain Not relieved with NG. Symptoms started with orhthopnea and dyspnea. He feels like he is filling up with fluid EKG and troponin negative He does appear to have some exacerbation of CHF Plan diuresis and repeat EKG/troponin. 11/04: -no further chest pain, EKG repeat no change -BUE edema improved -BNP elevated at 2640 -CXR demonstrating CHF/pneumonia - Coarse lung sounds on auscultation -continue diuresis Code(s): R07.9 - CHEST PAIN, UNSPECIFIED (2) Coronary artery disease Current Visit: Yes Status: Chronic Assessment & Plan: History of CAD with stents. History of [place] Follows with Dr. Vang Continue home meds Code(s): I25.10 - ATHSCL HEART DISEASE OF [place] CORONARY ARTERY W/O ANG PCTRS (3) Hypertension Current Visit: Yes Status: Chronic Assessment & Plan: Continue home meds Code(s): I10 - ESSENTIAL (PRIMARY) HYPERTENSION (4) Hyperlipidemia Current Visit: Yes Status: Chronic Assessment & Plan: Continue home meds Code(s): E78.5 - HYPERLIPIDEMIA, UNSPECIFIED (5) Type 2 diabetes mellitus Current Visit: No Status: Chronic Assessment & Plan: Monitor BS. SS insulin Continue home meds (6) CHF (congestive heart failure) Current Visit: No Status: Acute Assessment & Plan: History of CHF. EF not known He feels like he is filling up with fluid. Arms feel swollen No edema in legs He's had dyspnea and orthopnea Cxray suggests CHF Plan diuresis overnight. 11/04: -Improving edema to BUE - continue diuresis 11/05: -Continue diuresis, improving -Repeat cxr today Code(s): I50.9 - HEART FAILURE, UNSPECIFIED (7) COPD (chronic obstructive pulmonary disease) Current Visit: No Status: Chronic Assessment & Plan: Plan bronchodilators prn Not wheezing now 11/04: -Supplemental oxygen with goal > 92% -RT eval -Requiring 2L, RA at baseline, try to wean, if not able, qualify for home oxygen -Azithromycin/rocephin 11/05: -no wheezing -wean oxygen -continue abx (8) Hypokalemia -Potassium continues to be low, now at 2.8, will replenish per potassium protocol 11/05: -potassium low at 3.1, will replenish (9) pneumonia -CXR noting CHF/with possible pneumonia -ceftriaxone/azithromycin -supplemental o2 with spo2 goal > 92%, will require home qualification I spent 35 minutes [id number] with the patient on the day of discharge performing discharge exam, discussing hospital stay and discharge instructions with patient and caregivers, preparation of discharge records, prescriptions & referral forms and addressing any questions/concerns the patient had as documented above. - Vitals & Intake/Output Vital Signs: Vital Signs Temperature 96.9 F 11/06/23 04:00 Pulse Rate 82 11/06/23 04:00 Respiratory Rate 17 11/06/23 04:00 Blood Pressure 134/75 11/06/23 04:00 O2 Sat by Pulse Oximetry 97 11/06/23 04:00 Intake & Output: Intake & Output 11/03/23 11/04/23 11/05/23 11/06/23 11:59 11:59 11:59 11:59 Intake Total 1900 4579 1190 Output Total 4407 6883 4101 Balance -2500 479 -885 Weight 111.7 kg - Lab Result Diagrams: 11/06/23 04:35 11/06/23 04:35 Lab Results-Last 24 Hrs: Lab Results-Last 24 Hours 11/05/23 11/05/23 11/05/23 Range/Units 04:30 04:45 04:45 WBC 7.5 (4.0-10.5) x10^3/uL RBC 4.21 (4.1-5.6) x10^6/uL Hgb 12.3 L (12.5-18.0) g/dL Hct 38.8 L (42-50) % MCV 92.2 (78-100) fL MCH 29.2 (26-32) pg MCHC 31.7 L (32-36) g/dL RDW 15.1 H (11.5-14.0) % Plt Count 248 (150-450) x10^3/uL MPV 11.2 H (7.5-11.0) fL Gran % 56.9 (36.0-66.0) % Immature Gran % (Auto) 0.3 (0.00-0.4) % Nucleat RBC Rel Count 0.0 (0.00-0.1) % Eos # (Auto) 0.44 (0-0.5) x10^3/uL Immature Gran # (Auto) 0.02 (0.00-0.03) x10^3u/L Absolute Lymphs (auto) 1.98 (1.0-4.6) x10^3/uL Absolute Monos (auto) 0.71 (0.0-1.3) x10^3/uL Absolute Nucleated RBC 0.00 (0.00-0.01) x10^3u/L Lymphocytes % 26.5 (24.0-44.0) % Monocytes % 9.5 (0.0-12.0) % Eosinophils % 5.9 H (0.00-5.0) % Basophils % 0.9 (0.0-0.4) % Absolute Granulocytes 4.25 (1.4-6.9) x10^3/uL Basophils # 0.07 (0-0.4) x10^3/uL Sodium 138 (137-145) mmol/L Potassium 3.1 L D (3.5-5.1) mmol/L Chloride 110 H (98-107) mmol/L Carbon Dioxide 20 L (22-30) mmol/L Anion Gap 11.3 (5-15) MEQ/L BUN 12 (9-20) mg/dL Creatinine 0.64 L (0.66-1.25) mg/dL Estimated GFR 113.9 ML/MIN Glucose 123 H (74-106) mg/dL POC Glucometer (74 to 106) mg/dL Calcium 7.9 L (8.4-10.2) mg/dL Magnesium 1.9 (1.6-2.3) mg/dL Total Bilirubin (0.2-1.3) mg/dL AST (17-59) U/L ALT (0-50) U/L Alkaline Phosphatase (38-126) U/L Serum Total Protein (6.3-8.2) g/dL Albumin (3.5-5.0) g/dL 11/05/23 11/05/23 11/05/23 Range/Units 06:57 09:15 09:19 WBC (4.0-10.5) x10^3/uL RBC (4.1-5.6) x10^6/uL Hgb (12.5-18.0) g/dL Hct (42-50) % MCV (78-100) fL MCH (26-32) pg MCHC (32-36) g/dL RDW (11.5-14.0) % Plt Count (150-450) x10^3/uL MPV (7.5-11.0) fL Gran % (36.0-66.0) % Immature Gran % (Auto) (0.00-0.4) % Nucleat RBC Rel Count (0.00-0.1) % Eos # (Auto) (0-0.5) x10^3/uL Immature Gran # (Auto) (0.00-0.03) x10^3u/L Absolute Lymphs (auto) (1.0-4.6) x10^3/uL Absolute Monos (auto) (0.0-1.3) x10^3/uL Absolute Nucleated RBC (0.00-0.01) x10^3u/L Lymphocytes % (24.0-44.0) % Monocytes % (0.0-12.0) % Eosinophils % (0.00-5.0) % Basophils % (0.0-0.4) % Absolute Granulocytes (1.4-6.9) x10^3/uL Basophils # (0-0.4) x10^3/uL Sodium (137-145) mmol/L Potassium 3.3 L (3.5-5.1) mmol/L Chloride (98-107) mmol/L Carbon Dioxide (22-30) mmol/L Anion Gap (5-15) MEQ/L BUN (9-20) mg/dL Creatinine (0.66-1.25) mg/dL Estimated GFR ML/MIN Glucose (74-106) mg/dL POC Glucometer 89 130 H (74 to 106) mg/dL Calcium (8.4-10.2) mg/dL Magnesium (1.6-2.3) mg/dL Total Bilirubin (0.2-1.3) mg/dL AST (17-59) U/L ALT (0-50) U/L Alkaline Phosphatase (38-126) U/L Serum Total Protein (6.3-8.2) g/dL Albumin (3.5-5.0) g/dL 11/05/23 11/05/23 11/05/23 Range/Units 11:23 13:24 15:58 WBC (4.0-10.5) x10^3/uL RBC (4.1-5.6) x10^6/uL Hgb (12.5-18.0) g/dL Hct (42-50) % MCV (78-100) fL MCH (26-32) pg MCHC (32-36) g/dL RDW (11.5-14.0) % Plt Count (150-450) x10^3/uL MPV (7.5-11.0) fL Gran % (36.0-66.0) % Immature Gran % (Auto) (0.00-0.4) % Nucleat RBC Rel Count (0.00-0.1) % Eos # (Auto) (0-0.5) x10^3/uL Immature Gran # (Auto) (0.00-0.03) x10^3u/L Absolute Lymphs (auto) (1.0-4.6) x10^3/uL Absolute Monos (auto) (0.0-1.3) x10^3/uL Absolute Nucleated RBC (0.00-0.01) x10^3u/L Lymphocytes % (24.0-44.0) % Monocytes % (0.0-12.0) % Eosinophils % (0.00-5.0) % Basophils % (0.0-0.4) % Absolute Granulocytes (1.4-6.9) x10^3/uL Basophils # (0-0.4) x10^3/uL Sodium (137-145) mmol/L Potassium 3.5 (3.5-5.1) mmol/L Chloride (98-107) mmol/L Carbon Dioxide (22-30) mmol/L Anion Gap (5-15) MEQ/L BUN (9-20) mg/dL Creatinine (0.66-1.25) mg/dL Estimated GFR ML/MIN Glucose (74-106) mg/dL POC Glucometer 129 H 147 H (74 to 106) mg/dL Calcium (8.4-10.2) mg/dL Magnesium (1.6-2.3) mg/dL Total Bilirubin (0.2-1.3) mg/dL AST (17-59) U/L ALT (0-50) U/L Alkaline Phosphatase (38-126) U/L Serum Total Protein (6.3-8.2) g/dL Albumin (3.5-5.0) g/dL 11/05/23 11/06/23 11/06/23 Range/Units 21:29 04:35 04:35 WBC 6.5 (4.0-10.5) x10^3/uL RBC 4.42 (4.1-5.6) x10^6/uL Hgb 12.9 (12.5-18.0) g/dL Hct 41.5 L (42-50) % MCV 93.9 (78-100) fL MCH 29.2 (26-32) pg MCHC 31.1 L (32-36) g/dL RDW 14.7 H (11.5-14.0) % Plt Count 257 (150-450) x10^3/uL MPV 10.6 (7.5-11.0) fL Gran % 55.8 (36.0-66.0) % Immature Gran % (Auto) 0.3 (0.00-0.4) % Nucleat RBC Rel Count 0.0 (0.00-0.1) % Eos # (Auto) 0.44 (0-0.5) x10^3/uL Immature Gran # (Auto) 0.02 (0.00-0.03) x10^3u/L Absolute Lymphs (auto) 1.79 (1.0-4.6) x10^3/uL Absolute Monos (auto) 0.52 (0.0-1.3) x10^3/uL Absolute Nucleated RBC 0.00 (0.00-0.01) x10^3u/L Lymphocytes % 27.7 (24.0-44.0) % Monocytes % 8.0 (0.0-12.0) % Eosinophils % 6.8 H (0.00-5.0) % Basophils % 1.4 (0.0-0.4) % Absolute Granulocytes 3.60 (1.4-6.9) x10^3/uL Basophils # 0.09 (0-0.4) x10^3/uL Sodium 138 (137-145) mmol/L Potassium 3.3 L (3.5-5.1) mmol/L Chloride 108 H (98-107) mmol/L Carbon Dioxide 23 (22-30) mmol/L Anion Gap 10.5 (5-15) MEQ/L BUN 16 (9-20) mg/dL Creatinine 0.67 (0.66-1.25) mg/dL Estimated GFR 112.3 ML/MIN Glucose 122 H (74-106) mg/dL POC Glucometer 207 H (74 to 106) mg/dL Calcium 8.0 L (8.4-10.2) mg/dL Magnesium (1.6-2.3) mg/dL Total Bilirubin 0.60 (0.2-1.3) mg/dL AST 19 (17-59) U/L ALT 11 (0-50) U/L Alkaline Phosphatase 61 (38-126) U/L Serum Total Protein 6.4 (6.3-8.2) g/dL Albumin 3.3 L (3.5-5.0) g/dL 11/06/23 Range/Units 04:35 WBC (4.0-10.5) x10^3/uL RBC (4.1-5.6) x10^6/uL Hgb (12.5-18.0) g/dL Hct (42-50) % MCV (78-100) fL MCH (26-32) pg MCHC (32-36) g/dL RDW (11.5-14.0) % Plt Count (150-450) x10^3/uL MPV (7.5-11.0) fL Gran % (36.0-66.0) % Immature Gran % (Auto) (0.00-0.4) % Nucleat RBC Rel Count (0.00-0.1) % Eos # (Auto) (0-0.5) x10^3/uL Immature Gran # (Auto) (0.00-0.03) x10^3u/L Absolute Lymphs (auto) (1.0-4.6) x10^3/uL Absolute Monos (auto) (0.0-1.3) x10^3/uL Absolute Nucleated RBC (0.00-0.01) x10^3u/L Lymphocytes % (24.0-44.0) % Monocytes % (0.0-12.0) % Eosinophils % (0.00-5.0) % Basophils % (0.0-0.4) % Absolute Granulocytes (1.4-6.9) x10^3/uL Basophils # (0-0.4) x10^3/uL Sodium (137-145) mmol/L Potassium (3.5-5.1) mmol/L Chloride (98-107) mmol/L Carbon Dioxide (22-30) mmol/L Anion Gap (5-15) MEQ/L BUN (9-20) mg/dL Creatinine (0.66-1.25) mg/dL Estimated GFR ML/MIN Glucose (74-106) mg/dL POC Glucometer (74 to 106) mg/dL Calcium (8.4-10.2) mg/dL Magnesium 1.6 (1.6-2.3) mg/dL Total Bilirubin (0.2-1.3) mg/dL AST (17-59) U/L ALT (0-50) U/L Alkaline Phosphatase (38-126) U/L Serum Total Protein (6.3-8.2) g/dL Albumin (3.5-5.0) g/dL Micro Results-Entire Visit: Accuchecks Date 11/04/23 Time 21:00 - Radiology Exams Ordered Rad Exams-Entire Visit: Radiology Procedures Category Date Time Status CHEST 2 VIEWS (PA AND LAT) Routine Exams 11/05/23 11:23 Completed ECHO W/2D AND DOPPLER [US] Routine Exams 11/04/23 10:00 Taken - Procedures and Test Procedures and Tests throughout Hospitalization: Therapy Orders & Screens 11/03/23 17:50 EKG REPEAT IN AM Comment: Diagnosis: ACS, Chest pain Oxygen Nasal Cannula 2 lpm Comment: Diagnosis: ACS, Chest pain 11/03/23 18:16 Respiratory Therapy Assessment DAILY Comment: Diagnosis: ACS, Chest pain 11/04/23 01:13 BiPap/CPAP ROUTINE Comment: Diagnosis: ACS, Chest pain Discharge Exam General Appearance: no apparent distress Neurologic Exam: alert, oriented x 3, cooperative Eye Exam: PERRL Ears, Nose, Throat Exam: normal ENT inspection Neck Exam: normal inspection Respiratory Exam: normal breath sounds, lungs clear Cardiovascular Exam: regular rate/rhythm, normal heart sounds Gastrointestinal/Abdomen Exam: soft, normal bowel sounds Male Genitalia Exam: deferred Rectal Exam: deferred Back Exam: normal inspection Extremity Exam: normal inspection Skin Exam: normal color Final Diagnosis/Problem List - Final Discharge Diagnosis/Problem (1) Hypokalemia Current Visit: Yes Status: Resolved Code(s): E87.6 - HYPOKALEMIA (2) CHF (congestive heart failure) Current Visit: No Status: Chronic Code(s): I50.9 - HEART FAILURE, UNSPECIFIED (3) Chest pain at rest Current Visit: Yes Status: Resolved Code(s): R07.9 - CHEST PAIN, UNSPECIFIED (4) Coronary artery disease Current Visit: Yes Status: Chronic Code(s): I25.10 - ATHSCL HEART DISEASE OF [place] CORONARY ARTERY W/O ANG PCTRS (5) Hyperlipidemia Current Visit: Yes Status: Chronic Code(s): E78.5 - HYPERLIPIDEMIA, UNSPECIFIED (6) Hypertension Current Visit: Yes Status: Chronic Code(s): I10 - ESSENTIAL (PRIMARY) HYPERTENSION (7) COPD (chronic obstructive pulmonary disease) Current Visit: No Status: Chronic (8) Type 2 diabetes mellitus Current Visit: No Status: Chronic (9) Pneumonia Current Visit: Yes Status: Resolved Code(s): J18.9 - PNEUMONIA, UNSPECIFIED ORGANISM - Discharge Disposition: Home, Self-Care Condition: Stable Prescriptions: New Potassium Chloride Tab* [Klor Con] 20 meq PO BID 30 Days #60 tablet Furosemide 20 mg [Lasix 20 mg] 20 mg PO DAILY 30 Days #30 tablet Continue Atorvastatin Calcium [Lipitor 20MG Tablet] 80 mg PO HS carvediloL [Carvedilol] 12.5 mg PO BID Nitroglycerin 0.4 mg Tablet [Nitrostat 0.4 MG Tablet] 0.4 mg SL .[id number] #1 bottle Sacubitril/Valsartan [Entresto 24 mg-26 mg Tablet] 24 - 26 mg PO BID Venlafaxine HCl [Venlafaxine HCl ER] 37.5 mg PO DAILY Clopidogrel Bisulfate [PLAVIX Tablet] 75 mg PO DAILY Fenofibrate,Micronized [Fenofibrate] 134 mg PO DAILY Pioglitazone 30 mg [Actos 30 MG] 30 mg PO DAILY Hydrocodone/Acetaminophen [[place] 10-325 mg] 1 tablet PO Q4H PRN PRN PRN Reason: Pain Quetiapine Fumarate [Seroquel] 50 mg PO HS Liraglutide [Victoza 2-Devin] 1.8 mg pe SQ DAILY Insulin Degludec [Tresiba Flextouch U-200] 100 unit SQ QAM Additional Instructions: IF INTERESTED IN GETTING HELP WITH HOUSING- YOU CAN CONTACT [employer] [employer] AT [phone] ext [phone] Follow up with: DOCTOR,NO FAMILY [Primary Care Provider] - MAINOR VANG MD [CONSULTING PHYSICIAN] -
[2023-11-06] MEDS: Klor Con PO SCH ×2 (08:07→10:01)
[2023-11-06] MEDS: Protonix 40MG Tablet PO SCH (10:00)
[2023-11-06] MEDS ORDERED: Rocephin 1000 MG INJ** 1,000 MG in Sodium Chloride 100ML MINI-BAG PLUS 100 ML IV SCH (10:00)
[2023-11-06] MEDS: Effexor ER 37.5 MG PO SCH (10:01)
[2023-11-06] MEDS: COREG 12.5 MG PO SCH (10:01)
[2023-11-06] MEDS: Actos 30 MG PO SCH (10:01)
[2023-11-06] MEDS: ENTRESTO 49 MG-51 MG TABLET PO SCH (10:02)
[2023-11-06] MEDS: PLAVIX Tablet PO SCH (10:03)
[2023-11-06] MEDS: Tricor 145 MG PO SCH (10:03)
[2023-11-06] MEDS: Lantus Insulin SQ SCH (10:03)
[2023-11-06] MEDS: Zithromax 500 MG/ 250 ML NaCl Premix 500 MG/250 ML IVPB IV SCH (10:03)
[2023-11-06] MEDS: Lasix 40 MG/4 ML IV SCH (10:03)
[2023-11-06 11:58] VITALS: BP 93/66; PULSE 68; RESP 16; TEMP 97.6; O2SAT 93
[2023-11-07] MEDS ORDERED: ROCEPHIN 1 GM / 100 ML NaCl 1 GM/100 ML IVPB IV SCH (10:00)
== END 2023-11-06 12:40 | disposition home or self-care (01) ==
LOC: ED 13:36 → MED SURG 16:58
PROVIDERS: ADMIT Internal Medicine; ATTEND Internal Medicine
DX: E87.6 Hypokalemia (principal); I11.0 Hypertensive heart disease with heart failure; I50.9 Heart failure, unspecified; I25.10 Atherosclerotic heart disease of native coronary artery without angina pectoris; E78.5 Hyperlipidemia, unspecified; R07.9 Chest pain, unspecified; E11.9 Type 2 diabetes mellitus without complications; J44.9 Chronic obstructive pulmonary disease, unspecified; J18.9 Pneumonia, unspecified organism; I25.2 Old myocardial infarction; R60.0 Localized edema; Z79.01 Long term (current) use of anticoagulants; Z79.899 Other long term (current) drug therapy; Z20.828 Contact with and (suspected) exposure to other viral communicable diseases; Z86.16 Personal history of COVID-19
CPT/HCPCS: 0241U; 36415; 71045; 71046; 80048; 80053; 82947; 83036; 83735; 83880; 84132; 84484; 85014; 85018; 85025; 85027; 85379; 93005; 93041; 93306; 94640; 94660; 94760; 94762; 96374; 99284; Q3014; 93268; J0456; J0696; J1817; J1940; J2270; J3475; J3480; A9270-GY; G0378

== ENCOUNTER 2024-02-27 22:28 | Emergency (ER) | payer MEDICARE ==
[2024-02-27 22:32] VITALS: TEMP 97.4; O2SAT 99
--- NOTE | 2024-02-27 22:38 | ERPHSYRPT ---
- History of Present Illness Time Seen by Provider: 02/27/24 22:37 Source: patient, family Exam Limitations: no limitations Physician History: This is an obese 53-year-old white male patient of Dr. Ceballos who presents with nonproductive cough and mild shortness of breath with coughing and bilateral lower extremity swelling for the last couple of days. Patient took an extra 20 mg oral dose of Lasix because he noticed some increased swelling of his feet and ankles. Patient states my legs feel as though they are "filling up with fluid". Patient's room air oxygen saturation level is anywhere between 95 to 99%. Patient is an insulin-dependent diabetic, has hypertension, CHF, hyperlipidemia and coronary artery stents. He is on Plavix. I reviewed old records and the twelve-lead EKG dated 11/03/2023 shows 84 bpm heart rate with a right bundle branch block. The patient's rhythm is normal sinus. I also reviewed the echocardiogram that was performed on 11/04/2023. Of significance, there is diffuse hypokinesia and an ejection fraction of 20 to 25%. Patient does not have chest pain or abdominal pain. He has not had a fever. Dr. Lang is his medicaid business analyst. He believes he has an appointment to see Dr. Lang in March 2024 Timing/Duration: day(s) (2) Activities at Onset: none Severity of Dyspnea-Max: mild Severity of Dyspnea-Current: mild Possible Cause: occasional episodes Modifying Factors: Improves With: coughing Associated Symptoms: cough, No chest pain/discomfort, No wheezing Allergies/Adverse Reactions: No Known Drug Allergies Allergy (Verified 02/27/24 22:46) Home Medications: Atorvastatin Calcium [Lipitor 20MG Tablet] 80 mg PO HS 03/22/15 [History] carvediloL [Carvedilol] 12.5 mg PO BID 01/18/16 [History] Sacubitril/Valsartan [Entresto 24 mg-26 mg Tablet] 24 - 26 mg PO BID 09/24/17 [History] Venlafaxine HCl [Venlafaxine HCl ER] 37.5 mg PO DAILY 11/23/17 [History] Clopidogrel Bisulfate [PLAVIX Tablet] 75 mg PO DAILY 04/26/19 [History] Fenofibrate,Micronized [Fenofibrate] 134 mg PO DAILY 06/17/20 [History] Pioglitazone 30 mg [Actos 30 MG] 30 mg PO DAILY 06/17/20 [History] Hydrocodone/Acetaminophen [[place] 10-325 mg] 1 tablet PO Q4H PRN PRN 07/07/21 [History] Insulin Degludec [Tresiba Flextouch U-200] 80 unit SQ QAM 11/03/23 [History] Liraglutide [Victoza 2-Devin] 1.8 mg pe SQ DAILY 11/03/23 [History] Quetiapine Fumarate [Seroquel] 50 mg PO HS 11/03/23 [History] Apixaban [Eliquis] 5 mg PO BID 02/27/24 [History] Empagliflozin [Jardiance] 25 mg PO DAILY 02/27/24 [History] Ezetimibe 10 mg [Zetia 10 MG] 1 tab PO DAILY 02/27/24 [History] Isosorbide Mononitrate 60 mg [Imdur 60MG] 1 tab PO DAILY 02/27/24 [History] Spironolactone 50 mg PO DAILY 02/27/24 [History] Venlafaxine HCl 37.5 mg [Effexor 37.5 mg] 1 tab PO DAILY 02/27/24 [History] Hx Tetanus, Diphtheria Vaccination/Date Given: Yes Hx Influenza Vaccination/Date Given: Yes Hx Pneumococcal Vaccination/Date Given: No Travel Risk - International Travel Have you traveled outside of the country in past 3 weeks: No - Emerging Infectious Disease Symptoms: Cough: New Onset - Review of Systems Constitutional: No Symptoms Eyes: No Symptoms Ears, Nose, & Throat: No Symptoms Respiratory: Cough, Dyspnea (Mild with coughing) Cardiac: No Symptoms Abdominal/Gastrointestinal: No Symptoms Genitourinary Symptoms: No Symptoms Musculoskeletal: No Symptoms Skin: No Symptoms Neurological: No Symptoms Psychological: No Symptoms Endocrine: No Symptoms Hematologic/Lymphatic: No Symptoms Immunological/Allergic: No Symptoms All Other Systems: Reviewed and Negative - Past Medical History Pertinent Past Medical History: Yes Neurological History: No Pertinent History ENT History: No Pertinent History Cardiac History: High Cholesterol, Hypertension, Myocardial Infarction ([place]), Other Respiratory History: Other Endocrine Medical History: Diabetes Type II Musculoskeletal History: Osteoarthritis GI Medical History: Pancreatitis History: No Pertinent History Psycho-Social History: No Pertinent History Male Reproductive Disorders: No Pertinent History Other Medical History: COVID APPROXIMATELY 2 MONTHS AGO. NO RESIDUAL. NOT VACCINATED. PMHX: PER PATIENT HAS 5 STENTS BUT NO CABG. HAS DEFIBRILLATOR PLACED 2014 WITH HX OF ACTIVATION PER PATIENT "A FEW TIMES". PER PATIENT HEART FUNCTION 15-20%. SEVERE OA LEFT KNEE - BONE ON BONE BUT UNABLE TO HAVE REPLACEMENT DUE TO HEART. 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 - Past Surgical History Past Surgical History: Yes Neuro Surgical History: No Pertinent History Cardiac: Angioplasty, Cardiac Catheterization, Cardiac Stent, Internal Defibrillator, Pacemaker Respiratory: No Pertinent History Gastrointestinal: Cholecystectomy, Hernia Repair Genitourinary: No Pertinent History Musculoskeletal: Orthopedic Surgery Male Surgical History: No Pertinent History Other Surgical History: elbow Significant Family History: heart disease, diabetes, hypertension - Social History Smoking Status: Former smoker How long have you smoked: 20+ Exposure to second hand smoke: No Alcohol Use: Socially Drug Use: none Patient Lives Alone: No - Nursing Vital Signs Nursing Vital Signs: Initial Vital Signs Blood Pressure 140/95 02/27/24 22:30 O2 Sat by Pulse Oximetry 97 02/27/24 22:30 Pain Scale Pain Intensity 0 - Physical Exam General Appearance: no apparent distress, alert, anxiety, obese Eye Exam: PERRL/EOMI, eyes nml inspection Ears, Nose, Throat Exam: hearing grossly normal, normal ENT inspection, normal pharynx Neck Exam: normal inspection, non-tender, supple, full range of motion Respiratory Exam: normal breath sounds, lungs clear, airway intact, No chest tenderness, No respiratory distress Cardiovascular/Chest Exam: normal heart sounds, regular rate/rhythm Abdominal/Gastrointestinal Exam: soft, normal bowel sounds, No tenderness Rectal Exam: not done Extremity Exam: non-tender, normal range of motion, no calf tenderness, pelvis stable, pedal edema (Mild bilateral), swelling (Very mild bilateral feet and ankle swelling), No calf tenderness Neurologic Exam: alert, oriented x 3, cooperative, finance associate II-XII nml as tested, nml cerebellar function, nml station & gait, sensation nml Skin Exam: normal color, warm Lymphatic Exam: adenopathy SpO2 Interpretation: normal SpO2: 99 O2 Delivery: Room Air - Course Nursing assessment & vital signs reviewed: Yes EKG Interpreted by Me: RATE (76), Sinus Rhythm, NORMAL AXIS, NORMAL INTERVALS, Right Bundle Branch Block, Other (When compared to twelve-lead EKG dated 11/03/2023, there is a new left posterior fascicular block present. No other changes present. No acute ischemia on today's twelve-lead EKG) Ordered Tests: Active Orders 24 hr Category Date Time Status Rn Care Transition STAT Care 02/27/24 23:13 Active EKG-ER Only STAT Care 02/27/24 23:13 Active IV Insertion STAT Care 02/27/24 23:13 Active Pulse Oximetry (ED) STAT Care 02/27/24 23:13 Active CHEST 1 VIEW (PORTABLE) Stat Exams 02/27/24 23:13 Taken BLOOD CULTURE Stat Lab 02/27/24 23:30 Received CBC W DIFF Stat Lab 02/27/24 22:40 Completed CMP Stat Lab 02/27/24 22:40 Completed MAGNESIUM Stat Lab 02/27/24 22:40 Completed NT PRO BNPII Stat Lab 02/27/24 22:40 Received PROTIME WITH INR Stat Lab 02/27/24 22:40 Completed TROPONIN Q4H Lab 02/27/24 22:40 Received TROPONIN Q4H Lab 02/28/24 03:15 Ordered TROPONIN Q4H Lab 02/28/24 07:15 Ordered Lab/Rad Data: Laboratory Result Diagrams 02/27/24 22:40 02/27/24 22:40 Laboratory Results 02/27/24 02/27/24 02/27/24 Range/Units 22:40 22:40 22:40 WBC 7.7 (4.0-10.5) x10^3/uL RBC 4.77 (4.1-5.6) x10^6/uL Hgb 14.3 (12.5-18.0) g/dL Hct 43.5 (42-50) % MCV 91.2 (78-100) fL MCH 30.0 (26-32) pg MCHC 32.9 (32-36) g/dL RDW 15.6 H (11.5-14.0) % Plt Count 243 (150-450) x10^3/uL MPV 10.7 (7.5-11.0) fL Gran % 54.6 (36.0-66.0) % Immature Gran % (Auto) 0.4 (0.00-0.4) % Nucleat RBC Rel Count 0.0 (0.00-0.1) % Eos # (Auto) 0.31 (0-0.5) x10^3/uL Immature Gran # (Auto) 0.03 (0.00-0.03) x10^3u/L Absolute Lymphs (auto) 2.22 (1.0-4.6) x10^3/uL Absolute Monos (auto) 0.86 (0.0-1.3) x10^3/uL Absolute Nucleated RBC 0.00 (0.00-0.01) x10^3u/L Lymphocytes % 28.9 (24.0-44.0) % Monocytes % 11.2 (0.0-12.0) % Eosinophils % 4.0 (0.00-5.0) % Basophils % 0.9 (0.0-0.4) % Absolute Granulocytes 4.18 (1.4-6.9) x10^3/uL Basophils # 0.07 (0-0.4) x10^3/uL PT 10.4 (9.4-12.5) SECONDS INR 0.95 (0.8-3.0) Sodium 139 (135-145) mmol/L Potassium 3.9 (3.5-5.1) mmol/L Chloride 104 (98-107) mmol/L Carbon Dioxide 25 (22-30) mmol/L Anion Gap 14.2 (5-15) MEQ/L BUN 17 (9-20) mg/dL Creatinine 0.68 (0.66-1.25) mg/dL Estimated GFR 111.8 ML/MIN Glucose 138 H (74-106) mg/dL Calcium 9.3 (8.4-10.2) mg/dL Magnesium 1.8 (1.6-2.3) mg/dL Total Bilirubin 0.70 (0.2-1.3) mg/dL AST 29 (17-59) U/L ALT 26 (0-50) U/L Alkaline Phosphatase 71 (38-126) U/L Serum Total Protein 7.4 (6.3-8.2) g/dL Albumin 4.3 (3.5-5.0) g/dL - Progress Progress: improved, re-examined Air Movement: good Progress Note: 02/28/24 00:08 My medical decision making and the assignment of moderate complexity to this patient's medical issue is based on review of the patient's past medical history, review of the patient's medication list, review the patient drug allergy list, history of present illness and physical findings on examination. The workup in this patient includes twelve-lead EKG, chest x-ray, CBC, CMP, BNP and troponin level. Differential diagnosis includes mild bilateral pedal edema, renal insufficiency, CHF exacerbation, Blood Culture(s) Obtained: No Antibiotics given: No Counseled pt/family regarding: lab results, diagnosis, need for follow-up, rad results Medical Desision Making - Diagnostic Testing Diagnostic test were ordered, analyzed, and reviewed by me: Yes Radiological Interpretation: Interpreted by me - Risk of complications Low Risk: Low risk of morbidity from additional dx testing or treatment - Departure Departure Disposition: Home Clinical Impression: Bilateral lower extremity edema, Mild congestive heart failure Condition: Stable Critical Care Time: No Referrals: AGNIE CEBALLOS MD [Primary Care Provider] - Follow up/PCP as directed Instructions: Heart Failure Additional Instructions: Beginning today, take your Lasix 20 mg orally twice a day for 2 days only. Call your medicaid business analyst and primary care provider tomorrow, 02/29/2024, in the morning, to make arrangement for follow-up appointment to be evaluated in the next 3 to 5 days
[2024-02-27 23:24] LABS: Absolute Neutrophil Ct (ANC) 4.18 x10^3/uL (1.4-6.9); BASOPHIL % 0.9 % (0.0-0.4); Basophil (Absolute #) 0.07 x10^3/uL (0-0.4); Eosinophil (Absolute #) 0.31 x10^3/uL (0-0.5); Hematocrit 43.5 % (42-50); Hemoglobin 14.3 g/dL (12.5-18.0); IMMATURE GRAN # 0.03 x10^3u/L (0.00-0.03); IMMATURE GRAN % 0.4 % (0.00-0.4); Lymphocyte (Absolute #) 2.22 x10^3/uL (1.0-4.6); Lymphocytes % 28.9 % (24.0-44.0); Mean Cell Volume 91.2 fL (78-100); Mean Corpuscular Hgb Concent. 32.9 g/dL (32-36); Mean Platelet Volume 10.7 fL (7.5-11.0); Monocyte (Absolute #) 0.86 x10^3/uL (0.0-1.3); Monocytes % 11.2 % (0.0-12.0); Neutrophil % 54.6 % (36.0-66.0); Platelet Count 243 x10^3/uL (150-450); Red Blood Count 4.77 x10^6/uL (4.1-5.6); Red Cell Distribution Width 15.6 % (11.5-14.0); White Blood Count 7.7 x10^3/uL (4.0-10.5)
[2024-02-27 23:30] LABS: ALBUMIN 4.3 g/dL (3.5-5.0); ANION GAP 14.2 MEQ/L (5-15); BILIRUBIN,TOTAL 0.7 mg/dL (0.2-1.3); Calcium 9.3 mg/dL (8.4-10.2); Creatinine 1 0.68 mg/dL (0.66-1.25); EST GLOMERULAR FILTRATION RATE 111.8 ML/MIN; MAGNESIUM 1.8 mg/dL (1.6-2.3); Potassium 3.9 mmol/L (3.5-5.1); Total Protein 7.4 g/dL (6.3-8.2)
[2024-02-27 23:31] LABS: INR 0.95 (0.8-3.0); PROTIME 10.4 SECONDS (9.4-12.5)
[2024-02-28 00:14] VITALS: BP 127/80; PULSE 70; RESP 18
[2024-02-28 00:15] LABS: INFLUENZA A NEGATIVE (NEGATIVE); INFLUENZA B NEGATIVE (NEGATIVE); RESPIRATORY SYNCTIAL VIRUS NEGATIVE (NEGATIVE); SARS-CoV-2 Xpert Express NEGATIVE (NEGATIVE)
--- NOTE | 2024-02-28 07:15 | XRAY ---
Indication: Cough. Short of breath. Comparison: November 13, 2023 Portable chest remains hyperinflated and clear. Heart not enlarged again with left pacemaker. Bony thorax intact. No new/acute findings.
== END 2024-02-28 00:23 | disposition home or self-care (01) ==
LOC: ED 22:28
DX: R60.0 Localized edema (principal); I11.0 Hypertensive heart disease with heart failure; I50.9 Heart failure, unspecified; R05.1 Acute cough; R06.02 Shortness of breath; E11.9 Type 2 diabetes mellitus without complications; E78.5 Hyperlipidemia, unspecified; Z79.02 Long term (current) use of antithrombotics/antiplatelets; Z79.84 Long term (current) use of oral hypoglycemic drugs; Z79.4 Long term (current) use of insulin; Z79.85 Long-term (current) use of injectable non-insulin antidiabetic drugs; Z79.01 Long term (current) use of anticoagulants; Z79.899 Other long term (current) drug therapy
CPT/HCPCS: 0241U; 36000; 36415; 71045; 80053; 83735; 83880; 84484; 85025; 85610; 87040; 93005; 93041; 94760; 99284

== ENCOUNTER 2024-03-05 23:22 | Observation (INO) | payer MEDICARE ==
[2024-03-05] MEDS ORDERED: Sodium Chloride 0.9% 1000 ML 1,000 ML ONE ×2 (23:29→23:46)
[2024-03-05] MEDS: Sodium Chloride 0.9% 1000 ML 1,000 ML IV STA ×2 (23:30→23:50)
[2024-03-05 23:53] LABS: Absolute Neutrophil Ct (ANC) 5.74 x10^3/uL (1.4-6.9); BASOPHIL % 0.6 % (0.0-0.4); Basophil (Absolute #) 0.05 x10^3/uL (0-0.4); Eosinophil % 1.9 % (0.00-5.0); Eosinophil (Absolute #) 0.16 x10^3/uL (0-0.5); Hemoglobin 13.9 g/dL (12.5-18.0); IMMATURE GRAN # 0.06 x10^3u/L (0.00-0.03); IMMATURE GRAN % 0.7 % (0.00-0.4); Lymphocyte (Absolute #) 1.73 x10^3/uL (1.0-4.6); Lymphocytes % 20.3 % (24.0-44.0); Mean Cell Volume 92.9 fL (78-100); Mean Corpuscular Hgb Concent. 32.3 g/dL (32-36); Mean Platelet Volume 10.6 fL (7.5-11.0); Monocyte (Absolute #) 0.78 x10^3/uL (0.0-1.3); Monocytes % 9.2 % (0.0-12.0); Neutrophil % 67.3 % (36.0-66.0); Platelet Count 224 x10^3/uL (150-450); Red Blood Count 4.63 x10^6/uL (4.1-5.6); Red Cell Distribution Width 15.6 % (11.5-14.0); White Blood Count 8.5 x10^3/uL (4.0-10.5)
[2024-03-06 00:13] LABS: ALBUMIN 3.8 g/dL (3.5-5.0); ALKALINE PHOSPHATASE 64 U/L (38-126); AMYLASE 40 U/L (30-110); ANION GAP 16.3 MEQ/L (5-15); BLOOD UREA NITROGEN 27 mg/dL (9-20); CHLORIDE 102 mmol/L (98-107); Calcium 9.2 mg/dL (8.4-10.2); Carbon Dioxide 18 mmol/L (22-30); EST GLOMERULAR FILTRATION RATE 66.1 ML/MIN; ETHYL ALCOHOL < 10 mg/dL (0-10); Glucose 258 mg/dL (74-106); LIPASE 56 U/L (23-300); Potassium 4.6 mmol/L (3.5-5.1); SGOT/AST 20 U/L (17-59); SGPT/ALT 21 U/L (0-50); SODIUM 132 mmol/L (135-145); Total Protein 6.5 g/dL (6.3-8.2)
--- NOTE | 2024-03-06 00:46 | ERPHSYRPT ---
- History of Present Illness Time Seen by Provider: 03/06/24 00:41 Source: patient, EMS Exam Limitations: clinical condition Patient Subjective Stated Complaint: pt was at home and got an onset of dizziness while sitting down and pt took his blood pressure at home with his automatic wrist blood pressure machine and the systolic was in the 50s Triage Nursing Assessment: pt presents to ED via [facility] ems, pt alert and oriented x3, skin pink, warm, clammy, pt hypotensive upon arrival, bp was 60/40s upon arrival, pt placed in trendelenburg. fsbs for ems was in the 300s, pt c/o neck pain and slight dizziness, pt has bilateral wrist IVs per ems Physician History: pt was at home and got an onset of dizziness while sitting down and pt took his blood pressure at home with his automatic wrist blood pressure machine and the systolic was in the 50s Patient is 53-year-old male with significant past medical history of type 2 diabetes mellitus hypertension peripheral vascular disease hypertensive heart disease with congestive heart failure, was at home suddenly he feels lightheaded and dizzy and then he checked his blood pressure by his home monitor which was showing systolic blood pressure 50. Patient was still alert. Patient friend who was with him called the ambulance. When ambulance personnel came they checked the blood pressure and it was 58 by palpable they immediately started him on IV give him a liter of fluid and they brought him into the emergency room. In the emergency room patient blood pressure was 64/40 patient is alert awake complaining of some lightheadedness and neck pain. He was denying any other symptoms including chest pain nausea vomiting diaphoresis. Timing/Duration: today Nitro Today/Relief: no nitro taken today Aspirin Treatment Today: 81 mg x 1 Associated Symptoms: syncope Prior Chest Pain/Cardiac Workup: echocardiography Allergies/Adverse Reactions: No Known Drug Allergies Allergy (Verified 03/05/24 23:27) Home Medications: Atorvastatin Calcium [Lipitor 20MG Tablet] 80 mg PO HS 03/22/15 [History] carvediloL [Carvedilol] 25 mg PO BID 01/18/16 [History] Sacubitril/Valsartan [Entresto 24 mg-26 mg Tablet] 24 - 26 mg PO BID 09/24/17 [History] Venlafaxine HCl [Venlafaxine HCl ER] 37.5 mg PO DAILY 11/23/17 [History] Clopidogrel Bisulfate [PLAVIX Tablet] 75 mg PO DAILY 04/26/19 [History] Fenofibrate,Micronized [Fenofibrate] 134 mg PO DAILY 06/17/20 [History] Pioglitazone 30 mg [Actos 30 MG] 30 mg PO DAILY 06/17/20 [History] Quetiapine Fumarate [Seroquel] 50 mg PO HS 11/03/23 [History] Apixaban [Eliquis] 5 mg PO BID 02/27/24 [History] Empagliflozin [Jardiance] 25 mg PO DAILY 02/27/24 [History] Ezetimibe 10 mg [Zetia 10 MG] 1 tab PO DAILY 02/27/24 [History] Isosorbide Mononitrate 60 mg [Imdur 60MG] 1 tab PO DAILY 02/27/24 [History] Spironolactone 50 mg PO DAILY 02/27/24 [History] Aspirin EC 325 mg [Ecotrin 325 MG] 325 mg PO DAILY 03/06/24 [History] Cyanocobalamin/Folic Acid [Q06-Ttdzn Acid 2500-400 Mcg Tb] 2,500 mcg PO DAILY 03/06/24 [History] Magnesium Oxide [Magnesium] 250 mg PO DAILY 03/06/24 [History] Hx Tetanus, Diphtheria Vaccination/Date Given: Yes Hx Influenza Vaccination/Date Given: Yes Hx Pneumococcal Vaccination/Date Given: No Travel Risk - International Travel Have you traveled outside of the country in past 3 weeks: No - Emerging Infectious Disease Are you exhibiting symptoms associated with any current EIDs: No Symptoms: Cough: New Onset Comment: lower legs swelling - Review of Systems Constitutional: Lethargy, Weakness, No Fever, No Chills Eyes: No Symptoms Ears, Nose, & Throat: No Symptoms Respiratory: No Cough, No Dyspnea Cardiac: No Chest Pain, No Edema, No Syncope Abdominal/Gastrointestinal: No Abdominal Pain, No Nausea, No Vomiting, No Diarrhea Genitourinary Symptoms: No Dysuria Musculoskeletal: No Back Pain, No Neck Pain Skin: No Rash Neurological: No Dizziness, No Focal Weakness, No Sensory Changes Psychological: No Symptoms Endocrine: No Symptoms All Other Systems: Reviewed and Negative - Past Medical History Pertinent Past Medical History: Yes Neurological History: No Pertinent History ENT History: No Pertinent History Cardiac History: High Cholesterol, Hypertension, Myocardial Infarction ([place]), Other Respiratory History: Other Endocrine Medical History: Diabetes Type II Musculoskeletal History: Osteoarthritis GI Medical History: Pancreatitis History: No Pertinent History Psycho-Social History: No Pertinent History Male Reproductive Disorders: No Pertinent History Other Medical History: COVID APPROXIMATELY 2 MONTHS AGO. NO RESIDUAL. NOT VACCINATED. PMHX: PER PATIENT HAS 5 STENTS BUT NO CABG. HAS DEFIBRILLATOR PLACED 2014 WITH HX OF ACTIVATION PER PATIENT "A FEW TIMES". PER PATIENT HEART FUNCTION 15-20%. SEVERE OA LEFT KNEE - BONE ON BONE BUT UNABLE TO HAVE REPLACEMENT DUE TO HEART. 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 - Past Surgical History Past Surgical History: Yes Neuro Surgical History: No Pertinent History Cardiac: Angioplasty, Cardiac Catheterization, Cardiac Stent, Internal Defibrillator, Pacemaker Respiratory: No Pertinent History Gastrointestinal: Cholecystectomy, Hernia Repair Genitourinary: No Pertinent History Musculoskeletal: Orthopedic Surgery Male Surgical History: No Pertinent History Other Surgical History: elbow Significant Family History: heart disease, diabetes, hypertension - Social History Smoking Status: Former smoker How long have you smoked: 20+ Exposure to second hand smoke: No Alcohol Use: Socially Drug Use: none Patient Lives Alone: No - Nursing Vital Signs Nursing Vital Signs: Initial Vital Signs Temperature 98.1 F 03/05/24 23:30 Pulse Rate 75 03/05/24 23:30 Respiratory Rate 15 03/05/24 23:30 Blood Pressure 62/39 03/05/24 23:30 O2 Sat by Pulse Oximetry 93 L 03/05/24 23:30 Pain Scale Pain Intensity 7 - Physical Exam General Appearance: mild distress, alert Eye Exam: PERRL/EOMI, eyes nml inspection Ears, Nose, Throat Exam: normal ENT inspection, moist mucous membranes Neck Exam: normal inspection, non-tender, supple Respiratory Exam: normal breath sounds, lungs clear, No respiratory distress Cardiovascular Exam: regular rate/rhythm, normal heart sounds, No edema Gastrointestinal/Abdomen Exam: soft, No tenderness, No mass Back Exam: normal inspection, No CVA tenderness, No vertebral tenderness Extremity Exam: normal inspection, normal range of motion Neurologic Exam: alert, oriented x 3, cooperative, normal mood/affect, nml cerebellar function, sensation nml, No motor deficits Skin Exam: normal color, warm, dry Lymphatic Exam: No adenopathy SpO2: 96 Ordered Tests: Active Orders 24 hr Category Date Time Status EKG-ER Only STAT Care 03/05/24 23:25 Active Oxygen-ED Only Nasal Cannula 2 lpm Care 03/06/24 00:27 Active CHEST 1 VIEW (PORTABLE) Stat Exams 03/05/24 23:26 Taken AMYLASE Stat Lab 03/05/24 23:50 Completed BLOOD CULTURE Stat Lab 03/05/24 23:50 Received CBC W DIFF Stat Lab 03/05/24 23:50 Completed CMP Stat Lab 03/05/24 23:50 Completed ETHYL ALCOHOL Stat Lab 03/05/24 23:50 Completed LIPASE Stat Lab 03/05/24 23:50 Completed TROPONIN Q4H Lab 03/05/24 23:50 Completed UA W/RFX UR CULTURE Stat Lab 03/05/24 23:25 Ordered Urine Triage Profile Stat Lab 03/05/24 23:25 Ordered Medication Summary Discontinued Medications Generic Name Dose Route Start Last Admin Trade Name Freq PRN Reason Stop Dose Admin Sodium Chloride 1,000 mls @ 999 mls/hr 03/05/24 23:25 03/06/24 00:26 Sodium Chloride 0.9% 1000 Ml IV 03/06/24 00:25 Infused .Q1H1M STA Infusion Sodium Chloride Confirm 03/05/24 23:29 Sodium Chloride 0.9% 1000 Ml Administered 03/05/24 23:30 Dose 1,000 mls @ ud .ROUTE .STK-MED ONE Sodium Chloride 1,000 mls @ 999 mls/hr 03/05/24 23:45 03/05/24 23:50 Sodium Chloride 0.9% 1000 Ml IV 03/06/24 00:45 999 mls/hr .Q1H1M STA Administration Sodium Chloride Confirm 03/05/24 23:46 Sodium Chloride 0.9% 1000 Ml Administered 03/05/24 23:47 Dose 1,000 mls @ ud .ROUTE .STK-MED ONE Lab/Rad Data: Laboratory Result Diagrams 03/05/24 23:50 03/05/24 23:50 Laboratory Results 03/05/24 03/05/24 03/05/24 Range/Units 23:50 23:50 23:50 WBC 8.5 (4.0-10.5) x10^3/uL RBC 4.63 (4.1-5.6) x10^6/uL Hgb 13.9 (12.5-18.0) g/dL Hct 43.0 (42-50) % MCV 92.9 (78-100) fL MCH 30.0 (26-32) pg MCHC 32.3 (32-36) g/dL RDW 15.6 H (11.5-14.0) % Plt Count 224 (150-450) x10^3/uL MPV 10.6 (7.5-11.0) fL Gran % 67.3 H (36.0-66.0) % Immature Gran % (Auto) 0.7 H (0.00-0.4) % Nucleat RBC Rel Count 0.0 (0.00-0.1) % Eos # (Auto) 0.16 (0-0.5) x10^3/uL Immature Gran # (Auto) 0.06 H (0.00-0.03) x10^3u/L Absolute Lymphs (auto) 1.73 (1.0-4.6) x10^3/uL Absolute Monos (auto) 0.78 (0.0-1.3) x10^3/uL Absolute Nucleated RBC 0.00 (0.00-0.01) x10^3u/L Lymphocytes % 20.3 L (24.0-44.0) % Monocytes % 9.2 (0.0-12.0) % Eosinophils % 1.9 (0.00-5.0) % Basophils % 0.6 (0.0-0.4) % Absolute Granulocytes 5.74 (1.4-6.9) x10^3/uL Basophils # 0.05 (0-0.4) x10^3/uL Sodium 132 L (135-145) mmol/L Potassium 4.6 (3.5-5.1) mmol/L Chloride 102 (98-107) mmol/L Carbon Dioxide 18 L (22-30) mmol/L Anion Gap 16.3 H (5-15) MEQ/L BUN 27 H (9-20) mg/dL Creatinine 1.30 H (0.66-1.25) mg/dL Estimated GFR 66.1 ML/MIN Glucose 258 H (74-106) mg/dL Calcium 9.2 (8.4-10.2) mg/dL Total Bilirubin 0.60 (0.2-1.3) mg/dL AST 20 (17-59) U/L ALT 21 (0-50) U/L Alkaline Phosphatase 64 (38-126) U/L Troponin I < 0.012 (0.000-0.033) ng/mL Serum Total Protein 6.5 (6.3-8.2) g/dL Albumin 3.8 (3.5-5.0) g/dL Amylase 40 (30-110) U/L Lipase 56 (23-300) U/L Ethyl Alcohol < 10 (0-10) mg/dL - Progress Progress: improved Air Movement: good Blood Culture(s) Obtained: Yes Antibiotics given: No Discussed with .: Other (Dr Gilliland (hospitalist)) Counseled pt/family regarding: lab results, diagnosis, need for follow-up, rad results Medical Desision Making - Discussion of managment Care discussed with:: hospitalist Agreed on:: decision to admit, place in obs - Diagnostic Testing Diagnostic test were ordered, analyzed, and reviewed by me: Yes Radiological Interpretation: Interpreted by me, Reviewed by me - Risk of complications The pt has a high risk of morbidity or mortality based on: Drug therapy requiring intensive monitoring for toxicity - Departure Departure Disposition: Observation Clinical Impression: Hypotension (arterial) Qualifiers: Hypotension type: other hypotension type Qualified Code(s): I95.89 - Other hypotension CHF (congestive heart failure) Qualifiers: Heart failure type: biventricular Qualified Code(s): I50.82 - Biventricular heart failure Diabetes mellitus, insulin dependent (IDDM), uncontrolled Qualifiers: Glycemic state: with hyperglycemia Qualified Code(s): E10.65 - Type 1 diabetes mellitus with hyperglycemia Condition: Fair Critical Care Time: Yes Critical Care Time(excluding separately billable procedures): Critical 30-74 mins Referrals: ANGIE CEBALLOS MD [Primary Care Provider] - Follow up/PCP as directed Instructions: Heart Failure
[2024-03-06] MEDS: NOREPINEPHRINE 8 MG/250 ML-D5W 8 MG/250 ML PLAST..BAG IV PRN (01:02)
--- NOTE | 2024-03-06 01:20 | PCM.HP ---
History of Present Illness - Chief Complaint Chief Complaint: New onset of dizziness Date: 03/05/24 History of Present Illness: is a 53 year old male with PMH signigficant for DM type 2, Hypertension, CHF systolic with EF 20-25 %, came to ER with new onset of dizziness. He was was at home and got dizzy while sitting down and pt took his blood pressure at home with his automatic wrist blood pressure machine and the systolic was in the 50s Patient was still alert. Patient friend who was with him called the ambulance. When ambulance personnel came they checked the blood pressure and it was 58 by palpable they immediately started him on IV give him a liter of fluid and they brought him into the emergency room. In the emergency room patient blood pressure was 64/40 patient is alert awake complaining of some lightheadedness and neck pain. He was denying any other symptoms including chest pain nausea vomiting diaphoresis. In the ER V/s were as follows. lab w/u was remarkable for sodium 132, AG 16, Cr 1.30.Troponin -ve, EKG and cxr unremarkable. He responded to 3.0 liters fluids and Bp improved to systolic 90/60.During the Hypotensive course in ER Pt remained asymptomatic. admitted for Hypotension anfd further w/up. - Review of Systems Constitutional: Fatigue, Lethargy Neurological: Dizziness All Other Systems: Reviewed and Negative (14 systems reviewed and marked -ve except mentioned in [place]) Medications & Allergies Home Medications: Home Medication List Atorvastatin Calcium [Lipitor 20MG Tablet] 80 mg PO HS 03/22/15 [History Confirmed 03/06/24] carvediloL [Carvedilol] 25 mg PO BID 01/18/16 [History Confirmed 03/06/24] Sacubitril/Valsartan [Entresto 24 mg-26 mg Tablet] 24 - 26 mg PO BID 09/24/17 [History Confirmed 03/06/24] Venlafaxine HCl [Venlafaxine HCl ER] 37.5 mg PO DAILY 11/23/17 [History Confirmed 03/06/24] Clopidogrel Bisulfate [PLAVIX Tablet] 75 mg PO DAILY 04/26/19 [History Confirmed 03/06/24] Fenofibrate,Micronized [Fenofibrate] 134 mg PO DAILY 06/17/20 [History Confirmed 03/06/24] Pioglitazone 30 mg [Actos 30 MG] 30 mg PO DAILY 06/17/20 [History Confirmed 03/06/24] Quetiapine Fumarate [Seroquel] 50 mg PO HS 11/03/23 [History Confirmed 03/06/24] Furosemide 20 mg [Lasix 20 mg] 20 mg PO DAILY 30 Days #30 tablet 11/06/23 [Rx Confirmed 03/06/24] Potassium Chloride Tab* [Klor Con] 20 meq PO BID 30 Days #60 tablet 11/06/23 [Rx Confirmed 03/06/24] Apixaban [Eliquis] 5 mg PO BID 02/27/24 [History Confirmed 03/06/24] Empagliflozin [Jardiance] 25 mg PO DAILY 02/27/24 [History Confirmed 03/06/24] Ezetimibe 10 mg [Zetia 10 MG] 1 tab PO DAILY 02/27/24 [History Confirmed 03/06/24] Isosorbide Mononitrate 60 mg [Imdur 60MG] 1 tab PO DAILY 02/27/24 [History Confirmed 03/06/24] Spironolactone 50 mg PO DAILY 02/27/24 [History Confirmed 03/06/24] Aspirin EC 325 mg [Ecotrin 325 MG] 325 mg PO DAILY 03/06/24 [History Confirmed 03/06/24] Cyanocobalamin/Folic Acid [E20-Kilaa Acid 2500-400 Mcg Tb] 2,500 mcg PO DAILY 03/06/24 [History Confirmed 03/06/24] Magnesium Oxide [Magnesium] 250 mg PO DAILY 03/06/24 [History Confirmed 03/06/24] Allergies/Adverse Reactions: Allergies Allergy/AdvReac Type Severity Reaction Status Date / Time No Known Drug Allergies Allergy Verified 03/05/24 23:27 - Past Medical History Past Medical History: Yes Neurological History: No Pertinent History ENT History: No Pertinent History Cardiac History: High Cholesterol, Hypertension, Myocardial Infarction ([place]), Other Respiratory History: Other Endocrine Medical History: Diabetes Type II Musculoskelatal History: Osteoarthritis GI Medical History: Pancreatitis History: No Pertinent History Pyscho-Social History: No Pertinent History Male Reproductive Disorders: No Pertinent History Comment: COVID APPROXIMATELY 2 MONTHS AGO. NO RESIDUAL. NOT VACCINATED. PMHX: PER PATIENT HAS 5 STENTS BUT NO CABG. HAS DEFIBRILLATOR PLACED 2014 WITH HX OF ACTIVATION PER PATIENT "A FEW TIMES". PER PATIENT HEART FUNCTION 15-20%. SEVERE OA LEFT KNEE - BONE ON BONE BUT UNABLE TO HAVE REPLACEMENT DUE TO HEART. 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 - Past Surgical History Past Surgical History: Yes Neuro Surgical History: No Pertinent History Cardiac History: Angioplasty, Cardiac Catheterization, Cardiac Stent, Internal Defibrillator, Pacemaker Respiratory Surgery: No Pertinent History GI Surgical History: Cholecystectomy, Hernia Repair Genitourinary Surgical Hx: No Pertinent History Musculskeletal Surgical Hx: Orthopedic Surgery Male Surgical History: No Pertinent History Other Surgical History: elbow Significant Family History: heart disease, diabetes, hypertension Family History: No family history pertaining to this admission reported. - Social History Smoking Status: Former smoker How long have you smoked: 20+ Exposure to second hand smoke: No Alcohol: Occasionally Drug Use: none - Social Determinants of Health Will the patient participate in the screening: Yes Do you worry about a steady place to live?: No Do you have any problems with any of the following?: No known problems In the past 12 months,have you had to go without utilities?: No Have you or anyone in your house had to go without enough: No Transportation Issues: No Has anyone in your support network made you feel unsafe?: No Does the patient want assistance with any of the above?: No - Physical Exam Vital Signs: Vital Signs - 24 hr Temp Pulse Resp BP BP BP Pulse Ox 03/06/24 01:10 66 15 86/61 97 03/06/24 01:06 61 14 66/54 98 03/06/24 01:00 66 15 82/48 96 03/06/24 00:56 65 19 70/59 97 03/06/24 00:53 96 03/06/24 00:50 62 14 87/51 96 03/06/24 00:46 65 15 81/48 95 03/06/24 00:40 66 16 83/57 95 03/06/24 00:37 68 78/56 95 03/06/24 00:21 70 19 78/53 96 03/06/24 00:11 72 24 87/55 97 03/06/24 00:05 68 18 90/52 96 03/06/24 00:01 71 18 78/44 94 L 03/05/24 23:55 68 13 80/44 95 03/05/24 23:51 70 23 84/43 95 03/05/24 23:45 72 18 67/48 93 L 03/05/24 23:44 74 22 72/46 92 L 03/05/24 23:30 98.1 F 75 15 62/39 93 L Additional Findings: HEENT Middle aged, average built in no distress NECK Supple,no thyromegaly, CVS S1+S2 + 0, no murmers RESP Bilateral equal air entry without Crepts/Wheezes heard GIT Soft non tender,non distended Skin, No rah, no Bruises LEGS No Edema PSYCH Normal,m ood, judgement and insight NEURO AOX3, no focal deficit Results - Labs Lab/Micro Results: Lab Results-Last 24 Hours 03/05/24 03/05/24 03/05/24 Range/Units 23:50 23:50 23:50 WBC 8.5 (4.0-10.5) x10^3/uL RBC 4.63 (4.1-5.6) x10^6/uL Hgb 13.9 (12.5-18.0) g/dL Hct 43.0 (42-50) % MCV 92.9 (78-100) fL MCH 30.0 (26-32) pg MCHC 32.3 (32-36) g/dL RDW 15.6 H (11.5-14.0) % Plt Count 224 (150-450) x10^3/uL MPV 10.6 (7.5-11.0) fL Gran % 67.3 H (36.0-66.0) % Immature Gran % (Auto) 0.7 H (0.00-0.4) % Nucleat RBC Rel Count 0.0 (0.00-0.1) % Eos # (Auto) 0.16 (0-0.5) x10^3/uL Immature Gran # (Auto) 0.06 H (0.00-0.03) x10^3u/L Absolute Lymphs (auto) 1.73 (1.0-4.6) x10^3/uL Absolute Monos (auto) 0.78 (0.0-1.3) x10^3/uL Absolute Nucleated RBC 0.00 (0.00-0.01) x10^3u/L Lymphocytes % 20.3 L (24.0-44.0) % Monocytes % 9.2 (0.0-12.0) % Eosinophils % 1.9 (0.00-5.0) % Basophils % 0.6 (0.0-0.4) % Absolute Granulocytes 5.74 (1.4-6.9) x10^3/uL Basophils # 0.05 (0-0.4) x10^3/uL Sodium 132 L (135-145) mmol/L Potassium 4.6 (3.5-5.1) mmol/L Chloride 102 (98-107) mmol/L Carbon Dioxide 18 L (22-30) mmol/L Anion Gap 16.3 H (5-15) MEQ/L BUN 27 H (9-20) mg/dL Creatinine 1.30 H (0.66-1.25) mg/dL Estimated GFR 66.1 ML/MIN Glucose 258 H (74-106) mg/dL Calcium 9.2 (8.4-10.2) mg/dL Total Bilirubin 0.60 (0.2-1.3) mg/dL AST 20 (17-59) U/L ALT 21 (0-50) U/L Alkaline Phosphatase 64 (38-126) U/L Troponin I < 0.012 (0.000-0.033) ng/mL Serum Total Protein 6.5 (6.3-8.2) g/dL Albumin 3.8 (3.5-5.0) g/dL Amylase 40 (30-110) U/L Lipase 56 (23-300) U/L Ethyl Alcohol < 10 (0-10) mg/dL - Radiology Impressions Radiology Exams & Impressions: Radiology Procedures Category Date Time Status CHEST 1 VIEW (PORTABLE) Stat Exams 03/05/24 23:26 Taken Assessment/Plan (1) Hypotension Current Visit: Yes Status: Acute Qualifiers: Hypotension type: other hypotension type Qualified Code(s): I95.89 - Other hypotension Code(s): I95.9 - HYPOTENSION, UNSPECIFIED (2) CHF (congestive heart failure) Current Visit: Yes Status: Chronic Qualifiers: Heart failure type: biventricular Qualified Code(s): I50.82 - Biventricular heart failure Code(s): I50.9 - HEART FAILURE, UNSPECIFIED (3) Diabetes mellitus, insulin dependent (IDDM), uncontrolled Current Visit: Yes Status: Chronic Qualifiers: Glycemic state: with hyperglycemia Qualified Code(s): E10.65 - Type 1 diabetes mellitus with hyperglycemia Code(s): E10.65 - TYPE 1 DIABETES MELLITUS WITH HYPERGLYCEMIA (4) ACS (acute coronary syndrome) Current Visit: No Status: Acute Code(s): I24.9 - ACUTE ISCHEMIC HEART DISEASE, UNSPECIFIED (5) Acute renal failure (ARF) Current Visit: No Status: Acute Telemedicine Encounter - Telemedicine Encounter Telemedicine Encounter: The entirety of this encounter was performed via Telemedicine" Dizziness Hypotension related , does not warrant CT Head Admit in [facility] for close monitoring PT/ evaluation before d/c Hypotension/Cardiogenic shock Admitted with Dizziness + systolic around 50 Responded to 3.0 liters fluids with systolic improved to 90 Less likely infectious etiology,Troponin -ve Have not started on any new meds, no recent increae in dose of diuretics noted Started on levophed, currently at 8.0mcg, Target to keep MAP around 65 Will repeat ECHO Cardiology consult in am Chronic Systolic CHF ECHO back in oct EF 20-25 % S/p Defebrillator back in 2014 Pt on Lasix, BB, Entresto at home,All on hold dye to severe Hypotension Daily weight/Salt restriction Consult cardiology in am Pt F/u with Dr Lang, has seen him on 03/04 Acute Kidney injury Baseline R 0c.68 Cr upon admit 1.32 S/o 3.o liters fluids in ER Avoiding Nephrotoxins Recheck Cr in am Diabetes mellitus type 2 Will check HBAIC Resuming home pioglitazone c/w SSI for now Coronary artry disease Status post multiple PCI/stents placed, Last one was in 2017 C/w Asp/plavix/Statins Keep Holding Imdur, BB Hyperlipidemia Resume all home meds Peripheral vascular disease C/w Asp/Plavix/Statins Chronic Anticoagulation For H/o PVD Pt says he is on Eliquis since 2014 Resumed here DVT PPX Eliquis Code status Full D/c planning, Pending clinical stability i have reviewed pt labs, V/S and imaging in detail , all question/concerns addressed.Pt remained high risk for damage /decline to body function due to ongoing hypotension in the setting of Severe systoic CHF Time spent in the care of this sick pt was > 40 min including FTF through televisit, chart review/coordination of care with pt, staff and incident response consultant
[2024-03-06] MEDS ORDERED: HUMALOG SQ PRN (01:59)
[2024-03-06] MEDS: NORCO 5/325 MG PO PRN (03:16)
[2024-03-06 05:32] LABS: Absolute Neutrophil Ct (ANC) 6.12 x10^3/uL (1.4-6.9); BASOPHIL % 0.9 % (0.0-0.4); Basophil (Absolute #) 0.09 x10^3/uL (0-0.4); Eosinophil % 2.1 % (0.00-5.0); Eosinophil (Absolute #) 0.22 x10^3/uL (0-0.5); Hematocrit 43.8 % (42-50); Hemoglobin 14.4 g/dL (12.5-18.0); IMMATURE GRAN # 0.03 x10^3u/L (0.00-0.03); IMMATURE GRAN % 0.3 % (0.00-0.4); Lymphocyte (Absolute #) 2.83 x10^3/uL (1.0-4.6); Lymphocytes % 27.6 % (24.0-44.0); Mean Cell Volume 91.1 fL (78-100); Mean Corpuscular Hemoglobin 29.9 pg (26-32); Mean Corpuscular Hgb Concent. 32.9 g/dL (32-36); Mean Platelet Volume 10.7 fL (7.5-11.0); Monocyte (Absolute #) 0.96 x10^3/uL (0.0-1.3); Monocytes % 9.4 % (0.0-12.0); Neutrophil % 59.7 % (36.0-66.0); Platelet Count 285 x10^3/uL (150-450); Red Blood Count 4.81 x10^6/uL (4.1-5.6); Red Cell Distribution Width 15.9 % (11.5-14.0); White Blood Count 10.3 x10^3/uL (4.0-10.5)
[2024-03-06 05:53] LABS: ANION GAP 13.6 MEQ/L (5-15); Calcium 9.1 mg/dL (8.4-10.2); Creatinine 1 1.08 mg/dL (0.66-1.25); EST GLOMERULAR FILTRATION RATE 82.6 ML/MIN; Potassium 5.2 mmol/L (3.5-5.1)
[2024-03-06 05:56] LABS: Appearance Clear (Clear); Bacteria None Seen /HPF (None Seen); Bilirubin Negative (Negative); Blood Negative (Negative); Epithelial Cells None Seen /HPF (None Seen); Glucose, Urine >=1000 mg/dL (Negative); Hyaline Casts NONE SEEN /LPF (0-2); Ketones Negative (Negative); Leukocyte Esterase Negative (Negative); Nitrite Negative (Negative); Protein,Urine Dip Negative (Negative); RBC 0-2 /HPF (0-5); Urobilinogen 0.2 mg/dL (0.2); WBC 0-2 /HPF (0-5)
[2024-03-06 06:05] LABS: Amphetamine,Urine NEGATIVE (NEGATIVE); Barbiturate,Urine NEGATIVE (NEGATIVE); Benzodiazepine,Urine NEGATIVE (NEGATIVE); Cocaine,Urine NEGATIVE (NEGATIVE); Methadone,Urine NEGATIVE (NEGATIVE); Opiate,Urine POSITIVE (NEGATIVE); PCP,Urine NEGATIVE (NEGATIVE); THC,Urine NEGATIVE (NEGATIVE)
[2024-03-06 06:07] LABS: ADD URINE CULTURE? NO (NO)
--- NOTE | 2024-03-06 06:44 | XRAY ---
Indication: Hypotension Comparison: February 27, 2024 Portable chest remains hyperinflated and clear. Heart not enlarged again with left pacemaker. Bony thorax intact. No new/acute findings.
[2024-03-06] MEDS: HUMALOG SQ PRN (08:07)
[2024-03-06] MEDS: EFFEXOR 37.5 MG PO SCH (09:57)
[2024-03-06] MEDS: MAG-OX 400 PO SCH (09:58)
[2024-03-06] MEDS: Tricor 145 MG PO SCH (09:58)
[2024-03-06] MEDS: Zetia 10 MG PO SCH (09:58)
[2024-03-06] MEDS: PLAVIX Tablet PO SCH (09:58)
[2024-03-06] MEDS: Actos 30 MG PO SCH (09:59)
[2024-03-06] MEDS: Vitamin B-12 500 MCG PO SCH (09:59)
[2024-03-06] MEDS: ELIQUIS 2.5 MG TABLET PO SCH (09:59)
[2024-03-06] MEDS: Ecotrin 325 MG PO SCH (09:59)
[2024-03-06] MEDS: FOLATE 1 MG PO SCH (09:59)
[2024-03-06] MEDS ORDERED: NON-FORMULARY ITEM (Magnesium Oxide [Magnesium] 250 MG Tablet) PO SCH (10:00)
[2024-03-06] MEDS ORDERED: FENOFIBRATE MICRONIZED 134 MG PO SCH (10:00)
[2024-03-06] MEDS ORDERED: [UNRECOGNIZED DRUG - OTHER] PO SCH (10:00)
[2024-03-06] MEDS ORDERED: FOLIC ACID PO SCH (10:00)
[2024-03-06] MEDS ORDERED: NON-FORMULARY ITEM (Venlafaxine Hcl [Venlafaxine Hcl Er] 150 MG Cap.Er.24h) PO SCH (10:00)
[2024-03-06] MEDS ORDERED: NON-FORMULARY ITEM (Apixaban [Eliquis] 5 MG Tablet) PO SCH (10:00)
[2024-03-06] MEDS ORDERED: CYANOCOBALAMIN PO SCH (10:00)
--- NOTE | 2024-03-06 10:25 | PCM.NOTE ---
Mr. Johansen is a 53 year old male with PMH signigficant for DM type 2, Hypertension, CHF systolic with EF 20-25 % admitted for hypotension and SHANE after experiencing dizziness at home with reported home BP readings of systolic pressure in the 50's. Patient received 3L of fluid in the ED with BP improved to 90/60 and started on levophed. Patient does follow with Dr. Lang (cardiology) as an OP and is prescribed Entresto, Jardiance, Carvediolol, and sprironolactone. He is euvolemic on exam. CXR with hyperinflated clear lungs, no cardiomegaly. Trops, BNP, EKG unremarkable. Entresto, Jardiance, Carvediolol, and sprironolactone have been held. SHANE has resolved - this was most likely secondary to Jardiance/entresto/spironolactone. BP now stable. Wean levophed drip today. Will continue to Will reintroduce entresto when BP is stable.
[2024-03-06] MEDS: ZOCOR 20MG PO SCH (21:38)
[2024-03-06] MEDS: Seroquel 25 MG PO SCH (21:38)
[2024-03-06] MEDS ORDERED: NON-FORMULARY ITEM (Atorvastatin Calcium 20 MG Tab) PO SCH (22:00)
[2024-03-06] MEDS ORDERED: NON-FORMULARY ITEM (Quetiapine Fumarate [Seroquel] 50 MG Tablet) PO SCH (22:00)
[2024-03-07 06:20] LABS: Absolute Neutrophil Ct (ANC) 6.07 x10^3/uL (1.4-6.9); BASOPHIL % 0.8 % (0.0-0.4); Basophil (Absolute #) 0.08 x10^3/uL (0-0.4); Eosinophil % 2.4 % (0.00-5.0); Eosinophil (Absolute #) 0.23 x10^3/uL (0-0.5); Hematocrit 48.5 % (42-50); Hemoglobin 15.7 g/dL (12.5-18.0); IMMATURE GRAN # 0.03 x10^3u/L (0.00-0.03); IMMATURE GRAN % 0.3 % (0.00-0.4); Lymphocyte (Absolute #) 2.27 x10^3/uL (1.0-4.6); Mean Cell Volume 92.6 fL (78-100); Mean Corpuscular Hgb Concent. 32.4 g/dL (32-36); Mean Platelet Volume 10.7 fL (7.5-11.0); Monocyte (Absolute #) 0.78 x10^3/uL (0.0-1.3); Monocytes % 8.2 % (0.0-12.0); Neutrophil % 64.3 % (36.0-66.0); Platelet Count 249 x10^3/uL (150-450); Red Blood Count 5.24 x10^6/uL (4.1-5.6); Red Cell Distribution Width 15.8 % (11.5-14.0); White Blood Count 9.5 x10^3/uL (4.0-10.5)
[2024-03-07 07:08] LABS: ALBUMIN 4.3 g/dL (3.5-5.0); ANION GAP 16.4 MEQ/L (5-15); BILIRUBIN,TOTAL 0.8 mg/dL (0.2-1.3); Calcium 9.4 mg/dL (8.4-10.2); Creatinine 1 0.84 mg/dL (0.66-1.25); EST GLOMERULAR FILTRATION RATE 104.9 ML/MIN; MAGNESIUM 1.8 mg/dL (1.6-2.3); Potassium 4.4 mmol/L (3.5-5.1); Total Protein 7.6 g/dL (6.3-8.2)
--- NOTE | 2024-03-07 08:49 | PCM.NOTE ---
Date and Time: 03/07/24 0839 Subjective Assessment: Mr. Johansen is a 53 year old male with PMH signigficant for DM type 2, Hypertension, CHF systolic with EF 20-25 % admitted for hypotension and SHANE after experiencing dizziness at home with reported home BP readings of systolic pressure in the 50's. Patient received 3L of fluid in the ED with BP improved to 90/60 and started on levophed. Patient does follow with Dr. Lang (cardiology) as an OP and is prescribed Entresto, Jardiance, Carvediolol, and sprironolactone. He is euvolemic on exam. CXR with hyperinflated clear lungs, no cardiomegaly. Trops, BNP, EKG unremarkable. Entresto, Jardiance, Carvediolol, and sprironolactone have been held. SHANE has resolved - this was most likely secondary to Jardiance/entresto/spironolactone. Levophed drip discontinued 03/06/24. Will continue to Will reintroduce entresto when BP is stable. 03/07: Met with patient bedside. Endorses much improvement since admission. No further episodes of dizziness. Levophed drip discontinued yesterday. BP/HR has remained stable with a few episodes of hypotension during sleep hours. Denies fever,cough, sob, cp, abdominal pain, ZHAO, dizziness, N/V/D. Plan to resume Entresto today. Cards consult tomorrow. - Review of Systems Constitutional: No Symptoms Eyes: No Symptoms Ears, Nose, & Throat: No Symptoms Respiratory: No Symptoms Cardiac: No Symptoms Abdominal/Gastrointestinal: No Symptoms Genitourinary Symptoms: No Symptoms Musculoskeletal: No Symptoms Skin: No Symptoms Neurological: No Symptoms Psychological: No Symptoms Endocrine: No Symptoms Hematologic/Lymphatic: No Symptoms Immunological/Allergic: No Symptoms Objective Exam General Appearance: no apparent distress Neurologic Exam: alert, oriented x 3, cooperative Skin Exam: normal color Eye Exam: PERRL Ears, Nose, Throat Exam: normal ENT inspection, moist mucous membranes Neck Exam: normal inspection, full range of motion Respiratory Exam: normal breath sounds, lungs clear Cardiovascular Exam: regular rate/rhythm, normal heart sounds Gastrointestinal/Abdomen Exam: soft, normal bowel sounds Extremity Exam: normal inspection Back Exam: normal inspection Male Genitalia Exam: deferred Rectal Exam: deferred Objective Data Vital Signs: Vital Signs - 24 hr Temp Pulse Resp BP Pulse Ox 03/07/24 08:01 96.0 F 87 21 117/65 95 03/07/24 08:00 65 16 03/07/24 07:01 70 15 101/64 96 03/07/24 06:01 66 17 91/56 95 03/07/24 05:01 60 17 136/80 88 L 03/07/24 04:34 59 L 15 123/84 03/07/24 04:01 98.2 F 71 14 87/52 94 L 03/07/24 03:48 15 03/07/24 03:01 65 15 90/44 95 03/07/24 02:01 66 16 106/53 95 03/07/24 01:01 62 17 93/52 98 03/07/24 00:01 97.8 F 67 18 85/48 94 L 03/06/24 23:58 17 03/06/24 23:01 72 18 95/58 93 L 03/06/24 22:01 98.0 F 74 18 143/76 97 03/06/24 21:49 78 29 H 151/92 97 03/06/24 21:01 67 17 124/77 95 03/06/24 20:02 64 20 123/71 98 03/06/24 20:00 68 03/06/24 19:46 18 03/06/24 19:01 72 18 95/58 94 L 03/06/24 18:01 69 20 114/58 96 03/06/24 17:00 97.8 F 62 17 123/76 97 03/06/24 16:01 71 15 93/61 94 L 03/06/24 16:00 70 17 03/06/24 15:01 68 17 119/72 95 03/06/24 14:01 72 19 126/81 95 03/06/24 13:36 81 20 110/70 95 03/06/24 13:21 70 111/74 94 L 03/06/24 13:00 71 119/68 93 L 03/06/24 12:01 97.2 F 78 18 89/48 94 L 03/06/24 12:00 78 16 03/06/24 11:01 72 16 112/64 95 03/06/24 10:54 69 21 03/06/24 10:31 114/80 03/06/24 10:16 85 17 104/66 97 03/06/24 10:00 83 14 116/72 96 03/06/24 09:46 71 19 105/57 94 L 03/06/24 09:33 71 16 127/80 97 03/06/24 09:16 78 15 102/58 98 03/06/24 09:01 78 14 141/78 03/06/24 08:46 79 14 134/61 Pain Assessment - Last Documented Pain Intensity 8 Pain Scale Used 0-10 Pain Scale Intake and Output: Intake & Output 03/04/24 03/05/24 03/06/24 03/07/24 11:59 11:59 11:59 11:59 Intake Total 2640 1820 Output Total 1100 1050 Balance 1540 770 Weight 121 kg 116 kg Lab Results: Lab Results-Last 24 Hours 03/06/24 03/06/24 03/06/24 Range/Units 11:17 16:31 21:33 WBC (4.0-10.5) x10^3/uL RBC (4.1-5.6) x10^6/uL Hgb (12.5-18.0) g/dL Hct (42-50) % MCV (78-100) fL MCH (26-32) pg MCHC (32-36) g/dL RDW (11.5-14.0) % Plt Count (150-450) x10^3/uL MPV (7.5-11.0) fL Gran % (36.0-66.0) % Immature Gran % (Auto) (0.00-0.4) % Nucleat RBC Rel Count (0.00-0.1) % Eos # (Auto) (0-0.5) x10^3/uL Immature Gran # (Auto) (0.00-0.03) x10^3u/L Absolute Lymphs (auto) (1.0-4.6) x10^3/uL Absolute Monos (auto) (0.0-1.3) x10^3/uL Absolute Nucleated RBC (0.00-0.01) x10^3u/L Lymphocytes % (24.0-44.0) % Monocytes % (0.0-12.0) % Eosinophils % (0.00-5.0) % Basophils % (0.0-0.4) % Absolute Granulocytes (1.4-6.9) x10^3/uL Basophils # (0-0.4) x10^3/uL Sodium (135-145) mmol/L Potassium (3.5-5.1) mmol/L Chloride (98-107) mmol/L Carbon Dioxide (22-30) mmol/L Anion Gap (5-15) MEQ/L BUN (9-20) mg/dL Creatinine (0.66-1.25) mg/dL Estimated GFR ML/MIN Glucose (74-106) mg/dL POC Glucometer 204 H 161 H 165 H (74 to 106) mg/dL Calcium (8.4-10.2) mg/dL Magnesium (1.6-2.3) mg/dL Total Bilirubin (0.2-1.3) mg/dL AST (17-59) U/L ALT (0-50) U/L Alkaline Phosphatase (38-126) U/L Serum Total Protein (6.3-8.2) g/dL Albumin (3.5-5.0) g/dL 03/06/24 03/07/24 03/07/24 Range/Units 21:33 06:10 06:10 WBC 9.5 (4.0-10.5) x10^3/uL RBC 5.24 (4.1-5.6) x10^6/uL Hgb 15.7 (12.5-18.0) g/dL Hct 48.5 (42-50) % MCV 92.6 (78-100) fL MCH 30.0 (26-32) pg MCHC 32.4 (32-36) g/dL RDW 15.8 H (11.5-14.0) % Plt Count 249 (150-450) x10^3/uL MPV 10.7 (7.5-11.0) fL Gran % 64.3 (36.0-66.0) % Immature Gran % (Auto) 0.3 (0.00-0.4) % Nucleat RBC Rel Count 0.0 (0.00-0.1) % Eos # (Auto) 0.23 (0-0.5) x10^3/uL Immature Gran # (Auto) 0.03 (0.00-0.03) x10^3u/L Absolute Lymphs (auto) 2.27 (1.0-4.6) x10^3/uL Absolute Monos (auto) 0.78 (0.0-1.3) x10^3/uL Absolute Nucleated RBC 0.00 (0.00-0.01) x10^3u/L Lymphocytes % 24.0 (24.0-44.0) % Monocytes % 8.2 (0.0-12.0) % Eosinophils % 2.4 (0.00-5.0) % Basophils % 0.8 (0.0-0.4) % Absolute Granulocytes 6.07 (1.4-6.9) x10^3/uL Basophils # 0.08 (0-0.4) x10^3/uL Sodium 139 (135-145) mmol/L Potassium 4.4 (3.5-5.1) mmol/L Chloride 109 H (98-107) mmol/L Carbon Dioxide 19 L (22-30) mmol/L Anion Gap 16.4 H (5-15) MEQ/L BUN 27 H (9-20) mg/dL Creatinine 0.84 (0.66-1.25) mg/dL Estimated GFR 104.9 ML/MIN Glucose 120 H (74-106) mg/dL POC Glucometer 165 H (74 to 106) mg/dL Calcium 9.4 (8.4-10.2) mg/dL Magnesium 1.8 (1.6-2.3) mg/dL Total Bilirubin 0.80 (0.2-1.3) mg/dL AST 27 (17-59) U/L ALT 26 (0-50) U/L Alkaline Phosphatase 71 (38-126) U/L Serum Total Protein 7.6 (6.3-8.2) g/dL Albumin 4.3 (3.5-5.0) g/dL 03/07/24 Range/Units 07:30 WBC (4.0-10.5) x10^3/uL RBC (4.1-5.6) x10^6/uL Hgb (12.5-18.0) g/dL Hct (42-50) % MCV (78-100) fL MCH (26-32) pg MCHC (32-36) g/dL RDW (11.5-14.0) % Plt Count (150-450) x10^3/uL MPV (7.5-11.0) fL Gran % (36.0-66.0) % Immature Gran % (Auto) (0.00-0.4) % Nucleat RBC Rel Count (0.00-0.1) % Eos # (Auto) (0-0.5) x10^3/uL Immature Gran # (Auto) (0.00-0.03) x10^3u/L Absolute Lymphs (auto) (1.0-4.6) x10^3/uL Absolute Monos (auto) (0.0-1.3) x10^3/uL Absolute Nucleated RBC (0.00-0.01) x10^3u/L Lymphocytes % (24.0-44.0) % Monocytes % (0.0-12.0) % Eosinophils % (0.00-5.0) % Basophils % (0.0-0.4) % Absolute Granulocytes (1.4-6.9) x10^3/uL Basophils # (0-0.4) x10^3/uL Sodium (135-145) mmol/L Potassium (3.5-5.1) mmol/L Chloride (98-107) mmol/L Carbon Dioxide (22-30) mmol/L Anion Gap (5-15) MEQ/L BUN (9-20) mg/dL Creatinine (0.66-1.25) mg/dL Estimated GFR ML/MIN Glucose (74-106) mg/dL POC Glucometer 118 H (74 to 106) mg/dL Calcium (8.4-10.2) mg/dL Magnesium (1.6-2.3) mg/dL Total Bilirubin (0.2-1.3) mg/dL AST (17-59) U/L ALT (0-50) U/L Alkaline Phosphatase (38-126) U/L Serum Total Protein (6.3-8.2) g/dL Albumin (3.5-5.0) g/dL Radiology Exams: Radiology Procedures Category Date Time Status CHEST 1 VIEW (PORTABLE) Stat Exams 03/05/24 23:26 Completed ECHO W/2D AND DOPPLER [US] Routine Exams 03/08/24 00:01 Ordered ECHO W/2D AND DOPPLER [US] Routine Exams 03/08/24 00:01 Stop Req Assessment/Plan (1) Hypotension Current Visit: Yes Status: Acute Qualifiers: Hypotension type: other hypotension type Qualified Code(s): I95.89 - Other hypotension Assessment & Plan: -symptomatic on presentation with systolic readings in the 50's -Most likely secondary to Entresto/Jardiance/Carvedilol/spironolactone -pt with known CHF with EF at 20-25% in Oct 2023 -Follows with Dr. Chu (cardiology) -Continue to hold Jardiance/carvedilol/spironolactone - Continue Entresto -Received 3L fluid bolus in ED with noted improvement to systolic in the 90's -Levophed drip initiated and d/c'd 03/06/24 - BP has remained stable with a few episodes of hypotension during sleep hours with systolic in the 80/90's -Echo pending -Cards consult in the a.m Code(s): I95.9 - HYPOTENSION, UNSPECIFIED (2) Dizziness Current Visit: Yes Status: Acute Assessment & Plan: -see hypotension 03/07: -resolved Code(s): R42 - DIZZINESS AND GIDDINESS (3) SHANE (acute kidney injury) Current Visit: Yes Status: Acute Assessment & Plan: -baseline around 0.68 - received 3L fluids in ED, patient is now at baseline -Avoid nephrotoxic agents - GATITO/ARB/diuretics/ NSAIDS - could be secondary to Entresto/Jardiance -Continue to monitor renal/lytes daily Code(s): N17.9 - ACUTE KIDNEY FAILURE, UNSPECIFIED (4) CAD (coronary artery disease) Current Visit: Yes Status: Acute Assessment & Plan: -Status post multiple PCI/stents placed, Last one was in 2017 -C/w Asp/plavix/Statins Code(s): I25.10 - ATHSCL HEART DISEASE OF [place] CORONARY ARTERY W/O ANG PCTRS (5) HLD (hyperlipidemia) Current Visit: Yes Status: Acute Assessment & Plan: -continue statin Code(s): E78.5 - HYPERLIPIDEMIA, UNSPECIFIED (6) PVD (peripheral vascular disease) Current Visit: Yes Status: Acute Assessment & Plan: -continue statin/plavix/ asa Code(s): I73.9 - PERIPHERAL VASCULAR DISEASE, UNSPECIFIED (7) Chronic anticoagulation Current Visit: Yes Status: Acute Assessment & Plan: For H/o PVD Pt says he is on Eliquis since 2014 Resumed here Code(s): 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 (8) CHF (congestive heart failure) Current Visit: Yes Status: Chronic Qualifiers: Heart failure type: biventricular Qualified Code(s): I50.82 - Biventricular heart failure Assessment & Plan: -ECHO back in oct EF 20-25 % reviewed -S/p Defebrillator back in 2014 Pt on sprionolactone, carvedilol,and Jardiance at home -hold - Will resume Entresto today Daily weight Consult cardiology in am Pt F/u with Dr Lang, has seen him on 03/04 Code(s): I50.9 - HEART FAILURE, UNSPECIFIED (9) Diabetes mellitus, insulin dependent (IDDM), uncontrolled Current Visit: Yes Status: Chronic Qualifiers: Glycemic state: with hyperglycemia Qualified Code(s): E10.65 - Type 1 diabetes mellitus with hyperglycemia Assessment & Plan: -SSI -Hold pioglitazone -ADA diet DVT PPX Eliquis Code status Full Dispo 1-2 days Code(s): E10.65 - TYPE 1 DIABETES MELLITUS WITH HYPERGLYCEMIA
[2024-03-07] MEDS ORDERED: NON-FORMULARY ITEM (Sacubitril/Valsartan [Entresto 24 Mg-26 Mg Tablet] 1 EACH Tablet) PO SCH (10:00)
[2024-03-07] MEDS: ENTRESTO 49 MG-51 MG TABLET PO SCH (10:04)
[2024-03-08 04:31] LABS: Absolute Neutrophil Ct (ANC) 6.68 x10^3/uL (1.4-6.9); BASOPHIL % 0.7 % (0.0-0.4); Basophil (Absolute #) 0.08 x10^3/uL (0-0.4); Eosinophil % 2.1 % (0.00-5.0); Eosinophil (Absolute #) 0.23 x10^3/uL (0-0.5); Hematocrit 46.6 % (42-50); Hemoglobin 15.6 g/dL (12.5-18.0); IMMATURE GRAN # 0.04 x10^3u/L (0.00-0.03); IMMATURE GRAN % 0.4 % (0.00-0.4); Lymphocyte (Absolute #) 2.74 x10^3/uL (1.0-4.6); Lymphocytes % 25.6 % (24.0-44.0); Mean Corpuscular Hemoglobin 30.5 pg (26-32); Mean Corpuscular Hgb Concent. 33.5 g/dL (32-36); Monocyte (Absolute #) 0.94 x10^3/uL (0.0-1.3); Monocytes % 8.8 % (0.0-12.0); Neutrophil % 62.4 % (36.0-66.0); Platelet Count 276 x10^3/uL (150-450); Red Blood Count 5.12 x10^6/uL (4.1-5.6); Red Cell Distribution Width 15.5 % (11.5-14.0); White Blood Count 10.7 x10^3/uL (4.0-10.5)
[2024-03-08 04:58] LABS: ALBUMIN 4.3 g/dL (3.5-5.0); ANION GAP 14.6 MEQ/L (5-15); BILIRUBIN,TOTAL 0.5 mg/dL (0.2-1.3); Calcium 9.3 mg/dL (8.4-10.2); Creatinine 1 0.77 mg/dL (0.66-1.25); EST GLOMERULAR FILTRATION RATE 107.7 ML/MIN; MAGNESIUM 1.9 mg/dL (1.6-2.3); Potassium 4.1 mmol/L (3.5-5.1); Total Protein 7.6 g/dL (6.3-8.2)
--- NOTE | 2024-03-08 12:53 | PCM.NOTE ---
Date and Time: 03/08/24 1243 Subjective Assessment: Mr. Johansen is a 53 year old male with PMH signigficant for DM type 2, Hypertension, CHF systolic with EF 20-25 % admitted for hypotension and SHANE after experiencing dizziness at home with reported home BP readings of systolic pressure in the 50's. Patient received 3L of fluid in the ED with BP improved to 90/60 and started on levophed. Patient does follow with Dr. Lang (cardiology) as an OP and is prescribed Entresto, Jardiance, Carvediolol, and sprironolactone. He is euvolemic on exam. CXR with hyperinflated clear lungs, no cardiomegaly. Trops, BNP, EKG unremarkable. Entresto, Jardiance, Carvediolol, and sprironolactone have been held. SHANE has resolved - this was most likely secondary to Jardiance/entresto/spironolactone. Levophed drip discontinued 03/06/24. Entresto resumed, patient tolerating. Cardiology consult pending. 03/07: Met with patient bedside. Endorses much improvement since admission. No further episodes of dizziness. Levophed drip discontinued yesterday. BP/HR has remained stable with a few episodes of hypotension during sleep hours. Denies fever,cough, sob, cp, abdominal pain, ZHAO, dizziness, N/V/D. Plan to resume Entresto today. Cards consult tomorrow. 03/08: Patient up in chair. Tolerating the resumption of Entrestro. No further dizziness. BP has remained stable. Plan for cardiology consult today for further medication recommendations. Most likely can discharge tomorrow pending cards eval. - Review of Systems Constitutional: No Symptoms Eyes: No Symptoms Ears, Nose, & Throat: No Symptoms Respiratory: No Symptoms Cardiac: No Symptoms Abdominal/Gastrointestinal: No Symptoms Genitourinary Symptoms: No Symptoms Musculoskeletal: No Symptoms Skin: No Symptoms Neurological: No Symptoms Psychological: No Symptoms Endocrine: No Symptoms Hematologic/Lymphatic: No Symptoms Immunological/Allergic: No Symptoms Objective Exam General Appearance: no apparent distress Neurologic Exam: alert, oriented x 3, cooperative Skin Exam: normal color Eye Exam: PERRL Ears, Nose, Throat Exam: normal ENT inspection Neck Exam: normal inspection Respiratory Exam: normal breath sounds, lungs clear Cardiovascular Exam: regular rate/rhythm, normal heart sounds Gastrointestinal/Abdomen Exam: soft, normal bowel sounds Extremity Exam: normal inspection Back Exam: normal inspection Objective Data Vital Signs: Vital Signs - 24 hr Temp Pulse Resp BP Pulse Ox 03/08/24 12:00 96.4 F 59 L 14 120/64 96 03/08/24 11:12 18 03/08/24 07:40 16 03/08/24 07:05 96.1 F 73 14 122/63 96 03/08/24 04:00 97.9 F 72 16 123/76 93 L 03/07/24 23:53 97.1 F 96 H 16 111/71 96 03/07/24 19:06 97.2 F 78 16 112/80 94 L 03/07/24 16:00 97.6 F 78 18 127/87 95 03/07/24 15:03 16 Pain Assessment - Last Documented Pain Intensity 6 Pain Scale Used 0-10 Pain Scale Intake and Output: Intake & Output 03/06/24 03/07/24 03/08/24 03/09/24 11:59 11:59 11:59 11:59 Intake Total 2640 1820 2770 Output Total 1100 1050 Balance 1235 851 6314 Weight 121 kg 116 kg 114.5 kg Lab Results: Lab Results-Last 24 Hours 03/07/24 03/07/24 03/07/24 Range/Units 14:00 16:25 21:09 WBC (4.0-10.5) x10^3/uL RBC (4.1-5.6) x10^6/uL Hgb (12.5-18.0) g/dL Hct (42-50) % MCV (78-100) fL MCH (26-32) pg MCHC (32-36) g/dL RDW (11.5-14.0) % Plt Count (150-450) x10^3/uL MPV (7.5-11.0) fL Gran % (36.0-66.0) % Immature Gran % (Auto) (0.00-0.4) % Nucleat RBC Rel Count (0.00-0.1) % Eos # (Auto) (0-0.5) x10^3/uL Immature Gran # (Auto) (0.00-0.03) x10^3u/L Absolute Lymphs (auto) (1.0-4.6) x10^3/uL Absolute Monos (auto) (0.0-1.3) x10^3/uL Absolute Nucleated RBC (0.00-0.01) x10^3u/L Lymphocytes % (24.0-44.0) % Monocytes % (0.0-12.0) % Eosinophils % (0.00-5.0) % Basophils % (0.0-0.4) % Absolute Granulocytes (1.4-6.9) x10^3/uL Basophils # (0-0.4) x10^3/uL Sodium (135-145) mmol/L Potassium (3.5-5.1) mmol/L Chloride (98-107) mmol/L Carbon Dioxide (22-30) mmol/L Anion Gap (5-15) MEQ/L BUN (9-20) mg/dL Creatinine (0.66-1.25) mg/dL Estimated GFR ML/MIN Glucose (74-106) mg/dL POC Glucometer 193 H 370 H (74 to 106) mg/dL Hemoglobin A1c 8.10 H (4.5-6.0) % Calcium (8.4-10.2) mg/dL Magnesium (1.6-2.3) mg/dL Total Bilirubin (0.2-1.3) mg/dL AST (17-59) U/L ALT (0-50) U/L Alkaline Phosphatase (38-126) U/L Serum Total Protein (6.3-8.2) g/dL Albumin (3.5-5.0) g/dL 03/08/24 03/08/24 03/08/24 Range/Units 01:43 04:03 04:03 WBC 10.7 H (4.0-10.5) x10^3/uL RBC 5.12 (4.1-5.6) x10^6/uL Hgb 15.6 (12.5-18.0) g/dL Hct 46.6 (42-50) % MCV 91.0 (78-100) fL MCH 30.5 (26-32) pg MCHC 33.5 (32-36) g/dL RDW 15.5 H (11.5-14.0) % Plt Count 276 (150-450) x10^3/uL MPV 11.0 (7.5-11.0) fL Gran % 62.4 (36.0-66.0) % Immature Gran % (Auto) 0.4 (0.00-0.4) % Nucleat RBC Rel Count 0.0 (0.00-0.1) % Eos # (Auto) 0.23 (0-0.5) x10^3/uL Immature Gran # (Auto) 0.04 H (0.00-0.03) x10^3u/L Absolute Lymphs (auto) 2.74 (1.0-4.6) x10^3/uL Absolute Monos (auto) 0.94 (0.0-1.3) x10^3/uL Absolute Nucleated RBC 0.00 (0.00-0.01) x10^3u/L Lymphocytes % 25.6 (24.0-44.0) % Monocytes % 8.8 (0.0-12.0) % Eosinophils % 2.1 (0.00-5.0) % Basophils % 0.7 (0.0-0.4) % Absolute Granulocytes 6.68 (1.4-6.9) x10^3/uL Basophils # 0.08 (0-0.4) x10^3/uL Sodium 138 (135-145) mmol/L Potassium 4.1 (3.5-5.1) mmol/L Chloride 107 (98-107) mmol/L Carbon Dioxide 21 L (22-30) mmol/L Anion Gap 14.6 (5-15) MEQ/L BUN 25 H (9-20) mg/dL Creatinine 0.77 (0.66-1.25) mg/dL Estimated GFR 107.7 ML/MIN Glucose 224 H (74-106) mg/dL POC Glucometer 228 H (74 to 106) mg/dL Hemoglobin A1c (4.5-6.0) % Calcium 9.3 (8.4-10.2) mg/dL Magnesium 1.9 (1.6-2.3) mg/dL Total Bilirubin 0.50 (0.2-1.3) mg/dL AST 21 (17-59) U/L ALT 24 (0-50) U/L Alkaline Phosphatase 71 (38-126) U/L Serum Total Protein 7.6 (6.3-8.2) g/dL Albumin 4.3 (3.5-5.0) g/dL 03/08/24 03/08/24 Range/Units 06:30 11:20 WBC (4.0-10.5) x10^3/uL RBC (4.1-5.6) x10^6/uL Hgb (12.5-18.0) g/dL Hct (42-50) % MCV (78-100) fL MCH (26-32) pg MCHC (32-36) g/dL RDW (11.5-14.0) % Plt Count (150-450) x10^3/uL MPV (7.5-11.0) fL Gran % (36.0-66.0) % Immature Gran % (Auto) (0.00-0.4) % Nucleat RBC Rel Count (0.00-0.1) % Eos # (Auto) (0-0.5) x10^3/uL Immature Gran # (Auto) (0.00-0.03) x10^3u/L Absolute Lymphs (auto) (1.0-4.6) x10^3/uL Absolute Monos (auto) (0.0-1.3) x10^3/uL Absolute Nucleated RBC (0.00-0.01) x10^3u/L Lymphocytes % (24.0-44.0) % Monocytes % (0.0-12.0) % Eosinophils % (0.00-5.0) % Basophils % (0.0-0.4) % Absolute Granulocytes (1.4-6.9) x10^3/uL Basophils # (0-0.4) x10^3/uL Sodium (135-145) mmol/L Potassium (3.5-5.1) mmol/L Chloride (98-107) mmol/L Carbon Dioxide (22-30) mmol/L Anion Gap (5-15) MEQ/L BUN (9-20) mg/dL Creatinine (0.66-1.25) mg/dL Estimated GFR ML/MIN Glucose (74-106) mg/dL POC Glucometer 158 H 249 H (74 to 106) mg/dL Hemoglobin A1c (4.5-6.0) % Calcium (8.4-10.2) mg/dL Magnesium (1.6-2.3) mg/dL Total Bilirubin (0.2-1.3) mg/dL AST (17-59) U/L ALT (0-50) U/L Alkaline Phosphatase (38-126) U/L Serum Total Protein (6.3-8.2) g/dL Albumin (3.5-5.0) g/dL Radiology Exams: Radiology Procedures Category Date Time Status ECHO W/2D AND DOPPLER [US] Routine Exams 03/08/24 00:01 Stop Req ECHO W/2D AND DOPPLER [US] Routine Exams 03/08/24 00:01 Taken Assessment/Plan (1) Hypotension Current Visit: Yes Status: Acute Qualifiers: Hypotension type: other hypotension type Qualified Code(s): I95.89 - Other hypotension Assessment & Plan: -symptomatic on presentation with systolic readings in the 50's -Most likely secondary to Entresto/Jardiance/Carvedilol/spironolactone -pt with known CHF with EF at 20-25% in Oct 2023 -Follows with Dr. Chu (cardiology) -Continue to hold Jardiance/carvedilol/spironolactone - Continue Entresto -Received 3L fluid bolus in ED with noted improvement to systolic in the 90's -Levophed drip initiated and d/c'd 03/06/24 - BP has remained stable with a few episodes of hypotension during sleep hours with systolic in the 80/90's -Echo pending -Cards consult in the a.m 03/08: -Cardiology consult today pending -Echo pending - pre-edward with est EF at 28% with TR-LV dysfunction - pending final cardiology read -BP stable- entresto resumed, pending cards eval for further medication changes Code(s): I95.9 - HYPOTENSION, UNSPECIFIED (2) Dizziness Current Visit: Yes Status: Acute Assessment & Plan: -see hypotension 03/07: -resolved Code(s): R42 - DIZZINESS AND GIDDINESS (3) SHANE (acute kidney injury) Current Visit: Yes Status: Acute Assessment & Plan: -baseline around 0.68 - received 3L fluids in ED, patient is now at baseline -Avoid nephrotoxic agents - GATITO/ARB/diuretics/ NSAIDS - could be secondary to Entresto/Jardiance -Continue to monitor renal/lytes daily Code(s): N17.9 - ACUTE KIDNEY FAILURE, UNSPECIFIED (4) CAD (coronary artery disease) Current Visit: Yes Status: Acute Assessment & Plan: -Status post multiple PCI/stents placed, Last one was in 2017 -C/w Asp/plavix/Statins Code(s): I25.10 - ATHSCL HEART DISEASE OF [place] CORONARY ARTERY W/O ANG PCTRS (5) HLD (hyperlipidemia) Current Visit: Yes Status: Acute Assessment & Plan: -continue statin Code(s): E78.5 - HYPERLIPIDEMIA, UNSPECIFIED (6) PVD (peripheral vascular disease) Current Visit: Yes Status: Acute Assessment & Plan: -continue statin/plavix/ asa Code(s): I73.9 - PERIPHERAL VASCULAR DISEASE, UNSPECIFIED (7) Chronic anticoagulation Current Visit: Yes Status: Acute Assessment & Plan: For H/o PVD Pt says he is on Eliquis since 2014 Resumed here Code(s): Z79.01 - FINISHING 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 (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) USE OF ANTICOAGULANTS (8) CHF (congestive heart failure) Current Visit: Yes Status: Chronic Qualifiers: Heart failure type: biventricular Qualified Code(s): I50.82 - Biventricular heart failure Assessment & Plan: -ECHO back in oct EF 20-25 % reviewed -S/p Defebrillator back in 2014 Pt on sprionolactone, carvedilol,and Jardiance at home -hold - Will resume Entresto today Daily weight Consult cardiology in am Pt F/u with Dr Lang, has seen him on 03/04 Code(s): I50.9 - HEART FAILURE, UNSPECIFIED (9) Diabetes mellitus, insulin dependent (IDDM), uncontrolled Current Visit: Yes Status: Chronic Qualifiers: Glycemic state: with hyperglycemia Qualified Code(s): E10.65 - Type 1 diabetes mellitus with hyperglycemia Assessment & Plan: -SSI -Hold pioglitazone -ADA diet DVT PPX Eliquis Code status Full Dispo 1-2 days Code(s): I95.9 - HYPOTENSION, UNSPECIFIED (2) Dizziness Current Visit: Yes Status: Acute Code(s): R42 - DIZZINESS AND GIDDINESS (3) SHANE (acute kidney injury) Current Visit: Yes Status: Acute Code(s): N17.9 - ACUTE KIDNEY FAILURE, UNSPECIFIED (4) CAD (coronary artery disease) Current Visit: Yes Status: Acute Code(s): I25.10 - ATHSCL HEART DISEASE OF [place] CORONARY ARTERY W/O ANG PCTRS (5) HLD (hyperlipidemia) Current Visit: Yes Status: Acute Code(s): E78.5 - HYPERLIPIDEMIA, UNSPECIFIED (6) PVD (peripheral vascular disease) Current Visit: Yes Status: Acute Code(s): I73.9 - PERIPHERAL VASCULAR DISEASE, UNSPECIFIED (7) Chronic anticoagulation Current Visit: Yes Status: Acute Code(s): Z79.01 - FINISHING TECHNICIAN (CURRENT) USE OF ANTICOAGULANTS (8) CHF (congestive heart failure) Current Visit: Yes Status: Chronic Qualifiers: Heart failure type: biventricular Qualified Code(s): I50.82 - Biventricular heart failure Code(s): I50.9 - HEART FAILURE, UNSPECIFIED (9) Diabetes mellitus, insulin dependent (IDDM), uncontrolled Current Visit: Yes Status: Chronic Qualifiers: Glycemic state: with hyperglycemia Qualified Code(s): E10.65 - Type 1 diabetes mellitus with hyperglycemia Code(s): E10.65 - TYPE 1 DIABETES MELLITUS WITH HYPERGLYCEMIA
[2024-03-08] MEDS: HUMALOG SQ PRN (16:37)
[2024-03-08] MEDS: Coreg 3.125 MG PO SCH (22:15)
[2024-03-09 04:44] LABS: BASOPHIL % 0.9 % (0.0-0.4); Eosinophil % 2.2 % (0.00-5.0); Eosinophil (Absolute #) 0.25 x10^3/uL (0-0.5); Hematocrit 46.6 % (42-50); Hemoglobin 15.8 g/dL (12.5-18.0); IMMATURE GRAN # 0.06 x10^3u/L (0.00-0.03); IMMATURE GRAN % 0.5 % (0.00-0.4); Lymphocyte (Absolute #) 3.03 x10^3/uL (1.0-4.6); Lymphocytes % 26.8 % (24.0-44.0); Mean Cell Volume 89.8 fL (78-100); Mean Corpuscular Hemoglobin 30.4 pg (26-32); Mean Corpuscular Hgb Concent. 33.9 g/dL (32-36); Mean Platelet Volume 11.1 fL (7.5-11.0); Monocyte (Absolute #) 0.98 x10^3/uL (0.0-1.3); Monocytes % 8.7 % (0.0-12.0); Neutrophil % 60.9 % (36.0-66.0); Platelet Count 290 x10^3/uL (150-450); Red Blood Count 5.19 x10^6/uL (4.1-5.6); Red Cell Distribution Width 15.3 % (11.5-14.0); White Blood Count 11.3 x10^3/uL (4.0-10.5)
[2024-03-09] MEDS: JARDIANCE PO SCH (09:13)
[2024-03-09 10:26] LABS: ALBUMIN 4.7 g/dL (3.5-5.0); ANION GAP 17.2 MEQ/L (5-15); BILIRUBIN,TOTAL 0.9 mg/dL (0.2-1.3); Calcium 9.5 mg/dL (8.4-10.2); Creatinine 1 0.8 mg/dL (0.66-1.25); EST GLOMERULAR FILTRATION RATE 106.5 ML/MIN; MAGNESIUM 1.7 mg/dL (1.6-2.3); Potassium 4.6 mmol/L (3.5-5.1); Total Protein 8.3 g/dL (6.3-8.2)
--- NOTE | 2024-03-09 10:40 | PCM.DS ---
Discharge Summary Date of Admission: 03/06/24 01:05 Date of Discharge: 02/18/24 Admitting Physician: NICOL BAUTISTA MD Consults: Consults on Case 03/06/24 01:18 Nutritional Consult ROUTINE 03/07/24 10:37 Consult Cardiology ROUTINE Primary Care Provider: ANGIE CEBALLOS Allergies Allergies No Known Drug Allergies Allergy (Verified 03/05/24 23:27) Hospital Summary - Hospital Course Hospital Course: Mr. Johansen is a 53 year old male with PMH signigficant for DM type 2, Hypertension, CHF systolic with EF 20-25 % admitted for hypotension and SHANE after experiencing dizziness at home with reported home BP readings of systolic pressure in the 50's. Patient received 3L of fluid in the ED with BP improved to 90/60 and started on levophed. Patient does follow with Dr. Vang (cardiology) as an OP and is prescribed Entresto, Jardiance, Carvediolol, and sprironolactone. He is euvolemic on exam. CXR with hyperinflated clear lungs, no cardiomegaly. Trops, BNP, EKG unremarkable. Entresto, Jardiance, Carvediolol, and sprironolactone have been held. SHANE has resolved - this was most likely secondary to Jardiance/entresto/spironolactone. Levophed drip discontinued 03/06/24. Entresto /Jardiance/coreg resumed, patient tolerating -BP stable. Cardiology consulted with the following recommendations Coreg decreased to 3.125 BID, Stop ASA, continue Jardiance, Entresto. Follow up with cardiology on Thursday. Discharge Note New Diagnosis: Hypotension/SHANE New Medications:Cardiology consulted with the following recommendations Coreg decreased to 3.125 BID, Stop ASA, continue Jardiance, Entresto. Follow Up: Cardiology Thursday Latest Assessment & Plan (1) Hypotension Current Visit: Yes Status: Acute Qualifiers: Hypotension type: other hypotension type Qualified Code(s): I95.89 - Other hypotension Assessment & Plan: -symptomatic on presentation with systolic readings in the 50's -Most likely secondary to Entresto/Jardiance/Carvedilol/spironolactone -pt with known CHF with EF at 20-25% in Oct 2023 -Follows with Dr. Chu (cardiology) -Continue to hold Jardiance/carvedilol/spironolactone - Continue Entresto -Received 3L fluid bolus in ED with noted improvement to systolic in the 90's -Levophed drip initiated and d/c'd 03/06/24 - BP has remained stable with a few episodes of hypotension during sleep hours with systolic in the 80/90's -Echo pending -Cards consult in the a.m 03/08: -Cardiology consult today pending -Echo pending - pre-edward with est EF at 28% with TR-LV dysfunction - pending final cardiology read -BP stable- entresto resumed, pending cards eval for further medication changes 03/09: -cards recommendations reviewed, agree with plan for Coreg decreased to 3.125 BID, Stop ASA, continue Jardiance, Entresto. Follow up with cardiology on Thursday. Code(s): I95.9 - HYPOTENSION, UNSPECIFIED (2) Dizziness Current Visit: Yes Status: Acute Assessment & Plan: -see hypotension 03/07: -resolved Code(s): R42 - DIZZINESS AND GIDDINESS (3) SHANE (acute kidney injury) Current Visit: Yes Status: Acute Assessment & Plan: -baseline around 0.68 - received 3L fluids in ED, patient is now at baseline -Avoid nephrotoxic agents - GATITO/ARB/diuretics/ NSAIDS - could be secondary to Entresto/Jardiance -Continue to monitor renal/lytes daily Code(s): N17.9 - ACUTE KIDNEY FAILURE, UNSPECIFIED (4) CAD (coronary artery disease) Current Visit: Yes Status: Acute Assessment & Plan: -Status post multiple PCI/stents placed, Last one was in 2017 -C/w Asp/plavix/Statins Code(s): I25.10 - ATHSCL HEART DISEASE OF [place] CORONARY ARTERY W/O ANG PCTRS (5) HLD (hyperlipidemia) Current Visit: Yes Status: Acute Assessment & Plan: -continue statin Code(s): E78.5 - HYPERLIPIDEMIA, UNSPECIFIED (6) PVD (peripheral vascular disease) Current Visit: Yes Status: Acute Assessment & Plan: -continue statin/plavix -dc ASA Code(s): I73.9 - PERIPHERAL VASCULAR DISEASE, UNSPECIFIED (7) Chronic anticoagulation Current Visit: Yes Status: Acute Assessment & Plan: For H/o PVD Pt says he is on Eliquis since 2014 Resumed here Code(s): Z79.01 - ASSISTED (CURRENT) USE OF ANTICOAGULANTS (8) CHF (congestive heart failure) Current Visit: Yes Status: Chronic Qualifiers: Heart failure type: biventricular Qualified Code(s): I50.82 - Biventricular heart failure Assessment & Plan: -ECHO back in oct EF 20-25 % reviewed -S/p Defebrillator back in 2014 Pt on sprionolactone, carvedilol,and Jardiance at home -hold - Will resume Entresto today Daily weight Consult cardiology in am -see above Pt F/u with Dr Vang, has seen him on 03/04 Code(s): I50.9 - HEART FAILURE, UNSPECIFIED (9) Diabetes mellitus, insulin dependent (IDDM), uncontrolled Current Visit: Yes Status: Chronic Qualifiers: Glycemic state: with hyperglycemia Qualified Code(s): E10.65 - Type 1 diabetes mellitus with hyperglycemia Assessment & Plan: -SSI -Hold pioglitazone -ADA diet 03/09: -resume home meds I spent 35 minutes [id number] with the patient on the day of discharge performing discharge exam, discussing hospital stay and discharge instructions with patient and caregivers, preparation of discharge records, prescriptions & referral forms and addressing any questions/concerns the patient had as documented above. - Vitals & Intake/Output Vital Signs: Vital Signs Temperature 97.6 F 03/09/24 07:30 Pulse Rate 71 03/09/24 07:30 Respiratory Rate 20 03/09/24 08:00 Blood Pressure 122/74 03/09/24 07:30 O2 Sat by Pulse Oximetry 99 03/09/24 07:30 Intake & Output: Intake & Output 03/06/24 03/07/24 03/08/24 03/09/24 11:59 11:59 11:59 11:59 Intake Total 2640 1820 2770 2040 Output Total 1100 1050 Balance 2518 493 0112 0 Weight 121 kg 116 kg 114.5 kg 115 kg - Lab Result Diagrams: 03/09/24 04:11 03/09/24 09:38 Lab Results-Last 24 Hrs: Lab Results-Last 24 Hours 03/08/24 03/08/24 03/08/24 Range/Units 11:20 16:28 20:58 WBC (4.0-10.5) x10^3/uL RBC (4.1-5.6) x10^6/uL Hgb (12.5-18.0) g/dL Hct (42-50) % MCV (78-100) fL MCH (26-32) pg MCHC (32-36) g/dL RDW (11.5-14.0) % Plt Count (150-450) x10^3/uL MPV (7.5-11.0) fL Gran % (36.0-66.0) % Immature Gran % (Auto) (0.00-0.4) % Nucleat RBC Rel Count (0.00-0.1) % Eos # (Auto) (0-0.5) x10^3/uL Immature Gran # (Auto) (0.00-0.03) x10^3u/L Absolute Lymphs (auto) (1.0-4.6) x10^3/uL Absolute Monos (auto) (0.0-1.3) x10^3/uL Absolute Nucleated RBC (0.00-0.01) x10^3u/L Lymphocytes % (24.0-44.0) % Monocytes % (0.0-12.0) % Eosinophils % (0.00-5.0) % Basophils % (0.0-0.4) % Absolute Granulocytes (1.4-6.9) x10^3/uL Basophils # (0-0.4) x10^3/uL Sodium (135-145) mmol/L Potassium (3.5-5.1) mmol/L Chloride (98-107) mmol/L Carbon Dioxide (22-30) mmol/L Anion Gap (5-15) MEQ/L BUN (9-20) mg/dL Creatinine (0.66-1.25) mg/dL Estimated GFR ML/MIN Glucose (74-106) mg/dL POC Glucometer 249 H 226 H 243 H (74 to 106) mg/dL Calcium (8.4-10.2) mg/dL Magnesium (1.6-2.3) mg/dL Total Bilirubin (0.2-1.3) mg/dL AST (17-59) U/L ALT (0-50) U/L Alkaline Phosphatase (38-126) U/L Serum Total Protein (6.3-8.2) g/dL Albumin (3.5-5.0) g/dL 03/09/24 03/09/24 03/09/24 Range/Units 04:11 07:09 09:38 WBC 11.3 H (4.0-10.5) x10^3/uL RBC 5.19 (4.1-5.6) x10^6/uL Hgb 15.8 (12.5-18.0) g/dL Hct 46.6 (42-50) % MCV 89.8 (78-100) fL MCH 30.4 (26-32) pg MCHC 33.9 (32-36) g/dL RDW 15.3 H (11.5-14.0) % Plt Count 290 (150-450) x10^3/uL MPV 11.1 H (7.5-11.0) fL Gran % 60.9 (36.0-66.0) % Immature Gran % (Auto) 0.5 H (0.00-0.4) % Nucleat RBC Rel Count 0.0 (0.00-0.1) % Eos # (Auto) 0.25 (0-0.5) x10^3/uL Immature Gran # (Auto) 0.06 H (0.00-0.03) x10^3u/L Absolute Lymphs (auto) 3.03 (1.0-4.6) x10^3/uL Absolute Monos (auto) 0.98 (0.0-1.3) x10^3/uL Absolute Nucleated RBC 0.00 (0.00-0.01) x10^3u/L Lymphocytes % 26.8 (24.0-44.0) % Monocytes % 8.7 (0.0-12.0) % Eosinophils % 2.2 (0.00-5.0) % Basophils % 0.9 (0.0-0.4) % Absolute Granulocytes 6.90 (1.4-6.9) x10^3/uL Basophils # 0.10 (0-0.4) x10^3/uL Sodium 137 (135-145) mmol/L Potassium 4.6 (3.5-5.1) mmol/L Chloride 102 (98-107) mmol/L Carbon Dioxide 23 (22-30) mmol/L Anion Gap 17.2 H (5-15) MEQ/L BUN 24 H (9-20) mg/dL Creatinine 0.80 (0.66-1.25) mg/dL Estimated GFR 106.5 ML/MIN Glucose 360 H (74-106) mg/dL POC Glucometer 217 H (74 to 106) mg/dL Calcium 9.5 (8.4-10.2) mg/dL Magnesium 1.7 (1.6-2.3) mg/dL Total Bilirubin 0.90 (0.2-1.3) mg/dL AST 30 (17-59) U/L ALT 26 (0-50) U/L Alkaline Phosphatase 64 (38-126) U/L Serum Total Protein 8.3 H (6.3-8.2) g/dL Albumin 4.7 (3.5-5.0) g/dL Micro Results-Entire Visit: Microbiology 03/05/24 23:50 Blood Culture - Preliminary Blood Accuchecks Date 03/09/24 Date 03/08/24 Date 03/08/24 Date 03/08/24 Time 21:00 Time 16:31 Time 12:02 - Radiology Exams Ordered Rad Exams-Entire Visit: Radiology Procedures Category Date Time Status ECHO W/2D AND DOPPLER [US] Routine Exams 03/08/24 00:01 Taken - Procedures and Test Procedures and Tests throughout Hospitalization: Therapy Orders & Screens 03/06/24 01:18 Oxygen NASAL CANNULA 2 lpm Comment: Titrate for SaO2 equal or >92% Diagnosis: CHF 03/06/24 01:59 PT Eval & Treat ( Order) ONCE Reason for Eval:: Dizziness Diagnosis: hypotension 03/06/24 08:50 EKG ROUTINE Comment: Diagnosis: New onset of dizziness Discharge Exam General Appearance: no apparent distress Neurologic Exam: alert, oriented x 3, cooperative Eye Exam: PERRL, EOM palsy/anisocoria Neck Exam: normal inspection Respiratory Exam: normal breath sounds, lungs clear Cardiovascular Exam: regular rate/rhythm, normal heart sounds Gastrointestinal/Abdomen Exam: soft, normal bowel sounds Male Genitalia Exam: deferred Rectal Exam: deferred Back Exam: normal inspection Extremity Exam: normal inspection Skin Exam: normal color Final Diagnosis/Problem List - Final Discharge Diagnosis/Problem (1) Hypotension Current Visit: Yes Status: Resolved Code(s): I95.9 - HYPOTENSION, UNSPECIFIED (2) Dizziness Current Visit: Yes Status: Resolved Code(s): R42 - DIZZINESS AND GIDDINESS (3) SHANE (acute kidney injury) Current Visit: Yes Status: Resolved Code(s): N17.9 - ACUTE KIDNEY FAILURE, UNSPECIFIED (4) CAD (coronary artery disease) Current Visit: Yes Status: Chronic Code(s): I25.10 - ATHSCL HEART DISEASE OF [place] CORONARY ARTERY W/O ANG PCTRS (5) HLD (hyperlipidemia) Current Visit: Yes Status: Chronic Code(s): E78.5 - HYPERLIPIDEMIA, UNSPECIFIED (6) PVD (peripheral vascular disease) Current Visit: Yes Status: Chronic Code(s): I73.9 - PERIPHERAL VASCULAR DISEASE, UNSPECIFIED (7) Chronic anticoagulation Current Visit: Yes Status: Chronic Code(s): Z79.01 - OUTREACH REPRESENTATIVE (CURRENT) USE OF ANTICOAGULANTS (8) CHF (congestive heart failure) Current Visit: Yes Status: Chronic Code(s): I50.9 - HEART FAILURE, UNSPECIFIED (9) Diabetes mellitus, insulin dependent (IDDM), uncontrolled Current Visit: Yes Status: Chronic Code(s): E10.65 - TYPE 1 DIABETES MELLITUS WITH HYPERGLYCEMIA - Discharge Disposition: Home, Self-Care Condition: Fair Prescriptions: New Carvedilol 3.125 mg [Coreg 3.125 MG] 3.125 mg PO BID 30 Days #60 tablet Continue Atorvastatin Calcium [Lipitor 20MG Tablet] 80 mg PO HS Sacubitril/Valsartan [Entresto 24 mg-26 mg Tablet] 24 - 26 mg PO BID Venlafaxine HCl [Venlafaxine HCl ER] 37.5 mg PO DAILY Clopidogrel Bisulfate [PLAVIX Tablet] 75 mg PO DAILY Fenofibrate,Micronized [Fenofibrate] 134 mg PO DAILY Pioglitazone 30 mg [Actos 30 MG] 30 mg PO DAILY Quetiapine Fumarate [Seroquel] 50 mg PO HS Potassium Chloride Tab* [Klor Con] 20 meq PO BID 30 Days #60 tablet Isosorbide Mononitrate 60 mg [Imdur 60MG] 1 tab PO DAILY Ezetimibe 10 mg [Zetia 10 MG] 1 tab PO DAILY Empagliflozin [Jardiance] 25 mg PO DAILY Apixaban [Eliquis] 5 mg PO BID Magnesium Oxide [Magnesium] 250 mg PO DAILY Cyanocobalamin/Folic Acid [B21-Ecbux Acid 2500-400 Mcg Tb] 2,500 mcg PO DAILY Hydrocodone/Acetaminophen [Hydrocodone-Acetamin 10-325 mg] 1 tab PO QIDPRN PRN PRN Reason: Pain Discontinued carvediloL [Carvedilol] 25 mg PO BID Furosemide 20 mg [Lasix 20 mg] 20 mg PO DAILY 30 Days #30 tablet Spironolactone 50 mg PO DAILY Aspirin EC 325 mg [Ecotrin 325 MG] 325 mg PO DAILY Instructions: Heart Failure, Adult (DC) Follow up with: ANGIE CEBALLOS MD [Primary Care Provider] - 03/17/24 3:30 pm JUAN MANUEL GUTIÉRREZ NP [NON-STAFF PHY W/O PRIVILEGES] - 03/11/24 1:30 pm MAINOR VANG MD [CONSULTING PHYSICIAN] - 03/11/24 Forms: Discharge Instructions
[2024-03-09 11:42] VITALS: BP 128/80; PULSE 76; TEMP 97.1; O2SAT 94
[2024-03-09 11:59] VITALS: RESP 18
== END 2024-03-09 13:11 | disposition home or self-care (01) ==
LOC: ED 23:22 → ICU 03-06 01:05 → MED SURG 03-07 11:39
PROVIDERS: ADMIT Internal Medicine; ATTEND Internal Medicine
DX: I95.9 Hypotension, unspecified (principal); R42 Dizziness and giddiness; N17.9 Acute kidney failure, unspecified; I25.10 Atherosclerotic heart disease of native coronary artery without angina pectoris; E78.5 Hyperlipidemia, unspecified; I73.9 Peripheral vascular disease, unspecified; I11.0 Hypertensive heart disease with heart failure; I50.82 Biventricular heart failure; E10.65 Type 1 diabetes mellitus with hyperglycemia; I25.2 Old myocardial infarction; Z79.01 Long term (current) use of anticoagulants; Z79.899 Other long term (current) drug therapy; Z86.16 Personal history of COVID-19
CPT/HCPCS: 36000; 36415; 71045; 80048; 80053; 80307; 81001; 82010; 82077; 82150; 82947; 83036; 83690; 83735; 83880; 84484; 85025; 87040; 93005; 93306; 96360; 96361; 97161; 99285; 99291; Q3014; 93268; J1817; A9270-GY; G0378

== ENCOUNTER 2024-08-21 17:22 | Observation (INO) | payer MEDICARE ==
--- NOTE | 2024-08-21 17:33 | ERPHSYRPT ---
<DUDLEYUBALDO RIVERA - Last Filed: 08/21/24 20:49> - History of Present Illness Source: patient Exam Limitations: no limitations Patient Subjective Stated Complaint: Pt states that he has been getting more short of breath for a while now and it is usuallty due to his CHF Triage Nursing Assessment: Pt brought self to the ER, vitals wnl, denies pain, pulses normal, pt reports approx 25 lb weight gain from his normal, skin n/w/d, extensive heart history, lungs clear, doesn't appear to be in any distress Timing/Duration: day(s) (3) Activities at Onset: rest Severity of Dyspnea-Max: severe Severity of Dyspnea-Current: moderate Possible Cause: occasional episodes Modifying Factors: Improves With: deep breath. Worsens With: activity, lying down Associated Symptoms: intermittent, chest pain/discomfort, edema, chills, hemoptysis, leg swelling, productive cough, tightness, No cough, No fever, No wheezing, No calf pain Hx Tetanus, Diphtheria Vaccination/Date Given: Yes Hx Influenza Vaccination/Date Given: No Hx Pneumococcal Vaccination/Date Given: No <SHANTE ALVARADO - Last Filed: 08/25/24 21:17> - History of Present Illness Time Seen by Provider: 08/21/24 17:25 Physician History: Brooke Johansen presents with shortness of breath when lying down. They experience shortness of breath, particularly when lying down, which has been worsening over the past few days. The shortness of breath is present regardless of whether they lie on their left or right side. They also experience wheezing when lying down, which they describe as 'really bad'. There is a sensation of pressure on the left side of their chest but no chest pain. No history of heart failure, asthma, or COPD. They mention swelling in their hands and possibly their legs. They are currently taking furosemide at a low dose daily, although they cannot recall the exact dosage. They have recently filled their diuretics prescription. They do not use oxygen at home but use a CPAP machine every night. (SHANTE ALVARADO) Allergies/Adverse Reactions: No Known Drug Allergies Allergy (Verified 08/21/24 17:32) Home Medications: Atorvastatin Calcium [Lipitor 20MG Tablet] 80 mg PO HS 03/22/15 [History] Sacubitril/Valsartan [Entresto 24 mg-26 mg Tablet] 24 - 26 mg PO BID 09/24/17 [History] Venlafaxine HCl [Venlafaxine HCl ER] 37.5 mg PO DAILY 11/23/17 [History] Fenofibrate,Micronized [Fenofibrate] 134 mg PO DAILY 06/17/20 [History] Pioglitazone 30 mg [Actos 30 MG] 30 mg PO DAILY 06/17/20 [History] Quetiapine Fumarate [Seroquel] 50 mg PO HS 11/03/23 [History] Apixaban [Eliquis] 5 mg PO BID 02/27/24 [History] Empagliflozin [Jardiance] 25 mg PO DAILY 02/27/24 [History] Ezetimibe 10 mg [Zetia 10 MG] 1 tab PO DAILY 02/27/24 [History] Isosorbide Mononitrate 60 mg [Imdur 60MG] 1 tab PO DAILY 02/27/24 [History] Cyanocobalamin/Folic Acid [C19-Ztepx Acid 2500-400 Mcg Tb] 2,500 mcg PO DAILY 03/06/24 [History] Hydrocodone/Acetaminophen [Hydrocodone-Acetamin 10-325 mg] 1 tab PO QIDPRN PRN 03/06/24 [History] Magnesium Oxide [Magnesium] 250 mg PO DAILY 03/06/24 [History] Insulin Degludec [Tresiba Flextouch U-200] 100 unit SQ DAILY 08/21/24 [History] Travel Risk - International Travel Have you traveled outside of the country in past 3 weeks: No - Emerging Infectious Disease Are you exhibiting symptoms associated with any current EIDs: Yes Symptoms: Cough: New Onset, Shortness of Breath Comment: lower legs swelling <SHANTE ALVARADO - Last Filed: 08/25/24 21:17> - Review of Systems Constitutional: No Symptoms Eyes: No Symptoms Ears, Nose, & Throat: No Symptoms Respiratory: Dyspnea on Exertion (VENCES) Cardiac: Edema, No Chest Pain, No Palpitations, No Syncope Abdominal/Gastrointestinal: No Symptoms, Abdominal Pain Genitourinary Symptoms: No Symptoms <UBALDO DUDLEY - Last Filed: 08/21/24 20:49> - Review of Systems All Other Systems: Reviewed and Negative <SHANTE ALVARADO Last Filed: 08/25/24 21:17> - Past Medical History Pertinent Past Medical History: Yes Neurological History: No Pertinent History ENT History: No Pertinent History Cardiac History: High Cholesterol, Hypertension, Myocardial Infarction (CO), Other Respiratory History: Other Endocrine Medical History: Diabetes Type II Musculoskeletal History: Osteoarthritis GI Medical History: Pancreatitis History: No Pertinent History Psycho-Social History: No Pertinent History Male Reproductive Disorders: No Pertinent History Other Medical History: PMHX: 7 CO's, PER PATIENT HAS 5 STENTS BUT NO CABG. HAS DEFIBRILLATOR PLACED 2014 WITH HX OF ACTIVATION PER PATIENT "A FEW TIMES". PER PATIENT HEART FUNCTION 15-20%. SEVERE OA LEFT KNEE - BONE ON BONE BUT UNABLE TO HAVE REPLACEMENT DUE TO HEART. 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 - Past Surgical History Past Surgical History: Yes Neuro Surgical History: No Pertinent History Cardiac: Angioplasty, Cardiac Catheterization, Cardiac Stent, Internal Defibrillator, Pacemaker Respiratory: No Pertinent History Gastrointestinal: Cholecystectomy, Hernia Repair Genitourinary: No Pertinent History Musculoskeletal: Orthopedic Surgery Male Surgical History: No Pertinent History Other Surgical History: elbow Significant Family History: heart disease, diabetes, hypertension - Social History Smoking Status: Former smoker How long have you smoked: 20+ Exposure to second hand smoke: Yes Alcohol Use: Socially Drug Use: none Patient Lives Alone: No - Social Determinants of Health Will the patient participate in the screening: Yes Do you worry about a steady place to live?: No Do you have any problems with any of the following?: No known problems In the past 12 months,have you had to go without utilities?: No Transportation Issues: No Has anyone in your support network made you feel unsafe?: No Have you or anyone in your house had to go without enough: No <SHANTE ALVARADO - Last Filed: 08/25/24 21:17> - Physical Exam General Appearance: no apparent distress Eye Exam: PERRL/EOMI Ears, Nose, Throat Exam: hearing grossly normal Respiratory Exam: crackles/rales (Bilateral midway up the lungs) Cardiovascular/Chest Exam: normal heart sounds, regular rate/rhythm, murmur Abdominal/Gastrointestinal Exam: soft, normal bowel sounds, tenderness Extremity Exam: non-tender, normal range of motion, pedal edema (Bilaterally) Neurologic Exam: alert, oriented x 3, cooperative, 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 Skin Exam: normal color, warm, dry SpO2 Interpretation: normal O2 Delivery: Room Air <UBALDO DUDLEY - Last Filed: 08/21/24 20:49> - Physical Exam General Appearance: no apparent distress Eye Exam: eyes nml inspection Ears, Nose, Throat Exam: normal ENT inspection Neck Exam: normal inspection, non-tender, supple, full range of motion Respiratory Exam: airway intact, crackles/rales, No respiratory distress Cardiovascular/Chest Exam: normal heart sounds, regular rate/rhythm Abdominal/Gastrointestinal Exam: soft, normal bowel sounds, No tenderness, No distention Extremity Exam: non-tender, normal range of motion, pedal edema Neurologic Exam: alert, oriented x 3, cooperative Skin Exam: normal color, warm, dry SpO2 Interpretation: normal SpO2: 97 O2 Delivery: Room Air <SHANTE ALVARADO - Last Filed: 08/25/24 21:17> - Nursing Vital Signs Nursing Vital Signs: Initial Vital Signs Temperature 96.3 F 08/21/24 17:24 Pulse Rate 84 08/21/24 17:24 Respiratory Rate 16 08/21/24 17:24 Blood Pressure 109/60 08/21/24 17:24 O2 Sat by Pulse Oximetry 99 08/21/24 17:24 Pain Scale Pain Intensity 0 - Course Nursing assessment & vital signs reviewed: Yes EKG Interpreted by Me: RATE (83), Sinus Rhythm, NORMAL AXIS, NORMAL INTERVALS, Right Bundle Branch Block, Non-specific ST Changes - Radiology Exams Chest X-ray Interpretation: Interpreted by me, No Pneumonia, No Pneumothorax, Other (cephalization) <SHANTE ALVARADO - Last Filed: 08/25/24 21:17> Ordered Tests: Medication Summary Discontinued Medications Generic Name Dose Route Start Last Admin Trade Name Freq PRN Reason Stop Dose Admin Acetaminophen 325 mg 08/21/24 22:09 08/22/24 01:05 Acetaminophen 325 Mg Tablet PO 09/20/24 22:08 325 mg Q4H PRN PRN Administration PAIN, FEVER, HEADACHE Hydrocodone Bitart/Acetaminophen tablet 08/21/24 22:10 Hydrocodone/Acetamin 10-325 Mg Tablet PO 08/26/24 22:09 QIDPRN PRN PAIN Hydrocodone Bitart/Acetaminophen 1 tablet 08/21/24 23:00 11/11/24 09:46 Hydrocodone/Acetamin 10-325 Mg Tablet PO 08/26/24 22:09 1 tablet QIDPRN PRN Administration PAIN Hydrocodone Bitart/Acetaminophen 1 tablet 08/22/24 16:00 08/22/24 17:59 Hydrocodone/Acetamin 10-325 Mg Tablet PO 08/27/24 15:59 1 tablet Q4HT DESTINEE Administration Hydrocodone Bitart/Acetaminophen 1 tablet 08/22/24 22:00 08/23/24 10:20 Hydrocodone/Acetamin 10-325 Mg Tablet PO 08/27/24 21:59 1 tablet Q4HT DESTINEE Administration Albuterol/Ipratropium 3 ml 08/21/24 17:33 08/21/24 17:44 Ipratropium/Albuterol Sulfate 3 Ml Ampul.Neb 08/21/24 17:34 3 ml STAT ONE Administration Albuterol/Ipratropium Confirm 08/21/24 17:40 Ipratropium/Albuterol Sulfate 3 Ml Ampul.Neb Administered 08/21/24 17:41 Dose 3 ml IH .STK-MED ONE Albuterol/Ipratropium 3 ml 08/22/24 01:00 08/22/24 07:03 Ipratropium/Albuterol Sulfate 3 Ml Ampul.Neb 09/21/24 00:59 3 ml Q6HRT DESTINEE Administration Albuterol/Ipratropium 3 ml 08/22/24 10:41 Ipratropium/Albuterol Sulfate 3 Ml Ampul.Neb 09/21/24 10:40 Q6H PRN PRN SHORTNESS OF BREATH/WHEEZING Apixaban 5 mg 08/22/24 10:00 08/23/24 09:36 Apixaban 2.5 Mg Tablet PO 09/21/24 09:59 5 mg BID DESTINEE Administration Carvedilol 3.125 mg 08/22/24 10:00 08/23/24 09:36 Carvedilol 3.125 Mg Tablet PO 09/21/24 09:59 3.125 mg BID DESTINEE Administration Methylprednisolone Sodium 0 mg 08/21/24 17:33 08/21/24 18:21 Succinate 125 mg/ Sterile IV 08/21/24 17:34 125 mg Water 2 ml STAT ONE Administration Cyanocobalamin 2,500 mcg 08/22/24 10:00 08/23/24 09:37 Cyanocobalamin 500 Mcg Tablet PO 09/21/24 09:59 2,500 mcg DAILY DESTINEE Administration Docusate Sodium 100 mg 08/21/24 22:09 Docusate Sodium 100 Mg Capsule PO 09/20/24 22:08 BIDPRN PRN CONSTIPATION Ezetimibe 10 mg 08/22/24 10:00 08/23/24 09:38 Ezetimibe 10 Mg Tab PO 09/21/24 09:59 10 mg DAILY DESTINEE Administration Empagliflozin 25 mg 08/22/24 10:00 08/23/24 09:51 Empagliflozin 10 Mg Tablet PO 09/21/24 09:59 25 mg DAILY DESTINEE Administration Fenofibrate 145 mg 08/22/24 10:00 08/23/24 09:40 Fenofibrate,Micronized 145 Mg Tablet PO 09/21/24 09:59 145 mg DAILY DESTINEE Administration Folic Acid 0.5 mg 08/22/24 10:00 08/23/24 09:39 Folic Acid 1 Mg Tablet PO 09/21/24 09:59 0.5 mg DAILY DESTINEE Administration Furosemide 40 mg 08/21/24 17:33 08/21/24 18:19 Furosemide 40 Mg/4 Ml Vial IV 08/21/24 17:34 40 mg STAT ONE Administration Furosemide Confirm 08/21/24 18:17 Furosemide 40 Mg/4 Ml Vial Administered 08/21/24 18:18 Dose 40 mg .ROUTE .STK-MED ONE Furosemide 40 mg 08/21/24 22:15 08/22/24 19:10 Furosemide 40 Mg/4 Ml Vial IV 09/20/24 22:14 Not Given Q8H DESTINEE Furosemide 40 mg 08/22/24 02:00 08/23/24 09:50 Furosemide 40 Mg/4 Ml Vial IV 09/21/24 01:59 40 mg Q8H DESTINEE Administration Insulin Human Lispro 0 unit 08/21/24 22:09 08/23/24 10:27 Insulin Lispro 1 Unit SQ 09/20/24 22:08 5 unit UD PRN Administration HYPERGLYCEMIA Isosorbide Mononitrate 60 mg 08/22/24 10:00 08/23/24 09:40 Isosorbide Mononitrate 60 Mg Tab PO 09/21/24 09:59 60 mg DAILY DESTINEE Administration Magnesium Oxide 200 mg 08/23/24 10:00 08/23/24 09:39 Magnesium Oxide 400 Mg Tablet PO 09/22/24 09:59 200 mg DAILY DESTINEE Administration Methylprednisolone Sodium Succinate Confirm 08/21/24 18:17 Methylprednis Sod Succ 125 Mg/2 Ml Vial Administered 08/21/24 18:18 Dose 125 mg .ROUTE .STK-MED ONE Pantoprazole Sodium 40 mg 08/22/24 10:00 08/23/24 09:38 Protonix (Pantoprazole) 40 Mg Tablet PO 09/21/24 09:59 40 mg DAILY DESTINEE Administration Potassium Chloride 20 meq 08/22/24 10:00 08/23/24 09:40 Potassium Chloride Tab 10 Meq Tab PO 09/21/24 09:59 20 meq BID DESTINEE Administration Prednisone 20 mg 08/22/24 11:00 08/22/24 21:01 Prednisone 20 Mg Tablet PO 09/21/24 10:59 20 mg BID DESTINEE Administration Quetiapine Fumarate 50 mg 08/22/24 22:00 08/22/24 21:02 Quetiapine Fumarate 25 Mg Tablet PO 09/21/24 21:59 50 mg HS DESTINEE Administration Sacubitril/Valsartan 0.5 tablet 08/22/24 11:00 08/23/24 09:38 Sacubitril/Valsartan 1 Tablet Tablet PO 09/21/24 10:59 0.5 tablet BID DESTINEE Administration Simvastatin 40 mg 08/22/24 22:00 08/22/24 21:01 Simvastatin 20 Mg Tablet PO 09/21/24 21:59 40 mg HS DESTINEE Administration Sterile Water Confirm 08/21/24 18:17 Water For Injection,Sterile 10 Ml Vial Administered 08/21/24 18:18 Dose 10 ml IJ .STK-MED ONE Venlafaxine HCl 37.5 mg 08/22/24 10:00 08/23/24 09:36 Venlafaxine Hcl 37.5 Mg Tablet PO 09/21/24 09:59 37.5 mg DAILY DESTINEE Administration Lab/Rad Data: Laboratory Result Diagrams 08/21/24 17:49 08/21/24 17:49 Laboratory Results 08/21/24 08/21/24 08/21/24 Range/Units 20:00 18:13 17:49 WBC (4.23-9.07) x10^3/uL RBC (4.63-6.08) x10^6/uL Hgb (13.7-17.5) g/dL Hct (40.1-51.0) % MCV (79.0-92.2) fL MCH (25.7-32.2) pg MCHC (32.3-36.5) g/dL RDW (11.6-14.4) % Plt Count (163-337) x10^3/uL MPV (9.4-12.4) fL Gran % (34.0-67.9) % Immature Gran % (Auto) (0.001-0.429) % Nucleat RBC Rel Count (0.00-0.2) % Eos # (Auto) (0.04-0.54) x10^3/uL Immature Gran # (Auto) (0.001-0.031) x10^3u/L Absolute Lymphs (auto) (1.32-3.57) x10^3/uL Absolute Monos (auto) (0.30-0.82) x10^3/uL Absolute Nucleated RBC (0.00-0.012) x10^3u/L Lymphocytes % (21.8-53.1) % Monocytes % (5.3-12.2) % Eosinophils % (0.8-7.0) % Basophils % (0.2-1.2) % Absolute Granulocytes (1.78-5.38) x10^3/uL Basophils # (0.01-0.08) x10^3/uL D-Dimer (0.0-0.50) mg/L pO2/FiO2 Ratio % VBG pH (7.32-7.42) VBG pCO2 at Pat Temp (42-55) mm/Hg VBG pO2 at Pat Temp (25-40) mm/Hg VBG HCO3 (22-28) meq/L VBG O2 Sat (Rachel) (95-100) VBG Base Excess (-2.0-2.0) VBG Hemoglobin VBG Carboxyhemoglobin (0.0-6.9) % T HGB POC Potassium (3.5-5.1) Sodium (135-145) mmol/L Potassium (3.5-5.1) mmol/L Chloride (98-107) mmol/L Carbon Dioxide (22-30) mmol/L Anion Gap (5-15) MEQ/L BUN (9-20) mg/dL Creatinine (0.66-1.25) mg/dL Estimated GFR ML/MIN Glucose (74-106) mg/dL Calcium (8.4-10.2) mg/dL Magnesium (1.6-2.3) mg/dL Total Bilirubin (0.2-1.3) mg/dL AST (17-59) U/L ALT (0-50) U/L Alkaline Phosphatase (38-126) U/L Troponin I < 0.012 (0.000-0.033) ng/mL NT-Pro-B Natriuret Pep 1030 (<300) pg/mL Serum Total Protein (6.3-8.2) g/dL Albumin (3.5-5.0) g/dL Ur Random Creatinine 42.3 MG/DL U Random Total Protein 13 H (0-12) mg/dL Influenza Type A Ag NEGATIVE (NEGATIVE) Influenza Type B Ag NEGATIVE (NEGATIVE) RSV (PCR) NEGATIVE (NEGATIVE) SARS-CoV-2 (PCR) NEGATIVE (NEGATIVE) 08/21/24 08/21/24 08/21/24 Range/Units 17:49 17:49 17:49 WBC 8.4 (4.23-9.07) x10^3/uL RBC 5.12 (4.63-6.08) x10^6/uL Hgb 15.5 (13.7-17.5) g/dL Hct 47.5 (40.1-51.0) % MCV 92.8 H (79.0-92.2) fL MCH 30.3 (25.7-32.2) pg MCHC 32.6 (32.3-36.5) g/dL RDW 14.6 H (11.6-14.4) % Plt Count 230 (163-337) x10^3/uL MPV 11.1 (9.4-12.4) fL Gran % 71.7 H (34.0-67.9) % Immature Gran % (Auto) 0.5 H (0.001-0.429) % Nucleat RBC Rel Count 0.0 (0.00-0.2) % Eos # (Auto) 0.25 (0.04-0.54) x10^3/uL Immature Gran # (Auto) 0.04 H (0.001-0.031) x10^3u/L Absolute Lymphs (auto) 1.35 (1.32-3.57) x10^3/uL Absolute Monos (auto) 0.66 (0.30-0.82) x10^3/uL Absolute Nucleated RBC 0.00 (0.00-0.012) x10^3u/L Lymphocytes % 16.1 L (21.8-53.1) % Monocytes % 7.9 (5.3-12.2) % Eosinophils % 3.0 (0.8-7.0) % Basophils % 0.8 (0.2-1.2) % Absolute Granulocytes 6.01 H (1.78-5.38) x10^3/uL Basophils # 0.07 (0.01-0.08) x10^3/uL D-Dimer 0.25 (0.0-0.50) mg/L pO2/FiO2 Ratio % VBG pH (7.32-7.42) VBG pCO2 at Pat Temp (42-55) mm/Hg VBG pO2 at Pat Temp (25-40) mm/Hg VBG HCO3 (22-28) meq/L VBG O2 Sat (Rachel) (95-100) VBG Base Excess (-2.0-2.0) VBG Hemoglobin VBG Carboxyhemoglobin (0.0-6.9) % T HGB POC Potassium (3.5-5.1) Sodium 142 (135-145) mmol/L Potassium 4.3 (3.5-5.1) mmol/L Chloride 109 H (98-107) mmol/L Carbon Dioxide 23 (22-30) mmol/L Anion Gap 14.1 (5-15) MEQ/L BUN 20 (9-20) mg/dL Creatinine 0.73 (0.66-1.25) mg/dL Estimated GFR 108.8 ML/MIN Glucose 137 H (74-106) mg/dL Calcium 9.2 (8.4-10.2) mg/dL Magnesium 1.9 (1.6-2.3) mg/dL Total Bilirubin 0.60 (0.2-1.3) mg/dL AST 37 (17-59) U/L ALT 37 (0-50) U/L Alkaline Phosphatase 72 (38-126) U/L Troponin I (0.000-0.033) ng/mL NT-Pro-B Natriuret Pep (<300) pg/mL Serum Total Protein 7.0 (6.3-8.2) g/dL Albumin 3.9 (3.5-5.0) g/dL Ur Random Creatinine MG/DL U Random Total Protein (0-12) mg/dL Influenza Type A Ag (NEGATIVE) Influenza Type B Ag (NEGATIVE) RSV (PCR) (NEGATIVE) SARS-CoV-2 (PCR) (NEGATIVE) 08/21/24 Range/Units 17:34 WBC (4.23-9.07) x10^3/uL RBC (4.63-6.08) x10^6/uL Hgb (13.7-17.5) g/dL Hct (40.1-51.0) % MCV (79.0-92.2) fL MCH (25.7-32.2) pg MCHC (32.3-36.5) g/dL RDW (11.6-14.4) % Plt Count (163-337) x10^3/uL MPV (9.4-12.4) fL Gran % (34.0-67.9) % Immature Gran % (Auto) (0.001-0.429) % Nucleat RBC Rel Count (0.00-0.2) % Eos # (Auto) (0.04-0.54) x10^3/uL Immature Gran # (Auto) (0.001-0.031) x10^3u/L Absolute Lymphs (auto) (1.32-3.57) x10^3/uL Absolute Monos (auto) (0.30-0.82) x10^3/uL Absolute Nucleated RBC (0.00-0.012) x10^3u/L Lymphocytes % (21.8-53.1) % Monocytes % (5.3-12.2) % Eosinophils % (0.8-7.0) % Basophils % (0.2-1.2) % Absolute Granulocytes (1.78-5.38) x10^3/uL Basophils # (0.01-0.08) x10^3/uL D-Dimer (0.0-0.50) mg/L pO2/FiO2 Ratio 21.0 % VBG pH 7.46 H (7.32-7.42) VBG pCO2 at Pat Temp 37 L (42-55) mm/Hg VBG pO2 at Pat Temp 56 H (25-40) mm/Hg VBG HCO3 26.3 (22-28) meq/L VBG O2 Sat (Rachel) 87.1 L (95-100) VBG Base Excess 2.6 H (-2.0-2.0) VBG Hemoglobin 16.4 VBG Carboxyhemoglobin 2.9 (0.0-6.9) % T HGB POC Potassium 5.8 H (3.5-5.1) Sodium (135-145) mmol/L Potassium (3.5-5.1) mmol/L Chloride (98-107) mmol/L Carbon Dioxide (22-30) mmol/L Anion Gap (5-15) MEQ/L BUN (9-20) mg/dL Creatinine (0.66-1.25) mg/dL Estimated GFR ML/MIN Glucose (74-106) mg/dL Calcium (8.4-10.2) mg/dL Magnesium (1.6-2.3) mg/dL Total Bilirubin (0.2-1.3) mg/dL AST (17-59) U/L ALT (0-50) U/L Alkaline Phosphatase (38-126) U/L Troponin I (0.000-0.033) ng/mL NT-Pro-B Natriuret Pep (<300) pg/mL Serum Total Protein (6.3-8.2) g/dL Albumin (3.5-5.0) g/dL Ur Random Creatinine MG/DL U Random Total Protein (0-12) mg/dL Influenza Type A Ag (NEGATIVE) Influenza Type B Ag (NEGATIVE) RSV (PCR) (NEGATIVE) SARS-CoV-2 (PCR) (NEGATIVE) - Progress Progress: improved, re-examined Air Movement: fair Blood Culture(s) Obtained: No Antibiotics given: No Discussed with DrMia: Other (Dr. Sr) Will see patient in: hospital (observation) <UBALDO DUDLEY - Last Filed: 08/21/24 20:49> - Progress Counseled pt/family regarding: lab results, diagnosis, need for follow-up, rad results <SHANTE ALVARADO - Last Filed: 08/25/24 21:17> - Progress Progress Note: Patient was turned over to me by Dr. Alvarado. He appeared to have CHF exacerbation. At the time they are waiting on a CTA to rule out a pulmonary embolism. CTA was done it was negative for PE. There are some bilateral pleural effusions and findings consistent with congestive heart failure. All of his lab work looked pretty good. His CBC did not show an elevated white count. His chemistry panel was essentially within normal limits and troponin was not elevated. His D-dimer was not elevated. Chest x-ray showed vascular congestion as did the CT. At this time I called the hospitalist to admit the patient with a CHF exacerbation. He is stable and in no distress. 08/21/24 20:52 (UBALDO DUDLEY) Medical Desision Making - Discussion of managment Care discussed with:: hospitalist Reviewed:: Test results Agreed on:: Treatment plan Will see patient: in hospital - Social Determinants of Health Pt's dx & treatment plan are significantly limited by SDOH: limited education - Diagnostic Testing Diagnostic test were ordered, analyzed, and reviewed by me: Yes Radiological Interpretation: Interpreted by me, Discussed w/ radiologist - Risk of complications Low Risk: Low risk of morbidity from additional dx testing or treatment The pt has a mod risk of morbidity or mortality based on: Need for prescription drug management <UBALDO DUDLEY - Last Filed: 08/21/24 20:49> - Departure Departure Disposition: Observation Critical Care Time: No <UBALDO DUDLEY - Last Filed: 08/21/24 20:49> <SHANTE ALVARADO - Last Filed: 08/25/24 21:17> - Departure Clinical Impression: CHF (congestive heart failure) Qualifiers: Heart failure type: systolic Heart failure chronicity: acute on chronic Qualified Code(s): I50.23 - Acute on chronic systolic (congestive) heart failure Condition: Stable
[2024-08-21] MEDS ORDERED: DUONEB 0.5-3 MG/3 ml Neb IH ONE (17:40)
[2024-08-21] MEDS: DUONEB 0.5-3 MG/3 ml Neb IH ONE (17:44)
[2024-08-21 17:51] LABS: Absolute Neutrophil Ct (ANC) 6.01 x10^3/uL (1.78-5.38); BASOPHIL % 0.8 % (0.2-1.2); Basophil (Absolute #) 0.07 x10^3/uL (0.01-0.08); Eosinophil (Absolute #) 0.25 x10^3/uL (0.04-0.54); Hematocrit 47.5 % (40.1-51.0); Hemoglobin 15.5 g/dL (13.7-17.5); IMMATURE GRAN # 0.04 x10^3u/L (0.001-0.031); IMMATURE GRAN % 0.5 % (0.001-0.429); Lymphocyte (Absolute #) 1.35 x10^3/uL (1.32-3.57); Lymphocytes % 16.1 % (21.8-53.1); Mean Cell Volume 92.8 fL (79.0-92.2); Mean Corpuscular Hemoglobin 30.3 pg (25.7-32.2); Mean Corpuscular Hgb Concent. 32.6 g/dL (32.3-36.5); Mean Platelet Volume 11.1 fL (9.4-12.4); Monocyte (Absolute #) 0.66 x10^3/uL (0.30-0.82); Monocytes % 7.9 % (5.3-12.2); Neutrophil % 71.7 % (34.0-67.9); Platelet Count 230 x10^3/uL (163-337); Red Blood Count 5.12 x10^6/uL (4.63-6.08); Red Cell Distribution Width 14.6 % (11.6-14.4); White Blood Count 8.4 x10^3/uL (4.23-9.07)
[2024-08-21 17:51] LABS: VBG BASE EXCESS 2.6 (-2.0-2.0); VBG CARBOXYHEMOGLOBIN 2.9 % T HGB (0.0-6.9); VBG HCO3- 26.3 meq/L (22-28); VBG HEMOGLOBIN 16.4; VBG O2 SATURATION 87.1 (95-100); VBG POTASSIUM 5.8 (3.5-5.1); VBG pH 7.46 (7.32-7.42)
[2024-08-21 18:03] LABS: ALBUMIN 3.9 g/dL (3.5-5.0); ANION GAP 14.1 MEQ/L (5-15); BILIRUBIN,TOTAL 0.6 mg/dL (0.2-1.3); Calcium 9.2 mg/dL (8.4-10.2); Creatinine 1 0.73 mg/dL (0.66-1.25); EST GLOMERULAR FILTRATION RATE 108.8 ML/MIN; MAGNESIUM 1.9 mg/dL (1.6-2.3); Potassium 4.3 mmol/L (3.5-5.1)
[2024-08-21 18:15] LABS: NT PRO BNPII 1030 pg/mL (<300); TROPONIN < 0.012 ng/mL (0.000-0.033)
[2024-08-21] MEDS ORDERED: solu-MEDROL ONE (18:17)
[2024-08-21] MEDS ORDERED: Sterile H2O 10 ml IJ ONE (18:17)
[2024-08-21] MEDS ORDERED: Lasix 40 MG/4 ML ONE (18:17)
[2024-08-21] MEDS: Lasix 40 MG/4 ML IV ONE (18:19)
[2024-08-21] MEDS: solu-MEDROL 125 MG, Sterile H2O 10 ml 2 ML IV ONE (18:21)
[2024-08-21 18:57] LABS: INFLUENZA A NEGATIVE (NEGATIVE); INFLUENZA B NEGATIVE (NEGATIVE); RESPIRATORY SYNCTIAL VIRUS NEGATIVE (NEGATIVE); SARS-CoV-2 Xpert Express NEGATIVE (NEGATIVE)
--- NOTE | 2024-08-21 19:41 | XRAY ---
Indication: Short of breath. Comparison: March 05, 2024 Portable chest demonstrates new mild central vascular congestion. Also new right middle lobe infiltrate/atelectasis. Heart not enlarged again with left pacemaker. Bony thorax intact. Comment: Right middle lobe finding not reported by interpreting ER clinician. Telephone report given to Dr. Zabala at 1935 hrs. on August 21, 2024.
--- NOTE | 2024-08-21 20:17 | XRAY ---
CLINICAL HISTORY: chest pain COMPARISON: None. TECHNIQUE: Contiguous 3.[address] angiographic images of the chest were acquired with the administration of intravenous contrast. Coronal and sagittal reconstructions were obtained. 80cc of isovue was administered intravenously. One of these 3D techniques was utilized: Maximum Intensity Pixel (MIP), 3D Reconstructed Images, Volume Rendered Images, Surface Shaded Rendering. One of the following dose reduction techniques was utilized for this exam: Automated exposure control, adjustment of the mA and/or kV according to patient size, and use of iterative reconstruction. FINDINGS: Aorta: The thoracic aorta is normal in caliber. No evidence of aneurysm, dissection, or significant atherosclerotic changes. The aortic arch and descending thoracic aorta are unremarkable. Pulmonary Arteries: The pulmonary trunk and right and left arteries are normal in size and opacification. Inadequate opacification of pulmonary arteries for evaluation of pulmonary embolism due to delayed phase acquisition and simultaneous opacification of pulmonary veins Mediastinum: Few subcentimeter mediastinal nodes. Heart: Normal size and morphology of the heart. No pericardial effusion. Lungs: Mild bilateral pleural effusion with associated subsegmental and adjacent groundglass haziness. Few tiny 2 to 3 mm subpleural nodules in both lung orellana, nonspecific. Bones: Mild degenerative changes in the thoracic spine. Soft Tissues: Normal appearance of the visualized soft tissues. No abnormal masses or fluid collections. IMPRESSION: 1. Mild bilateral pleural effusion with associated subsegmental and adjacent groundglass haziness. 2. Inadequate opacification of pulmonary arteries for evaluation of pulmonary embolism due to delayed phase acquisition and simultaneous opacification of pulmonary veins 3. No evidence of significant vascular abnormalities. 4. Few tiny 2 to 3 mm subpleural nodules in both lung orellana, nonspecific. [facility] ER was called at [phone] at 7:10 PM [employer]ATOR, 08/21/[address] Zabala was informed regarding the presence of Important Medical Findings in the report. Electronically Signed by: Lenin Morrow MD. (08/21/2024 20:12:39 EST)
--- NOTE | 2024-08-21 22:06 | PCM.HP ---
History of Present Illness - Chief Complaint Chief Complaint: chf exacerbation Date: 08/21/24 History of Present Illness: Mr. GODFREY is a 54 year old male with a past medical history significant for hypertension, diabetes, hyperlipidemia and CHF with previous exacerbations who presents to the ER with complaints of increasing shortness of breath associated with a 25lb weight gain over the past two weeks. He was sent for a CT chest with IV contrast to rule out PE, which came back negative but did show some pleural effusions/volume overload. He was given Lasix IV in the ER and has been admitted for further evaluation. He reports no changes in his diet, though he does eat out occasionally. No fever/chills. No chest pain or palpitations. No nausea, vomiting or diarrhea. No dysuria, hematuria or urgency. - Review of Systems Constitutional: No Fever, No Chills Eyes: No Vision Changes Ears, Nose, & Throat: No Nose Discharge, No Sinus Drainage Respiratory: Short Of Breath Cardiac: Edema, No Chest Pain, No Palpitations Abdominal/Gastrointestinal: No Abdominal Pain, No Nausea, No Vomiting, No Di arrhea Genitourinary Symptoms: No Dysuria, No Frequency Musculoskeletal: Joint Pain Skin: No Rash Neurological: No Dizziness, No Focal Weakness Psychological: No Suicidal Ideations Endocrine: No Symptoms Medications & Allergies Home Medications: Home Medication List Atorvastatin Calcium [Lipitor 20MG Tablet] 80 mg PO HS 03/22/15 [History Confirmed 08/21/24] Sacubitril/Valsartan [Entresto 24 mg-26 mg Tablet] 24 - 26 mg PO BID 09/24/17 [History Confirmed 08/21/24] Venlafaxine HCl [Venlafaxine HCl ER] 37.5 mg PO DAILY 11/23/17 [History Confirmed 08/21/24] Fenofibrate,Micronized [Fenofibrate] 134 mg PO DAILY 06/17/20 [History Confirmed 08/21/24] Pioglitazone 30 mg [Actos 30 MG] 30 mg PO DAILY 06/17/20 [History Confirmed 08/21/24] Quetiapine Fumarate [Seroquel] 50 mg PO HS 11/03/23 [History Confirmed 08/21/24] Potassium Chloride Tab* [Klor Con] 20 meq PO BID 30 Days #60 tablet 11/06/23 [Rx Confirmed 08/21/24] Apixaban [Eliquis] 5 mg PO BID 02/27/24 [History Confirmed 08/21/24] Empagliflozin [Jardiance] 25 mg PO DAILY 02/27/24 [History Confirmed 08/21/24] Ezetimibe 10 mg [Zetia 10 MG] 1 tab PO DAILY 02/27/24 [History Confirmed 08/21/24] Isosorbide Mononitrate 60 mg [Imdur 60MG] 1 tab PO DAILY 02/27/24 [History Confirmed 08/21/24] Cyanocobalamin/Folic Acid [I21-Eaygz Acid 2500-400 Mcg Tb] 2,500 mcg PO DAILY 03/06/24 [History Confirmed 08/21/24] Hydrocodone/Acetaminophen [Hydrocodone-Acetamin 10-325 mg] 1 tab PO QIDPRN PRN 03/06/24 [History Confirmed 08/21/24] Magnesium Oxide [Magnesium] 250 mg PO DAILY 03/06/24 [History Confirmed 08/21/24] Carvedilol 3.125 mg [Coreg 3.125 MG] 3.125 mg PO BID 30 Days #60 tablet 03/09/24 [Rx Confirmed 08/21/24] Furosemide 20 mg [Lasix 20 mg] 20 mg PO DAILY 08/21/24 [History Confirmed 08/21/24] Insulin Degludec [Tresiba Flextouch U-200] 100 unit SQ 08/21/24 [History] Allergies/Adverse Reactions: Allergies Allergy/AdvReac Type Severity Reaction Status Date / Time No Known Drug Allergies Allergy Verified 08/21/24 17:32 - Past Medical History Past Medical History: Yes Neurological History: No Pertinent History ENT History: No Pertinent History Cardiac History: High Cholesterol, Hypertension, Myocardial Infarction ([place]), Other Respiratory History: Other Endocrine Medical History: Diabetes Type II Musculoskelatal History: Osteoarthritis GI Medical History: Pancreatitis History: No Pertinent History Pyscho-Social History: No Pertinent History Male Reproductive Disorders: No Pertinent History Comment: PMHX: 7 AK's, PER PATIENT HAS 5 STENTS BUT NO CABG. HAS DEFIBRILLATOR PLACED 2014 WITH HX OF ACTIVATION PER PATIENT "A FEW TIMES". PER PATIENT HEART FUNCTION 15-20%. SEVERE OA LEFT KNEE - BONE ON BONE BUT UNABLE TO HAVE REPLACEMENT DUE TO HEART. 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 - Past Surgical History Past Surgical History: Yes Neuro Surgical History: No Pertinent History Cardiac History: Angioplasty, Cardiac Catheterization, Cardiac Stent, Internal Defibrillator, Pacemaker Respiratory Surgery: No Pertinent History GI Surgical History: Cholecystectomy, Hernia Repair Genitourinary Surgical Hx: No Pertinent History Musculskeletal Surgical Hx: Orthopedic Surgery Male Surgical History: No Pertinent History Other Surgical History: elbow Significant Family History: heart disease, diabetes, hypertension - Social History Smoking Status: Former smoker How long have you smoked: 20+ Exposure to second hand smoke: Yes Alcohol: Occasionally Drug Use: none - Social Determinants of Health Will the patient participate in the screening: Yes Do you worry about a steady place to live?: No Do you have any problems with any of the following?: No known problems In the past 12 months,have you had to go without utilities?: No Have you or anyone in your house had to go without enough: No Transportation Issues: No Has anyone in your support network made you feel unsafe?: No Does the patient want assistance with any of the above?: No - Physical Exam Vital Signs: Vital Signs - 24 hr Temp Pulse Resp BP BP Pulse Ox 08/21/24 21:00 127/72 95 08/21/24 20:30 153/93 94 L 08/21/24 20:00 91 H 20 139/100 92 L 08/21/24 19:40 143/93 93 L 08/21/24 19:00 83 18 144/101 93 L 08/21/24 18:31 80 16 138/95 96 08/21/24 18:00 85 16 141/92 95 08/21/24 17:48 86 20 98 08/21/24 17:37 97 08/21/24 17:24 96.3 F 84 18 109/60 97 General Appearance: no apparent distress Neurologic Exam: alert, oriented x 3 Ears, Nose, Throat Exam: moist mucous membranes Neck Exam: non-tender, supple Respiratory Exam: diminished breath sounds, No respiratory distress Cardiovascular Exam: regular rate/rhythm Gastrointestinal/Abdomen Exam: soft Extremity Exam: swelling, No pedal edema Skin Exam: No rash Results - Labs Lab/Micro Results: Lab Results-Last 24 Hours 08/21/24 08/21/24 08/21/24 Range/Units 17:34 17:49 17:49 WBC 8.4 (4.23-9.07) x10^3/uL RBC 5.12 (4.63-6.08) x10^6/uL Hgb 15.5 (13.7-17.5) g/dL Hct 47.5 (40.1-51.0) % MCV 92.8 H (79.0-92.2) fL MCH 30.3 (25.7-32.2) pg MCHC 32.6 (32.3-36.5) g/dL RDW 14.6 H (11.6-14.4) % Plt Count 230 (163-337) x10^3/uL MPV 11.1 (9.4-12.4) fL Gran % 71.7 H (34.0-67.9) % Immature Gran % (Auto) 0.5 H (0.001-0.429) % Nucleat RBC Rel Count 0.0 (0.00-0.2) % Eos # (Auto) 0.25 (0.04-0.54) x10^3/uL Immature Gran # (Auto) 0.04 H (0.001-0.031) x10^3u/L Absolute Lymphs (auto) 1.35 (1.32-3.57) x10^3/uL Absolute Monos (auto) 0.66 (0.30-0.82) x10^3/uL Absolute Nucleated RBC 0.00 (0.00-0.012) x10^3u/L Lymphocytes % 16.1 L (21.8-53.1) % Monocytes % 7.9 (5.3-12.2) % Eosinophils % 3.0 (0.8-7.0) % Basophils % 0.8 (0.2-1.2) % Absolute Granulocytes 6.01 H (1.78-5.38) x10^3/uL Basophils # 0.07 (0.01-0.08) x10^3/uL D-Dimer (0.0-0.50) mg/L pO2/FiO2 Ratio 21.0 % VBG pH 7.46 H (7.32-7.42) VBG pCO2 at Pat Temp 37 L (42-55) mm/Hg VBG pO2 at Pat Temp 56 H (25-40) mm/Hg VBG HCO3 26.3 (22-28) meq/L VBG O2 Sat (Rachel) 87.1 L (95-100) VBG Base Excess 2.6 H (-2.0-2.0) VBG Hemoglobin 16.4 VBG Carboxyhemoglobin 2.9 (0.0-6.9) % T HGB POC Potassium 5.8 H (3.5-5.1) Sodium 142 (135-145) mmol/L Potassium 4.3 (3.5-5.1) mmol/L Chloride 109 H (98-107) mmol/L Carbon Dioxide 23 (22-30) mmol/L Anion Gap 14.1 (5-15) MEQ/L BUN 20 (9-20) mg/dL Creatinine 0.73 (0.66-1.25) mg/dL Estimated GFR 108.8 ML/MIN Glucose 137 H (74-106) mg/dL Calcium 9.2 (8.4-10.2) mg/dL Magnesium 1.9 (1.6-2.3) mg/dL Total Bilirubin 0.60 (0.2-1.3) mg/dL AST 37 (17-59) U/L ALT 37 (0-50) U/L Alkaline Phosphatase 72 (38-126) U/L Troponin I (0.000-0.033) ng/mL NT-Pro-B Natriuret Pep (<300) pg/mL Serum Total Protein 7.0 (6.3-8.2) g/dL Albumin 3.9 (3.5-5.0) g/dL Influenza Type A Ag (NEGATIVE) Influenza Type B Ag (NEGATIVE) RSV (PCR) (NEGATIVE) SARS-CoV-2 (PCR) (NEGATIVE) 08/21/24 08/21/24 08/21/24 Range/Units 17:49 17:49 18:13 WBC (4.23-9.07) x10^3/uL RBC (4.63-6.08) x10^6/uL Hgb (13.7-17.5) g/dL Hct (40.1-51.0) % MCV (79.0-92.2) fL MCH (25.7-32.2) pg MCHC (32.3-36.5) g/dL RDW (11.6-14.4) % Plt Count (163-337) x10^3/uL MPV (9.4-12.4) fL Gran % (34.0-67.9) % Immature Gran % (Auto) (0.001-0.429) % Nucleat RBC Rel Count (0.00-0.2) % Eos # (Auto) (0.04-0.54) x10^3/uL Immature Gran # (Auto) (0.001-0.031) x10^3u/L Absolute Lymphs (auto) (1.32-3.57) x10^3/uL Absolute Monos (auto) (0.30-0.82) x10^3/uL Absolute Nucleated RBC (0.00-0.012) x10^3u/L Lymphocytes % (21.8-53.1) % Monocytes % (5.3-12.2) % Eosinophils % (0.8-7.0) % Basophils % (0.2-1.2) % Absolute Granulocytes (1.78-5.38) x10^3/uL Basophils # (0.01-0.08) x10^3/uL D-Dimer 0.25 (0.0-0.50) mg/L pO2/FiO2 Ratio % VBG pH (7.32-7.42) VBG pCO2 at Pat Temp (42-55) mm/Hg VBG pO2 at Pat Temp (25-40) mm/Hg VBG HCO3 (22-28) meq/L VBG O2 Sat (Rachel) (95-100) VBG Base Excess (-2.0-2.0) VBG Hemoglobin VBG Carboxyhemoglobin (0.0-6.9) % T HGB POC Potassium (3.5-5.1) Sodium (135-145) mmol/L Potassium (3.5-5.1) mmol/L Chloride (98-107) mmol/L Carbon Dioxide (22-30) mmol/L Anion Gap (5-15) MEQ/L BUN (9-20) mg/dL Creatinine (0.66-1.25) mg/dL Estimated GFR ML/MIN Glucose (74-106) mg/dL Calcium (8.4-10.2) mg/dL Magnesium (1.6-2.3) mg/dL Total Bilirubin (0.2-1.3) mg/dL AST (17-59) U/L ALT (0-50) U/L Alkaline Phosphatase (38-126) U/L Troponin I < 0.012 (0.000-0.033) ng/mL NT-Pro-B Natriuret Pep 1030 (<300) pg/mL Serum Total Protein (6.3-8.2) g/dL Albumin (3.5-5.0) g/dL Influenza Type A Ag NEGATIVE (NEGATIVE) Influenza Type B Ag NEGATIVE (NEGATIVE) RSV (PCR) NEGATIVE (NEGATIVE) SARS-CoV-2 (PCR) NEGATIVE (NEGATIVE) - Radiology Impressions Radiology Exams & Impressions: Radiology Procedures Category Date Time Status CHEST 1 VIEW (PORTABLE) Stat Exams 08/21/24 17:52 Completed CTA CHEST W AND/OR WO [CT] Stat Exams 08/21/24 18:35 Completed - Other Procedures and Tests Respiratory Therapy 08/21/24 17:47 Respiratory Therapy Assessment DAILY Assessment/Plan (1) CHF (congestive heart failure) Current Visit: Yes Status: Chronic Qualifiers: Heart failure type: systolic Heart failure chronicity: acute on chronic Qualified Code(s): I50.23 - Acute on chronic systolic (congestive) heart failure Assessment & Plan: Acute on chronic CHF with exacerbation 1. Admit to hospital under observation status 2. Attempt IV diuretics 3. Hold ARB, but continue SGLT2 4. Daily weights 5. Sodium restriction 6. Follow I/Os 7. Monitor electrolytes closely Code(s): I50.9 - HEART FAILURE, UNSPECIFIED (2) COPD exacerbation Current Visit: No Status: Acute Assessment & Plan: Likely with underlying COPD exacerbation as well 1. Duonebs 2. Solumedrol 3. Supplemental oxygen 4. Monitor O2 sats Code(s): J44.1 - CHRONIC OBSTRUCTIVE PULMONARY DISEASE W (ACUTE) EXACERBATION (3) Hypertension Current Visit: No Status: Chronic Qualifiers: Hypertension type: primary hypertension Qualified Code(s): I10 - Essential (primary) hypertension Code(s): I10 - ESSENTIAL (PRIMARY) HYPERTENSION (4) Type 2 diabetes mellitus Current Visit: No Status: Chronic Qualifiers: Diabetes mellitus longterm insulin use: without longterm use Assessment & Plan: Likely with some nephropathy 1. Check UPC 2. ADA diet 3. FSBS qAC/HS 4. Monitor blood sugars 5. DVT/Gi prophylaxis Telemedicine Encounter - Telemedicine Encounter Telemedicine Encounter: "The entirety of this encounter was performed via Telemedicine" This visit was performed using real-time audio and video connection between my location and thepatients locationwith the assistance of a surrogateat the patients location. Written or verbal consent was obtained from the patient/guardian to perform this visit [facility] technology. Any patient questions regarding the telemedicine interaction were answered.
[2024-08-21] MEDS ORDERED: Docusate Sodium 100 MG PO PRN (22:09)
[2024-08-21] MEDS ORDERED: NORCO 10-325 MG PO PRN (22:10)
[2024-08-21] MEDS: NORCO 10-325 MG PO PRN (23:06)
[2024-08-22 00:27] LABS: CREATININE,URINE RANDOM 42.3 MG/DL
[2024-08-22] MEDS: TYLENOL 325 MG PO PRN (01:05)
[2024-08-22] MEDS: DUONEB 0.5-3 MG/3 ml Neb IH SCH (01:11)
[2024-08-22] MEDS: Lasix 40 MG/4 ML IV SCH ×2 (01:53→19:10)
[2024-08-22 02:32] LABS: ALBUMIN 4.3 g/dL (3.5-5.0); ANION GAP 20.2 MEQ/L (5-15); BILIRUBIN,TOTAL 0.6 mg/dL (0.2-1.3); Calcium 9.4 mg/dL (8.4-10.2); Creatinine 1 0.9 mg/dL (0.66-1.25); EST GLOMERULAR FILTRATION RATE 102.1 ML/MIN; MAGNESIUM 1.8 mg/dL (1.6-2.3); Total Protein 7.7 g/dL (6.3-8.2)
--- NOTE | 2024-08-22 05:40 | PCM.NOTE ---
Date and Time: 08/22/24 0534 Subjective Assessment: HPI: Mr. GODFREY is a 54 year old male with a past medical history significant for hypertension, diabetes, hyperlipidemia and CHF with previous exacerbations admitted 08/22/24 with CHF exacerbation after presenting to ED with complaints of progressive dyspnea and a 25lb weight gain over two weeks. CT chest demonstrates mild bilateral pleural effusion and groundglass haziness. No PE. Lab findings remarkable for BNP at 1030. Patient given lasix in ED. 08/22/24: Met with patient bedside. Endorses improvement of dyspnea. Does have a cough with clear sputum and wheezing noted on auscultation. Patient states he has noticed swelling of his face, abdomen, and hands but feels this is much improved today. Upon my exam, no edema noted and no abdominal distention. Balance -2030 since admission. Patient follows with Dr. Chu as OP. Plan for continued diuresis, possible discharge in the next few days. Denies fever,cp, abdominal pain, ZHAO, dizziness, N/V/D. - Review of Systems Constitutional: No Symptoms Eyes: No Symptoms Ears, Nose, & Throat: No Symptoms Respiratory: Cough, Short Of Breath Cardiac: No Symptoms Abdominal/Gastrointestinal: No Symptoms Genitourinary Symptoms: No Symptoms Musculoskeletal: Back Pain (chronic) Skin: No Symptoms Neurological: No Symptoms Psychological: No Symptoms Endocrine: No Symptoms Hematologic/Lymphatic: No Symptoms Immunological/Allergic: No Symptoms Objective Exam General Appearance: no apparent distress Neurologic Exam: alert, oriented x 3, cooperative Skin Exam: normal color Eye Exam: PERRL Ears, Nose, Throat Exam: normal ENT inspection Neck Exam: normal inspection Respiratory Exam: wheezing Cardiovascular Exam: regular rate/rhythm, normal heart sounds Gastrointestinal/Abdomen Exam: soft, normal bowel sounds Extremity Exam: normal inspection Back Exam: normal inspection Male Genitalia Exam: deferred Rectal Exam: deferred Objective Data Vital Signs: Vital Signs - 24 hr Temp Pulse Resp BP BP Pulse Ox 08/22/24 03:35 97.2 F 83 18 128/73 97 08/22/24 01:11 92 H 18 96 08/21/24 22:43 92 H 18 96 08/21/24 22:14 97.1 F 94 H 20 147/88 96 08/21/24 21:00 127/72 95 08/21/24 20:30 153/93 94 L 08/21/24 20:00 91 H 20 139/100 92 L 08/21/24 19:40 143/93 93 L 08/21/24 19:00 83 18 144/101 93 L 08/21/24 18:31 80 16 138/95 96 08/21/24 18:00 85 16 141/92 95 08/21/24 17:48 86 20 98 08/21/24 17:37 97 08/21/24 17:24 96.3 F 84 18 109/60 97 Pain Assessment - Last Documented Pain Intensity 5 Pain Scale Used [facility] Intake and Output: Intake & Output 08/19/24 08/20/24 08/21/24 08/22/24 11:59 11:59 11:59 11:59 Intake Total 820 Output Total 1650 Balance -830 Weight 123 kg Lab Results: Lab Results-Last 24 Hours 08/21/24 08/21/24 08/21/24 Range/Units 17:34 17:49 17:49 WBC 8.4 (4.23-9.07) x10^3/uL RBC 5.12 (4.63-6.08) x10^6/uL Hgb 15.5 (13.7-17.5) g/dL Hct 47.5 (40.1-51.0) % MCV 92.8 H (79.0-92.2) fL MCH 30.3 (25.7-32.2) pg MCHC 32.6 (32.3-36.5) g/dL RDW 14.6 H (11.6-14.4) % Plt Count 230 (163-337) x10^3/uL MPV 11.1 (9.4-12.4) fL Gran % 71.7 H (34.0-67.9) % Immature Gran % (Auto) 0.5 H (0.001-0.429) % Nucleat RBC Rel Count 0.0 (0.00-0.2) % Eos # (Auto) 0.25 (0.04-0.54) x10^3/uL Immature Gran # (Auto) 0.04 H (0.001-0.031) x10^3u/L Absolute Lymphs (auto) 1.35 (1.32-3.57) x10^3/uL Absolute Monos (auto) 0.66 (0.30-0.82) x10^3/uL Absolute Nucleated RBC 0.00 (0.00-0.012) x10^3u/L Lymphocytes % 16.1 L (21.8-53.1) % Monocytes % 7.9 (5.3-12.2) % Eosinophils % 3.0 (0.8-7.0) % Basophils % 0.8 (0.2-1.2) % Absolute Granulocytes 6.01 H (1.78-5.38) x10^3/uL Basophils # 0.07 (0.01-0.08) x10^3/uL D-Dimer (0.0-0.50) mg/L pO2/FiO2 Ratio 21.0 % VBG pH 7.46 H (7.32-7.42) VBG pCO2 at Pat Temp 37 L (42-55) mm/Hg VBG pO2 at Pat Temp 56 H (25-40) mm/Hg VBG HCO3 26.3 (22-28) meq/L VBG O2 Sat (Rachel) 87.1 L (95-100) VBG Base Excess 2.6 H (-2.0-2.0) VBG Hemoglobin 16.4 VBG Carboxyhemoglobin 2.9 (0.0-6.9) % T HGB POC Potassium 5.8 H (3.5-5.1) Sodium 142 (135-145) mmol/L Potassium 4.3 (3.5-5.1) mmol/L Chloride 109 H (98-107) mmol/L Carbon Dioxide 23 (22-30) mmol/L Anion Gap 14.1 (5-15) MEQ/L BUN 20 (9-20) mg/dL Creatinine 0.73 (0.66-1.25) mg/dL Estimated GFR 108.8 ML/MIN Glucose 137 H (74-106) mg/dL Calcium 9.2 (8.4-10.2) mg/dL Magnesium 1.9 (1.6-2.3) mg/dL Total Bilirubin 0.60 (0.2-1.3) mg/dL AST 37 (17-59) U/L ALT 37 (0-50) U/L Alkaline Phosphatase 72 (38-126) U/L Troponin I (0.000-0.033) ng/mL NT-Pro-B Natriuret Pep (<300) pg/mL Serum Total Protein 7.0 (6.3-8.2) g/dL Albumin 3.9 (3.5-5.0) g/dL Ur Random Creatinine MG/DL U Random Total Protein (0-12) mg/dL Influenza Type A Ag (NEGATIVE) Influenza Type B Ag (NEGATIVE) RSV (PCR) (NEGATIVE) SARS-CoV-2 (PCR) (NEGATIVE) 08/21/24 08/21/24 08/21/24 Range/Units 17:49 17:49 18:13 WBC (4.23-9.07) x10^3/uL RBC (4.63-6.08) x10^6/uL Hgb (13.7-17.5) g/dL Hct (40.1-51.0) % MCV (79.0-92.2) fL MCH (25.7-32.2) pg MCHC (32.3-36.5) g/dL RDW (11.6-14.4) % Plt Count (163-337) x10^3/uL MPV (9.4-12.4) fL Gran % (34.0-67.9) % Immature Gran % (Auto) (0.001-0.429) % Nucleat RBC Rel Count (0.00-0.2) % Eos # (Auto) (0.04-0.54) x10^3/uL Immature Gran # (Auto) (0.001-0.031) x10^3u/L Absolute Lymphs (auto) (1.32-3.57) x10^3/uL Absolute Monos (auto) (0.30-0.82) x10^3/uL Absolute Nucleated RBC (0.00-0.012) x10^3u/L Lymphocytes % (21.8-53.1) % Monocytes % (5.3-12.2) % Eosinophils % (0.8-7.0) % Basophils % (0.2-1.2) % Absolute Granulocytes (1.78-5.38) x10^3/uL Basophils # (0.01-0.08) x10^3/uL D-Dimer 0.25 (0.0-0.50) mg/L pO2/FiO2 Ratio % VBG pH (7.32-7.42) VBG pCO2 at Pat Temp (42-55) mm/Hg VBG pO2 at Pat Temp (25-40) mm/Hg VBG HCO3 (22-28) meq/L VBG O2 Sat (Rachel) (95-100) VBG Base Excess (-2.0-2.0) VBG Hemoglobin VBG Carboxyhemoglobin (0.0-6.9) % T HGB POC Potassium (3.5-5.1) Sodium (135-145) mmol/L Potassium (3.5-5.1) mmol/L Chloride (98-107) mmol/L Carbon Dioxide (22-30) mmol/L Anion Gap (5-15) MEQ/L BUN (9-20) mg/dL Creatinine (0.66-1.25) mg/dL Estimated GFR ML/MIN Glucose (74-106) mg/dL Calcium (8.4-10.2) mg/dL Magnesium (1.6-2.3) mg/dL Total Bilirubin (0.2-1.3) mg/dL AST (17-59) U/L ALT (0-50) U/L Alkaline Phosphatase (38-126) U/L Troponin I < 0.012 (0.000-0.033) ng/mL NT-Pro-B Natriuret Pep 1030 (<300) pg/mL Serum Total Protein (6.3-8.2) g/dL Albumin (3.5-5.0) g/dL Ur Random Creatinine MG/DL U Random Total Protein (0-12) mg/dL Influenza Type A Ag NEGATIVE (NEGATIVE) Influenza Type B Ag NEGATIVE (NEGATIVE) RSV (PCR) NEGATIVE (NEGATIVE) SARS-CoV-2 (PCR) NEGATIVE (NEGATIVE) 08/21/24 08/21/24 08/22/24 Range/Units 20:00 21:41 02:17 WBC (4.23-9.07) x10^3/uL RBC (4.63-6.08) x10^6/uL Hgb (13.7-17.5) g/dL Hct (40.1-51.0) % MCV (79.0-92.2) fL MCH (25.7-32.2) pg MCHC (32.3-36.5) g/dL RDW (11.6-14.4) % Plt Count (163-337) x10^3/uL MPV (9.4-12.4) fL Gran % (34.0-67.9) % Immature Gran % (Auto) (0.001-0.429) % Nucleat RBC Rel Count (0.00-0.2) % Eos # (Auto) (0.04-0.54) x10^3/uL Immature Gran # (Auto) (0.001-0.031) x10^3u/L Absolute Lymphs (auto) (1.32-3.57) x10^3/uL Absolute Monos (auto) (0.30-0.82) x10^3/uL Absolute Nucleated RBC (0.00-0.012) x10^3u/L Lymphocytes % (21.8-53.1) % Monocytes % (5.3-12.2) % Eosinophils % (0.8-7.0) % Basophils % (0.2-1.2) % Absolute Granulocytes (1.78-5.38) x10^3/uL Basophils # (0.01-0.08) x10^3/uL D-Dimer (0.0-0.50) mg/L pO2/FiO2 Ratio % VBG pH (7.32-7.42) VBG pCO2 at Pat Temp (42-55) mm/Hg VBG pO2 at Pat Temp (25-40) mm/Hg VBG HCO3 (22-28) meq/L VBG O2 Sat (Rachel) (95-100) VBG Base Excess (-2.0-2.0) VBG Hemoglobin VBG Carboxyhemoglobin (0.0-6.9) % T HGB POC Potassium (3.5-5.1) Sodium (135-145) mmol/L Potassium (3.5-5.1) mmol/L Chloride (98-107) mmol/L Carbon Dioxide (22-30) mmol/L Anion Gap (5-15) MEQ/L BUN (9-20) mg/dL Creatinine (0.66-1.25) mg/dL Estimated GFR ML/MIN Glucose (74-106) mg/dL Calcium (8.4-10.2) mg/dL Magnesium (1.6-2.3) mg/dL Total Bilirubin (0.2-1.3) mg/dL AST (17-59) U/L ALT (0-50) U/L Alkaline Phosphatase (38-126) U/L Troponin I < 0.012 < 0.012 (0.000-0.033) ng/mL NT-Pro-B Natriuret Pep (<300) pg/mL Serum Total Protein (6.3-8.2) g/dL Albumin (3.5-5.0) g/dL Ur Random Creatinine 42.3 MG/DL U Random Total Protein 13 H (0-12) mg/dL Influenza Type A Ag (NEGATIVE) Influenza Type B Ag (NEGATIVE) RSV (PCR) (NEGATIVE) SARS-CoV-2 (PCR) (NEGATIVE) 08/22/24 Range/Units 02:17 WBC (4.23-9.07) x10^3/uL RBC (4.63-6.08) x10^6/uL Hgb (13.7-17.5) g/dL Hct (40.1-51.0) % MCV (79.0-92.2) fL MCH (25.7-32.2) pg MCHC (32.3-36.5) g/dL RDW (11.6-14.4) % Plt Count (163-337) x10^3/uL MPV (9.4-12.4) fL Gran % (34.0-67.9) % Immature Gran % (Auto) (0.001-0.429) % Nucleat RBC Rel Count (0.00-0.2) % Eos # (Auto) (0.04-0.54) x10^3/uL Immature Gran # (Auto) (0.001-0.031) x10^3u/L Absolute Lymphs (auto) (1.32-3.57) x10^3/uL Absolute Monos (auto) (0.30-0.82) x10^3/uL Absolute Nucleated RBC (0.00-0.012) x10^3u/L Lymphocytes % (21.8-53.1) % Monocytes % (5.3-12.2) % Eosinophils % (0.8-7.0) % Basophils % (0.2-1.2) % Absolute Granulocytes (1.78-5.38) x10^3/uL Basophils # (0.01-0.08) x10^3/uL D-Dimer (0.0-0.50) mg/L pO2/FiO2 Ratio % VBG pH (7.32-7.42) VBG pCO2 at Pat Temp (42-55) mm/Hg VBG pO2 at Pat Temp (25-40) mm/Hg VBG HCO3 (22-28) meq/L VBG O2 Sat (Rachel) (95-100) VBG Base Excess (-2.0-2.0) VBG Hemoglobin VBG Carboxyhemoglobin (0.0-6.9) % T HGB POC Potassium (3.5-5.1) Sodium 139 (135-145) mmol/L Potassium 4.0 (3.5-5.1) mmol/L Chloride 102 (98-107) mmol/L Carbon Dioxide 20 L (22-30) mmol/L Anion Gap 20.2 H (5-15) MEQ/L BUN 20 (9-20) mg/dL Creatinine 0.90 (0.66-1.25) mg/dL Estimated GFR 102.1 ML/MIN Glucose 249 H (74-106) mg/dL Calcium 9.4 (8.4-10.2) mg/dL Magnesium 1.8 (1.6-2.3) mg/dL Total Bilirubin 0.60 (0.2-1.3) mg/dL AST 38 (17-59) U/L ALT 52 H (0-50) U/L Alkaline Phosphatase 87 (38-126) U/L Troponin I (0.000-0.033) ng/mL NT-Pro-B Natriuret Pep (<300) pg/mL Serum Total Protein 7.7 (6.3-8.2) g/dL Albumin 4.3 (3.5-5.0) g/dL Ur Random Creatinine MG/DL U Random Total Protein (0-12) mg/dL Influenza Type A Ag (NEGATIVE) Influenza Type B Ag (NEGATIVE) RSV (PCR) (NEGATIVE) SARS-CoV-2 (PCR) (NEGATIVE) Radiology Exams: Radiology Procedures Category Date Time Status CHEST 1 VIEW (PORTABLE) Stat Exams 08/21/24 17:52 Completed CTA CHEST W AND/OR WO [CT] Stat Exams 08/21/24 18:35 Completed Assessment/Plan (1) CHF exacerbation Current Visit: Yes Status: Acute Assessment & Plan: -CT reviewed showing bilateral pleural effusions -Supplemental oxygen as needed to maintain spo2 goal >89% -elevated HOB/daily weights/Strict I&Os -IV lasix 40mg Q8H -Optimize electroyltes -Echo from 03/08/24 reviewed EF at 28% IMPRESSION: 1) 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 2) DIASTOLIC DYSFUNCTION. 3) PACEMAKER ARTIFACT IN THE RIGHT ATRIUM AND RIGHT VENTRICLE. 4) TRACE MITRAL REGURGITATION. 5) TRACE TRICUSPID REGURGITATION. 6) TRACE PERICARDIAL EFFUSION. -continue Jardiance - resume entresto Code(s): I50.9 - HEART FAILURE, UNSPECIFIED (2) COPD exacerbation Current Visit: Yes Status: Acute Assessment & Plan: -supplemental oxygen as stated above - RA at baseline -RT eval -+nebs prn/INH -prednisone -CT reviewed showing bilateral pleural effusions Code(s): J44.1 - CHRONIC OBSTRUCTIVE PULMONARY DISEASE W (ACUTE) EXACERBATION (3) HTN (hypertension) Current Visit: Yes Status: Acute Assessment & Plan: -continue home meds Code(s): I10 - ESSENTIAL (PRIMARY) HYPERTENSION (4) Hyperlipidemia Current Visit: No Status: Chronic Assessment & Plan: -continue statin Code(s): E78.5 - HYPERLIPIDEMIA, UNSPECIFIED (5) Type 2 diabetes mellitus Current Visit: No Status: Chronic Qualifiers: Diabetes mellitus exterminator helper insulin use: without mcfp use Assessment & Plan: -ADA diet -accuchecks -SSI VTE: Eliquis PPI: protonix Dispo: 1-2 days Code status: Full
[2024-08-22 07:35] LABS: Absolute Neutrophil Ct (ANC) 9.98 x10^3/uL (1.78-5.38); BASOPHIL % 0.1 % (0.2-1.2); Basophil (Absolute #) 0.01 x10^3/uL (0.01-0.08); Eosinophil % 0.5 % (0.8-7.0); Eosinophil (Absolute #) 0.05 x10^3/uL (0.04-0.54); Hematocrit 50.1 % (40.1-51.0); Hemoglobin 16.4 g/dL (13.7-17.5); IMMATURE GRAN # 0.06 x10^3u/L (0.001-0.031); IMMATURE GRAN % 0.6 % (0.001-0.429); Lymphocytes % 4.7 % (21.8-53.1); Mean Cell Volume 93.8 fL (79.0-92.2); Mean Corpuscular Hemoglobin 30.7 pg (25.7-32.2); Mean Corpuscular Hgb Concent. 32.7 g/dL (32.3-36.5); Mean Platelet Volume 11.3 fL (9.4-12.4); Monocyte (Absolute #) 0.08 x10^3/uL (0.30-0.82); Monocytes % 0.7 % (5.3-12.2); Neutrophil % 93.4 % (34.0-67.9); Platelet Count 251 x10^3/uL (163-337); Red Blood Count 5.34 x10^6/uL (4.63-6.08); White Blood Count 10.7 x10^3/uL (4.23-9.07)
[2024-08-22 09:18] LABS: Slide Review 1 YES
[2024-08-22] MEDS: Vitamin B-12 500 MCG PO SCH (09:29)
[2024-08-22] MEDS: Tricor 145 MG PO SCH (09:31)
[2024-08-22] MEDS: Zetia 10 MG PO SCH (09:31)
[2024-08-22] MEDS: Coreg 3.125 MG PO SCH (09:32)
[2024-08-22] MEDS: Klor Con PO SCH (09:33)
[2024-08-22] MEDS: ELIQUIS 2.5 MG TABLET PO SCH (09:35)
[2024-08-22] MEDS: EFFEXOR 37.5 MG PO SCH (09:35)
[2024-08-22] MEDS: FOLATE 1 MG PO SCH (09:43)
[2024-08-22] MEDS: JARDIANCE PO SCH (09:44)
[2024-08-22] MEDS: Protonix 40MG Tablet PO SCH (09:44)
[2024-08-22] MEDS ORDERED: NON-FORMULARY ITEM (Apixaban [Eliquis] 5 MG Tablet) PO SCH (10:00)
[2024-08-22] MEDS ORDERED: [UNRECOGNIZED DRUG - OTHER] PO SCH (10:00)
[2024-08-22] MEDS ORDERED: CYANOCOBALAMIN PO SCH (10:00)
[2024-08-22] MEDS ORDERED: FOLIC ACID PO SCH (10:00)
[2024-08-22] MEDS ORDERED: NON-FORMULARY ITEM (Venlafaxine Hcl [Venlafaxine Hcl Er] 150 MG Cap.Er.24h) PO SCH (10:00)
[2024-08-22] MEDS ORDERED: FENOFIBRATE MICRONIZED 134 MG PO SCH (10:00)
[2024-08-22] MEDS: Imdur 60MG PO SCH (10:07)
[2024-08-22] MEDS: HUMALOG SQ PRN (10:19)
[2024-08-22] MEDS ORDERED: DUONEB 0.5-3 MG/3 ml Neb IH PRN (10:41)
[2024-08-22] MEDS: ENTRESTO 49 MG-51 MG TABLET PO SCH (11:13)
[2024-08-22] MEDS: DELTASONE 20 MG PO SCH (11:15)
[2024-08-22] MEDS: NORCO 10-325 MG PO SCH ×2 (14:01→22:02)
[2024-08-22] MEDS: ZOCOR 20MG PO SCH (21:01)
[2024-08-22] MEDS: Seroquel 25 MG PO SCH (21:02)
[2024-08-22] MEDS ORDERED: NON-FORMULARY ITEM (Atorvastatin Calcium 20 MG Tab) PO SCH (22:00)
[2024-08-22] MEDS ORDERED: NON-FORMULARY ITEM (Sacubitril/Valsartan [Entresto 24 Mg-26 Mg Tablet] 1 EACH Tablet) PO SCH (22:00)
[2024-08-22] MEDS ORDERED: NON-FORMULARY ITEM (Quetiapine Fumarate [Seroquel] 50 MG Tablet) PO SCH (22:00)
[2024-08-23 04:55] LABS: Hematocrit 49.4 % (40.1-51.0); Hemoglobin 16.3 g/dL (13.7-17.5); Mean Cell Volume 91.8 fL (79.0-92.2); Mean Corpuscular Hemoglobin 30.3 pg (25.7-32.2); Mean Platelet Volume 10.9 fL (9.4-12.4); Platelet Count 284 x10^3/uL (163-337); Red Blood Count 5.38 x10^6/uL (4.63-6.08); Red Cell Distribution Width 15.8 % (11.6-14.4); White Blood Count 11.3 x10^3/uL (4.23-9.07)
--- NOTE | 2024-08-23 05:08 | PCM.NOTE ---
Date and Time: 08/23/24 050 Subjective Assessment: HPI: Mr. GODFREY is a 54 year old male with a past medical history significant for hypertension, diabetes, hyperlipidemia and CHF with previous exacerbations admitted 08/22/24 with CHF exacerbation after presenting to ED with complaints of progressive dyspnea and a 25lb weight gain over two weeks. CT chest demonstrates mild bilateral pleural effusion and groundglass haziness. No PE. Lab findings remarkable for BNP at 1030. Patient given lasix in ED. 08/22/24: Met with patient bedside. Endorses improvement of dyspnea. Does have a cough with clear sputum and wheezing noted on auscultation. Patient states he has noticed swelling of his face, abdomen, and hands but feels this is much improved today. Upon my exam, no edema noted and no abdominal distention. Balance -2030 since admission. Patient follows with Dr. Chu as OP. Plan for continued diuresis, possible discharge in the next few days. Denies fever,cp, abdominal pain, ZHAO, dizziness, N/V/D. Objective Data Vital Signs: Vital Signs - 24 hr Temp Pulse Resp BP Pulse Ox 08/23/24 04:00 96.4 F 84 18 134/72 91 L 08/22/24 23:43 97.8 F 87 16 155/73 96 08/22/24 20:13 80 16 97 08/22/24 19:47 97.2 F 79 18 133/80 94 L 08/22/24 16:00 98.0 F 82 20 129/67 93 L 08/22/24 15:00 93 L 08/22/24 11:33 98.0 F 83 18 132/90 94 L 08/22/24 07:15 98.0 F 91 H 20 138/89 91 L 08/22/24 07:06 84 18 94 L Pain Assessment - Last Documented Pain Intensity 6 Pain Scale Used 0-10 Pain Scale Intake and Output: Intake & Output 08/20/24 08/21/24 08/22/24 08/23/24 11:59 11:59 11:59 11:59 Intake Total 1060 1920 Output Total 3400 2700 Balance -2340 -780 Weight 120.4 kg Lab Results: Lab Results-Last 24 Hours 08/22/24 08/22/24 08/22/24 Range/Units 02:17 02:17 07:02 WBC 10.7 H (4.23-9.07) x10^3/uL RBC 5.34 (4.63-6.08) x10^6/uL Hgb 16.4 (13.7-17.5) g/dL Hct 50.1 (40.1-51.0) % MCV 93.8 H (79.0-92.2) fL MCH 30.7 (25.7-32.2) pg MCHC 32.7 (32.3-36.5) g/dL RDW 15.0 H (11.6-14.4) % Plt Count 251 (163-337) x10^3/uL MPV 11.3 (9.4-12.4) fL Gran % 93.4 H (34.0-67.9) % Immature Gran % (Auto) 0.6 H (0.001-0.429) % Nucleat RBC Rel Count 0.0 (0.00-0.2) % Eos # (Auto) 0.05 (0.04-0.54) x10^3/uL Immature Gran # (Auto) 0.06 H (0.001-0.031) x10^3u/L Absolute Lymphs (auto) 0.50 L (1.32-3.57) x10^3/uL Absolute Monos (auto) 0.08 L (0.30-0.82) x10^3/uL Absolute Nucleated RBC 0.00 (0.00-0.012) x10^3u/L Lymphocytes % 4.7 L (21.8-53.1) % Monocytes % 0.7 L (5.3-12.2) % Eosinophils % 0.5 L (0.8-7.0) % Basophils % 0.1 L (0.2-1.2) % Absolute Granulocytes 9.98 H (1.78-5.38) x10^3/uL Basophils # 0.01 (0.01-0.08) x10^3/uL POC Glucometer 209 H (74 to 106) mg/dL Hemoglobin A1c 6.66 H (4.5-6.0) % Slides for Path Review YES 08/22/24 08/22/24 08/22/24 Range/Units 11:21 16:16 21:41 WBC (4.23-9.07) x10^3/uL RBC (4.63-6.08) x10^6/uL Hgb (13.7-17.5) g/dL Hct (40.1-51.0) % MCV (79.0-92.2) fL MCH (25.7-32.2) pg MCHC (32.3-36.5) g/dL RDW (11.6-14.4) % Plt Count (163-337) x10^3/uL MPV (9.4-12.4) fL Gran % (34.0-67.9) % Immature Gran % (Auto) (0.001-0.429) % Nucleat RBC Rel Count (0.00-0.2) % Eos # (Auto) (0.04-0.54) x10^3/uL Immature Gran # (Auto) (0.001-0.031) x10^3u/L Absolute Lymphs (auto) (1.32-3.57) x10^3/uL Absolute Monos (auto) (0.30-0.82) x10^3/uL Absolute Nucleated RBC (0.00-0.012) x10^3u/L Lymphocytes % (21.8-53.1) % Monocytes % (5.3-12.2) % Eosinophils % (0.8-7.0) % Basophils % (0.2-1.2) % Absolute Granulocytes (1.78-5.38) x10^3/uL Basophils # (0.01-0.08) x10^3/uL POC Glucometer 271 H 226 H 216 H (74 to 106) mg/dL Hemoglobin A1c (4.5-6.0) % Slides for Path Review 08/23/24 Range/Units 04:50 WBC 11.3 H (4.23-9.07) x10^3/uL RBC 5.38 (4.63-6.08) x10^6/uL Hgb 16.3 (13.7-17.5) g/dL Hct 49.4 (40.1-51.0) % MCV 91.8 (79.0-92.2) fL MCH 30.3 (25.7-32.2) pg MCHC 33.0 (32.3-36.5) g/dL RDW 15.8 H (11.6-14.4) % Plt Count 284 (163-337) x10^3/uL MPV 10.9 (9.4-12.4) fL Gran % (34.0-67.9) % Immature Gran % (Auto) (0.001-0.429) % Nucleat RBC Rel Count (0.00-0.2) % Eos # (Auto) (0.04-0.54) x10^3/uL Immature Gran # (Auto) (0.001-0.031) x10^3u/L Absolute Lymphs (auto) (1.32-3.57) x10^3/uL Absolute Monos (auto) (0.30-0.82) x10^3/uL Absolute Nucleated RBC (0.00-0.012) x10^3u/L Lymphocytes % (21.8-53.1) % Monocytes % (5.3-12.2) % Eosinophils % (0.8-7.0) % Basophils % (0.2-1.2) % Absolute Granulocytes (1.78-5.38) x10^3/uL Basophils # (0.01-0.08) x10^3/uL POC Glucometer (74 to 106) mg/dL Hemoglobin A1c (4.5-6.0) % Slides for Path Review Radiology Exams: Radiology Procedures Category Date Time Status CHEST 1 VIEW (PORTABLE) Stat Exams 08/21/24 17:52 Completed CTA CHEST W AND/OR WO [CT] Stat Exams 08/21/24 18:35 Completed Assessment/Plan (1) CHF exacerbation Current Visit: Yes Status: Acute Assessment & Plan: -CT reviewed showing bilateral pleural effusions -Supplemental oxygen as needed to maintain spo2 goal >89% -elevated HOB/daily weights/Strict I&Os -IV lasix 40mg Q8H -Optimize electroyltes -Echo from 03/08/24 reviewed EF at 28% IMPRESSION: 1) 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 2) DIASTOLIC DYSFUNCTION. 3) PACEMAKER ARTIFACT IN THE RIGHT ATRIUM AND RIGHT VENTRICLE. 4) TRACE MITRAL REGURGITATION. 5) TRACE TRICUSPID REGURGITATION. 6) TRACE PERICARDIAL EFFUSION. -continue Jardiance - resume entresto Code(s): I50.9 - HEART FAILURE, UNSPECIFIED (2) COPD exacerbation Current Visit: Yes Status: Acute Assessment & Plan: -supplemental oxygen as stated above - RA at baseline -RT eval -+nebs prn/INH -prednisone -CT reviewed showing bilateral pleural effusions Code(s): J44.1 - CHRONIC OBSTRUCTIVE PULMONARY DISEASE W (ACUTE) EXACERBATION (3) HTN (hypertension) Current Visit: Yes Status: Acute Assessment & Plan: -continue home meds Code(s): I10 - ESSENTIAL (PRIMARY) HYPERTENSION (4) Hyperlipidemia Current Visit: No Status: Chronic Assessment & Plan: -continue statin Code(s): E78.5 - HYPERLIPIDEMIA, UNSPECIFIED (5) Type 2 diabetes mellitus Current Visit: No Status: Chronic Qualifiers: Diabetes mellitus terminal supervisor insulin use: without fci use Assessment & Plan: -ADA diet -accuchecks -SSI VTE: Eliquis PPI: protonix Dispo: 1-2 days Code status: Full Code(s): I50.9 - HEART FAILURE, UNSPECIFIED (2) COPD exacerbation Current Visit: Yes Status: Acute Code(s): J44.1 - CHRONIC OBSTRUCTIVE PULMONARY DISEASE W (ACUTE) EXACERBATION (3) HTN (hypertension) Current Visit: Yes Status: Acute Code(s): I10 - ESSENTIAL (PRIMARY) HYPERTENSION (4) Hyperlipidemia Current Visit: No Status: Chronic Code(s): E78.5 - HYPERLIPIDEMIA, UNSPECIFIED (5) Type 2 diabetes mellitus Current Visit: No Status: Chronic Qualifiers: Diabetes mellitus fci insulin use: without fci use
[2024-08-23 05:14] LABS: ALBUMIN 4.6 g/dL (3.5-5.0); ANION GAP 17.9 MEQ/L (5-15); BILIRUBIN,TOTAL 0.7 mg/dL (0.2-1.3); Calcium 9.3 mg/dL (8.4-10.2); Creatinine 1 0.99 mg/dL (0.66-1.25); EST GLOMERULAR FILTRATION RATE 91.1 ML/MIN; MAGNESIUM 2.1 mg/dL (1.6-2.3); Potassium 4.5 mmol/L (3.5-5.1); Total Protein 8.2 g/dL (6.3-8.2)
[2024-08-23 07:31] LABS: Lymphocytes 13 % (21.8-53.1); Monocyte 9 % (5.3-12.2); Neutrophils 78 % (34.0-67.9); Total Cells Counted 100
[2024-08-23 07:32] LABS: Platelet Estimate NORMAL (NORMAL)
--- NOTE | 2024-08-23 09:16 | PCM.DS ---
Discharge Summary Date of Admission: 08/21/24 21:24 Date of Discharge: 08/23/24 Admitting Physician: ARELY SAVAGE MD Primary Care Provider: ANGIE CEBALLOS Allergies Allergies No Known Drug Allergies Allergy (Verified 08/21/24 17:32) Hospital Summary - Hospital Course Hospital Course: HPI: Mr. GODFREY is a 54 year old male with a past medical history significant for hypertension, diabetes, hyperlipidemia and CHF with previous exacerbations ad mitted 08/22/24 with CHF exacerbation after presenting to ED with complaints of progressive dyspnea and a 25lb weight gain over two weeks. CT chest demonstrates mild bilateral pleural effusion and groundglass haziness. No PE. Lab findings remarkable for BNP at 1030. IP treatment with lasix. Dyspnea and edema have improved. Patient with 10 lb weight loss since admission. Requesting discharge home. Will increase home lasix dose to 40mg daily - can add an extra dose if >3lb weight gain. He is to follow up with his dairy inspector Dr. Chu. Discharge Note New Diagnosis: CHF exacerbation New Medications: Increase lasix dose to 40mg daily Follow Up: Cardiology Latest Assessment & Plan (1) CHF exacerbation Current Visit: Yes Status: Acute Assessment & Plan: -CT reviewed showing bilateral pleural effusions -Supplemental oxygen as needed to maintain spo2 goal >89% -elevated HOB/daily weights/Strict I&Os -IV lasix 40mg Q8H -Optimize electroyltes -Echo from 03/08/24 reviewed EF at 28% IMPRESSION: 1) 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 2) DIASTOLIC DYSFUNCTION. 3) PACEMAKER ARTIFACT IN THE RIGHT ATRIUM AND RIGHT VENTRICLE. 4) TRACE MITRAL REGURGITATION. 5) TRACE TRICUSPID REGURGITATION. 6) TRACE PERICARDIAL EFFUSION. -continue Jardiance - resume entresto Code(s): I50.9 - HEART FAILURE, UNSPECIFIED (2) COPD exacerbation Current Visit: Yes Status: Acute Assessment & Plan: -supplemental oxygen as stated above - RA at baseline -RT eval -+nebs prn/INH -prednisone -CT reviewed showing bilateral pleural effusions Code(s): J44.1 - CHRONIC OBSTRUCTIVE PULMONARY DISEASE W (ACUTE) EXACERBATION (3) HTN (hypertension) Current Visit: Yes Status: Acute Assessment & Plan: -continue home meds Code(s): I10 - ESSENTIAL (PRIMARY) HYPERTENSION (4) Hyperlipidemia Current Visit: No Status: Chronic Assessment & Plan: -continue statin Code(s): E78.5 - HYPERLIPIDEMIA, UNSPECIFIED (5) Type 2 diabetes mellitus Current Visit: No Status: Chronic Qualifiers: Diabetes mellitus remote computer terminal operator insulin use: without detention use Assessment & Plan: -ADA diet -accuchecks -SSI VTE: Eliquis PPI: protonix Dispo: 1-2 days Code status: Full I spent 35 minutes [id number] with the patient on the day of discharge performing discharge exam, discussing hospital stay and discharge instructions with patient and caregivers, preparation of discharge records, prescriptions & referral forms and addressing any questions/concerns the patient had as documented above. - Vitals & Intake/Output Vital Signs: Vital Signs Temperature 98.1 F 08/23/24 07:11 Pulse Rate 80 08/23/24 08:20 Respiratory Rate 18 08/23/24 08:20 Blood Pressure 117/66 08/23/24 07:11 O2 Sat by Pulse Oximetry 94 L 08/23/24 08:20 Intake & Output: Intake & Output 08/20/24 08/21/24 08/22/24 08/23/24 11:59 11:59 11:59 11:59 Intake Total 1060 2160 Output Total 3400 3700 Balance -2340 -1540 Weight 120.4 kg 119.8 kg - Lab Result Diagrams: 08/23/24 04:50 08/23/24 04:50 Lab Results-Last 24 Hrs: Lab Results-Last 24 Hours 08/22/24 08/22/24 08/22/24 Range/Units 02:17 02:17 11:21 WBC (4.23-9.07) x10^3/uL RBC (4.63-6.08) x10^6/uL Hgb (13.7-17.5) g/dL Hct (40.1-51.0) % MCV (79.0-92.2) fL MCH (25.7-32.2) pg MCHC (32.3-36.5) g/dL RDW (11.6-14.4) % Plt Count (163-337) x10^3/uL MPV (9.4-12.4) fL Segmented Neutrophils (34.0-67.9) % Lymphocytes (Manual) (21.8-53.1) % Monocytes (Manual) (5.3-12.2) % Platelet Estimate (NORMAL) RBC Morphology Sodium (135-145) mmol/L Potassium (3.5-5.1) mmol/L Chloride (98-107) mmol/L Carbon Dioxide (22-30) mmol/L Anion Gap (5-15) MEQ/L BUN (9-20) mg/dL Creatinine (0.66-1.25) mg/dL Estimated GFR ML/MIN Glucose (74-106) mg/dL POC Glucometer 271 H (74 to 106) mg/dL Hemoglobin A1c 6.66 H (4.5-6.0) % Calcium (8.4-10.2) mg/dL Magnesium (1.6-2.3) mg/dL Total Bilirubin (0.2-1.3) mg/dL AST (17-59) U/L ALT (0-50) U/L Alkaline Phosphatase (38-126) U/L Serum Total Protein (6.3-8.2) g/dL Albumin (3.5-5.0) g/dL Slides for Path Review YES 08/22/24 08/22/24 08/23/24 Range/Units 16:16 21:41 04:50 WBC 11.3 H (4.23-9.07) x10^3/uL RBC 5.38 (4.63-6.08) x10^6/uL Hgb 16.3 (13.7-17.5) g/dL Hct 49.4 (40.1-51.0) % MCV 91.8 (79.0-92.2) fL MCH 30.3 (25.7-32.2) pg MCHC 33.0 (32.3-36.5) g/dL RDW 15.8 H (11.6-14.4) % Plt Count 284 (163-337) x10^3/uL MPV 10.9 (9.4-12.4) fL Segmented Neutrophils 78 H (34.0-67.9) % Lymphocytes (Manual) 13 L (21.8-53.1) % Monocytes (Manual) 9 (5.3-12.2) % Platelet Estimate NORMAL (NORMAL) RBC Morphology NORMAL Sodium (135-145) mmol/L Potassium (3.5-5.1) mmol/L Chloride (98-107) mmol/L Carbon Dioxide (22-30) mmol/L Anion Gap (5-15) MEQ/L BUN (9-20) mg/dL Creatinine (0.66-1.25) mg/dL Estimated GFR ML/MIN Glucose (74-106) mg/dL POC Glucometer 226 H 216 H (74 to 106) mg/dL Hemoglobin A1c (4.5-6.0) % Calcium (8.4-10.2) mg/dL Magnesium (1.6-2.3) mg/dL Total Bilirubin (0.2-1.3) mg/dL AST (17-59) U/L ALT (0-50) U/L Alkaline Phosphatase (38-126) U/L Serum Total Protein (6.3-8.2) g/dL Albumin (3.5-5.0) g/dL Slides for Path Review 08/23/24 08/23/24 Range/Units 04:50 07:30 WBC (4.23-9.07) x10^3/uL RBC (4.63-6.08) x10^6/uL Hgb (13.7-17.5) g/dL Hct (40.1-51.0) % MCV (79.0-92.2) fL MCH (25.7-32.2) pg MCHC (32.3-36.5) g/dL RDW (11.6-14.4) % Plt Count (163-337) x10^3/uL MPV (9.4-12.4) fL Segmented Neutrophils (34.0-67.9) % Lymphocytes (Manual) (21.8-53.1) % Monocytes (Manual) (5.3-12.2) % Platelet Estimate (NORMAL) RBC Morphology Sodium 140 (135-145) mmol/L Potassium 4.5 (3.5-5.1) mmol/L Chloride 102 (98-107) mmol/L Carbon Dioxide 25 (22-30) mmol/L Anion Gap 17.9 H (5-15) MEQ/L BUN 35 H (9-20) mg/dL Creatinine 0.99 (0.66-1.25) mg/dL Estimated GFR 91.1 ML/MIN Glucose 246 H (74-106) mg/dL POC Glucometer 229 H (74 to 106) mg/dL Hemoglobin A1c (4.5-6.0) % Calcium 9.3 (8.4-10.2) mg/dL Magnesium 2.1 (1.6-2.3) mg/dL Total Bilirubin 0.70 (0.2-1.3) mg/dL AST 30 (17-59) U/L ALT 35 (0-50) U/L Alkaline Phosphatase 79 (38-126) U/L Serum Total Protein 8.2 (6.3-8.2) g/dL Albumin 4.6 (3.5-5.0) g/dL Slides for Path Review Micro Results-Entire Visit: Accuchecks Date 08/23/24 Date 08/22/24 Date 08/22/24 Time 07:33 - Radiology Exams Ordered Rad Exams-Entire Visit: Radiology Procedures Category Date Time Status CHEST 1 VIEW (PORTABLE) Stat Exams 08/21/24 17:52 Completed CTA CHEST W AND/OR WO [CT] Stat Exams 08/21/24 18:35 Completed - Procedures and Test Procedures and Tests throughout Hospitalization: Therapy Orders & Screens 08/21/24 17:47 Respiratory Therapy Assessment DAILY Comment: Respiratory Therapy Assessment DAILY Comment: 08/21/24 22:09 Respiratory Therapy Consult ONCE Comment: Reason For Exam: Diagnosis: chf exacerbation 08/21/24 22:56 RT Screen per Nursing Assess ONCE Comment: Protocol Order Physician Instructions: Greater than 3 points order RT Admission Screen Reason For Exam: Triggered on Admission Diagnosis: chf exacerbation Diagnosis: chf exacerbation Pneumonia: No Home O2: No Asthma: No CHF: Yes Home CPAP/BIPAP: Yes Home Nebs/MDI: No Total Points: 8 Discharge Exam General Appearance: no apparent distress Neurologic Exam: alert, oriented x 3, cooperative, normal mood/affect Eye Exam: PERRL Ears, Nose, Throat Exam: normal ENT inspection Neck Exam: normal inspection Respiratory Exam: normal breath sounds, lungs clear Cardiovascular Exam: regular rate/rhythm, normal heart sounds Gastrointestinal/Abdomen Exam: soft, normal bowel sounds Male Genitalia Exam: deferred Rectal Exam: deferred Back Exam: normal inspection Extremity Exam: normal inspection Skin Exam: normal color Final Diagnosis/Problem List - Final Discharge Diagnosis/Problem (1) CHF exacerbation Current Visit: Yes Status: Acute Code(s): I50.9 - HEART FAILURE, UNSPECIFIED (2) COPD exacerbation Current Visit: Yes Status: Acute Code(s): J44.1 - CHRONIC OBSTRUCTIVE PULMONARY DISEASE W (ACUTE) EXACERBATION (3) HTN (hypertension) Current Visit: Yes Status: Acute Code(s): I10 - ESSENTIAL (PRIMARY) HYPERTENSION (4) Hyperlipidemia Current Visit: No Status: Chronic Code(s): E78.5 - HYPERLIPIDEMIA, UNSPECIFIED (5) Type 2 diabetes mellitus Current Visit: No Status: Chronic - Discharge Disposition: Home, Self-Care Condition: Stable Prescriptions: Continue Atorvastatin Calcium [Lipitor 20MG Tablet] 80 mg PO HS Sacubitril/Valsartan [Entresto 24 mg-26 mg Tablet] 24 - 26 mg PO BID Venlafaxine HCl [Venlafaxine HCl ER] 37.5 mg PO DAILY Fenofibrate,Micronized [Fenofibrate] 134 mg PO DAILY Pioglitazone 30 mg [Actos 30 MG] 30 mg PO DAILY Quetiapine Fumarate [Seroquel] 50 mg PO HS Potassium Chloride Tab* [Klor Con] 20 meq PO BID 30 Days #60 tablet Isosorbide Mononitrate 60 mg [Imdur 60MG] 1 tab PO DAILY Ezetimibe 10 mg [Zetia 10 MG] 1 tab PO DAILY Empagliflozin [Jardiance] 25 mg PO DAILY Apixaban [Eliquis] 5 mg PO BID Magnesium Oxide [Magnesium] 250 mg PO DAILY Cyanocobalamin/Folic Acid [Z81-Eyhem Acid 2500-400 Mcg Tb] 2,500 mcg PO DAILY Hydrocodone/Acetaminophen [Hydrocodone-Acetamin 10-325 mg] 1 tab PO QIDPRN PRN PRN Reason: Pain Carvedilol 3.125 mg [Coreg 3.125 MG] 3.125 mg PO BID 30 Days #60 tablet Insulin Degludec [Tresiba Flextouch U-200] 100 unit SQ DAILY Changed Furosemide 20 mg [Lasix 20 mg] 40 mg PO DAILY 14 Days #28 tablet Follow up with: MAINOR VANG MD [CONSULTING PHYSICIAN] - 08/31/24 10:30 am (With Dr. Vang's clinical trials assistant, Ruth)
[2024-08-23] MEDS: MAG-OX 400 PO SCH (09:39)
[2024-08-23] MEDS ORDERED: NON-FORMULARY ITEM (Magnesium Oxide [Magnesium] 250 MG Tablet) PO SCH (10:00)
[2024-08-23 13:00] VITALS: BP 131/81; PULSE 88; RESP 16; TEMP 97.7
[2024-08-25 21:18] VITALS: O2SAT 97
== END 2024-08-23 11:35 | disposition home or self-care (01) ==
LOC: ED 17:22 → MED SURG 21:24
PROVIDERS: ADMIT Internal Medicine Nephrology; ATTEND Internal Medicine Nephrology
DX: I11.0 Hypertensive heart disease with heart failure (principal); I50.9 Heart failure, unspecified; J44.1 Chronic obstructive pulmonary disease with (acute) exacerbation; I10 Essential (primary) hypertension; E78.5 Hyperlipidemia, unspecified; E11.9 Type 2 diabetes mellitus without complications; I25.2 Old myocardial infarction; Z79.01 Long term (current) use of anticoagulants; Z79.899 Other long term (current) drug therapy
CPT/HCPCS: 0241U; 36000; 36415; 71045; 71275; 80053; 82570; 82805; 82947; 83036; 83735; 83880; 84156; 84484; 85025; 85379; 93041; 93268; 94640; 94760; 96374; 96375; 99285; G0378; Q3014; J1817; J1940; J2919; A9270-GY

== ENCOUNTER 2025-01-24 17:49 | Observation (INO) | payer MEDICARE ==
--- NOTE | 2025-01-24 18:24 | ERPHSYRPT ---
- History of Present Illness Time Seen by Provider: 01/24/25 18:21 Source: patient Exam Limitations: no limitations Patient Subjective Stated Complaint: pt reports being short of breath and has CHF and has gaind approx 30 lbs lately Triage Nursing Assessment: Pt brought self to the ER, hypertensive, rates overall body pain as 4/10, pulses normal, skin n/w/d, edema to anne marie lower ext, pt normally weighs 260 lbs and has gained 30 lbs in approx 3 weeks, denies chest pain, lungs clear, doesn't appear to be in any distress Physician History: 54-year-old male history of CHF presents to our ED for evaluation of progressive shortness of breath and had a 30 pound weight gain. Patient describes myalgias as well. Patient states weight gain occurred over a period of approximately 3 weeks. No trauma no fever no rash. Symptoms are mild to moderate in intensity. Symptoms are worse with exertion. Symptoms improved with rest. Patient otherwise feels well. He voices no other complaints or concerns at this time. Portions of this note were created with voice recognition technology. There may be grammatical, spelling, punctuation or sound alike errors Timing/Duration: today Severity: moderate Modifying Factors: Improves With: nothing Associated Symptoms: denies symptoms Allergies/Adverse Reactions: No Known Drug Allergies Allergy (Verified 01/24/25 18:09) Home Medications: Atorvastatin Calcium [Lipitor 20MG Tablet] 80 mg PO HS 03/22/15 [History] Sacubitril/Valsartan [Entresto 24 mg-26 mg Tablet] 24 - 26 mg PO BID 09/24/17 [History] Venlafaxine HCl [Venlafaxine HCl ER] 37.5 mg PO DAILY 11/23/17 [History] Fenofibrate,Micronized [Fenofibrate] 134 mg PO DAILY 06/17/20 [History] Pioglitazone 30 mg [Actos 30 MG] 30 mg PO DAILY 06/17/20 [History] Quetiapine Fumarate [Seroquel] 50 mg PO HS 11/03/23 [History] Apixaban [Eliquis] 5 mg PO BID 02/27/24 [History] Ezetimibe 10 mg [Zetia 10 MG] 1 tab PO DAILY 02/27/24 [History] Isosorbide Mononitrate 60 mg [Imdur 60MG] 1 tab PO DAILY 02/27/24 [History] Cyanocobalamin/Folic Acid [Y16-Dycrf Acid 2500-400 Mcg Tb] 2,500 mcg PO DAILY 03/06/24 [History] Hydrocodone/Acetaminophen [Hydrocodone-Acetamin 10-325 mg] 1 tab PO QIDPRN PRN 03/06/24 [History] Magnesium Oxide [Magnesium] 250 mg PO DAILY 03/06/24 [History] Insulin Degludec [Tresiba Flextouch U-200] 100 unit SQ DAILY 08/21/24 [History] Hx Tetanus, Diphtheria Vaccination/Date Given: Yes Hx Influenza Vaccination/Date Given: No Hx Pneumococcal Vaccination/Date Given: No Travel Risk - International Travel Have you traveled outside of the country in past 3 weeks: No - Emerging Infectious Disease Are you exhibiting symptoms associated with any current EIDs: Yes Symptoms: Cough: New Onset, Shortness of Breath Comment: lower legs swelling - Review of Systems Constitutional: No Symptoms, No Fever, No Chills Eyes: No Symptoms Ears, Nose, & Throat: No Symptoms Respiratory: No Symptoms, No Cough, No Dyspnea Cardiac: No Symptoms, No Chest Pain, No Edema, No Syncope Abdominal/Gastrointestinal: No Symptoms, No Abdominal Pain, No Nausea, No Vomiting, No Diarrhea Genitourinary Symptoms: No Symptoms, No Dysuria Musculoskeletal: No Symptoms, No Back Pain, No Neck Pain Skin: No Symptoms, No Rash Neurological: No Symptoms, No Dizziness, No Focal Weakness, No Sensory Changes Psychological: No Symptoms Endocrine: No Symptoms Hematologic/Lymphatic: No Symptoms Immunological/Allergic: No Symptoms All Other Systems: Reviewed and Negative - Past Medical History Pertinent Past Medical History: Yes Neurological History: No Pertinent History ENT History: No Pertinent History Cardiac History: Congestive Heart Failure, High Cholesterol, Hypertension, Myocardial Infarction (LA), Other Respiratory History: Other Endocrine Medical History: Diabetes Type II Musculoskeletal History: Osteoarthritis GI Medical History: Pancreatitis History: No Pertinent History Psycho-Social History: No Pertinent History Male Reproductive Disorders: No Pertinent History Other Medical History: PMHX: 7 LA's, PER PATIENT HAS 5 STENTS BUT NO CABG. HAS DEFIBRILLATOR PLACED 2014 WITH HX OF ACTIVATION PER PATIENT "A FEW TIMES". PER PATIENT HEART FUNCTION 15-20%. SEVERE OA LEFT KNEE - BONE ON BONE BUT UNABLE TO HAVE REPLACEMENT DUE TO HEART. 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 - Past Surgical History Past Surgical History: Yes Neuro Surgical History: No Pertinent History Cardiac: Angioplasty, Cardiac Catheterization, Cardiac Stent, Internal Defibrillator, Pacemaker Respiratory: No Pertinent History Gastrointestinal: Cholecystectomy, Hernia Repair Genitourinary: No Pertinent History Musculoskeletal: Orthopedic Surgery Male Surgical History: No Pertinent History Other Surgical History: elbow Significant Family History: heart disease, diabetes, hypertension - Social History Smoking Status: Former smoker How long have you smoked: 20+ Exposure to second hand smoke: Yes Drug Use: none - Social Determinants of Health Will the patient participate in the screening: Yes Do you worry about a steady place to live?: No Do you have any problems with any of the following?: No known problems In the past 12 months,have you had to go without utilities?: No Transportation Issues: No Has anyone in your support network made you feel unsafe?: No Have you or anyone in your house had to go w/o enough food: No - Nursing Vital Signs Nursing Vital Signs: Initial Vital Signs Pulse Rate 89 01/24/25 17:51 Respiratory Rate 14 01/24/25 17:51 Blood Pressure 166/107 01/24/25 17:51 O2 Sat by Pulse Oximetry 97 01/24/25 17:51 Pain Scale Pain Intensity 6 - Physical Exam General Appearance: no apparent distress, alert Eye Exam: PERRL/EOMI, eyes nml inspection Ears, Nose, Throat Exam: normal ENT inspection, TMs normal, pharynx normal, moist mucous membranes Neck Exam: normal inspection, non-tender, supple, full range of motion Respiratory Exam: normal breath sounds, lungs clear, airway intact, No respiratory distress Cardiovascular Exam: regular rate/rhythm, normal heart sounds, normal peripheral pulses Gastrointestinal/Abdomen Exam: soft, normal bowel sounds, No tenderness, No mass Back Exam: normal inspection, normal range of motion, No CVA tenderness, No vertebral tenderness Extremity Exam: normal inspection, normal range of motion, pelvis stable, pedal edema (2+ lower extremity pitting edema) Neurologic Exam: alert, oriented x 3, cooperative, normal mood/affect, sensation nml, No motor deficits Skin Exam: normal color, warm, dry, No rash Lymphatic Exam: No adenopathy SpO2 Interpretation: normal SpO2: 98 O2 Delivery: Room Air - Course Nursing assessment & vital signs reviewed: Yes EKG Interpreted by Me: RATE (88), Sinus Rhythm, NORMAL AXIS, Right Bundle Branch Block - Radiology Exams Chest X-ray Interpretation: Teleradiologist Report (No airspace disease) Ordered Tests: Active Orders 24 hr Category Date Time Status Rn Neonatal STAT Care 01/24/25 18:20 Active EKG-ER Only STAT Care 01/24/25 18:20 Active IV Insertion STAT Care 01/24/25 18:20 Active Pulse Oximetry (ED) STAT Care 01/24/25 18:20 Active Telemetry q4h Care 01/24/25 19:06 Completed CHEST 1 VIEW (PORTABLE) Stat Exams 01/24/25 18:20 Taken CBC W DIFF Stat Lab 01/24/25 18:20 Completed CMP Stat Lab 01/24/25 18:20 Completed NT PRO BNPII Stat Lab 01/24/25 18:20 Completed POCT GLUCOSE Stat Lab 01/24/25 19:50 Completed TROPONIN Q4H Lab 01/24/25 18:20 Completed TROPONIN Q4H Lab 01/24/25 20:50 Completed TROPONIN Q4H Lab 01/25/25 02:30 Ordered UA W/RFX UR CULTURE Stat Lab 01/24/25 18:34 Completed Transfer Order Routine Transfer 01/25/25 Ordered Medication Summary Generic Name Dose Route Start Last Admin Trade Name Freq PRN Reason Stop Dose Admin Magnesium Sulfate/Dextrose 100 mls @ 100 mls/hr 01/24/25 19:15 01/24/25 22:12 Magnesium 1 Gm / 100 Ml D5w IV 01/24/25 21:14 Infused Q1H DESTINEE Infusion Potassium Chloride 20 meq in 100 mls @ 50 mls/hr 01/24/25 19:15 01/24/25 22:57 Potassium Chloride 20 Meq In Water 100ml IV 01/24/25 23:14 25 mls/hr Q2H DESTINEE Infusion Sodium Chloride 1,000 mls @ 125 mls/hr 01/24/25 19:30 01/24/25 19:30 Sodium Chloride 0.9% 1000 Ml IV 02/23/25 19:29 125 mls/hr .Q8H DESTINEE Administration Discontinued Medications Generic Name Dose Route Start Last Admin Trade Name Freq PRN Reason Stop Dose Admin Hydrocodone Bitart/Acetaminophen 2 tab 01/24/25 23:44 01/24/25 23:46 Hydrocodone/Apap 5/325 1 Tab Tablet PO 01/24/25 23:45 2 tab STAT ONE Administration Aspirin 324 mg 01/24/25 22:20 01/24/25 22:30 Aspirin 81 Mg Tab.Chew PO 01/24/25 22:21 324 mg STAT ONE Administration Sodium Chloride Confirm 01/24/25 19:20 Sodium Chloride 0.9% 1000 Ml Administered 01/24/25 19:21 Dose 1,000 mls @ ud .ROUTE .STK-MED ONE Potassium Chloride 40 meq 01/24/25 19:06 01/24/25 19:24 Potassium Chloride Tab 10 Meq Tab PO 01/24/25 19:07 40 meq STAT ONE Administration Potassium Chloride Confirm 01/24/25 19:19 Potassium Chloride Tab 10 Meq Tab Administered 01/24/25 19:20 Dose 40 meq .ROUTE .STK-MED ONE Lab/Rad Data: Laboratory Result Diagrams 01/24/25 18:20 01/24/25 18:20 Laboratory Results 01/24/25 01/24/25 01/24/25 Range/Units 20:50 19:50 18:34 WBC (4.23-9.07) x10^3/uL RBC (4.63-6.08) x10^6/uL Hgb (13.7-17.5) g/dL Hct (40.1-51.0) % MCV (79.0-92.2) fL MCH (25.7-32.2) pg MCHC (32.3-36.5) g/dL RDW (11.6-14.4) % Plt Count (163-337) x10^3/uL MPV (9.4-12.4) fL Gran % (34.0-67.9) % Immature Gran % (Auto) (0.001-0.429) % Nucleat RBC Rel Count (0.00-0.2) % Eos # (Auto) (0.04-0.54) x10^3/uL Immature Gran # (Auto) (0.001-0.031) x10^3u/L Absolute Lymphs (auto) (1.32-3.57) x10^3/uL Absolute Monos (auto) (0.30-0.82) x10^3/uL Absolute Nucleated RBC (0.00-0.012) x10^3u/L Lymphocytes % (21.8-53.1) % Monocytes % (5.3-12.2) % Eosinophils % (0.8-7.0) % Basophils % (0.2-1.2) % Absolute Granulocytes (1.78-5.38) x10^3/uL Basophils # (0.01-0.08) x10^3/uL Sodium (135-145) mmol/L Potassium (3.5-5.1) mmol/L Chloride (98-107) mmol/L Carbon Dioxide (22-30) mmol/L Anion Gap (5-15) MEQ/L BUN (9-20) mg/dL Creatinine (0.66-1.25) mg/dL Estimated GFR ML/MIN Glucose (74-106) mg/dL POC Glucometer 132 H (74 to 106) mg/dL Calcium (8.4-10.2) mg/dL Total Bilirubin (0.2-1.3) mg/dL AST (17-59) U/L ALT (0-50) U/L Alkaline Phosphatase (38-126) U/L Troponin I 0.022 (0.000-0.033) ng/mL NT-Pro-B Natriuret Pep (<300) pg/mL Serum Total Protein (6.3-8.2) g/dL Albumin (3.5-5.0) g/dL Urine Color Yellow (Yellow) Urine Appearance Clear (Clear) Urine pH 6.5 (4.6-8.0) Ur Specific Gardiner 1.015 (1.005-1.030) Urine Protein Trace A (Negative) Urine Glucose (UA) Negative (Negative) mg/dL Urine Ketones Negative (Negative) Urine Blood Negative (Negative) Urine Nitrite Negative (Negative) Urine Bilirubin Negative (Negative) Urine Urobilinogen 0.2 (0.2) mg/dL Ur Leukocyte Esterase Negative (Negative) U Hyaline Cast (Auto) NONE SEEN (0-2) /LPF Urine Microscopic RBC 0-2 (0-5) /HPF Urine Microscopic WBC 0-2 (0-5) /HPF Ur Epithelial Cells None Seen (None Seen) /HPF Urine Bacteria None Seen (None Seen) /HPF Urine Culture Reflexed NO (NO) 01/24/25 01/24/25 01/24/25 Range/Units 18:20 18:20 18:20 WBC 7.2 (4.23-9.07) x10^3/uL RBC 4.93 (4.63-6.08) x10^6/uL Hgb 15.1 (13.7-17.5) g/dL Hct 45.2 (40.1-51.0) % MCV 91.7 (79.0-92.2) fL MCH 30.6 (25.7-32.2) pg MCHC 33.4 (32.3-36.5) g/dL RDW 13.4 (11.6-14.4) % Plt Count 211 (163-337) x10^3/uL MPV 11.3 (9.4-12.4) fL Gran % 60.1 (34.0-67.9) % Immature Gran % (Auto) 0.3 (0.001-0.429) % Nucleat RBC Rel Count 0.0 (0.00-0.2) % Eos # (Auto) 0.33 (0.04-0.54) x10^3/uL Immature Gran # (Auto) 0.02 (0.001-0.031) x10^3u/L Absolute Lymphs (auto) 1.59 (1.32-3.57) x10^3/uL Absolute Monos (auto) 0.88 H (0.30-0.82) x10^3/uL Absolute Nucleated RBC 0.00 (0.00-0.012) x10^3u/L Lymphocytes % 22.0 (21.8-53.1) % Monocytes % 12.2 (5.3-12.2) % Eosinophils % 4.6 (0.8-7.0) % Basophils % 0.8 (0.2-1.2) % Absolute Granulocytes 4.36 (1.78-5.38) x10^3/uL Basophils # 0.06 (0.01-0.08) x10^3/uL Sodium 139 (135-145) mmol/L Potassium 2.6 L* (3.5-5.1) mmol/L Chloride 99 (98-107) mmol/L Carbon Dioxide 29 (22-30) mmol/L Anion Gap 14.1 (5-15) MEQ/L BUN 22 H (9-20) mg/dL Creatinine 0.69 (0.66-1.25) mg/dL Estimated GFR 110.7 ML/MIN Glucose 141 H (74-106) mg/dL POC Glucometer (74 to 106) mg/dL Calcium 8.3 L (8.4-10.2) mg/dL Total Bilirubin 0.60 (0.2-1.3) mg/dL AST 48 (17-59) U/L ALT 35 (0-50) U/L Alkaline Phosphatase 113 (38-126) U/L Troponin I 0.019 (0.000-0.033) ng/mL NT-Pro-B Natriuret Pep 510 (<300) pg/mL Serum Total Protein 6.7 (6.3-8.2) g/dL Albumin 3.9 (3.5-5.0) g/dL Urine Color (Yellow) Urine Appearance (Clear) Urine pH (4.6-8.0) Ur Specific Gardiner (1.005-1.030) Urine Protein (Negative) Urine Glucose (UA) (Negative) mg/dL Urine Ketones (Negative) Urine Blood (Negative) Urine Nitrite (Negative) Urine Bilirubin (Negative) Urine Urobilinogen (0.2) mg/dL Ur Leukocyte Esterase (Negative) U Hyaline Cast (Auto) (0-2) /LPF Urine Microscopic RBC (0-5) /HPF Urine Microscopic WBC (0-5) /HPF Ur Epithelial Cells (None Seen) /HPF Urine Bacteria (None Seen) /HPF Urine Culture Reflexed (NO) - Progress Progress: improved Progress Note: Patient declined by Dr. Diggs ER physician at [facility] because a stepdown bed is not available at the moment 01/24/25 21:50 I discussed the case with in the [place] group with Dr. Webber. agreed to see patient in consultation but that patient should be admitted to the hospitalist service. We are currently awaiting call from hospit alist service. 01/24/25 22:03 I spoke to our hospitalist Dr. Andrea who agrees that patient should be transferred out to higher level of care. 01/24/25 22:[address] Noble hospitalist who accepts transfer to [facility] at 8:20 PM 01/24/25 22:20 54-year-old male history of CHF and cardiac stents x 5 presents to our ED for evaluation of shortness of breath. Physical exam reveals 2+ pitting edema bilateral lower extremity. No JVD. Troponin negative however appears to be uptrending based on second troponin. 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 However they do not have a bed available currently. They do not anticipate having a bed available till afternoon sometime. Patient will be admitted to our hospital in the meantime. Case discussed with who accepts admission to observation at 12:15 AM. Plan of care discussed with patient. He agrees to admission at [facility] for further evaluation and treatment. Portions of this note were created with voice recognition technology. There may be grammatical, spelling, punctuation or sound alike errors Complexity of problem addressed is moderate acute complicated. No critical care time. Complexity of data reviewed and analyzed as extensive. Test ordered chest reviewed results analyzed and correlated clinically with history and physical exam. Risk of complication and or risk of morbidity/mortality of patient management is high. Patient requires hospitalization for further evaluation and treatment. Vital stable. Time spent to admit patient is approximately 20 minutes. Plan of care established for shared decision making. No social determinants of health present to impede follow-up. Portions of this note were created with voice recognition technology. There may be grammatical, spelling, punctuation or sound alike errors 01/25/25 00:24 Counseled pt/family regarding: lab results, diagnosis, need for follow-up - Departure Departure Disposition: Observation Clinical Impression: Shortness of breath, Uptrending cardiac troponin, Acute coronary syndrome Condition: Stable Critical Care Time: No Referrals: ANGIE CEBALLOS MD [Primary Care Provider] - Follow up/PCP as directed
[2025-01-24 18:28] LABS: Absolute Neutrophil Ct (ANC) 4.36 x10^3/uL (1.78-5.38); BASOPHIL % 0.8 % (0.2-1.2); Basophil (Absolute #) 0.06 x10^3/uL (0.01-0.08); Eosinophil % 4.6 % (0.8-7.0); Eosinophil (Absolute #) 0.33 x10^3/uL (0.04-0.54); Hematocrit 45.2 % (40.1-51.0); Hemoglobin 15.1 g/dL (13.7-17.5); IMMATURE GRAN # 0.02 x10^3u/L (0.001-0.031); IMMATURE GRAN % 0.3 % (0.001-0.429); Lymphocyte (Absolute #) 1.59 x10^3/uL (1.32-3.57); Mean Cell Volume 91.7 fL (79.0-92.2); Mean Corpuscular Hemoglobin 30.6 pg (25.7-32.2); Mean Corpuscular Hgb Concent. 33.4 g/dL (32.3-36.5); Mean Platelet Volume 11.3 fL (9.4-12.4); Monocyte (Absolute #) 0.88 x10^3/uL (0.30-0.82); Monocytes % 12.2 % (5.3-12.2); Neutrophil % 60.1 % (34.0-67.9); Platelet Count 211 x10^3/uL (163-337); Red Blood Count 4.93 x10^6/uL (4.63-6.08); Red Cell Distribution Width 13.4 % (11.6-14.4); White Blood Count 7.2 x10^3/uL (4.23-9.07)
[2025-01-24 18:50] LABS: ALBUMIN 3.9 g/dL (3.5-5.0); ANION GAP 14.1 MEQ/L (5-15); BILIRUBIN,TOTAL 0.6 mg/dL (0.2-1.3); Calcium 8.3 mg/dL (8.4-10.2); Creatinine 1 0.69 mg/dL (0.66-1.25); EST GLOMERULAR FILTRATION RATE 110.7 ML/MIN; Total Protein 6.7 g/dL (6.3-8.2)
[2025-01-24 18:52] LABS: Potassium 2.6 mmol/L (3.5-5.1)
[2025-01-24 19:19] LABS: Appearance Clear (Clear); Bacteria None Seen /HPF (None Seen); Bilirubin Negative (Negative); Blood Negative (Negative); Epithelial Cells None Seen /HPF (None Seen); Glucose, Urine Negative (Negative); Hyaline Casts NONE SEEN /LPF (0-2); Ketones Negative (Negative); Leukocyte Esterase Negative (Negative); Nitrite Negative (Negative); Ph 6.5 (4.6-8.0); Protein,Urine Dip Trace (Negative); RBC 0-2 /HPF (0-5); Specific Gravity 1.015 (1.005-1.030); Urobilinogen 0.2 mg/dL (0.2); WBC 0-2 /HPF (0-5)
[2025-01-24] MEDS ORDERED: Klor Con ONE (19:19)
[2025-01-24] MEDS ORDERED: Magnesium 1 Gm / 100 Ml D5W*** 100 ML IV ONE ×2 (19:19→20:15)
[2025-01-24] MEDS ORDERED: Sodium Chloride 0.9% 1000 ML 1,000 ML ONE (19:20)
[2025-01-24] MEDS: POTASSIUM CHLORIDE 20 mEq IN WATER 100ML 20 MEQ/100 ML BAG IV SCH (19:23)
[2025-01-24] MEDS: Klor Con PO ONE (19:24)
[2025-01-24] MEDS: Magnesium 1 Gm / 100 Ml D5W*** 100 ML IV SCH (19:24)
[2025-01-24] MEDS: Sodium Chloride 0.9% 1000 ML 1,000 ML IV SCH (19:30)
[2025-01-24] MEDS ORDERED: POTASSIUM CHLORIDE 20 mEq IN WATER 100ML 100 ML IV ONE (22:20)
[2025-01-24] MEDS ORDERED: BABY ASPIRIN 81 MG CHEW ONE (22:29)
[2025-01-24] MEDS: BABY ASPIRIN 81 MG CHEW PO ONE (22:30)
[2025-01-24] MEDS ORDERED: NORCO 5/325 MG ONE (23:45)
[2025-01-24] MEDS: NORCO 5/325 MG PO ONE (23:46)
[2025-01-25 03:31] LABS: Hematocrit 45.4 % (40.1-51.0); Hemoglobin 15.3 g/dL (13.7-17.5); Mean Cell Volume 92.1 fL (79.0-92.2); Mean Corpuscular Hgb Concent. 33.7 g/dL (32.3-36.5); Mean Platelet Volume 11.3 fL (9.4-12.4); Platelet Count 199 x10^3/uL (163-337); Red Blood Count 4.93 x10^6/uL (4.63-6.08); Red Cell Distribution Width 13.6 % (11.6-14.4); White Blood Count 9.1 x10^3/uL (4.23-9.07)
[2025-01-25] MEDS: Lasix 40 MG/4 ML IV SCH (03:33)
[2025-01-25 03:39] LABS: ANION GAP 14.3 MEQ/L (5-15); Calcium 8.2 mg/dL (8.4-10.2); Creatinine 1 0.75 mg/dL (0.66-1.25); EST GLOMERULAR FILTRATION RATE 107.9 ML/MIN; Potassium 3.3 mmol/L (3.5-5.1)
[2025-01-25] MEDS: NORCO 5/325 MG PO PRN (03:40)
--- NOTE | 2025-01-25 04:23 | PCM.HP ---
History of Present Illness - Chief Complaint Chief Complaint: shortness of breath Date: 01/25/25 History of Present Illness: 54-year-old man with history of HFrEF, CAD, DM2, A-fib, and bipolar disorder, who presents with progressive dyspnea. Patient notes that 1 week ago he began to have worsening dyspnea associated with leg swelling, worsening orthopnea (increased on her pillows from 2-5), PND, and early satiety. He notes a weight gain from a dry weight of 265 pounds up to 285 today. He initially stated that he imaging extra Lasix to try and help with the swelling, but was not getting any relief. However, later he stated that he has not been able to afford his medication and has not been taking any his medications recently. Denies any chest pain cough, fevers, sore throat, dysuria, nausea, or diarrhea. - Review of Systems All Other Systems: Reviewed and Negative Medications & Allergies Home Medications: Home Medication List Atorvastatin Calcium [Lipitor 20MG Tablet] 80 mg PO HS 03/22/15 [History Confirmed 01/24/25] Sacubitril/Valsartan [Entresto 24 mg-26 mg Tablet] 24 - 26 mg PO BID 09/24/17 [History Confirmed 01/24/25] Venlafaxine HCl [Venlafaxine HCl ER] 37.5 mg PO DAILY 11/23/17 [History Confirmed 01/24/25] Fenofibrate,Micronized [Fenofibrate] 134 mg PO DAILY 06/17/20 [History Confirmed 01/24/25] Pioglitazone 30 mg [Actos 30 MG] 30 mg PO DAILY 06/17/20 [History Confirmed 01/24/25] Quetiapine Fumarate [Seroquel] 50 mg PO HS 11/03/23 [History Confirmed 01/24/25] Apixaban [Eliquis] 5 mg PO BID 02/27/24 [History Confirmed 01/24/25] Ezetimibe 10 mg [Zetia 10 MG] 1 tab PO DAILY 02/27/24 [History Confirmed 01/24/25] Isosorbide Mononitrate 60 mg [Imdur 60MG] 1 tab PO DAILY 02/27/24 [History Confirmed 01/24/25] Cyanocobalamin/Folic Acid [Z49-Tdosy Acid 2500-400 Mcg Tb] 2,500 mcg PO DAILY 03/06/24 [History Confirmed 01/24/25] Hydrocodone/Acetaminophen [Hydrocodone-Acetamin 10-325 mg] 1 tab PO QIDPRN PRN 03/06/24 [History Confirmed 01/24/25] Magnesium Oxide [Magnesium] 250 mg PO DAILY 03/06/24 [History Confirmed 01/24/25] Carvedilol 3.125 mg [Coreg 3.125 MG] 3.125 mg PO BID 30 Days #60 tablet 03/09/24 [Rx Confirmed 01/24/25] Insulin Degludec [Tresiba Flextouch U-200] 100 unit SQ DAILY 08/21/24 [History Confirmed 01/24/25] Furosemide 20 mg [Lasix 20 mg] 40 mg PO DAILY 14 Days #28 tablet 08/23/24 [Rx Confirmed 01/24/25] Allergies/Adverse Reactions: Allergies Allergy/AdvReac Type Severity Reaction Status Date / Time No Known Drug Allergies Allergy Verified 01/24/25 18:09 - Past Medical History Past Medical History: Yes Neurological History: No Pertinent History ENT History: No Pertinent History Cardiac History: Congestive Heart Failure, High Cholesterol, Hypertension, Myocardial Infarction ([place]), Other Respiratory History: Other Endocrine Medical History: Diabetes Type II Musculoskelatal History: Osteoarthritis GI Medical History: Pancreatitis History: No Pertinent History Pyscho-Social History: No Pertinent History Male Reproductive Disorders: No Pertinent History Comment: PMHX: 7 NC's, PER PATIENT HAS 5 STENTS BUT NO CABG. HAS DEFIBRILLATOR PLACED 2014 WITH HX OF ACTIVATION PER PATIENT "A FEW TIMES". PER PATIENT HEART FUNCTION 15-20%. SEVERE OA LEFT KNEE - BONE ON BONE BUT UNABLE TO HAVE REPLACEMENT DUE TO HEART. 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 - Past Surgical History Past Surgical History: Yes Neuro Surgical History: No Pertinent History Cardiac History: Angioplasty, Cardiac Catheterization, Cardiac Stent, Internal Defibrillator, Pacemaker Respiratory Surgery: No Pertinent History GI Surgical History: Cholecystectomy, Hernia Repair Genitourinary Surgical Hx: No Pertinent History Musculskeletal Surgical Hx: Orthopedic Surgery Male Surgical History: No Pertinent History Other Surgical History: elbow Significant Family History: heart disease, diabetes, hypertension - Social History Smoking Status: Former smoker How long have you smoked: 20+ Exposure to second hand smoke: No Alcohol: Weekly Drug Use: none - Social Determinants of Health Will the patient participate in the screening: Yes Do you worry about a steady place to live?: No Do you have any problems with any of the following?: No known problems In the past 12 months,have you had to go without utilities?: No Have you or anyone in your house had to go without enough: No Transportation Issues: No Has anyone in your support network made you feel unsafe?: No Does the patient want assistance with any of the above?: No - Physical Exam Vital Signs: Vital Signs - 24 hr Temp Pulse Resp BP BP Pulse Ox 01/25/25 02:46 98 01/25/25 02:13 96.5 F 94 H 20 143/95 94 L 01/25/25 01:00 87 18 141/97 94 L 01/25/25 00:30 90 19 137/97 97 01/25/25 00:27 98 01/25/25 00:00 92 H 18 148/103 95 01/24/25 23:30 89 18 137/86 96 01/24/25 23:00 93 H 18 141/91 96 01/24/25 22:30 93 H 18 144/104 95 01/24/25 22:00 145/103 94 L 01/24/25 21:30 147/95 93 L 01/24/25 21:13 84 18 153/107 95 01/24/25 21:00 87 23 145/89 96 01/24/25 20:30 87 22 150/96 96 01/24/25 20:00 88 17 142/99 96 01/24/25 19:00 83 18 152/99 98 01/24/25 18:40 97 01/24/25 18:31 92 H 160/100 95 01/24/25 18:00 97.1 F 90 22 152/102 152/102 96 01/24/25 17:51 89 14 166/107 97 Physical Exam GEN: Sitting up in bed in no acute distress. HENT: Normocephalic, atraumatic. Moist mucous membranes. EYES: Normal inspection, anicteric sclera, extraocular movements intact. NECK: Supple, full range of motion CV: Distant heart sounds but appear to be regular, no murmurs. 2+ pitting edema to the shins bilaterally. PULM: Distant breath sounds, but no crackles. Minimal end expiratory wheezing. O n 2 L oxygen by nasal cannula. ABD: Nondistended, nontender. MSK: No joint effusions, full range of motion SKIN: No rashes, normal color. NEURO: Face symmetric, no focal motor or sensory deficits. PSYCH: Alert, oriented x 3 Results - Labs Lab/Micro Results: Lab Results-Last 24 Hours 01/24/25 01/24/25 01/24/25 Range/Units 18:20 18:20 18:20 WBC 7.2 (4.23-9.07) x10^3/uL RBC 4.93 (4.63-6.08) x10^6/uL Hgb 15.1 (13.7-17.5) g/dL Hct 45.2 (40.1-51.0) % MCV 91.7 (79.0-92.2) fL MCH 30.6 (25.7-32.2) pg MCHC 33.4 (32.3-36.5) g/dL RDW 13.4 (11.6-14.4) % Plt Count 211 (163-337) x10^3/uL MPV 11.3 (9.4-12.4) fL Gran % 60.1 (34.0-67.9) % Immature Gran % (Auto) 0.3 (0.001-0.429) % Nucleat RBC Rel Count 0.0 (0.00-0.2) % Eos # (Auto) 0.33 (0.04-0.54) x10^3/uL Immature Gran # (Auto) 0.02 (0.001-0.031) x10^3u/L Absolute Lymphs (auto) 1.59 (1.32-3.57) x10^3/uL Absolute Monos (auto) 0.88 H (0.30-0.82) x10^3/uL Absolute Nucleated RBC 0.00 (0.00-0.012) x10^3u/L Lymphocytes % 22.0 (21.8-53.1) % Monocytes % 12.2 (5.3-12.2) % Eosinophils % 4.6 (0.8-7.0) % Basophils % 0.8 (0.2-1.2) % Absolute Granulocytes 4.36 (1.78-5.38) x10^3/uL Basophils # 0.06 (0.01-0.08) x10^3/uL Sodium 139 (135-145) mmol/L Potassium 2.6 L* (3.5-5.1) mmol/L Chloride 99 (98-107) mmol/L Carbon Dioxide 29 (22-30) mmol/L Anion Gap 14.1 (5-15) MEQ/L BUN 22 H (9-20) mg/dL Creatinine 0.69 (0.66-1.25) mg/dL Estimated GFR 110.7 ML/MIN Glucose 141 H (74-106) mg/dL POC Glucometer (74 to 106) mg/dL Calcium 8.3 L (8.4-10.2) mg/dL Magnesium (1.6-2.3) mg/dL Total Bilirubin 0.60 (0.2-1.3) mg/dL AST 48 (17-59) U/L ALT 35 (0-50) U/L Alkaline Phosphatase 113 (38-126) U/L Troponin I 0.019 (0.000-0.033) ng/mL NT-Pro-B Natriuret Pep 510 (<300) pg/mL Serum Total Protein 6.7 (6.3-8.2) g/dL Albumin 3.9 (3.5-5.0) g/dL Urine Color (Yellow) Urine Appearance (Clear) Urine pH (4.6-8.0) Ur Specific [place] (1.005-1.030) Urine Protein (Negative) Urine Glucose (UA) (Negative) mg/dL Urine Ketones (Negative) Urine Blood (Negative) Urine Nitrite (Negative) Urine Bilirubin (Negative) Urine Urobilinogen (0.2) mg/dL Ur Leukocyte Esterase (Negative) U Hyaline Cast (Auto) (0-2) /LPF Urine Microscopic RBC (0-5) /HPF Urine Microscopic WBC (0-5) /HPF Ur Epithelial Cells (None Seen) /HPF Urine Bacteria (None Seen) /HPF Urine Culture Reflexed (NO) 01/24/25 01/24/25 01/24/25 Range/Units 18:34 19:50 20:50 WBC (4.23-9.07) x10^3/uL RBC (4.63-6.08) x10^6/uL Hgb (13.7-17.5) g/dL Hct (40.1-51.0) % MCV (79.0-92.2) fL MCH (25.7-32.2) pg MCHC (32.3-36.5) g/dL RDW (11.6-14.4) % Plt Count (163-337) x10^3/uL MPV (9.4-12.4) fL Gran % (34.0-67.9) % Immature Gran % (Auto) (0.001-0.429) % Nucleat RBC Rel Count (0.00-0.2) % Eos # (Auto) (0.04-0.54) x10^3/uL Immature Gran # (Auto) (0.001-0.031) x10^3u/L Absolute Lymphs (auto) (1.32-3.57) x10^3/uL Absolute Monos (auto) (0.30-0.82) x10^3/uL Absolute Nucleated RBC (0.00-0.012) x10^3u/L Lymphocytes % (21.8-53.1) % Monocytes % (5.3-12.2) % Eosinophils % (0.8-7.0) % Basophils % (0.2-1.2) % Absolute Granulocytes (1.78-5.38) x10^3/uL Basophils # (0.01-0.08) x10^3/uL Sodium (135-145) mmol/L Potassium (3.5-5.1) mmol/L Chloride (98-107) mmol/L Carbon Dioxide (22-30) mmol/L Anion Gap (5-15) MEQ/L BUN (9-20) mg/dL Creatinine (0.66-1.25) mg/dL Estimated GFR ML/MIN Glucose (74-106) mg/dL POC Glucometer 132 H (74 to 106) mg/dL Calcium (8.4-10.2) mg/dL Magnesium (1.6-2.3) mg/dL Total Bilirubin (0.2-1.3) mg/dL AST (17-59) U/L ALT (0-50) U/L Alkaline Phosphatase (38-126) U/L Troponin I 0.022 (0.000-0.033) ng/mL NT-Pro-B Natriuret Pep (<300) pg/mL Serum Total Protein (6.3-8.2) g/dL Albumin (3.5-5.0) g/dL Urine Color Yellow (Yellow) Urine Appearance Clear (Clear) Urine pH 6.5 (4.6-8.0) Ur Specific [place] 1.015 (1.005-1.030) Urine Protein Trace A (Negative) Urine Glucose (UA) Negative (Negative) mg/dL Urine Ketones Negative (Negative) Urine Blood Negative (Negative) Urine Nitrite Negative (Negative) Urine Bilirubin Negative (Negative) Urine Urobilinogen 0.2 (0.2) mg/dL Ur Leukocyte Esterase Negative (Negative) U Hyaline Cast (Auto) NONE SEEN (0-2) /LPF Urine Microscopic RBC 0-2 (0-5) /HPF Urine Microscopic WBC 0-2 (0-5) /HPF Ur Epithelial Cells None Seen (None Seen) /HPF Urine Bacteria None Seen (None Seen) /HPF Urine Culture Reflexed NO (NO) 01/25/25 01/25/25 01/25/25 Range/Units 02:42 03:24 03:24 WBC 9.1 H (4.23-9.07) x10^3/uL RBC 4.93 (4.63-6.08) x10^6/uL Hgb 15.3 (13.7-17.5) g/dL Hct 45.4 (40.1-51.0) % MCV 92.1 (79.0-92.2) fL MCH 31.0 (25.7-32.2) pg MCHC 33.7 (32.3-36.5) g/dL RDW 13.6 (11.6-14.4) % Plt Count 199 (163-337) x10^3/uL MPV 11.3 (9.4-12.4) fL Gran % (34.0-67.9) % Immature Gran % (Auto) (0.001-0.429) % Nucleat RBC Rel Count (0.00-0.2) % Eos # (Auto) (0.04-0.54) x10^3/uL Immature Gran # (Auto) (0.001-0.031) x10^3u/L Absolute Lymphs (auto) (1.32-3.57) x10^3/uL Absolute Monos (auto) (0.30-0.82) x10^3/uL Absolute Nucleated RBC (0.00-0.012) x10^3u/L Lymphocytes % (21.8-53.1) % Monocytes % (5.3-12.2) % Eosinophils % (0.8-7.0) % Basophils % (0.2-1.2) % Absolute Granulocytes (1.78-5.38) x10^3/uL Basophils # (0.01-0.08) x10^3/uL Sodium 138 (135-145) mmol/L Potassium 3.3 L D (3.5-5.1) mmol/L Chloride 99 (98-107) mmol/L Carbon Dioxide 27 (22-30) mmol/L Anion Gap 14.3 (5-15) MEQ/L BUN 20 (9-20) mg/dL Creatinine 0.75 (0.66-1.25) mg/dL Estimated GFR 107.9 ML/MIN Glucose 125 H (74-106) mg/dL POC Glucometer (74 to 106) mg/dL Calcium 8.2 L (8.4-10.2) mg/dL Magnesium 2.0 (1.6-2.3) mg/dL Total Bilirubin (0.2-1.3) mg/dL AST (17-59) U/L ALT (0-50) U/L Alkaline Phosphatase (38-126) U/L Troponin I 0.023 (0.000-0.033) ng/mL NT-Pro-B Natriuret Pep (<300) pg/mL Serum Total Protein (6.3-8.2) g/dL Albumin (3.5-5.0) g/dL Urine Color (Yellow) Urine Appearance (Clear) Urine pH (4.6-8.0) Ur Specific [place] (1.005-1.030) Urine Protein (Negative) Urine Glucose (UA) (Negative) mg/dL Urine Ketones (Negative) Urine Blood (Negative) Urine Nitrite (Negative) Urine Bilirubin (Negative) Urine Urobilinogen (0.2) mg/dL Ur Leukocyte Esterase (Negative) U Hyaline Cast (Auto) (0-2) /LPF Urine Microscopic RBC (0-5) /HPF Urine Microscopic WBC (0-5) /HPF Ur Epithelial Cells (None Seen) /HPF Urine Bacteria (None Seen) /HPF Urine Culture Reflexed (NO) - Radiology Impressions Radiology Exams & Impressions: Radiology Procedures Category Date Time Status CHEST 1 VIEW (PORTABLE) Stat Exams 01/24/25 18:20 Taken Chest x-ray no consolidation or effusions, but has cephalization bilaterally consistent with pulmonary edema. (Images personally reviewed) - Other Procedures and Tests Respiratory Therapy 01/25/25 03:19 Oxygen Nasal Cannula 2 lpm Respiratory Therapy Consult ONCE Assessment/Plan (1) Acute on chronic systolic heart failure Current Visit: Yes Status: Acute Assessment & Plan: 54-year-old man with history of HFrEF, DM2, CAD, A-fib, bipolar disorder, here with acute on chronic systolic heart failure. ## Acute on chronic systolic heart failure with underlying ischemic cardiomyopathy, with EF 20-25% on most recent echo. Trigger was likely noncompliance with medications due to inability to afford them. Now with 20 pound weight gain associated with orthopnea, PND, and worsening leg edema. Now also requiring some oxygen. Start Lasix 80 mg IV BID Replace potassium as needed Check echocardiogram Continue home Entresto, Coreg Currently accepted as transfer to [facility], but no beds were available till the afternoon. ED initially plan to transfer due to concerns for possible deterioration. However, patient looks relatively stable and he will prefer to stay here if possible. ## A-fib currently in sinus rhythm. Continue Eliquis 5 BID Continue carvedilol 3.125 BID ## Type 2 diabetes patient on daily insulin of unknown dose. start high-dose sliding scale insulin Check hemoglobin A1c ## Bipolar disorder Continue Effexor 37.5 daily and Seroquel 50 QHS CODE STATUS: Full code Prophylaxis: Eliquis Diet: Diabetic 2 g sodium Dispo: Currently with an observation here, pending transfer to [facility]. Patient has already been accepted, but no beds were available until the afternoon of 01/25. However, patient stabilizes, he wishes to stay here if possible. Entirety of encounter took place via live audio/video telemedicine device, with remote physician and patient in hospital, with the assistance of bedside nurse. Code(s): I50.23 - ACUTE ON CHRONIC SYSTOLIC (CONGESTIVE) HEART FAILURE Telemedicine Encounter - Telemedicine Encounter Telemedicine Encounter: "The entirety of this encounter was performed via Telemedicine" This visit was performed using real-time audio and video connection between my location and thepatients locationwith the assistance of a surrogateat the p atients location. Written or verbal consent was obtained from the patient/guardian to perform this visit usingsynchrcity of [facility] technology. Any patient questions regarding the telemedicine interaction were answered.
[2025-01-25] MEDS: Klor Con PO ONE (04:37)
[2025-01-25 07:40] VITALS: RESP 16
--- NOTE | 2025-01-25 08:44 | XRAY ---
Indication: Short of breath. Comparison: August 21, 2024 Portable chest again hyperinflated. No focal infiltrate, consolidation, or large effusion. Heart not enlarged again with left pacemaker. Bony thorax intact again with osteopenia. Impression: Nonacute hyperinflated chest.
[2025-01-25] MEDS ORDERED: NON-FORMULARY ITEM (Venlafaxine Hcl [Venlafaxine Hcl Er] 150 MG Cap.Er.24h) PO SCH (10:00)
[2025-01-25] MEDS ORDERED: NON-FORMULARY ITEM (Sacubitril/Valsartan [Entresto 24 Mg-26 Mg Tablet] 1 EACH Tablet) PO SCH (10:00)
[2025-01-25] MEDS ORDERED: NON-FORMULARY ITEM (Magnesium Oxide [Magnesium] 250 MG Tablet) PO SCH (10:00)
[2025-01-25] MEDS ORDERED: NON-FORMULARY ITEM (Apixaban [Eliquis] 5 MG Tablet) PO SCH (10:00)
[2025-01-25] MEDS: Klor Con PO SCH (10:37)
[2025-01-25] MEDS: EFFEXOR 37.5 MG PO SCH (10:38)
[2025-01-25] MEDS: Coreg 3.125 MG PO SCH (10:38)
[2025-01-25] MEDS: ELIQUIS 2.5 MG TABLET PO SCH (10:38)
[2025-01-25] MEDS: MAG-OX 400 PO SCH (10:38)
[2025-01-25] MEDS: Imdur 60MG PO SCH (10:38)
[2025-01-25] MEDS: ENTRESTO 49 MG-51 MG TABLET PO SCH (10:39)
[2025-01-25] MEDS: HUMALOG SQ PRN (12:06)
--- NOTE | 2025-01-25 12:13 | PCM.DS ---
Discharge Summary Date of Admission: 01/25/25 01:12 Date of Discharge: 01/25/25 Admitting Physician: NASIMA MARSHALL MD Primary Care Provider: ANGIE CEBALLOS Allergies Allergies No Known Drug Allergies Allergy (Verified 01/24/25 18:09) Hospital Summary - Hospital Course Hospital Course: Mr. Johansen is a 54-year-old man with a history of HFrEF (EF 2025%), ischemic cardiomyopathy, atrial fibrillation, type 2 diabetes, CAD, and bipolar disorder who presented with acute on chronic systolic heart failure. He reported progressive dyspnea, orthopnea, paroxysmal nocturnal dyspnea, and significant weight gain over the past week, attributed to medication nonadherence due to financial limitations. On admission, he was volume overloaded with signs of d ecompensation and required supplemental oxygen. IV diuresis with furosemide was initiated and home heart failure medications resumed. Initial troponin was negative; however, repeat troponin showed a slight upward trend, raising concern for ongoing myocardial strain or demand ischemia. 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 He is being transferred in stable condition. I spent 35 minutes [id number] with the patient on the day of discharge performing discharge exam, discussing hospital stay and discharge instructions with patient and caregivers, preparation of discharge records, prescriptions & referral forms and addressing any questions/concerns the patient had as d ocumented above. - Vitals & Intake/Output Vital Signs: Vital Signs Temperature 97.6 F 01/25/25 11:15 Pulse Rate 87 01/25/25 11:15 Respiratory Rate 16 01/25/25 11:15 Blood Pressure 161/94 01/25/25 11:15 O2 Sat by Pulse Oximetry 92 L 01/25/25 11:15 Intake & Output: Intake & Output 01/23/25 01/24/25 01/25/25 01/26/25 11:59 11:59 11:59 11:59 Intake Total 1620 Output Total 1925 Balance -305 Weight 131.5 kg - Lab Result Diagrams: 01/25/25 03:24 01/25/25 07:05 Lab Results-Last 24 Hrs: Lab Results-Last 24 Hours 04/15/25 04/15/25 04/15/25 Range/Units 18:20 18:20 18:20 WBC 7.2 (4.23-9.07) x10^3/uL RBC 4.93 (4.63-6.08) x10^6/uL Hgb 15.1 (13.7-17.5) g/dL Hct 45.2 (40.1-51.0) % MCV 91.7 (79.0-92.2) fL MCH 30.6 (25.7-32.2) pg MCHC 33.4 (32.3-36.5) g/dL RDW 13.4 (11.6-14.4) % Plt Count 211 (163-337) x10^3/uL MPV 11.3 (9.4-12.4) fL Gran % 60.1 (34.0-67.9) % Immature Gran % (Auto) 0.3 (0.001-0.429) % Nucleat RBC Rel Count 0.0 (0.00-0.2) % Eos # (Auto) 0.33 (0.04-0.54) x10^3/uL Immature Gran # (Auto) 0.02 (0.001-0.031) x10^3u/L Absolute Lymphs (auto) 1.59 (1.32-3.57) x10^3/uL Absolute Monos (auto) 0.88 H (0.30-0.82) x10^3/uL Absolute Nucleated RBC 0.00 (0.00-0.012) x10^3u/L Lymphocytes % 22.0 (21.8-53.1) % Monocytes % 12.2 (5.3-12.2) % Eosinophils % 4.6 (0.8-7.0) % Basophils % 0.8 (0.2-1.2) % Absolute Granulocytes 4.36 (1.78-5.38) x10^3/uL Basophils # 0.06 (0.01-0.08) x10^3/uL Sodium 139 (135-145) mmol/L Potassium 2.6 L* (3.5-5.1) mmol/L Chloride 99 (98-107) mmol/L Carbon Dioxide 29 (22-30) mmol/L Anion Gap 14.1 (5-15) MEQ/L BUN 22 H (9-20) mg/dL Creatinine 0.69 (0.66-1.25) mg/dL Estimated GFR 110.7 ML/MIN Glucose 141 H (74-106) mg/dL POC Glucometer (74 to 106) mg/dL Hemoglobin A1c (4.5-6.0) % Calcium 8.3 L (8.4-10.2) mg/dL Magnesium (1.6-2.3) mg/dL Total Bilirubin 0.60 (0.2-1.3) mg/dL AST 48 (17-59) U/L ALT 35 (0-50) U/L Alkaline Phosphatase 113 (38-126) U/L Troponin I 0.019 (0.000-0.033) ng/mL NT-Pro-B Natriuret Pep 510 (<300) pg/mL Serum Total Protein 6.7 (6.3-8.2) g/dL Albumin 3.9 (3.5-5.0) g/dL Urine Color (Yellow) Urine Appearance (Clear) Urine pH (4.6-8.0) Ur Specific [place] (1.005-1.030) Urine Protein (Negative) Urine Glucose (UA) (Negative) mg/dL Urine Ketones (Negative) Urine Blood (Negative) Urine Nitrite (Negative) Urine Bilirubin (Negative) Urine Urobilinogen (0.2) mg/dL Ur Leukocyte Esterase (Negative) U Hyaline Cast (Auto) (0-2) /LPF Urine Microscopic RBC (0-5) /HPF Urine Microscopic WBC (0-5) /HPF Ur Epithelial Cells (None Seen) /HPF Urine Bacteria (None Seen) /HPF Urine Culture Reflexed (NO) 01/24/25 01/24/25 01/24/25 Range/Units 18:34 19:50 20:50 WBC (4.23-9.07) x10^3/uL RBC (4.63-6.08) x10^6/uL Hgb (13.7-17.5) g/dL Hct (40.1-51.0) % MCV (79.0-92.2) fL MCH (25.7-32.2) pg MCHC (32.3-36.5) g/dL RDW (11.6-14.4) % Plt Count (163-337) x10^3/uL MPV (9.4-12.4) fL Gran % (34.0-67.9) % Immature Gran % (Auto) (0.001-0.429) % Nucleat RBC Rel Count (0.00-0.2) % Eos # (Auto) (0.04-0.54) x10^3/uL Immature Gran # (Auto) (0.001-0.031) x10^3u/L Absolute Lymphs (auto) (1.32-3.57) x10^3/uL Absolute Monos (auto) (0.30-0.82) x10^3/uL Absolute Nucleated RBC (0.00-0.012) x10^3u/L Lymphocytes % (21.8-53.1) % Monocytes % (5.3-12.2) % Eosinophils % (0.8-7.0) % Basophils % (0.2-1.2) % Absolute Granulocytes (1.78-5.38) x10^3/uL Basophils # (0.01-0.08) x10^3/uL Sodium (135-145) mmol/L Potassium (3.5-5.1) mmol/L Chloride (98-107) mmol/L Carbon Dioxide (22-30) mmol/L Anion Gap (5-15) MEQ/L BUN (9-20) mg/dL Creatinine (0.66-1.25) mg/dL Estimated GFR ML/MIN Glucose (74-106) mg/dL POC Glucometer 132 H (74 to 106) mg/dL Hemoglobin A1c (4.5-6.0) % Calcium (8.4-10.2) mg/dL Magnesium (1.6-2.3) mg/dL Total Bilirubin (0.2-1.3) mg/dL AST (17-59) U/L ALT (0-50) U/L Alkaline Phosphatase (38-126) U/L Troponin I 0.022 (0.000-0.033) ng/mL NT-Pro-B Natriuret Pep (<300) pg/mL Serum Total Protein (6.3-8.2) g/dL Albumin (3.5-5.0) g/dL Urine Color Yellow (Yellow) Urine Appearance Clear (Clear) Urine pH 6.5 (4.6-8.0) Ur Specific [place] 1.015 (1.005-1.030) Urine Protein Trace A (Negative) Urine Glucose (UA) Negative (Negative) mg/dL Urine Ketones Negative (Negative) Urine Blood Negative (Negative) Urine Nitrite Negative (Negative) Urine Bilirubin Negative (Negative) Urine Urobilinogen 0.2 (0.2) mg/dL Ur Leukocyte Esterase Negative (Negative) U Hyaline Cast (Auto) NONE SEEN (0-2) /LPF Urine Microscopic RBC 0-2 (0-5) /HPF Urine Microscopic WBC 0-2 (0-5) /HPF Ur Epithelial Cells None Seen (None Seen) /HPF Urine Bacteria None Seen (None Seen) /HPF Urine Culture Reflexed NO (NO) 01/25/25 01/25/25 01/25/25 Range/Units 02:42 02:42 03:24 WBC 9.1 H (4.23-9.07) x10^3/uL RBC 4.93 (4.63-6.08) x10^6/uL Hgb 15.3 (13.7-17.5) g/dL Hct 45.4 (40.1-51.0) % MCV 92.1 (79.0-92.2) fL MCH 31.0 (25.7-32.2) pg MCHC 33.7 (32.3-36.5) g/dL RDW 13.6 (11.6-14.4) % Plt Count 199 (163-337) x10^3/uL MPV 11.3 (9.4-12.4) fL Gran % (34.0-67.9) % Immature Gran % (Auto) (0.001-0.429) % Nucleat RBC Rel Count (0.00-0.2) % Eos # (Auto) (0.04-0.54) x10^3/uL Immature Gran # (Auto) (0.001-0.031) x10^3u/L Absolute Lymphs (auto) (1.32-3.57) x10^3/uL Absolute Monos (auto) (0.30-0.82) x10^3/uL Absolute Nucleated RBC (0.00-0.012) x10^3u/L Lymphocytes % (21.8-53.1) % Monocytes % (5.3-12.2) % Eosinophils % (0.8-7.0) % Basophils % (0.2-1.2) % Absolute Granulocytes (1.78-5.38) x10^3/uL Basophils # (0.01-0.08) x10^3/uL Sodium (135-145) mmol/L Potassium (3.5-5.1) mmol/L Chloride (98-107) mmol/L Carbon Dioxide (22-30) mmol/L Anion Gap (5-15) MEQ/L BUN (9-20) mg/dL Creatinine (0.66-1.25) mg/dL Estimated GFR ML/MIN Glucose (74-106) mg/dL POC Glucometer (74 to 106) mg/dL Hemoglobin A1c 8.00 H (4.5-6.0) % Calcium (8.4-10.2) mg/dL Magnesium (1.6-2.3) mg/dL Total Bilirubin (0.2-1.3) mg/dL AST (17-59) U/L ALT (0-50) U/L Alkaline Phosphatase (38-126) U/L Troponin I 0.023 (0.000-0.033) ng/mL NT-Pro-B Natriuret Pep (<300) pg/mL Serum Total Protein (6.3-8.2) g/dL Albumin (3.5-5.0) g/dL Urine Color (Yellow) Urine Appearance (Clear) Urine pH (4.6-8.0) Ur Specific [place] (1.005-1.030) Urine Protein (Negative) Urine Glucose (UA) (Negative) mg/dL Urine Ketones (Negative) Urine Blood (Negative) Urine Nitrite (Negative) Urine Bilirubin (Negative) Urine Urobilinogen (0.2) mg/dL Ur Leukocyte Esterase (Negative) U Hyaline Cast (Auto) (0-2) /LPF Urine Microscopic RBC (0-5) /HPF Urine Microscopic WBC (0-5) /HPF Ur Epithelial Cells (None Seen) /HPF Urine Bacteria (None Seen) /HPF Urine Culture Reflexed (NO) 01/25/25 01/25/25 01/25/25 Range/Units 03:24 07:05 11:03 WBC (4.23-9.07) x10^3/uL RBC (4.63-6.08) x10^6/uL Hgb (13.7-17.5) g/dL Hct (40.1-51.0) % MCV (79.0-92.2) fL MCH (25.7-32.2) pg MCHC (32.3-36.5) g/dL RDW (11.6-14.4) % Plt Count (163-337) x10^3/uL MPV (9.4-12.4) fL Gran % (34.0-67.9) % Immature Gran % (Auto) (0.001-0.429) % Nucleat RBC Rel Count (0.00-0.2) % Eos # (Auto) (0.04-0.54) x10^3/uL Immature Gran # (Auto) (0.001-0.031) x10^3u/L Absolute Lymphs (auto) (1.32-3.57) x10^3/uL Absolute Monos (auto) (0.30-0.82) x10^3/uL Absolute Nucleated RBC (0.00-0.012) x10^3u/L Lymphocytes % (21.8-53.1) % Monocytes % (5.3-12.2) % Eosinophils % (0.8-7.0) % Basophils % (0.2-1.2) % Absolute Granulocytes (1.78-5.38) x10^3/uL Basophils # (0.01-0.08) x10^3/uL Sodium 138 (135-145) mmol/L Potassium 3.3 L D 3.4 L (3.5-5.1) mmol/L Chloride 99 (98-107) mmol/L Carbon Dioxide 27 (22-30) mmol/L Anion Gap 14.3 (5-15) MEQ/L BUN 20 (9-20) mg/dL Creatinine 0.75 (0.66-1.25) mg/dL Estimated GFR 107.9 ML/MIN Glucose 125 H (74-106) mg/dL POC Glucometer 285 H (74 to 106) mg/dL Hemoglobin A1c (4.5-6.0) % Calcium 8.2 L (8.4-10.2) mg/dL Magnesium 2.0 (1.6-2.3) mg/dL Total Bilirubin (0.2-1.3) mg/dL AST (17-59) U/L ALT (0-50) U/L Alkaline Phosphatase (38-126) U/L Troponin I (0.000-0.033) ng/mL NT-Pro-B Natriuret Pep (<300) pg/mL Serum Total Protein (6.3-8.2) g/dL Albumin (3.5-5.0) g/dL Urine Color (Yellow) Urine Appearance (Clear) Urine pH (4.6-8.0) Ur Specific [place] (1.005-1.030) Urine Protein (Negative) Urine Glucose (UA) (Negative) mg/dL Urine Ketones (Negative) Urine Blood (Negative) Urine Nitrite (Negative) Urine Bilirubin (Negative) Urine Urobilinogen (0.2) mg/dL Ur Leukocyte Esterase (Negative) U Hyaline Cast (Auto) (0-2) /LPF Urine Microscopic RBC (0-5) /HPF Urine Microscopic WBC (0-5) /HPF Ur Epithelial Cells (None Seen) /HPF Urine Bacteria (None Seen) /HPF Urine Culture Reflexed (NO) Micro Results-Entire Visit: Accuchecks Date 01/25/25 Time 07:40 - Radiology Exams Ordered Rad Exams-Entire Visit: Radiology Procedures Category Date Time Status CHEST 1 VIEW (PORTABLE) Stat Exams 01/24/25 18:20 Completed ECHO W/2D AND DOPPLER [US] Routine Exams 01/25/25 04:21 Ordered - Procedures and Test Procedures and Tests throughout Hospitalization: Therapy Orders & Screens 01/25/25 02:26 OT Screen per Nursing Assess ONCE Comment: Protocol Order Physician Instructions: Greater than 3 points order OT Admission Screening Reason For Exam: Triggered on Admission Diagnosis: sob Open Wound/Cellutlitis/Pressure Ulcers: No Acute Fx/ORIF/Change in wt bearing status: No Severe MUSCULOSKELETAL pain: Yes ADL Dysfunction: No Acute CVA w/Hemiparesis/Hemiplegia: No Decreased Functional Mobility/Strength: Yes Sprain/Strain: No Acute Post-op Mobility Dysfunction: No Total Points: 6 PT Screen per Nursing Assess ONCE Comment: Protocol Order Physician Instructions: Greater than 3 points order PT Admission Screenin Reason For Exam: Triggered on Admission Diagnosis: sob Open Wound/Cellutlitis/Pressure Ulcers: No Acute Fx/ORIF/Change in wt bearing status: No Severe MUSCULOSKELETAL pain: Yes ADL Dysfunction: No Acute CVA w/Hemiparesis/Hemiplegia: No Decreased Functional Mobility/Strength: Yes Sprain/Strain: No Acute Post-op Mobility Dysfunction: No Total Points: 6 RT Screen per Nursing Assess ONCE Comment: Protocol Order Physician Instructions: Greater than 3 points order RT Admission Screen Reason For Exam: Triggered on Admission Diagnosis: sob Diagnosis: sob Pneumonia: No Home O2: No Asthma: No CHF: Yes Home CPAP/BIPAP: Yes Home Nebs/MDI: No Total Points: 8 01/25/25 03:19 Oxygen Nasal Cannula 2 lpm Comment: Diagnosis: sob Respiratory Therapy Consult ONCE Comment: Reason For Exam: Diagnosis: sob Discharge Exam General Appearance: no apparent distress Neurologic Exam: alert, oriented x 3, cooperative Eye Exam: PERRL Ears, Nose, Throat Exam: normal ENT inspection Neck Exam: normal inspection Respiratory Exam: diminished breath sounds, crackles/rales Cardiovascular Exam: regular rate/rhythm, normal heart sounds Gastrointestinal/Abdomen Exam: soft, normal bowel sounds Male Genitalia Exam: deferred Rectal Exam: deferred Back Exam: normal inspection Extremity Exam: swelling (BLE +3 pitting) Skin Exam: normal color Final Diagnosis/Problem List - Final Discharge Diagnosis/Problem (1) Acute on chronic systolic heart failure Current Visit: Yes Status: Acute Code(s): I50.23 - ACUTE ON CHRONIC SYSTOLIC (CONGESTIVE) HEART FAILURE (2) Afib Current Visit: Yes Status: Chronic Code(s): I48.91 - UNSPECIFIED ATRIAL FIBRILLATION (3) Type 2 diabetes mellitus Current Visit: Yes Status: Chronic (4) Bipolar 1 disorder Current Visit: Yes Status: Chronic Code(s): F31.9 - BIPOLAR DISORDER, UNSPECIFIED - Discharge Discharge Date: 01/25/25 Disposition: DC TO [facility] Condition: Stable Prescriptions: New Potassium Chloride Tab* [Klor Con] 20 meq PO DAILY tablet Furosemide 40 mg/4 ml [Lasix 40 MG/4 ML] 80 mg IV BID DIURETIC Acetaminophen 325 mg [Tylenol 325 mg] 650 mg PO Q6H PRN PRN tablet PRN Reason: Pain And/Or Fever Continue Atorvastatin Calcium [Lipitor 20MG Tablet] 80 mg PO HS Sacubitril/Valsartan [Entresto 24 mg-26 mg Tablet] 24 - 26 mg PO BID Venlafaxine HCl [Venlafaxine HCl ER] 37.5 mg PO DAILY Fenofibrate,Micronized [Fenofibrate] 134 mg PO DAILY Pioglitazone 30 mg [Actos 30 MG] 30 mg PO DAILY Quetiapine Fumarate [Seroquel] 50 mg PO HS Isosorbide Mononitrate 60 mg [Imdur 60MG] 1 tab PO DAILY Ezetimibe 10 mg [Zetia 10 MG] 1 tab PO DAILY Apixaban [Eliquis] 5 mg PO BID Magnesium Oxide [Magnesium] 250 mg PO DAILY Cyanocobalamin/Folic Acid [M26-Rkszo Acid 2500-400 Mcg Tb] 2,500 mcg PO DAILY Hydrocodone/Acetaminophen [Hydrocodone-Acetamin 10-325 mg] 1 tab PO QIDPRN PRN PRN Reason: Pain Carvedilol 3.125 mg [Coreg 3.125 MG] 3.125 mg PO BID 30 Days #60 tablet Insulin Degludec [Tresiba Flextouch U-200] 100 unit SQ DAILY Discontinued Furosemide 20 mg [Lasix 20 mg] 40 mg PO DAILY 14 Days #28 tablet Follow up with: ANGIE CEBALLOS MD [Primary Care Provider] - ODETTE BHARDWAJ [Family Provider] -
[2025-01-25] MEDS: TYLENOL 325 MG PO PRN (13:45)
[2025-01-25 16:10] VITALS: BP 139/88; PULSE 83; TEMP 97.9; O2SAT 94
[2025-01-25] MEDS ORDERED: ZOCOR 20MG PO SCH (22:00)
[2025-01-25] MEDS ORDERED: NON-FORMULARY ITEM (Atorvastatin Calcium 20 MG Tab) PO SCH (22:00)
[2025-01-25] MEDS ORDERED: NON-FORMULARY ITEM (Quetiapine Fumarate [Seroquel] 50 MG Tablet) PO SCH (22:00)
[2025-01-25] MEDS ORDERED: Seroquel 100 MG PO SCH (22:00)
== END 2025-01-25 18:35 | disposition home or self-care (01) ==
LOC: ED 17:49 → UNDOADMOB 21:05 → MED SURG 21:05
PROVIDERS: ADMIT Internal Medicine; ATTEND Internal Medicine
DX: I50.23 Acute on chronic systolic (congestive) heart failure (principal); R63.5 Abnormal weight gain; I48.91 Unspecified atrial fibrillation; E11.9 Type 2 diabetes mellitus without complications; I25.10 Atherosclerotic heart disease of native coronary artery without angina pectoris; Z79.899 Other long term (current) drug therapy; Z79.01 Long term (current) use of anticoagulants; F31.9 Bipolar disorder, unspecified
CPT/HCPCS: 36415; 71045; 80048; 80053; 81001; 82947; 83036; 83735; 83880; 84132; 84484; 85025; 85027; 93005; 93041; 93268; 93306; 94760; 99285; G0378; Q3014; J1817; J1938; J3475; J3480; A9270-GY

== ENCOUNTER 2025-02-11 22:46 | Inpatient (IN) | payer MEDICARE ==
--- NOTE | 2025-02-11 22:51 | ERPHSYRPT ---
- History of Present Illness Time Seen by Provider: 02/11/25 22:50 Source: patient, family Exam Limitations: no limitations Physician History: This is an overweight 54-year-old white male patient who arrives by private vehicle and is a patient of Dr. Ceballos with the concern of patient with elevated heart rate for the last 2 to 3 days. Patient denies chest pain. A couple of days ago he felt brief chest pressure but he has no pain today night and he did not have any earlier in the day today. Patient is not short of breath. I reviewed the patient's recent inpatient stay here at [facility]. I reviewed the summary of that stay. The date was 01/25/2025. 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 Patient has a defibrillator in place and it has not fired during the last 2 to 3 days. He is on a beta-gareth. He does have significant coronary artery disease having had [address] and 7 myocardial infarction's. He has a history of hypertension, diabetes, CHF and hyperlipidemia. He is on Eliquis. Timing/Duration: today (Rapid heart rate more noticeable today), day(s) (2), other (Not worse but persistent) Severity of Pain-Max: none Severity of Pain-Current: none Nitro Today/Relief: no nitro taken today Aspirin Treatment Today: no aspirin today Associated Symptoms: other (Rapid heart rate), No shortness of breath, No chest pain Prior Chest Pain/Cardiac Workup: cardiac cath, heart attack Allergies/Adverse Reactions: No Known Drug Allergies Allergy (Verified 02/11/25 22:52) Home Medications: Atorvastatin Calcium [Lipitor 20MG Tablet] 80 mg PO HS 03/22/15 [History] Sacubitril/Valsartan [Entresto 24 mg-26 mg Tablet] 24 - 26 mg PO BID 09/24/17 [History] Venlafaxine HCl [Venlafaxine HCl ER] 37.5 mg PO DAILY 11/23/17 [History] Pioglitazone 30 mg [Actos 30 MG] 30 mg PO DAILY 06/17/20 [History] Apixaban [Eliquis] 10 mg PO BID 02/27/24 [History] Isosorbide Mononitrate 60 mg [Imdur 60MG] 1 tab PO DAILY 02/27/24 [History] Cyanocobalamin/Folic Acid [M29-Kuvsz Acid 2500-400 Mcg Tb] 2,500 mcg PO DAILY 03/06/24 [History] Hydrocodone/Acetaminophen [Hydrocodone-Acetamin 10-325 mg] 1 tab PO QIDPRN PRN 03/06/24 [History] Magnesium Oxide [Magnesium] 250 mg PO DAILY 03/06/24 [History] Insulin Degludec [Tresiba Flextouch U-200] 100 unit SQ DAILY 08/21/24 [History] Carvedilol 3.125 mg [Coreg 3.125 MG] 6.25 mg PO BID 02/12/25 [History] Empagliflozin [Jardiance] 25 mg PO DAILY 02/12/25 [History] Furosemide 40 mg PO BID 02/12/25 [History] Insulin Aspart [Novolog] 75 unit SQ AC 02/12/25 [History] Multivit-Min/Folic/Vit K/Lycop [Men's Daily Formula Tablet] 1 each PO DAILY 02/12/25 [History] [place]-3 Fatty Acids/Fish Oil [Fish Oil 1,000 mg Capsule] 1,000 mg PO BID 02/12/25 [History] Potassium Chloride Tab* [Klor Con] 20 meq PO BID 02/12/25 [History] Hx Tetanus, Diphtheria Vaccination/Date Given: Yes Hx Influenza Vaccination/Date Given: No Hx Pneumococcal Vaccination/Date Given: No Travel Risk - International Travel Have you traveled outside of the country in past 3 weeks: No - Emerging Infectious Disease Are you exhibiting symptoms associated with any current EIDs: Yes Symptoms: Cough: New Onset, Shortness of Breath Comment: lower legs swelling - Review of Systems Constitutional: No Symptoms Eyes: No Symptoms Ears, Nose, & Throat: No Symptoms Respiratory: No Symptoms Cardiac: Palpitations Abdominal/Gastrointestinal: No Symptoms Genitourinary Symptoms: No Symptoms Musculoskeletal: No Symptoms Skin: No Symptoms Neurological: No Symptoms Psychological: No Symptoms Endocrine: No Symptoms Hematologic/Lymphatic: No Symptoms Immunological/Allergic: No Symptoms All Other Systems: Reviewed and Negative - Past Medical History Pertinent Past Medical History: Yes Neurological History: No Pertinent History ENT History: No Pertinent History Cardiac History: Congestive Heart Failure, High Cholesterol, Hypertension, Myocardial Infarction ([place]), Other Respiratory History: Other Endocrine Medical History: Diabetes Type II Musculoskeletal History: Osteoarthritis GI Medical History: Pancreatitis History: No Pertinent History Psycho-Social History: No Pertinent History Male Reproductive Disorders: No Pertinent History Other Medical History: PMHX: 7 OH's, PER PATIENT HAS 5 STENTS BUT NO CABG. HAS DEFIBRILLATOR PLACED 2014 WITH HX OF ACTIVATION PER PATIENT "A FEW TIMES". PER PATIENT HEART FUNCTION 15-20%. SEVERE OA LEFT KNEE - BONE ON BONE BUT UNABLE TO HAVE REPLACEMENT DUE TO HEART. 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 - Past Surgical History Past Surgical History: Yes Neuro Surgical History: No Pertinent History Cardiac: Angioplasty, Cardiac Catheterization, Cardiac Stent, Internal Defibrillator, Pacemaker Respiratory: No Pertinent History Gastrointestinal: Cholecystectomy, Hernia Repair Genitourinary: No Pertinent History Musculoskeletal: Orthopedic Surgery Male Surgical History: No Pertinent History Other Surgical History: elbow Significant Family History: heart disease, diabetes, hypertension - Social History Smoking Status: Former smoker How long have you smoked: 20+ Exposure to second hand smoke: No Drug Use: none - Social Determinants of Health Will the patient participate in the screening: Yes Do you worry about a steady place to live?: No In the past 12 months,have you had to go without utilities?: No Transportation Issues: No Has anyone in your support network made you feel unsafe?: No Have you or anyone in your house had to go w/o enough food: No - Nursing Vital Signs Nursing Vital Signs: Initial Vital Signs Temperature 97.3 F 02/11/25 22:55 Pulse Rate 141 H 02/11/25 22:55 Respiratory Rate 20 02/11/25 22:55 Blood Pressure 153/105 02/11/25 22:55 O2 Sat by Pulse Oximetry 97 02/11/25 22:55 Pain Scale Pain Intensity 0 - Physical Exam General Appearance: no apparent distress, alert, anxiety, obese Eye Exam: PERRL/EOMI, eyes nml inspection Ears, Nose, Throat Exam: normal ENT inspection, moist mucous membranes Neck Exam: normal inspection, non-tender, supple, full range of motion Respiratory Exam: normal breath sounds, lungs clear, No chest tenderness, No respiratory distress Cardiovascular Exam: tachycardia, irregular Gastrointestinal/Abdomen Exam: soft, normal bowel sounds, No tenderness Rectal Exam: not done Back Exam: normal inspection, normal range of motion, No CVA tenderness, No vertebral tenderness Extremity Exam: normal inspection, normal range of motion, pelvis stable Neurologic Exam: alert, oriented x 3, cooperative, 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 No acute ischemic changes.) Ordered Tests: Active Orders 24 hr Category Date Time Status Pressure Tester Operator STAT Care 02/11/25 23:27 Active EKG-ER Only STAT Care 02/11/25 23:26 Active EKG-ER Only STAT Care 02/12/25 01:21 Active IV Insertion STAT Care 02/11/25 23:26 Active Pulse Oximetry (ED) STAT Care 02/11/25 23:26 Active CBC W DIFF Stat Lab 02/11/25 23:37 Completed CMP Stat Lab 02/11/25 23:37 Completed MAGNESIUM Stat Lab 02/11/25 23:37 Completed NT PRO BNPII Stat Lab 02/11/25 23:37 Completed TROPONIN Q4H Lab 02/11/25 23:37 Completed TROPONIN Q4H Lab 02/12/25 01:33 Completed TROPONIN Q4H Lab 02/12/25 07:30 Ordered TSH [TSH, 3RD Generation] Stat Lab 02/12/25 01:31 Completed UA W/RFX UR CULTURE Stat Lab 02/12/25 00:51 Completed Medication Summary Generic Name Dose Route Start Last Admin Trade Name Freq PRN Reason Stop Dose Admin Diltiazem HCl 100 mls @ 5 mls/hr 02/12/25 02:15 02/12/25 04:12 Cardizem Drip 100 Mg/100 Ml D5w IV 03/14/25 02:14 10 mg/hr .Q20H PRN 10 mls/hr HEART RATE/ A-FIB Titration Protocol 5 MG/HR Discontinued Medications Generic Name Dose Route Start Last Admin Trade Name Freq PRN Reason Stop Dose Admin Hydrocodone Bitart/Acetaminophen 1 tablet 02/12/25 03:53 02/12/25 03:56 Hydrocodone/Acetamin 10-325 Mg Tablet PO 02/12/25 03:54 1 tablet STAT ONE Administration Hydrocodone Bitart/Acetaminophen Confirm 02/12/25 03:56 Hydrocodone/Acetamin 10-325 Mg Tablet Administered 02/12/25 03:57 Dose 1 tablet .ROUTE .STK-MED ONE Diltiazem HCl 10 mg 02/12/25 01:41 02/12/25 01:58 Diltiazem Hcl Iv 5 Mg/Ml Vial IV 02/12/25 01:42 10 mg STAT ONE Administration Diltiazem HCl Confirm 02/12/25 01:58 Diltiazem Hcl Iv 5 Mg/Ml Vial Administered 02/12/25 01:59 Dose 50 mg IV .STK-MED ONE Sodium Chloride 500 mls @ 500 mls/hr 02/12/25 00:36 02/12/25 01:23 Sodium Chloride 0.9% 500 Ml IV 02/12/25 01:35 Not Given .Q1H ONE Sodium Chloride Confirm 02/12/25 00:45 Sodium Chloride 0.9% 1000 Ml Administered 02/12/25 00:46 Dose 1,000 mls @ ud .ROUTE .STK-MED ONE Sodium Chloride 1,000 mls @ 500 mls/hr 02/12/25 00:50 02/12/25 03:41 Sodium Chloride 0.9% 1000 Ml IV 02/12/25 02:49 0 mls/hr .Q2H STA Infusion Labetalol HCl 10 mg 02/11/25 23:26 02/11/25 23:37 Labetalol Hcl 20 Mg/4 Ml Disp.Syringe IV 02/11/25 23:27 10 mg STAT ONE Administration Labetalol HCl Confirm 02/11/25 23:35 Labetalol Hcl 20 Mg/4 Ml Disp.Syringe Administered 02/11/25 23:36 Dose 20 mg IV .STK-MED ONE Metoprolol Tartrate 5 mg 02/12/25 00:25 02/12/25 00:53 Metoprolol Tartrate 5 Mg/5 Ml Vial IV 02/12/25 00:26 5 mg STAT ONE Administration Metoprolol Tartrate Confirm 02/12/25 00:45 Metoprolol Tartrate 5 Mg/5 Ml Vial Administered 02/12/25 00:46 Dose 5 mg IV .STK-MED ONE Lab/Rad Data: Laboratory Result Diagrams 02/11/25 23:37 02/11/25 23:37 Laboratory Results 05/04/25 05/04/25 05/04/25 Range/Units 01:33 01:31 01:30 WBC (4.23-9.07) x10^3/uL RBC (4.63-6.08) x10^6/uL Hgb (13.7-17.5) g/dL Hct (40.1-51.0) % MCV (79.0-92.2) fL MCH (25.7-32.2) pg MCHC (32.3-36.5) g/dL RDW (11.6-14.4) % Plt Count (163-337) x10^3/uL MPV (9.4-12.4) fL Gran % (34.0-67.9) % Immature Gran % (Auto) (0.001-0.429) % Nucleat RBC Rel Count (0.00-0.2) % Eos # (Auto) (0.04-0.54) x10^3/uL Immature Gran # (Auto) (0.001-0.031) x10^3u/L Absolute Lymphs (auto) (1.32-3.57) x10^3/uL Absolute Monos (auto) (0.30-0.82) x10^3/uL Absolute Nucleated RBC (0.00-0.012) x10^3u/L Lymphocytes % (21.8-53.1) % Monocytes % (5.3-12.2) % Eosinophils % (0.8-7.0) % Basophils % (0.2-1.2) % Absolute Granulocytes (1.78-5.38) x10^3/uL Basophils # (0.01-0.08) x10^3/uL Sodium (135-145) mmol/L Potassium (3.5-5.1) mmol/L Chloride (98-107) mmol/L Carbon Dioxide (22-30) mmol/L Anion Gap (5-15) MEQ/L BUN (9-20) mg/dL Creatinine (0.66-1.25) mg/dL Estimated GFR ML/MIN Glucose (74-106) mg/dL Calcium (8.4-10.2) mg/dL Magnesium (1.6-2.3) mg/dL Total Bilirubin (0.2-1.3) mg/dL AST (17-59) U/L ALT (0-50) U/L Alkaline Phosphatase (38-126) U/L Troponin I 0.018 (0.000-0.033) ng/mL NT-Pro-B Natriuret Pep (<300) pg/mL Serum Total Protein (6.3-8.2) g/dL Albumin (3.5-5.0) g/dL Free T4 1.07 (0.78-2.19) ng/dL TSH 3rd Generation 1.866 (0.470-4.680) mIU/L Urine Color (Yellow) Urine Appearance (Clear) Urine pH (4.6-8.0) Ur Specific [place] (1.005-1.030) Urine Protein (Negative) Urine Glucose (UA) (Negative) mg/dL Urine Ketones (Negative) Urine Blood (Negative) Urine Nitrite (Negative) Urine Bilirubin (Negative) Urine Urobilinogen (0.2) mg/dL Ur Leukocyte Esterase (Negative) U Hyaline Cast (Auto) (0-2) /LPF Urine Microscopic RBC (0-5) /HPF Urine Microscopic WBC (0-5) /HPF Ur Epithelial Cells (None Seen) /HPF Urine Bacteria (None Seen) /HPF Urine Culture Reflexed (NO) 02/12/25 02/11/25 02/11/25 Range/Units 00:51 23:37 23:37 WBC (4.23-9.07) x10^3/uL RBC (4.63-6.08) x10^6/uL Hgb (13.7-17.5) g/dL Hct (40.1-51.0) % MCV (79.0-92.2) fL MCH (25.7-32.2) pg MCHC (32.3-36.5) g/dL RDW (11.6-14.4) % Plt Count (163-337) x10^3/uL MPV (9.4-12.4) fL Gran % (34.0-67.9) % Immature Gran % (Auto) (0.001-0.429) % Nucleat RBC Rel Count (0.00-0.2) % Eos # (Auto) (0.04-0.54) x10^3/uL Immature Gran # (Auto) (0.001-0.031) x10^3u/L Absolute Lymphs (auto) (1.32-3.57) x10^3/uL Absolute Monos (auto) (0.30-0.82) x10^3/uL Absolute Nucleated RBC (0.00-0.012) x10^3u/L Lymphocytes % (21.8-53.1) % Monocytes % (5.3-12.2) % Eosinophils % (0.8-7.0) % Basophils % (0.2-1.2) % Absolute Granulocytes (1.78-5.38) x10^3/uL Basophils # (0.01-0.08) x10^3/uL Sodium 140 (135-145) mmol/L Potassium 4.4 (3.5-5.1) mmol/L Chloride 103 (98-107) mmol/L Carbon Dioxide 22 (22-30) mmol/L Anion Gap 19.2 H (5-15) MEQ/L BUN 29 H (9-20) mg/dL Creatinine 0.96 (0.66-1.25) mg/dL Estimated GFR 94.5 ML/MIN Glucose 166 H (74-106) mg/dL Calcium 9.5 (8.4-10.2) mg/dL Magnesium 2.1 (1.6-2.3) mg/dL Total Bilirubin 0.40 (0.2-1.3) mg/dL AST 73 H (17-59) U/L ALT 62 H (0-50) U/L Alkaline Phosphatase 103 (38-126) U/L Troponin I 0.019 (0.000-0.033) ng/mL NT-Pro-B Natriuret Pep 579 (<300) pg/mL Serum Total Protein 7.3 (6.3-8.2) g/dL Albumin 4.3 (3.5-5.0) g/dL Free T4 (0.78-2.19) ng/dL TSH 3rd Generation (0.470-4.680) mIU/L Urine Color Yellow (Yellow) Urine Appearance Clear (Clear) Urine pH 6.0 (4.6-8.0) Ur Specific [place] 1.015 (1.005-1.030) Urine Protein 30 (Negative) Urine Glucose (UA) >=1000 A (Negative) mg/dL Urine Ketones Negative (Negative) Urine Blood Negative (Negative) Urine Nitrite Negative (Negative) Urine Bilirubin Negative (Negative) Urine Urobilinogen 0.2 (0.2) mg/dL Ur Leukocyte Esterase Negative (Negative) U Hyaline Cast (Auto) NONE SEEN (0-2) /LPF Urine Microscopic RBC 0-2 (0-5) /HPF Urine Microscopic WBC 0-2 (0-5) /HPF Ur Epithelial Cells None Seen (None Seen) /HPF Urine Bacteria None Seen (None Seen) /HPF Urine Culture Reflexed NO (NO) 02/11/25 Range/Units 23:37 WBC 8.5 (4.23-9.07) x10^3/uL RBC 4.91 (4.63-6.08) x10^6/uL Hgb 15.2 (13.7-17.5) g/dL Hct 46.2 (40.1-51.0) % MCV 94.1 H (79.0-92.2) fL MCH 31.0 (25.7-32.2) pg MCHC 32.9 (32.3-36.5) g/dL RDW 14.9 H (11.6-14.4) % Plt Count 308 (163-337) x10^3/uL MPV 11.3 (9.4-12.4) fL Gran % 57.0 (34.0-67.9) % Immature Gran % (Auto) 0.5 H (0.001-0.429) % Nucleat RBC Rel Count 0.2 (0.00-0.2) % Eos # (Auto) 0.41 (0.04-0.54) x10^3/uL Immature Gran # (Auto) 0.04 H (0.001-0.031) x10^3u/L Absolute Lymphs (auto) 2.27 (1.32-3.57) x10^3/uL Absolute Monos (auto) 0.81 (0.30-0.82) x10^3/uL Absolute Nucleated RBC 0.02 H (0.00-0.012) x10^3u/L Lymphocytes % 26.8 (21.8-53.1) % Monocytes % 9.6 (5.3-12.2) % Eosinophils % 4.8 (0.8-7.0) % Basophils % 1.3 H (0.2-1.2) % Absolute Granulocytes 4.84 (1.78-5.38) x10^3/uL Basophils # 0.11 H (0.01-0.08) x10^3/uL Sodium (135-145) mmol/L Potassium (3.5-5.1) mmol/L Chloride (98-107) mmol/L Carbon Dioxide (22-30) mmol/L Anion Gap (5-15) MEQ/L BUN (9-20) mg/dL Creatinine (0.66-1.25) mg/dL Estimated GFR ML/MIN Glucose (74-106) mg/dL Calcium (8.4-10.2) mg/dL Magnesium (1.6-2.3) mg/dL Total Bilirubin (0.2-1.3) mg/dL AST (17-59) U/L ALT (0-50) U/L Alkaline Phosphatase (38-126) U/L Troponin I (0.000-0.033) ng/mL NT-Pro-B Natriuret Pep (<300) pg/mL Serum Total Protein (6.3-8.2) g/dL Albumin (3.5-5.0) g/dL Free T4 (0.78-2.19) ng/dL TSH 3rd Generation (0.470-4.680) mIU/L Urine Color (Yellow) Urine Appearance (Clear) Urine pH (4.6-8.0) Ur Specific [place] (1.005-1.030) Urine Protein (Negative) Urine Glucose (UA) (Negative) mg/dL Urine Ketones (Negative) Urine Blood (Negative) Urine Nitrite (Negative) Urine Bilirubin (Negative) Urine Urobilinogen (0.2) mg/dL Ur Leukocyte Esterase (Negative) U Hyaline Cast (Auto) (0-2) /LPF Urine Microscopic RBC (0-5) /HPF Urine Microscopic WBC (0-5) /HPF Ur Epithelial Cells (None Seen) /HPF Urine Bacteria (None Seen) /HPF Urine Culture Reflexed (NO) - Progress Progress: improved, re-examined Air Movement: good Progress Note: 02/11/25 23:40 My medical decision making and the assignment of moderate complexity of this patient's medical issue today is based on review of the patient's past medical history, review of patient's medication list, reviewed patient drug allergy list, history present illness and physical findings on examination. The workup in this patient includes placement of a intravenous line, CBC, CMP, magnesium level, troponin level, BNP, twelve-lead EKG. We will also provide the patient with 10 mg intravenous labetalol and reassess his blood pressure, heart rate and twelve-lead EKG. I will not order a D-dimer as this patient is already taking Eliquis. The patient is not short of breath and he has no chest pain. Differential diagnosis includes but is not limited to electrolyte abnormalities, myocardial infarction, congestive heart failure exacerbation, anemia 02/12/25 01:39 I interpreted the patient's laboratory data results. Based on the laboratory data results, the patient has mild hyperglycemia. There is no other acute, emergent medical issue. I interpreted the repeat twelve-lead EKG that was performed on 02/12/2025 at 0127. Despite providing the patient with 10 mg of labetalol intravenously and 5 mg of intravenous Lopressor, the heart rate continues to be elevated at 132 with a sinus tachycardia pattern. I interpreted this twelve-lead EKG. Heart rate is 132 bpm in a sinus or ectopic atrial tachycardia. The QTc is 562 there is no evidence of any acute ischemia. I had a discussion with the patient regarding his heart rhythm issue and history. He states he thinks he has atrial fibrillation. Since the labetalol and Lopressor were ineffective in lowering his heart rate, we will add Cardizem intravenously. 02/12/25 02:15 We provided him with a 10 mg bolus of intravenous Cardizem. His heart rate seem to respond to this small bolus dropping his heart rate from 133 bpm down to 114. His heart rate appears to be decreasing with the Cardizem. We will place him on a drip and titrate. Will repeat a twelve-lead EKG once the heart rate is under 100 bpm. 02/12/25 04:[address] Sr, our telehospitalist on-call at this time. I reviewed the patient history including his significant cardiac history of 7 myocardial infarction's and 5 cardiac stents as well as defibrillator in place, presenting complaint, physical findings on examination, workup results and the patient response to our interventions. The patient heart rate improved on Cardizem but not on labetalol or Lopressor. Patient's blood pressure has remained stable. We will admit this patient to ICU and we will continue Cardizem drip. The patient has no chest pain at this time and is not short of breath. His heart rate is running on the monitor anywhere between 109 bpm and 125 bpm. Patient's respiratory rate is 17 and his room air oxygen saturation level is 97%. Blood Culture(s) Obtained: No Antibiotics given: No Counseled pt/family regarding: lab results, diagnosis, need for follow-up Medical Desision Making - Diagnostic Testing Diagnostic test were ordered, analyzed, and reviewed by me: Yes - Risk of complications The pt has a high risk of morbidity or mortality based on: Decision regarding hospitilization or escalation of hosp level of care - Departure Departure Disposition: In-patient Admission Clinical Impression: Atrial fibrillation with RVR Condition: Fair Critical Care Time: Yes Critical Care Time(excluding separately billable procedures): Critical 30-74 mins (50) Referrals: ANGIE CEBALLOS MD [Primary Care Provider, [facility]] - Follow up/PCP as directed
[2025-02-11] MEDS ORDERED: TRANDATE 20 MG/4 ML SYRINGE IV ONE (23:35)
[2025-02-11] MEDS: TRANDATE 20 MG/4 ML SYRINGE IV ONE (23:37)
[2025-02-11 23:41] LABS: Absolute Neutrophil Ct (ANC) 4.84 x10^3/uL (1.78-5.38); BASOPHIL % 1.3 % (0.2-1.2); Basophil (Absolute #) 0.11 x10^3/uL (0.01-0.08); Eosinophil % 4.8 % (0.8-7.0); Eosinophil (Absolute #) 0.41 x10^3/uL (0.04-0.54); Hematocrit 46.2 % (40.1-51.0); Hemoglobin 15.2 g/dL (13.7-17.5); IMMATURE GRAN # 0.04 x10^3u/L (0.001-0.031); IMMATURE GRAN % 0.5 % (0.001-0.429); Lymphocyte (Absolute #) 2.27 x10^3/uL (1.32-3.57); Lymphocytes % 26.8 % (21.8-53.1); Mean Cell Volume 94.1 fL (79.0-92.2); Mean Corpuscular Hgb Concent. 32.9 g/dL (32.3-36.5); Mean Platelet Volume 11.3 fL (9.4-12.4); Monocyte (Absolute #) 0.81 x10^3/uL (0.30-0.82); Monocytes % 9.6 % (5.3-12.2); NUCLEATED RBC # 0.02 x10^3u/L (0.00-0.012); NUCLEATED RBC % 0.2 % (0.00-0.2); Platelet Count 308 x10^3/uL (163-337); Red Blood Count 4.91 x10^6/uL (4.63-6.08); Red Cell Distribution Width 14.9 % (11.6-14.4); White Blood Count 8.5 x10^3/uL (4.23-9.07)
[2025-02-12 00:04] LABS: ALBUMIN 4.3 g/dL (3.5-5.0); ANION GAP 19.2 MEQ/L (5-15); BILIRUBIN,TOTAL 0.4 mg/dL (0.2-1.3); Calcium 9.5 mg/dL (8.4-10.2); Creatinine 1 0.96 mg/dL (0.66-1.25); EST GLOMERULAR FILTRATION RATE 94.5 ML/MIN; MAGNESIUM 2.1 mg/dL (1.6-2.3); Potassium 4.4 mmol/L (3.5-5.1); Total Protein 7.3 g/dL (6.3-8.2)
[2025-02-12] MEDS ORDERED: Sodium Chloride 0.9% 1000 ML 1,000 ML ONE (00:45)
[2025-02-12] MEDS ORDERED: LOPRESSOR INJECTION IV ONE (00:45)
[2025-02-12] MEDS: LOPRESSOR INJECTION IV ONE (00:53)
[2025-02-12] MEDS: Sodium Chloride 0.9% 1000 ML 1,000 ML IV STA (00:59)
[2025-02-12 01:07] LABS: Appearance Clear (Clear); Bacteria None Seen /HPF (None Seen); Epithelial Cells None Seen /HPF (None Seen); Hyaline Casts NONE SEEN /LPF (0-2); RBC 0-2 /HPF (0-5); WBC 0-2 /HPF (0-5)
[2025-02-12 01:08] LABS: Bilirubin Negative (Negative); Blood Negative (Negative); Ketones Negative (Negative); Leukocyte Esterase Negative (Negative); Nitrite Negative (Negative); Protein,Urine Dip 30 (Negative); Specific Gravity 1.015 (1.005-1.030); Urobilinogen 0.2 mg/dL (0.2)
[2025-02-12 01:09] LABS: Glucose, Urine >=1000 mg/dL (Negative)
[2025-02-12] MEDS: Sodium Chloride 0.9% 500 ML 500 ML IV ONE (01:23)
[2025-02-12] MEDS: Cardizem IV 50 MG/10 ML IV ONE ×2 (01:58→04:23)
[2025-02-12] MEDS ORDERED: Cardizem IV 50 MG/10 ML IV ONE (01:58)
[2025-02-12] MEDS: CARDIZEM DRIP 100 MG/100 ML D5W 100 ML IV PRN (02:23)
[2025-02-12] MEDS: NORCO 10-325 MG PO ONE (03:56)
[2025-02-12] MEDS ORDERED: NORCO 10-325 MG ONE (03:56)
[2025-02-12] MEDS ORDERED: HUMULIN R SQ PRN (05:03)
[2025-02-12] MEDS ORDERED: TYLENOL 325 MG PO PRN (05:03)
[2025-02-12 07:00] LABS: Absolute Neutrophil Ct (ANC) 4.21 x10^3/uL (1.78-5.38); BASOPHIL % 0.8 % (0.2-1.2); Basophil (Absolute #) 0.06 x10^3/uL (0.01-0.08); Eosinophil (Absolute #) 0.37 x10^3/uL (0.04-0.54); Hematocrit 44.3 % (40.1-51.0); Hemoglobin 14.4 g/dL (13.7-17.5); IMMATURE GRAN # 0.02 x10^3u/L (0.001-0.031); IMMATURE GRAN % 0.3 % (0.001-0.429); Lymphocytes % 28.1 % (21.8-53.1); Mean Cell Volume 96.5 fL (79.0-92.2); Mean Corpuscular Hemoglobin 31.4 pg (25.7-32.2); Mean Corpuscular Hgb Concent. 32.5 g/dL (32.3-36.5); Mean Platelet Volume 10.8 fL (9.4-12.4); Monocyte (Absolute #) 0.71 x10^3/uL (0.30-0.82); Monocytes % 9.5 % (5.3-12.2); Neutrophil % 56.3 % (34.0-67.9); Platelet Count 266 x10^3/uL (163-337); Red Blood Count 4.59 x10^6/uL (4.63-6.08); Red Cell Distribution Width 15.2 % (11.6-14.4); White Blood Count 7.5 x10^3/uL (4.23-9.07)
--- NOTE | 2025-02-12 07:06 | PCM.HP ---
History of Present Illness - Chief Complaint Chief Complaint: Afib RVR Date: 02/12/25 History of Present Illness: Mr. GODFREY is a 54 year old male with a past medical history significant for hypertension, diabetes, coronary artery disease status post PTCA/stents and atrial fibrillation who reports that he felt strange a couple days ago and checked his heart rate, which came back at 144. It has been running up and down since then but really has not improved so he came to the hospital. No fever/chills. No chest pain or shortness of breath. No nausea, vomiting or diarrhea. He was given Metoprolol, Labetalol and then placed on a cardizem drip. He is seen via telehealth, where he is resting in the ICU, awake/alert. He reports no changes in his diet and has been compliant with his medications. - Review of Systems Constitutional: No Fever, No Chills Eyes: No Vision Changes Ears, Nose, & Throat: No Sinus Drainage Respiratory: No Cough, No Orthopnea, No Short Of Breath Cardiac: No Chest Pain, No Edema, No Palpitations Abdominal/Gastrointestinal: No Abdominal Pain, No Nausea, No Vomiting, No Mimi rrhea Genitourinary Symptoms: No Dysuria, No Frequency, No Hematuria Musculoskeletal: No Back Pain, No Neck Pain Skin: No Cellulitis, No Rash Neurological: No Dizziness Psychological: No Suicidal Ideations Endocrine: No Polyuria, No Polydipsia Hematologic/Lymphatic: No Adenopathy Medications & Allergies Home Medications: Home Medication List Atorvastatin Calcium [Lipitor 20MG Tablet] 80 mg PO HS 03/22/15 [History Confirmed 02/12/25] Sacubitril/Valsartan [Entresto 24 mg-26 mg Tablet] 24 - 26 mg PO BID 09/24/17 [History Confirmed 02/12/25] Venlafaxine HCl [Venlafaxine HCl ER] 37.5 mg PO DAILY 11/23/17 [History Confirmed 02/12/25] Pioglitazone 30 mg [Actos 30 MG] 30 mg PO DAILY 06/17/20 [History Confirmed 02/12/25] Apixaban [Eliquis] 10 mg PO BID 02/27/24 [History Confirmed 02/12/25] Isosorbide Mononitrate 60 mg [Imdur 60MG] 1 tab PO DAILY 02/27/24 [History Confirmed 02/12/25] Cyanocobalamin/Folic Acid [B20-[place] Acid 2500-400 Mcg Tb] 2,500 mcg PO DAILY 03/06/24 [History Confirmed 02/12/25] Hydrocodone/Acetaminophen [Hydrocodone-Acetamin 10-325 mg] 1 tab PO QIDPRN PRN 03/06/24 [History Confirmed 02/12/25] Magnesium Oxide [Magnesium] 250 mg PO DAILY 03/06/24 [History Confirmed 02/12/25] Insulin Degludec [Tresiba Flextouch U-200] 100 unit SQ DAILY 08/21/24 [History Confirmed 02/12/25] Acetaminophen 325 mg [Tylenol 325 mg] 650 mg PO Q6H PRN PRN tablet 01/25/25 [Rx Confirmed 02/12/25] Carvedilol 3.125 mg [Coreg 3.125 MG] 6.25 mg PO BID 02/12/25 [History Confirmed 02/12/25] Empagliflozin [Jardiance] 25 mg PO DAILY 02/12/25 [History Confirmed 02/12/25] Furosemide 40 mg PO BID 02/12/25 [History Confirmed 02/12/25] Insulin Aspart [Novolog] 75 unit SQ AC 02/12/25 [History Confirmed 02/12/25] Multivit-Min/Folic/Vit K/Lycop [Men's Daily Formula Tablet] 1 each PO DAILY 02/12/25 [History Confirmed 02/12/25] [place]-3 Fatty Acids/Fish Oil [Fish Oil 1,000 mg Capsule] 1,000 mg PO BID 02/12/25 [History Confirmed 02/12/25] Potassium Chloride Tab* [Klor Con] 20 meq PO BID 02/12/25 [History Confirmed 02/12/25] Allergies/Adverse Reactions: Allergies Allergy/AdvReac Type Severity Reaction Status Date / Time No Known Drug Allergies Allergy Verified 02/11/25 22:52 - Past Medical History Past Medical History: Yes Neurological History: No Pertinent History ENT History: No Pertinent History Cardiac History: Congestive Heart Failure, High Cholesterol, Hypertension, Myocardial Infarction ([place]), Other Respiratory History: Other Endocrine Medical History: Diabetes Type II Musculoskelatal History: Osteoarthritis GI Medical History: Pancreatitis History: No Pertinent History Pyscho-Social History: No Pertinent History Male Reproductive Disorders: No Pertinent History Comment: PMHX: 7 [place]'s, PER PATIENT HAS 5 STENTS BUT NO CABG. HAS DEFIBRILLATOR PLACED 2014 WITH HX OF ACTIVATION PER PATIENT "A FEW TIMES". PER PATIENT HEART FUNCTION 15-20%. SEVERE OA LEFT KNEE - BONE ON BONE BUT UNABLE TO HAVE REPLACEMENT DUE TO HEART. 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 - Past Surgical History Past Surgical History: Yes Neuro Surgical History: No Pertinent History Cardiac History: Angioplasty, Cardiac Catheterization, Cardiac Stent, Internal Defibrillator, Pacemaker Respiratory Surgery: No Pertinent History GI Surgical History: Cholecystectomy, Hernia Repair Genitourinary Surgical Hx: No Pertinent History Musculskeletal Surgical Hx: Orthopedic Surgery Male Surgical History: No Pertinent History Other Surgical History: elbow Significant Family History: heart disease, diabetes, hypertension - Social History Smoking Status: Former smoker How long have you smoked: 20+ Exposure to second hand smoke: No Alcohol: Occasionally Drug Use: none - Social Determinants of Health Will the patient participate in the screening: Yes Do you worry about a steady place to live?: Yes Do you have any problems with any of the following?: Pest (bugs,ants,or mice) In the past 12 months,have you had to go without utilities?: No Have you or anyone in your house had to go without enough: No Transportation Issues: No Has anyone in your support network made you feel unsafe?: No Does the patient want assistance with any of the above?: No - Physical Exam Vital Signs: Vital Signs - 24 hr Temp Pulse Pulse Resp BP BP BP 02/12/25 05:23 97 H 15 103/81 02/12/25 05:09 97.9 F 109 H 15 103/81 02/12/25 04:59 97.9 F 120 H 15 103/81 02/12/25 04:56 02/12/25 04:32 120 H 15 102/74 02/12/25 04:31 118 H 15 81/70 02/12/25 04:23 113 H 16 117/72 02/12/25 04:15 113 H 14 117/72 02/12/25 04:12 117 H 18 119/99 02/12/25 04:04 134 H 17 119/99 02/12/25 03:45 136 H 14 114/84 02/12/25 03:40 117 H 17 129/83 02/12/25 03:30 119 H 16 100/72 02/12/25 03:23 118 H 17 100/72 02/12/25 03:00 126 H 15 113/75 02/12/25 02:33 135 H 17 120/88 02/12/25 02:23 123 H 16 126/86 02/12/25 02:01 123 H 126/86 02/12/25 01:30 133 H 124/89 02/12/25 01:01 133 H 118/87 02/12/25 00:30 133 H 115/77 02/12/25 00:00 133 H 15 124/95 02/11/25 23:47 02/11/25 23:44 136 H 16 140/95 02/11/25 23:30 136 H 18 130/95 02/11/25 23:00 141 H 19 140/119 02/11/25 22:55 97.3 F 141 H 140 H 20 153/105 Pulse Ox 02/12/25 05:23 02/12/25 05:09 98 02/12/25 04:59 97 02/12/25 04:56 97 02/12/25 04:32 95 02/12/25 04:31 95 02/12/25 04:23 02/12/25 04:15 95 02/12/25 04:12 02/12/25 04:04 98 02/12/25 03:45 97 02/12/25 03:40 94 L 02/12/25 03:30 94 L 02/12/25 03:23 02/12/25 03:00 95 02/12/25 02:33 94 L 02/12/25 02:23 02/12/25 02:01 96 02/12/25 01:30 95 02/12/25 01:01 95 02/12/25 00:30 94 L 02/12/25 00:00 95 02/11/25 23:47 96 02/11/25 23:44 96 02/11/25 23:30 97 02/11/25 23:00 96 02/11/25 22:55 97 General Appearance: no apparent distress Neurologic Exam: alert, oriented x 3 Ears, Nose, Throat Exam: dry mucous membranes Neck Exam: supple Respiratory Exam: No respiratory distress Cardiovascular Exam: tachycardia, No regular rate/rhythm Gastrointestinal/Abdomen Exam: soft Extremity Exam: pedal edema, swelling Skin Exam: normal color, No rash Results - Labs Lab/Micro Results: Lab Results-Last 24 Hours 02/11/25 02/11/25 02/11/25 Range/Units 23:37 23:37 23:37 WBC 8.5 (4.23-9.07) x10^3/uL RBC 4.91 (4.63-6.08) x10^6/uL Hgb 15.2 (13.7-17.5) g/dL Hct 46.2 (40.1-51.0) % MCV 94.1 H (79.0-92.2) fL MCH 31.0 (25.7-32.2) pg MCHC 32.9 (32.3-36.5) g/dL RDW 14.9 H (11.6-14.4) % Plt Count 308 (163-337) x10^3/uL MPV 11.3 (9.4-12.4) fL Gran % 57.0 (34.0-67.9) % Immature Gran % (Auto) 0.5 H (0.001-0.429) % Nucleat RBC Rel Count 0.2 (0.00-0.2) % Eos # (Auto) 0.41 (0.04-0.54) x10^3/uL Immature Gran # (Auto) 0.04 H (0.001-0.031) x10^3u/L Absolute Lymphs (auto) 2.27 (1.32-3.57) x10^3/uL Absolute Monos (auto) 0.81 (0.30-0.82) x10^3/uL Absolute Nucleated RBC 0.02 H (0.00-0.012) x10^3u/L Lymphocytes % 26.8 (21.8-53.1) % Monocytes % 9.6 (5.3-12.2) % Eosinophils % 4.8 (0.8-7.0) % Basophils % 1.3 H (0.2-1.2) % Absolute Granulocytes 4.84 (1.78-5.38) x10^3/uL Basophils # 0.11 H (0.01-0.08) x10^3/uL Sodium 140 (135-145) mmol/L Potassium 4.4 (3.5-5.1) mmol/L Chloride 103 (98-107) mmol/L Carbon Dioxide 22 (22-30) mmol/L Anion Gap 19.2 H (5-15) MEQ/L BUN 29 H (9-20) mg/dL Creatinine 0.96 (0.66-1.25) mg/dL Estimated GFR 94.5 ML/MIN Glucose 166 H (74-106) mg/dL Calcium 9.5 (8.4-10.2) mg/dL Magnesium 2.1 (1.6-2.3) mg/dL Total Bilirubin 0.40 (0.2-1.3) mg/dL AST 73 H (17-59) U/L ALT 62 H (0-50) U/L Alkaline Phosphatase 103 (38-126) U/L Troponin I 0.019 (0.000-0.033) ng/mL NT-Pro-B Natriuret Pep 579 (<300) pg/mL Serum Total Protein 7.3 (6.3-8.2) g/dL Albumin 4.3 (3.5-5.0) g/dL Free T4 (0.78-2.19) ng/dL TSH 3rd Generation (0.470-4.680) mIU/L Urine Color (Yellow) Urine Appearance (Clear) Urine pH (4.6-8.0) Ur Specific [place] (1.005-1.030) Urine Protein (Negative) Urine Glucose (UA) (Negative) mg/dL Urine Ketones (Negative) Urine Blood (Negative) Urine Nitrite (Negative) Urine Bilirubin (Negative) Urine Urobilinogen (0.2) mg/dL Ur Leukocyte Esterase (Negative) U Hyaline Cast (Auto) (0-2) /LPF Urine Microscopic RBC (0-5) /HPF Urine Microscopic WBC (0-5) /HPF Ur Epithelial Cells (None Seen) /HPF Urine Bacteria (None Seen) /HPF Urine Culture Reflexed (NO) 02/12/25 02/12/25 02/12/25 Range/Units 00:51 01:30 01:31 WBC (4.23-9.07) x10^3/uL RBC (4.63-6.08) x10^6/uL Hgb (13.7-17.5) g/dL Hct (40.1-51.0) % MCV (79.0-92.2) fL MCH (25.7-32.2) pg MCHC (32.3-36.5) g/dL RDW (11.6-14.4) % Plt Count (163-337) x10^3/uL MPV (9.4-12.4) fL Gran % (34.0-67.9) % Immature Gran % (Auto) (0.001-0.429) % Nucleat RBC Rel Count (0.00-0.2) % Eos # (Auto) (0.04-0.54) x10^3/uL Immature Gran # (Auto) (0.001-0.031) x10^3u/L Absolute Lymphs (auto) (1.32-3.57) x10^3/uL Absolute Monos (auto) (0.30-0.82) x10^3/uL Absolute Nucleated RBC (0.00-0.012) x10^3u/L Lymphocytes % (21.8-53.1) % Monocytes % (5.3-12.2) % Eosinophils % (0.8-7.0) % Basophils % (0.2-1.2) % Absolute Granulocytes (1.78-5.38) x10^3/uL Basophils # (0.01-0.08) x10^3/uL Sodium (135-145) mmol/L Potassium (3.5-5.1) mmol/L Chloride (98-107) mmol/L Carbon Dioxide (22-30) mmol/L Anion Gap (5-15) MEQ/L BUN (9-20) mg/dL Creatinine (0.66-1.25) mg/dL Estimated GFR ML/MIN Glucose (74-106) mg/dL Calcium (8.4-10.2) mg/dL Magnesium (1.6-2.3) mg/dL Total Bilirubin (0.2-1.3) mg/dL AST (17-59) U/L ALT (0-50) U/L Alkaline Phosphatase (38-126) U/L Troponin I (0.000-0.033) ng/mL NT-Pro-B Natriuret Pep (<300) pg/mL Serum Total Protein (6.3-8.2) g/dL Albumin (3.5-5.0) g/dL Free T4 1.07 (0.78-2.19) ng/dL TSH 3rd Generation 1.866 (0.470-4.680) mIU/L Urine Color Yellow (Yellow) Urine Appearance Clear (Clear) Urine pH 6.0 (4.6-8.0) Ur Specific [place] 1.015 (1.005-1.030) Urine Protein 30 (Negative) Urine Glucose (UA) >=1000 A (Negative) mg/dL Urine Ketones Negative (Negative) Urine Blood Negative (Negative) Urine Nitrite Negative (Negative) Urine Bilirubin Negative (Negative) Urine Urobilinogen 0.2 (0.2) mg/dL Ur Leukocyte Esterase Negative (Negative) U Hyaline Cast (Auto) NONE SEEN (0-2) /LPF Urine Microscopic RBC 0-2 (0-5) /HPF Urine Microscopic WBC 0-2 (0-5) /HPF Ur Epithelial Cells None Seen (None Seen) /HPF Urine Bacteria None Seen (None Seen) /HPF Urine Culture Reflexed NO (NO) 02/12/25 Range/Units 01:33 WBC (4.23-9.07) x10^3/uL RBC (4.63-6.08) x10^6/uL Hgb (13.7-17.5) g/dL Hct (40.1-51.0) % MCV (79.0-92.2) fL MCH (25.7-32.2) pg MCHC (32.3-36.5) g/dL RDW (11.6-14.4) % Plt Count (163-337) x10^3/uL MPV (9.4-12.4) fL Gran % (34.0-67.9) % Immature Gran % (Auto) (0.001-0.429) % Nucleat RBC Rel Count (0.00-0.2) % Eos # (Auto) (0.04-0.54) x10^3/uL Immature Gran # (Auto) (0.001-0.031) x10^3u/L Absolute Lymphs (auto) (1.32-3.57) x10^3/uL Absolute Monos (auto) (0.30-0.82) x10^3/uL Absolute Nucleated RBC (0.00-0.012) x10^3u/L Lymphocytes % (21.8-53.1) % Monocytes % (5.3-12.2) % Eosinophils % (0.8-7.0) % Basophils % (0.2-1.2) % Absolute Granulocytes (1.78-5.38) x10^3/uL Basophils # (0.01-0.08) x10^3/uL Sodium (135-145) mmol/L Potassium (3.5-5.1) mmol/L Chloride (98-107) mmol/L Carbon Dioxide (22-30) mmol/L Anion Gap (5-15) MEQ/L BUN (9-20) mg/dL Creatinine (0.66-1.25) mg/dL Estimated GFR ML/MIN Glucose (74-106) mg/dL Calcium (8.4-10.2) mg/dL Magnesium (1.6-2.3) mg/dL Total Bilirubin (0.2-1.3) mg/dL AST (17-59) U/L ALT (0-50) U/L Alkaline Phosphatase (38-126) U/L Troponin I 0.018 (0.000-0.033) ng/mL NT-Pro-B Natriuret Pep (<300) pg/mL Serum Total Protein (6.3-8.2) g/dL Albumin (3.5-5.0) g/dL Free T4 (0.78-2.19) ng/dL TSH 3rd Generation (0.470-4.680) mIU/L Urine Color (Yellow) Urine Appearance (Clear) Urine pH (4.6-8.0) Ur Specific [place] (1.005-1.030) Urine Protein (Negative) Urine Glucose (UA) (Negative) mg/dL Urine Ketones (Negative) Urine Blood (Negative) Urine Nitrite (Negative) Urine Bilirubin (Negative) Urine Urobilinogen (0.2) mg/dL Ur Leukocyte Esterase (Negative) U Hyaline Cast (Auto) (0-2) /LPF Urine Microscopic RBC (0-5) /HPF Urine Microscopic WBC (0-5) /HPF Ur Epithelial Cells (None Seen) /HPF Urine Bacteria (None Seen) /HPF Urine Culture Reflexed (NO) - Other Procedures and Tests Respiratory Therapy 02/12/25 08:00 EKG REPEAT IN AM Assessment/Plan (1) Atrial fibrillation with RVR Current Visit: Yes Status: Acute Assessment & Plan: Afib with RVR, heart rate elevated, unclear etiology as TSH, cardiac enzymes, electrolytes stable 1. Admit to ICU 2. Start cardizem drip 3. Monitor on telemetry 4. Cardiology consult 5. Continue anticoagulation 6. EKG prn 7. Trend troponin Code(s): I48.91 - UNSPECIFIED ATRIAL FIBRILLATION (2) Type 2 diabetes mellitus with diabetic chronic kidney disease Current Visit: Yes Status: Acute Assessment & Plan: Blood sugars under suboptimal control 1. ADA diet 2. FSBS qAC/HS 3. Check UPC, HbA1c Code(s): E11.22 - TYPE 2 DIABETES MELLITUS W DIABETIC CHRONIC KIDNEY DISEASE (3) HTN (hypertension) Current Visit: No Status: Acute Qualifiers: Hypertension type: primary hypertension Qualified Code(s): I10 - Essential (primary) hypertension Assessment & Plan: Blood pressure under suboptimal control 1. Continue bp meds 2. Low Na diet 3. Monitor blood pressure readings with Cardizem drip Code(s): I10 - ESSENTIAL (PRIMARY) HYPERTENSION (4) Congestive heart failure Current Visit: No Status: Chronic Qualifiers: Heart failure chronicity: chronic Assessment & Plan: Appears euvolemic though with some LE edema 1. Diuretics prn 2. Continue Entresto 3. Follow I/Os, daily weights Code(s): I50.9 - HEART FAILURE, UNSPECIFIED Telemedicine Encounter - Telemedicine Encounter Telemedicine Encounter: "The entirety of this encounter was performed via Telemedicine" This visit was performed using real-time audio and video connection between my location and thepatients locationwith the assistance of a surrogateat the patients location. Written or verbal consent was obtained from the patient/guardian to perform this visit using[employer] technology. Any patient questions regarding the telemedicine interaction were answered.
[2025-02-12 07:54] LABS: ALBUMIN 3.8 g/dL (3.5-5.0); ANION GAP 17.2 MEQ/L (5-15); BILIRUBIN,TOTAL 0.4 mg/dL (0.2-1.3); Calcium 9.3 mg/dL (8.4-10.2); Creatinine 1 0.85 mg/dL (0.66-1.25); EST GLOMERULAR FILTRATION RATE 103.9 ML/MIN; Potassium 4.5 mmol/L (3.5-5.1); Total Protein 6.3 g/dL (6.3-8.2)
--- NOTE | 2025-02-12 08:35 | XRAY ---
CLINICAL HISTORY: CHF COMPARISON: 08/21/2024. TECHNIQUE: An X-ray image of the chest is obtained in AP projection. FINDINGS: Pulmonary Parenchyma: Bilateral prominent bronchovascular/interstitial markings. Small atelectatic band seen traversing in the right infrahilar region. No evidence of pleural effusion or pleural thickening. Heart and Mediastinum: Mild cardiomegaly.No mediastinal widening or masses. No hilar or mediastinal lymphadenopathy. Cardiac pacemaker leads seen in situ. Bony Thorax: Bony thorax appears intact without fractures or deformities. Soft Tissues: Soft tissues overlying the chest wall are unremarkable. IMPRESSION: 1. Bilateral prominent bronchovascular/interstitial marking, suggesting interstitial edema.congestion. 2. Small atelectatic band traversing in the right infrahilar region. 3. Comparing the previous CT dated 08/21/2024 there appears to be an interval regression in context of bilateral mild effusion however CT has a higher sensitivity and then the x-ray. Electronically Signed by: Lenin Morrow MD. (02/12/2025 08:31:44 EDT)
[2025-02-12] MEDS ORDERED: GlucaGen 1 MG IM PRN (08:46)
[2025-02-12] MEDS ORDERED: D50W 50 ml Abboject IV PRN (08:46)
[2025-02-12] MEDS ORDERED: Glutose 15 GM ORAL GEL PO PRN (08:46)
[2025-02-12] MEDS: HUMALOG SQ SCH (09:16)
[2025-02-12] MEDS: HUMALOG SQ PRN (09:16)
[2025-02-12] MEDS ORDERED: Lantus Insulin SQ SCH (10:00)
[2025-02-12] MEDS ORDERED: NON-FORMULARY ITEM (Insulin Degludec [Tresiba Flextouch U-200] 200 UNIT/ML Insuln.Pen) SQ SCH (10:00)
[2025-02-12] MEDS ORDERED: NON-FORMULARY ITEM (Magnesium Oxide [Magnesium] 250 MG Tablet) PO SCH (10:00)
[2025-02-12] MEDS ORDERED: Coreg 3.125 MG PO SCH (10:00)
[2025-02-12] MEDS ORDERED: NON-FORMULARY ITEM (Sacubitril/Valsartan [Entresto 24 Mg-26 Mg Tablet] 1 EACH Tablet) PO SCH (10:00)
[2025-02-12] MEDS ORDERED: NON-FORMULARY ITEM (Venlafaxine Hcl [Venlafaxine Hcl Er] 150 MG Cap.Er.24h) PO SCH (10:00)
[2025-02-12] MEDS ORDERED: NON-FORMULARY ITEM (Apixaban [Eliquis] 5 MG Tablet) PO SCH (10:00)
[2025-02-12] MEDS: Lasix 40 MG PO SCH (10:29)
[2025-02-12] MEDS: FISH OIL 1,000 MG CAPSULE PO SCH (10:29)
[2025-02-12] MEDS: Coreg PO SCH (10:29)
[2025-02-12] MEDS: ELIQUIS 2.5 MG TABLET PO SCH (10:29)
[2025-02-12] MEDS: Imdur 60MG PO SCH (10:29)
[2025-02-12] MEDS: Effexor ER 37.5 MG PO SCH (10:29)
[2025-02-12] MEDS: Protonix 40MG Tablet PO SCH (10:29)
[2025-02-12] MEDS: MAG-OX 400 PO SCH (10:30)
[2025-02-12] MEDS: ENTRESTO 49 MG-51 MG TABLET PO SCH (10:30)
[2025-02-12] MEDS: Lantus Insulin SQ SCH (10:33)
[2025-02-12] MEDS: NORCO 10-325 MG PO PRN (10:44)
[2025-02-12] MEDS: JARDIANCE PO SCH (11:42)
[2025-02-12] MEDS ORDERED: DUONEB 0.5-3 MG/3 ml Neb IH SCH (13:00)
[2025-02-12] MEDS: Coreg PO ONE (13:27)
[2025-02-12 14:24] LABS: Amphetamine,Urine NEGATIVE (NEGATIVE); Barbiturate,Urine NEGATIVE (NEGATIVE); Benzodiazepine,Urine NEGATIVE (NEGATIVE); Cocaine,Urine NEGATIVE (NEGATIVE); Methadone,Urine NEGATIVE (NEGATIVE); Opiate,Urine POSITIVE (NEGATIVE); PCP,Urine NEGATIVE (NEGATIVE); THC,Urine NEGATIVE (NEGATIVE)
[2025-02-12] MEDS ORDERED: Lanoxin 0.5 MG/2 ML INJECTION ONE (17:40)
[2025-02-12] MEDS: Lanoxin 0.5 MG/2 ML INJECTION IV ONE (17:46)
[2025-02-12] MEDS ORDERED: NON-FORMULARY ITEM (Atorvastatin Calcium 20 MG Tab) PO SCH (22:00)
[2025-02-12] MEDS: COREG 12.5 MG PO SCH (22:00)
[2025-02-12] MEDS: LIPITOR 40MG PO SCH (22:01)
--- NOTE | 2025-02-12 22:09 | PCM.CONS ---
History of Present Illness - Date of Consult Date of Encounter: 02/12/25 Consulting Security Control Room Officer: MIHIR ZHAO MD Requesting Provider: Attending Provider: ARELY SAVAGE MD Primary Care Provider: PCP: ANGIE CEBALLOS Consent was: Given for this tele-med encounter - Consult Narrative Reason for Consult: Atrial Flutter HPI: Patient is a 54-year-old male with history of CAD S/P PCI with 4 stents in 2014 and single stent in 2016, HFrEF (15-20%) S/P single lead ICD 2014, paroxysmal atrial fibrillation (documentation not available), HTN, type II DM, and hypercholesterolemia who preseted with a 2 day history of palpitations. He was hospitalized on 01/25/2025 for CHF after running out of his medicatons for financial reasons. TTE revealed poor LV systolic function with an estimated EF 15-20%. He now is on a medical insurance plan and restarted Eliquis 1.5 weeks ago. He denies any orthopnea, PND, LE edema, or light-headedness. He does have chronic VENCES after walking 100 yards. With the onset of his tachycardia, his VENCES occurs after walking 30 feet. In the ER he was found to be in atrial flutter at 145 bpm. He was initially treated with metprolol 5 mg IV push followed by labetalol 10 mg IV push. He was given diltiazem 10 mg IV push followed by a diltiazem infusion at 5mg/hr. with better control of his ventricular response. Whilw in the ICU his VR was controlled at rest but would become rapid with activity. Cardiology consult was requested. I initially had his nurse increase carvedilol from 6.25 mg BID to 12.5 mg BID. VR continued to have spikes with activity several hours later. He was then given digoxin 0.5 mg IVP prior to my seeing him. cc:: The requesting physician will be sent a copy of the consult. Review of Systems - Review of Systems All systems: as per HPI (Complete ROS performd. Pertinent positives and negatives in HPI. Otherwise, negative.) - Past Medical History Past Medical History: Yes Neurological History: No Pertinent History ENT History: No Pertinent History Cardiac History: Congestive Heart Failure, High Cholesterol, Hypertension, Myocardial Infarction ([place]), Other Respiratory History: Other Endocrine Medical History: Diabetes Type II Musculoskelatal History: Osteoarthritis GI Medical History: Pancreatitis History: No Pertinent History Pyscho-Social History: No Pertinent History Male Reproductive Disorders: No Pertinent History Comment: PMHX: 7 [place]'s, PER PATIENT HAS 5 STENTS BUT NO CABG. HAS DEFIBRILLATOR PLACED 2014 WITH HX OF ACTIVATION PER PATIENT "A FEW TIMES". PER PATIENT HEART FUNCTION 15-20%. SEVERE OA LEFT KNEE - BONE ON BONE BUT UNABLE TO HAVE REPLACEMENT DUE TO HEART. 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 - Past Surgical History Past Surgical History: Yes Neuro Surgical History: No Pertinent History Cardiac History: Angioplasty, Cardiac Catheterization, Cardiac Stent, Internal Defibrillator, Pacemaker Respiratory Surgery: No Pertinent History GI Surgical History: Cholecystectomy, Hernia Repair Genitourinary Surgical Hx: No Pertinent History Musculskeletal Surgical Hx: Orthopedic Surgery Male Surgical History: No Pertinent History Other Surgical History: elbow Significant Family History: heart disease, diabetes, hypertension - Social History Smoking Status: Former smoker How long have you smoked: 20+ Exposure to second hand smoke: No Alcohol: Occasionally Drug Use: none - Social Determinants of Health Will the patient participate in the screening: Yes Do you worry about a steady place to live?: Yes Do you have any problems with any of the following?: Pest (bugs,ants,or mice) In the past 12 months,have you had to go without utilities?: No Have you or anyone in your house had to go without enough: No Transportation Issues: No Has anyone in your support network made you feel unsafe?: No Does the patient want assistance with any of the above?: No Medications & Allergies Home Medications: Home Medication List Sacubitril/Valsartan [Entresto 24 mg-26 mg Tablet] 24 - 26 mg PO BID 09/24/17 [History Confirmed 02/12/25] Venlafaxine HCl [Venlafaxine HCl ER] 37.5 mg PO DAILY 11/23/17 [History Confirmed 02/12/25] Pioglitazone 30 mg [Actos 30 MG] 30 mg PO DAILY 06/17/20 [History Confirmed 02/12/25] Apixaban [Eliquis] 5 mg PO BID 02/27/24 [History Confirmed 02/12/25] Isosorbide Mononitrate 60 mg [Imdur 60MG] 1 tab PO DAILY 02/27/24 [History Confirmed 02/12/25] Cyanocobalamin/Folic Acid [W86-Twhkj Acid 2500-400 Mcg Tb] 2,500 mcg PO DAILY 03/06/24 [History Confirmed 02/12/25] Hydrocodone/Acetaminophen [Hydrocodone-Acetamin 10-325 mg] 1 tab PO QIDPRN PRN 03/06/24 [History Confirmed 02/12/25] Magnesium Oxide [Magnesium] 250 mg PO DAILY 03/06/24 [History Confirmed 02/12/25] Insulin Degludec [Tresiba Flextouch U-200] 100 unit SQ DAILY 08/21/24 [History Confirmed 02/12/25] Acetaminophen 325 mg [Tylenol 325 mg] 650 mg PO Q6H PRN PRN tablet 01/25/25 [Rx Confirmed 02/12/25] Carvedilol 3.125 mg [Coreg 3.125 MG] 6.25 mg PO BID 02/12/25 [History Confirmed 02/12/25] Empagliflozin [Jardiance] 25 mg PO DAILY 02/12/25 [History Confirmed 02/12/25] Furosemide 40 mg PO BID 02/12/25 [History Confirmed 02/12/25] Insulin Aspart [Novolog] 75 unit SQ AC 02/12/25 [History Confirmed 02/12/25] Multivit-Min/Folic/Vit K/Lycop [Men's Daily Formula Tablet] 1 each PO DAILY 02/12/25 [History Confirmed 02/12/25] Nitroglycerin 0.4 mg (Ed) [Nitrostat 0.4 MG (ED)] 0.4 mg SL Q5MIN PRN MR X 3 PRN 02/12/25 [History Confirmed 02/12/25] [place]-3 Fatty Acids/Fish Oil [Fish Oil 1,000 mg Capsule] 1,000 mg PO BID 02/12/25 [History Confirmed 02/12/25] Potassium Chloride Tab* [Klor Con] 20 meq PO BID 02/12/25 [History Confirmed 02/12/25] Allergies/Adverse Reactions: Allergies Allergy/AdvReac Type Severity Reaction Status Date / Time No Known Drug Allergies Allergy Verified 02/11/25 22:52 Exam - Vitals Vital Signs: Vital Signs - 24 hr Temp Pulse Pulse Resp BP BP BP 02/12/25 19:31 122/53 02/12/25 19:01 91 H 17 122/64 02/12/25 18:30 91 H 19 120/71 02/12/25 18:01 91 H 28 H 124/76 02/12/25 17:31 115 H 19 126/70 02/12/25 17:01 101 H 19 115/67 02/12/25 16:30 93 H 18 110/69 02/12/25 16:00 93 H 21 115/69 02/12/25 15:30 93 H 32 H 114/68 02/12/25 15:00 92 H 21 105/66 02/12/25 14:30 92 H 16 99/63 02/12/25 14:00 92 H 109/71 02/12/25 13:31 97 H 100/78 02/12/25 13:01 17 129/86 02/12/25 12:45 135 H 15 118/94 02/12/25 12:30 135 H 15 118/94 02/12/25 12:01 135 H 117/70 02/12/25 12:00 102 H 02/12/25 11:40 91 H 15 103/61 02/12/25 11:38 96.9 F 02/12/25 11:30 92 H 17 103/61 02/12/25 11:19 97 H 15 109/64 02/12/25 11:00 91 H 15 115/71 02/12/25 10:32 91 H 19 132/79 02/12/25 10:00 87 20 132/79 02/12/25 09:56 02/12/25 09:00 91 H 20 112/75 02/12/25 08:00 98.6 F 91 H 15 108/73 02/12/25 07:10 02/12/25 07:02 92 H 21 104/64 02/12/25 07:00 91 H 25 H 02/12/25 05:23 97 H 15 103/81 02/12/25 05:09 97.9 F 109 H 15 103/81 02/12/25 04:59 97.9 F 120 H 15 103/81 05 04:56 05 04:32 120 H 15 102/74 05 04:31 118 H 15 81/70 05/04/25 04:23 113 H 16 117/72 02/12/25 04:15 113 H 14 117/72 02/12/25 04:12 117 H 18 119/99 02/12/25 04:04 134 H 17 119/99 02/12/25 03:45 136 H 14 114/84 02/12/25 03:40 117 H 17 129/83 02/12/25 03:30 119 H 16 100/72 02/12/25 03:23 118 H 17 100/72 02/12/25 03:00 126 H 15 113/75 02/12/25 02:33 135 H 17 120/88 02/12/25 02:23 123 H 16 126/86 02/12/25 02:01 123 H 126/86 02/12/25 01:30 133 H 124/89 02/12/25 01:01 133 H 118/87 02/12/25 00:30 133 H 115/77 02/12/25 00:00 133 H 15 124/95 02/11/25 23:47 02/11/25 23:44 136 H 16 140/95 02/11/25 23:30 136 H 18 130/95 02/11/25 23:00 141 H 19 140/119 02/11/25 22:55 97.3 F 141 H 140 H 20 153/105 Pulse Ox 02/12/25 19:31 02/12/25 19:01 94 L 02/12/25 18:30 94 L 02/12/25 18:01 95 02/12/25 17:31 97 02/12/25 17:01 94 L 02/12/25 16:30 92 L 02/12/25 16:00 93 L 02/12/25 15:30 94 L 02/12/25 15:00 96 02/12/25 14:30 96 02/12/25 14:00 93 L 02/12/25 13:31 95 02/12/25 13:01 96 02/12/25 12:45 02/12/25 12:30 96 02/12/25 12:01 96 02/12/25 12:00 02/12/25 11:40 02/12/25 11:38 02/12/25 11:30 94 L 02/12/25 11:19 95 02/12/25 11:00 93 L 02/12/25 10:32 02/12/25 10:00 94 L 02/12/25 09:56 95 02/12/25 09:00 95 02/12/25 08:00 96 02/12/25 07:10 96 02/12/25 07:02 96 02/12/25 07:00 97 02/12/25 05:23 02/12/25 05:09 98 02/12/25 04:59 97 02/12/25 04:56 97 02/12/25 04:32 95 02/12/25 04:31 95 02/12/25 04:23 02/12/25 04:15 95 02/12/25 04:12 02/12/25 04:04 98 02/12/25 03:45 97 02/12/25 03:40 94 L 02/12/25 03:30 94 L 02/12/25 03:23 02/12/25 03:00 95 02/12/25 02:33 94 L 02/12/25 02:23 02/12/25 02:01 96 02/12/25 01:30 95 02/12/25 01:01 95 02/12/25 00:30 94 L 02/12/25 00:00 95 02/11/25 23:47 96 02/11/25 23:44 96 02/11/25 23:30 97 02/11/25 23:00 96 02/11/25 22:55 97 General:: alert and oriented x 4, no acute distress HEENT: EOMI, anicteric sclera, No JVD Cardiovascular Exam: normal heart sounds, irregular, No murmur, No friction rub, No gallop Respiratory Exam: lungs clear SpO2: 94 Gastrointestinal/Abdomen Exam: normal bowel sounds Skin Exam: normal color Extremity Exam: edema (1+ alf up to the knees bilaterally.) Neurologic: taper and floater II-XII grossly intact, No motor deficits Results Vital Signs: Vital Signs - 24 hr Temp Pulse Pulse Resp BP BP BP 02/12/25 19:31 122/53 02/12/25 19:01 91 H 17 122/64 02/12/25 18:30 91 H 19 120/71 02/12/25 18:01 91 H 28 H 124/76 02/12/25 17:31 115 H 19 126/70 02/12/25 17:01 101 H 19 115/67 02/12/25 16:30 93 H 18 110/69 05 16:00 93 H 21 115/69 02/12/25 15:30 93 H 32 H 114/68 02/12/25 15:00 92 H 21 105/66 02/12/25 14:30 92 H 16 99/63 02/12/25 14:00 92 H 109/71 02/12/25 13:31 97 H 100/78 02/12/25 13:01 17 129/86 02/12/25 12:45 135 H 15 118/94 02/12/25 12:30 135 H 15 118/94 05 12:01 135 H 117/70 02/12/25 12:00 102 H 02/12/25 11:40 91 H 15 103/61 02/12/25 11:38 96.9 F 02/12/25 11:30 92 H 17 103/61 02/12/25 11:19 97 H 15 109/64 02/12/25 11:00 91 H 15 115/71 02/12/25 10:32 91 H 19 132/79 05 10:00 87 20 132/79 05 09:56 02/12/25 09:00 91 H 20 112/75 02/12/25 08:00 98.6 F 91 H 15 108/73 02/12/25 07:10 02/12/25 07:02 92 H 21 104/64 05 07:00 91 H 25 H 02/12/25 05:23 97 H 15 103/81 05 05:09 97.9 F 109 H 15 103/81 05 04:59 97.9 F 120 H 15 103/81 05 04:56 05 04:32 120 H 15 102/74 05 04:31 118 H 15 81/70 05 04:23 113 H 16 117/72 02/12/25 04:15 113 H 14 117/72 05 04:12 117 H 18 119/99 05 04:04 134 H 17 119/99 05 03:45 136 H 14 114/84 05/04/25 03:40 117 H 17 129/83 02/12/25 03:30 119 H 16 100/72 02/12/25 03:23 118 H 17 100/72 02/12/25 03:00 126 H 15 113/75 02/12/25 02:33 135 H 17 120/88 02/12/25 02:23 123 H 16 126/86 02/12/25 02:01 123 H 126/86 02/12/25 01:30 133 H 124/89 02/12/25 01:01 133 H 118/87 02/12/25 00:30 133 H 115/77 02/12/25 00:00 133 H 15 124/95 02/11/25 23:47 02/11/25 23:44 136 H 16 140/95 02/11/25 23:30 136 H 18 130/95 02/11/25 23:00 141 H 19 140/119 02/11/25 22:55 97.3 F 141 H 140 H 20 153/105 Pulse Ox 02/12/25 19:31 02/12/25 19:01 94 L 02/12/25 18:30 94 L 02/12/25 18:01 95 02/12/25 17:31 97 02/12/25 17:01 94 L 02/12/25 16:30 92 L 02/12/25 16:00 93 L 02/12/25 15:30 94 L 02/12/25 15:00 96 02/12/25 14:30 96 02/12/25 14:00 93 L 02/12/25 13:31 95 02/12/25 13:01 96 02/12/25 12:45 02/12/25 12:30 96 02/12/25 12:01 96 02/12/25 12:00 02/12/25 11:40 02/12/25 11:38 02/12/25 11:30 94 L 02/12/25 11:19 95 02/12/25 11:00 93 L 02/12/25 10:32 02/12/25 10:00 94 L 02/12/25 09:56 95 02/12/25 09:00 95 02/12/25 08:00 96 02/12/25 07:10 96 02/12/25 07:02 96 02/12/25 07:00 97 02/12/25 05:23 02/12/25 05:09 98 02/12/25 04:59 97 02/12/25 04:56 97 02/12/25 04:32 95 02/12/25 04:31 95 02/12/25 04:23 02/12/25 04:15 95 02/12/25 04:12 02/12/25 04:04 98 02/12/25 03:45 97 02/12/25 03:40 94 L 02/12/25 03:30 94 L 02/12/25 03:23 02/12/25 03:00 95 02/12/25 02:33 94 L 02/12/25 02:23 02/12/25 02:01 96 02/12/25 01:30 95 02/12/25 01:01 95 02/12/25 00:30 94 L 02/12/25 00:00 95 02/11/25 23:47 96 02/11/25 23:44 96 02/11/25 23:30 97 02/11/25 23:00 96 02/11/25 22:55 97 Pain Assessment - Last Documented Pain Intensity 5 Pain Scale Used 0-10 Pain Scale Intake and Output: Intake & Output 02/10/25 02/11/25 02/12/25 02/13/25 11:59 11:59 11:59 11:59 Intake Total 240 935 Balance 240 935 Weight 127.5 kg LAB: [facility] Serial troponin-I: 0.019, 0.018, 0.016 Radiology Exams: Radiology Procedures Category Date Time Status CHEST 1 VIEW (PORTABLE) Stat Exams 02/12/25 07:16 Completed CXR (AP) 02/12/2025: 1. Bilateral prominent bronchovascular/interstitial marking, suggesting interstitial edema.congestion. 2. Small atelectatic band traversing in the right infrahilar region. 3. Comparing the previous CT dated 08/21/2024 there appears to be an interval regression in context of bilateral mild effusion however CT has a higher sensitivity and then the x-ray. TTE 01/25/2025: 1. Poor quality study with limited visualization of the endomyocardial border and cardiac structures. 2. LVEF is severely reduced, visually estimated to be 15-20%. Dilated LV cavity with normal wall thickness. 3. Grade 2 diastolic dysfunction. 4. Normal right ventricular size and function. 5. No obvious major valve abnormalities. 6. Insufficient TR to estimate RVSP. 7. IVC not well seen; unable to estimate RA pressure. Tracing 1 Attestation: I have reviewed this EKG and interpreted as documented below. EKG Narrative: ECGs 02/12/2025 at 1256: Typical atrial flutter with 2:1 AV conduction at 136 bpm. RAD. RBBB. 02/12/2025 at 0308: Typical atrial flutter with variable AV conduction at 127 bpm. RAD. RBBB. Assessment & Plan (1) Typical atrial flutter Current Visit: Yes Status: Acute Onset Date: ~02/10/25 Assessment & Plan: New onset 2 days prior to admission with a rapid ventricular response. Has history of atrial fibrillation but documentation not available. VR controlled on diltiazem infusion at rest but RVR returns with actiivity. Prefer to avoid diltiazem with his severe ischemic cardiomyopathy. Will increase carvedilol to 12.5 mg by mouth twice daily. Digoxin load started this afternoon with 0.5 mg IV push. Will complete load with digoxin 0.125 mg by mouth every 6 hours x 3 doses for a total of 1.25 mg (10 mcg/kg). Start maintenance dose on 5/6 - 0.125 mg by mouth daily. Check digoxin level in one week. Wean diltiazem infusion overnight as tolerated. Systemic anticoagulation with Eliquis was restarted 1.5 weeks prior to admission with his new medical insurance plan. Overall plan is to treat with rate control and systemic anticoagulation for now. With his HFrEF, he would benefit with rhythm control. 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 Krystian Lang, in [facility]. Recommend RFA if his only atrial arrhythmia is typical atrial flutter (no atrial fibrillation or atypical atrial flutter). Otherwise, ablation vs anti- arrhythmic therapy with dofetilide can be considered. Prefer to avoid amiodarone in this relatively younger patient to avoid side effects from snf use. Code(s): I48.3 - TYPICAL ATRIAL FLUTTER (2) Chronic HFrEF (heart failure with reduced ejection fraction) Current Visit: Yes Status: Acute Assessment & Plan: EF 15-20%. S/P ICD 2015. PVR noted on CXR. Currently without symptoms oF CHF. No evidence of CHF on exam. Already on beta-gareth, SGLT2 inhibitor, and ARNI. Will optimize GDMT by adding spironolactone. It was previously stopped for unclear reasons. Will start at a low dose 12.5 mg daily. Will also change furosemide to torsemide 40 mg daily due to its superior bioavailability. Code(s): I50.22 - CHRONIC SYSTOLIC (CONGESTIVE) HEART FAILURE (3) Coronary artery disease Current Visit: No Status: Chronic Qualifiers: Coronary Disease-Associated Artery/Lesion type: [place] artery [place] vs. transplanted heart: [place] heart Associated angina: without angina Qualified Code(s): I25.10 - Atherosclerotic heart disease of [place] coronary artery without angina pectoris Assessment & Plan: S/P PCI with multiple stents (last in 2017). [place] class 0 without symptoms of angina. On beta-gareth and nitrates. Will need to address with patient tomorrow why he is not on a high intensity statin. Code(s): I25.10 - ATHSCL HEART DISEASE OF [place] CORONARY ARTERY W/O ANG PCTRS - Encounter Encounter: "The entirety of this encounter was performed via Telemedicine using audio and visual " Permission granted by patient for this type of encounter. Case was discussed with Rosario Barnard NP. We will follow with you. Mihir Zhao MD [facility] [phone]
[2025-02-13] MEDS: Lanoxin 0.125MG TABLET PO SCH (00:18)
[2025-02-13 05:25] LABS: Absolute Neutrophil Ct (ANC) 4.81 x10^3/uL (1.78-5.38); Basophil (Absolute #) 0.08 x10^3/uL (0.01-0.08); Eosinophil % 7.4 % (0.8-7.0); Hematocrit 44.8 % (40.1-51.0); Hemoglobin 14.3 g/dL (13.7-17.5); IMMATURE GRAN # 0.04 x10^3u/L (0.001-0.031); IMMATURE GRAN % 0.5 % (0.001-0.429); Lymphocyte (Absolute #) 1.81 x10^3/uL (1.32-3.57); Lymphocytes % 22.4 % (21.8-53.1); Mean Cell Volume 97.4 fL (79.0-92.2); Mean Corpuscular Hemoglobin 31.1 pg (25.7-32.2); Mean Corpuscular Hgb Concent. 31.9 g/dL (32.3-36.5); Monocyte (Absolute #) 0.74 x10^3/uL (0.30-0.82); Monocytes % 9.2 % (5.3-12.2); Neutrophil % 59.5 % (34.0-67.9); Platelet Count 239 x10^3/uL (163-337); White Blood Count 8.1 x10^3/uL (4.23-9.07)
[2025-02-13 05:53] LABS: ALBUMIN 3.9 g/dL (3.5-5.0); ANION GAP 18.9 MEQ/L (5-15); BILIRUBIN,TOTAL 0.5 mg/dL (0.2-1.3); Calcium 8.8 mg/dL (8.4-10.2); Creatinine 1 0.97 mg/dL (0.66-1.25); EST GLOMERULAR FILTRATION RATE 93.4 ML/MIN; Potassium 4.1 mmol/L (3.5-5.1); Total Protein 6.6 g/dL (6.3-8.2)
[2025-02-13] MEDS: DEMADEX 20 MG PO SCH (10:48)
[2025-02-13] MEDS: SODIUM BICARBONATE PO SCH (10:48)
[2025-02-13] MEDS: Aldactone 25 MG PO SCH (10:49)
[2025-02-13 11:02] VITALS: O2SAT 94
[2025-02-13 12:15] VITALS: TEMP 97.1
--- NOTE | 2025-02-13 12:23 | PCM.NOTE ---
Date and Time: 02/13/25 1218 Subjective Assessment: The patient is a 54-year-old male with a history of hypertension, diabetes, coronary artery disease (s/p PTCA/stents), and atrial fibrillation, currently on hospital day 2 after presenting with several days of elevated heart rates, peaking at 144 bpm. He denied chest pain, shortness of breath, or gastroin testinal symptoms. Initial management included Metoprolol, Labetalol, and a cardizem drip, which was discontinued this morning. He is now resting comfortably in the ICU with a controlled heart rate in the 70s, though atrial fibrillation persists. Cardiology was consulted, and after reviewing their recommendations, the plan was agreed upon. The patient also requested an increased dose of [place] for chronic knee pain, but this was declined, and he was advised to follow up with outpatient pain management. Additionally, he was started on oral sodium bicarbonate for a CO2 of 18. He currently denies any new concerns. - Review of Systems Constitutional: No Fever, No Chills Eyes: No Symptoms Ears, Nose, & Throat: No Symptoms Respiratory: No Cough, No Short Of Breath Cardiac: No Chest Pain, No Edema, No Syncope Abdominal/Gastrointestinal: No Abdominal Pain, No Nausea, No Vomiting, No Diarrhea Genitourinary Symptoms: No Dysuria Musculoskeletal: Joint Pain (chronic knee pain), No Back Pain, No Neck Pain Skin: No Rash Neurological: No Dizziness, No Focal Weakness, No Sensory Changes Psychological: No Symptoms Endocrine: No Symptoms Hematologic/Lymphatic: No Symptoms Immunological/Allergic: No Symptoms Objective Exam General Appearance: no apparent distress, alert, obese Neurologic Exam: alert, oriented x 3, cooperative, normal mood/affect, nml cerebellar function, sensation nml, No motor deficits Skin Exam: normal color, warm, dry Eye Exam: PERRL, EOMI, eyes nml inspection Ears, Nose, Throat Exam: normal ENT inspection, pharynx normal, moist mucous membranes Neck Exam: normal inspection, non-tender, supple, full range of motion Respiratory Exam: normal breath sounds, lungs clear, No respiratory distress Cardiovascular Exam: regular rate/rhythm, normal heart sounds, irregular Gastrointestinal/Abdomen Exam: soft, No tenderness, No mass Extremity Exam: normal inspection, normal range of motion Back Exam: normal inspection, normal range of motion, No CVA tenderness, No vertebral tenderness Male Genitalia Exam: deferred Rectal Exam: deferred Objective Data Vital Signs: Vital Signs - 24 hr Temp Pulse Resp BP Pulse Ox 02/13/25 12:13 94 L 02/13/25 12:01 135 H 17 145/85 02/13/25 12:00 97.1 F 109 H 17 145/85 02/13/25 11:54 123 H 02/13/25 11:50 134 H 22 02/13/25 11:40 102 H 21 02/13/25 11:30 101 H 16 02/13/25 11:20 102 H 24 02/13/25 11:10 107 H 16 02/13/25 11:02 108 H 17 02/13/25 10:31 102 H 17 145/88 02/13/25 10:01 118 H 21 132/88 96 02/13/25 09:57 108 H 20 127/87 02/13/25 09:01 114/62 02/13/25 08:31 91 H 22 137/73 96 02/13/25 08:00 97.7 F 90 10 L 108/76 85 L 02/13/25 07:42 90 18 141/86 96 02/13/25 07:36 76 14 85/64 02/13/25 07:30 90 26 H 85/64 96 02/13/25 07:00 67 18 103/55 94 L 02/13/25 06:47 89 13 103/66 02/13/25 06:42 89 13 103/66 02/13/25 06:30 67 15 103/66 94 L 02/13/25 06:00 80 17 120/70 93 L 02/13/25 05:56 90 13 125/73 02/13/25 05:54 89 125/73 02/13/25 05:42 90 19 125/73 02/13/25 05:30 90 19 125/73 95 02/13/25 05:00 81 17 122/71 95 02/13/25 04:42 81 17 122/71 02/13/25 04:30 89 20 122/82 99 02/13/25 04:00 97.1 F 81 15 111/62 94 L 02/13/25 03:42 89 17 113/67 02/13/25 03:31 89 17 113/67 94 L 02/13/25 03:01 89 18 99/55 02/13/25 02:42 94 H 22 139/70 05 02:33 94 H 22 139/70 97 02/13/25 02:00 88/56 05 01:40 89 18 88/54 02/13/25 01:35 89 15 88/54 92 L 02/13/25 01:33 89 16 82/53 05 01:31 85 16 78/54 05 01:00 89 15 113/66 02/13/25 00:30 90 17 124/87 92 L 02/13/25 00:18 89 115/67 02/13/25 00:01 90 25 H 115/67 05 00:00 97.2 F 132 H 17 115/67 90 L 02/12/25 23:50 89 21 95 02/12/25 23:40 89 17 95 02/12/25 23:33 101 H 21 95 02/12/25 23:01 96 H 15 127/78 96 02/12/25 22:30 101 H 23 137/77 96 02/12/25 22:01 96.9 F 90 20 134/78 95 02/12/25 22:00 101 H 16 134/78 02/12/25 21:30 101 H 26 H 132/79 95 02/12/25 21:00 90 18 135/79 95 02/12/25 20:34 90 17 136/78 95 02/12/25 20:00 90 02/12/25 19:31 122/53 02/12/25 19:15 91 H 17 122/64 02/12/25 19:01 91 H 17 122/64 94 L 02/12/25 18:30 91 H 19 120/71 94 L 02/12/25 18:01 91 H 28 H 124/76 95 02/12/25 17:31 115 H 19 126/70 97 02/12/25 17:01 101 H 19 115/67 94 L 02/12/25 16:30 93 H 18 110/69 92 L 02/12/25 16:00 93 H 21 115/69 93 L 02/12/25 15:30 93 H 32 H 114/68 94 L 02/12/25 15:00 92 H 21 105/66 96 02/12/25 14:30 92 H 16 99/63 96 02/12/25 14:00 92 H 109/71 93 L 02/12/25 13:31 97 H 100/78 95 02/12/25 13:01 17 129/86 96 02/12/25 12:45 135 H 15 118/94 02/12/25 12:30 135 H 15 118/94 96 Pain Assessment - Last Documented Pain Intensity 6 Pain Scale Used 0-10 Pain Scale Intake and Output: Intake & Output 02/11/25 02/12/25 02/13/25 02/14/25 11:59 11:59 11:59 11:59 Intake Total 240 3242 Balance 240 3242 Weight 127.5 kg Lab Results: Lab Results-Last 24 Hours 02/12/25 02/12/25 02/12/25 Range/Units 00:51 17:45 21:35 WBC (4.23-9.07) x10^3/uL RBC (4.63-6.08) x10^6/uL Hgb (13.7-17.5) g/dL Hct (40.1-51.0) % MCV (79.0-92.2) fL MCH (25.7-32.2) pg MCHC (32.3-36.5) g/dL RDW (11.6-14.4) % Plt Count (163-337) x10^3/uL MPV (9.4-12.4) fL Gran % (34.0-67.9) % Immature Gran % (Auto) (0.001-0.429) % Nucleat RBC Rel Count (0.00-0.2) % Eos # (Auto) (0.04-0.54) x10^3/uL Immature Gran # (Auto) (0.001-0.031) x10^3u/L Absolute Lymphs (auto) (1.32-3.57) x10^3/uL Absolute Monos (auto) (0.30-0.82) x10^3/uL Absolute Nucleated RBC (0.00-0.012) x10^3u/L Lymphocytes % (21.8-53.1) % Monocytes % (5.3-12.2) % Eosinophils % (0.8-7.0) % Basophils % (0.2-1.2) % Absolute Granulocytes (1.78-5.38) x10^3/uL Basophils # (0.01-0.08) x10^3/uL Sodium (135-145) mmol/L Potassium (3.5-5.1) mmol/L Chloride (98-107) mmol/L Carbon Dioxide (22-30) mmol/L Anion Gap (5-15) MEQ/L BUN (9-20) mg/dL Creatinine (0.66-1.25) mg/dL Estimated GFR ML/MIN Glucose (74-106) mg/dL POC Glucometer 165 H 96 (74 to 106) mg/dL Calcium (8.4-10.2) mg/dL Magnesium (1.6-2.3) mg/dL Total Bilirubin (0.2-1.3) mg/dL AST (17-59) U/L ALT (0-50) U/L Alkaline Phosphatase (38-126) U/L NT-Pro-B Natriuret Pep (<300) pg/mL Serum Total Protein (6.3-8.2) g/dL Albumin (3.5-5.0) g/dL Urine Opiates Level POSITIVE A (NEGATIVE) Ur Methadone NEGATIVE (NEGATIVE) Urine Barbiturates NEGATIVE (NEGATIVE) Ur Phencyclidine (PCP) NEGATIVE (NEGATIVE) Urine Amphetamine NEGATIVE (NEGATIVE) U Benzodiazepine Level NEGATIVE (NEGATIVE) Urine Cocaine NEGATIVE (NEGATIVE) Urine Marijuana (THC) NEGATIVE (NEGATIVE) 02/13/25 02/13/25 02/13/25 Range/Units 05:07 05:07 05:20 WBC 8.1 (4.23-9.07) x10^3/uL RBC 4.60 L (4.63-6.08) x10^6/uL Hgb 14.3 (13.7-17.5) g/dL Hct 44.8 (40.1-51.0) % MCV 97.4 H (79.0-92.2) fL MCH 31.1 (25.7-32.2) pg MCHC 31.9 L (32.3-36.5) g/dL RDW 15.0 H (11.6-14.4) % Plt Count 239 (163-337) x10^3/uL MPV 11.0 (9.4-12.4) fL Gran % 59.5 (34.0-67.9) % Immature Gran % (Auto) 0.5 H (0.001-0.429) % Nucleat RBC Rel Count 0.0 (0.00-0.2) % Eos # (Auto) 0.60 H (0.04-0.54) x10^3/uL Immature Gran # (Auto) 0.04 H (0.001-0.031) x10^3u/L Absolute Lymphs (auto) 1.81 (1.32-3.57) x10^3/uL Absolute Monos (auto) 0.74 (0.30-0.82) x10^3/uL Absolute Nucleated RBC 0.00 (0.00-0.012) x10^3u/L Lymphocytes % 22.4 (21.8-53.1) % Monocytes % 9.2 (5.3-12.2) % Eosinophils % 7.4 H (0.8-7.0) % Basophils % 1.0 (0.2-1.2) % Absolute Granulocytes 4.81 (1.78-5.38) x10^3/uL Basophils # 0.08 (0.01-0.08) x10^3/uL Sodium 138 (135-145) mmol/L Potassium 4.1 (3.5-5.1) mmol/L Chloride 105 (98-107) mmol/L Carbon Dioxide 18 L (22-30) mmol/L Anion Gap 18.9 H (5-15) MEQ/L BUN 28 H (9-20) mg/dL Creatinine 0.97 (0.66-1.25) mg/dL Estimated GFR 93.4 ML/MIN Glucose 211 H (74-106) mg/dL POC Glucometer (74 to 106) mg/dL Calcium 8.8 (8.4-10.2) mg/dL Magnesium 2.0 (1.6-2.3) mg/dL Total Bilirubin 0.50 (0.2-1.3) mg/dL AST 42 (17-59) U/L ALT 52 H (0-50) U/L Alkaline Phosphatase 97 (38-126) U/L NT-Pro-B Natriuret Pep 459 (<300) pg/mL Serum Total Protein 6.6 (6.3-8.2) g/dL Albumin 3.9 (3.5-5.0) g/dL Urine Opiates Level (NEGATIVE) Ur Methadone (NEGATIVE) Urine Barbiturates (NEGATIVE) Ur Phencyclidine (PCP) (NEGATIVE) Urine Amphetamine (NEGATIVE) U Benzodiazepine Level (NEGATIVE) Urine Cocaine (NEGATIVE) Urine Marijuana (THC) (NEGATIVE) 02/13/25 02/13/25 Range/Units 07:34 11:17 WBC (4.23-9.07) x10^3/uL RBC (4.63-6.08) x10^6/uL Hgb (13.7-17.5) g/dL Hct (40.1-51.0) % MCV (79.0-92.2) fL MCH (25.7-32.2) pg MCHC (32.3-36.5) g/dL RDW (11.6-14.4) % Plt Count (163-337) x10^3/uL MPV (9.4-12.4) fL Gran % (34.0-67.9) % Immature Gran % (Auto) (0.001-0.429) % Nucleat RBC Rel Count (0.00-0.2) % Eos # (Auto) (0.04-0.54) x10^3/uL Immature Gran # (Auto) (0.001-0.031) x10^3u/L Absolute Lymphs (auto) (1.32-3.57) x10^3/uL Absolute Monos (auto) (0.30-0.82) x10^3/uL Absolute Nucleated RBC (0.00-0.012) x10^3u/L Lymphocytes % (21.8-53.1) % Monocytes % (5.3-12.2) % Eosinophils % (0.8-7.0) % Basophils % (0.2-1.2) % Absolute Granulocytes (1.78-5.38) x10^3/uL Basophils # (0.01-0.08) x10^3/uL Sodium (135-145) mmol/L Potassium (3.5-5.1) mmol/L Chloride (98-107) mmol/L Carbon Dioxide (22-30) mmol/L Anion Gap (5-15) MEQ/L BUN (9-20) mg/dL Creatinine (0.66-1.25) mg/dL Estimated GFR ML/MIN Glucose (74-106) mg/dL POC Glucometer 162 H 103 (74 to 106) mg/dL Calcium (8.4-10.2) mg/dL Magnesium (1.6-2.3) mg/dL Total Bilirubin (0.2-1.3) mg/dL AST (17-59) U/L ALT (0-50) U/L Alkaline Phosphatase (38-126) U/L NT-Pro-B Natriuret Pep (<300) pg/mL Serum Total Protein (6.3-8.2) g/dL Albumin (3.5-5.0) g/dL Urine Opiates Level (NEGATIVE) Ur Methadone (NEGATIVE) Urine Barbiturates (NEGATIVE) Ur Phencyclidine (PCP) (NEGATIVE) Urine Amphetamine (NEGATIVE) U Benzodiazepine Level (NEGATIVE) Urine Cocaine (NEGATIVE) Urine Marijuana (THC) (NEGATIVE) Radiology Exams: Radiology Procedures Category Date Time Status CHEST 1 VIEW (PORTABLE) Stat Exams 02/12/25 07:16 Completed Medications: Medications Generic Name Dose Route Start Last Admin Trade Name Freq PRN Reason Stop Dose Admin Acetaminophen 650 mg 02/12/25 05:03 Acetaminophen 325 Mg Tablet PO 03/14/25 05:02 Q4H PRN PRN PAIN, FEVER, HEADACHE Hydrocodone Bitart/Acetaminophen 1 tablet 02/12/25 07:11 02/13/25 11:54 Hydrocodone/Acetamin 10-325 Mg Tablet PO 02/17/25 07:10 1 tablet QIDPRN PRN Administration PAIN Apixaban 5 mg 02/12/25 10:00 02/13/25 10:47 Apixaban 2.5 Mg Tablet PO 03/14/25 09:59 5 mg BID DESTINEE Administration Atorvastatin Calcium 80 mg 02/12/25 22:00 02/12/25 22:01 Atorvastatin Calcium 40 Mg Tablet PO 03/14/25 21:59 80 mg HS DESTINEE Administration Carvedilol 12.5 mg 02/12/25 22:00 02/13/25 10:48 Carvedilol 12.5 Mg Tablet PO 03/14/25 21:59 12.5 mg BID DESTINEE Administration Dextrose 25 ml 02/12/25 08:46 Dextrose 50%-Water 50 Ml Abboject IV 03/14/25 08:45 PRN PRN HYPOGLYCEMIA Empagliflozin 25 mg 02/12/25 10:00 02/13/25 10:57 Empagliflozin 25 Mg Tablet PO 03/14/25 09:59 25 mg DAILY DESTINEE Administration Fish Oil 1,000 mg 02/12/25 10:00 02/13/25 10:48 [place]-3 Fatty Acids/Fish Oil 1000 Mg Capsule PO 03/14/25 09:59 1,000 mg BID DESTINEE Administration Glucagon 1 mg 02/12/25 08:46 Glucagon 1 Mg/Vial Vial IM 03/14/25 08:45 PRN PRN HYPOGLYCEMIA Glucose 15 gm 02/12/25 08:46 Dextrose 15 Gm Gel PO 03/14/25 08:45 PRN PRN HYPOGLYCEMIA Insulin Glargine 60 unit 02/12/25 10:00 02/13/25 10:49 Insulin Glargine 1 Unit SQ 03/14/25 09:59 60 unit DAILY DESTINEE Administration Insulin Human Lispro 0 unit 02/12/25 08:38 02/13/25 07:47 Insulin Lispro 1 Unit SQ 03/14/25 08:37 4 unit UD PRN Administration HYPERGLYCEMIA Insulin Human Lispro 20 unit 02/12/25 11:30 02/13/25 11:54 Insulin Lispro 1 Unit SQ 03/14/25 11:29 20 unit AC DESTINEE Administration Isosorbide Mononitrate 60 mg 02/12/25 10:00 02/13/25 10:48 Isosorbide Mononitrate 60 Mg Tab PO 03/14/25 09:59 60 mg DAILY DESTINEE Administration Magnesium Oxide 200 mg 02/12/25 10:00 02/13/25 10:48 Magnesium Oxide 400 Mg Tablet PO 03/14/25 09:59 200 mg DAILY DESTINEE Administration Pantoprazole Sodium 40 mg 02/12/25 10:00 02/13/25 10:48 Protonix (Pantoprazole) 40 Mg Tablet PO 03/14/25 09:59 40 mg DAILY DESTINEE Administration Sacubitril/Valsartan 0.5 tablet 02/12/25 10:00 02/13/25 10:48 Sacubitril/Valsartan 1 Tablet Tablet PO 03/14/25 09:59 0.5 tablet BID DESTINEE Administration Sodium Bicarbonate 650 mg 02/13/25 10:00 02/13/25 10:48 Sodium Bicarbonate 650 Mg Tablet PO 03/15/25 09:59 650 mg BID DESTINEE Administration Spironolactone 12.5 mg 02/13/25 10:00 02/13/25 10:49 Spironolactone 25 Mg Tablet PO 03/15/25 09:59 12.5 mg DAILY DESTINEE Administration Torsemide 40 mg 02/13/25 10:00 02/13/25 10:48 Torsemide 20 Mg Tablet PO 03/15/25 09:59 40 mg DAILY DESTINEE Administration Venlafaxine HCl 37.5 mg 02/12/25 10:00 02/13/25 10:49 Venlafaxine Hcl Er 37.5 Mg 37.5 Mg Cap PO 03/14/25 09:59 37.5 mg DAILY DESTINEE Administration Discontinued Medications Generic Name Dose Route Start Last Admin Trade Name Freq PRN Reason Stop Dose Admin Hydrocodone Bitart/Acetaminophen 1 tablet 02/12/25 03:53 02/12/25 03:56 Hydrocodone/Acetamin 10-325 Mg Tablet PO 02/12/25 03:54 1 tablet STAT ONE Administration Hydrocodone Bitart/Acetaminophen Confirm 02/12/25 03:56 Hydrocodone/Acetamin 10-325 Mg Tablet Administered 02/12/25 03:57 Dose 1 tablet .ROUTE .STK-MED ONE Albuterol/Ipratropium 3 ml 02/12/25 13:00 Ipratropium/Albuterol Sulfate 3 Ml Ampul.Neb IH 03/14/25 12:59 Q6HRT DESTINEE Carvedilol 6.25 mg 02/12/25 10:00 02/12/25 10:29 Carvedilol 6.25 Mg Tablet PO 03/14/25 09:59 6.25 mg BID DESTINEE Administration Carvedilol 6.25 mg 02/12/25 13:22 02/12/25 13:27 Carvedilol 6.25 Mg Tablet PO 02/12/25 13:23 6.25 mg ONCE ONE Administration Digoxin Confirm 02/12/25 17:40 Digoxin 0.5 Mg/2 Ml Injection Administered 02/12/25 17:41 Dose 0.5 mg .ROUTE .STK-MED ONE Digoxin 0.5 mg 02/12/25 17:46 02/12/25 17:46 Digoxin 0.5 Mg/2 Ml Injection IV 02/12/25 17:47 0.5 mg ONCE ONE Administration Digoxin 0.25 mg 02/13/25 00:10 02/13/25 11:54 Digoxin 0.125 Mg Tablet PO 02/13/25 12:01 0.25 mg Q6HT DESTINEE Administration Diltiazem HCl 10 mg 02/12/25 01:41 02/12/25 01:58 Diltiazem Hcl Iv 5 Mg/Ml Vial IV 02/12/25 01:42 10 mg STAT ONE Administration Diltiazem HCl Confirm 02/12/25 01:58 Diltiazem Hcl Iv 5 Mg/Ml Vial Administered 02/12/25 01:59 Dose 50 mg IV .STK-MED ONE Diltiazem HCl 5 mg 02/12/25 04:15 02/12/25 04:23 Diltiazem Hcl Iv 5 Mg/Ml Vial IV 02/12/25 04:16 5 mg STAT ONE Administration Furosemide 40 mg 02/12/25 10:00 02/12/25 22:01 Furosemide 40 Mg Tablet PO 03/14/25 09:59 40 mg BID DESTINEE Administration Sodium Chloride 500 mls @ 500 mls/hr 02/12/25 00:36 02/12/25 01:23 Sodium Chloride 0.9% 500 Ml IV 02/12/25 01:35 Not Given .Q1H ONE Sodium Chloride Confirm 02/12/25 00:45 Sodium Chloride 0.9% 1000 Ml Administered 02/12/25 00:46 Dose 1,000 mls @ ud .ROUTE .STK-MED ONE Sodium Chloride 1,000 mls @ 500 mls/hr 02/12/25 00:50 02/12/25 03:41 Sodium Chloride 0.9% 1000 Ml IV 02/12/25 02:49 0 mls/hr .Q2H STA Infusion Diltiazem HCl 100 mls @ 5 mls/hr 02/12/25 02:15 02/13/25 07:40 Cardizem Drip 100 Mg/100 Ml D5w IV 03/14/25 02:14 0 mg/hr .Q20H PRN 0 mls/hr HEART RATE/ A-FIB Titration Protocol 5 MG/HR Insulin Glargine 100 unit 02/12/25 10:00 Insulin Glargine 1 Unit SQ 03/14/25 09:59 DAILY DESTINEE Insulin Human Regular 0 unit 02/12/25 05:03 Insulin Regular, Human 1 Unit SQ 03/14/25 05:02 UD PRN HYPERGLYCEMIA Labetalol HCl 10 mg 02/11/25 23:26 02/11/25 23:37 Labetalol Hcl 20 Mg/4 Ml Disp.Syringe IV 02/11/25 23:27 10 mg STAT ONE Administration Labetalol HCl Confirm 02/11/25 23:35 Labetalol Hcl 20 Mg/4 Ml Disp.Syringe Administered 02/11/25 23:36 Dose 20 mg IV .STK-MED ONE Metoprolol Tartrate 5 mg 02/12/25 00:25 02/12/25 00:53 Metoprolol Tartrate 5 Mg/5 Ml Vial IV 02/12/25 00:26 5 mg STAT ONE Administration Metoprolol Tartrate Confirm 02/12/25 00:45 Metoprolol Tartrate 5 Mg/5 Ml Vial Administered 02/12/25 00:46 Dose 5 mg IV .STK-MED ONE Assessment/Plan (1) Atrial fibrillation with RVR Current Visit: Yes Status: Acute Assessment & Plan: - Pt follows Dr. Lang- cardiology - ICU tele - EKG - EF 15-20% - Tele cardiology consult- reviewed note and agree with plan- Digoxin load started 02/12 with 0.5 mg IV push. Coreg increased to 12.5 BID, digoxin 0.125 mg by mouth every 6 hours x 3 doses for a total of 1.25 mg (10 mcg/kg). Start maintenance dose on 02/14 - 0.125 mg by mouth daily. - Cardizem gtt stopped this AM - Eliquis - Increased HR with activity - Echo: TTE 01/25/2025: 1. Poor quality study with limited visualization of the endomyocardial border and cardiac structures. 2. LVEF is severely reduced, visually estimated to be 15-20%. Dilated LV cavity with normal wall thickness. 3. Grade 2 diastolic dysfunction. 4. Normal right ventricular size and function. 5. No obvious major valve abnormalities. 6. Insufficient TR to estimate RVSP. 7. IVC not well seen; unable to estimate RA pressure. Code(s): I48.91 - UNSPECIFIED ATRIAL FIBRILLATION (2) Chronic HFrEF (heart failure with reduced ejection fraction) Current Visit: Yes Status: Acute Assessment & Plan: - Per cardiology: EF 15-20%. S/P ICD 2014. PVR noted on CXR. Currently without symptoms oF CHF. No evidence of CHF on exam. Already on beta-gareth, SGLT2 inhibitor, and ARNI. Will optimize GDMT by adding spironolactone. It was previously stopped for unclear reasons. Will start at a low dose 12.5 mg daily. Will also change fur osemide to torsemide 40 mg daily due to its superior bioavailability. Code(s): I50.22 - CHRONIC SYSTOLIC (CONGESTIVE) HEART FAILURE (3) CAD (coronary artery disease) Current Visit: No Status: Chronic Assessment & Plan: - Per cardiology: S/P PCI with multiple stents (last in 2017). [place] class 0 without symptoms of angina. On beta-gareth and nitrates. - Pt states he is not on a high intensity statin Op because he could not afford the one sent in. - Will start IP. Code(s): I25.10 - ATHSCL HEART DISEASE OF [place] CORONARY ARTERY W/O ANG PCTRS (4) Type 2 diabetes mellitus with diabetic chronic kidney disease Current Visit: Yes Status: Chronic Assessment & Plan: Blood sugars under suboptimal control 1. ADA diet 2. FSBS qAC/HS 3. HbA1c- 01/25/25- 8.0- uncontrolled - s/s insulin, 20 units AC Code(s): E11.22 - TYPE 2 DIABETES MELLITUS W DIABETIC CHRONIC KIDNEY DISEASE (5) HTN (hypertension) Current Visit: No Status: Chronic Qualifiers: Hypertension type: primary hypertension Qualified Code(s): I10 - Essential (primary) hypertension Assessment & Plan: Blood pressure under suboptimal control 1. Continue bp meds 2. Low Na+ diet Code(s): I10 - ESSENTIAL (PRIMARY) HYPERTENSION (6) Congestive heart failure Current Visit: No Status: Chronic Qualifiers: Heart failure chronicity: chronic Assessment & Plan: Appears euvolemic though with some LE edema 1. Diuretics prn 2. Continue Entresto 3. Follow I/Os, daily weights Code(s): I50.9 - HEART FAILURE, UNSPECIFIED (7) Obesity (BMI 30-39.9) Current Visit: Yes Status: Chronic Assessment & Plan: - Advised diet and exercise control VTE: Eliquis PPI: Protonix Next of KIN: Child- Abraham Johansen [phone] D/C plan: 1-2 days Code status: Full Code(s): E66.9 - OBESITY, UNSPECIFIED
[2025-02-13] MEDS ORDERED: Cordarone 200 MG PO SCH ×2 (16:13→22:00)
--- NOTE | 2025-02-13 16:15 | PCM.NOTE ---
Per Dr. 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 Lang) Stop Digoxin and start Amiodorine 400mg PO BID now. Pt pending d/c when bed opens at [facility].
--- NOTE | 2025-02-13 16:57 | PCM.DS ---
Discharge Summary Date of Admission: 02/12/25 04:42 Date of Discharge: 02/13/25 Admitting Physician: ARELY SAVAGE MD Consults: Consults on Case 02/12/25 07:46 Consult Cardiology ROUTINE Primary Care Provider: ANGIE CEBALLOS Allergies Allergies No Known Drug Allergies Allergy (Verified 02/11/25 22:52) Hospital Summary - Hospital Course Hospital Course: The patient is a 54-year-old male with a history of hypertension, diabetes, coronary artery disease (s/p PTCA/stents), and atrial fibrillation, currently on hospital day 2 after presenting with several days of elevated heart rates, peaking at 144 bpm. He denied chest pain, shortness of breath, or gastrointestinal symptoms. Initial management included Metoprolol, Labetalol, and a cardizem drip, which was discontinued this morning. He is now resting comfortably in the ICU with a controlled heart rate in the 70s, though atrial fibrillation persists. Cardiology was consulted, and after reviewing their recommendations, the plan was agreed upon. The patient also requested an increased dose of [place] for chronic knee pain, but this was declined, and he was advised to follow up with outpatient pain management. Additionally, he was started on oral sodium bicarbonate for a CO2 of 18. He currently denies any new concerns. He has been accepted to [facility] for cardioversion. - Vitals & Intake/Output Vital Signs: Vital Signs Temperature 97.1 F 02/13/25 12:00 Pulse Rate 98 H 02/13/25 15:00 Respiratory Rate 32 H 02/13/25 15:00 Blood Pressure 108/67 02/13/25 15:00 O2 Sat by Pulse Oximetry 94 L 02/13/25 13:00 Intake & Output: Intake & Output 02/11/25 02/12/25 02/13/25 02/14/25 11:59 11:59 11:59 11:59 Intake Total 240 3242 Balance 240 3242 Weight 127.5 kg - Lab Result Diagrams: 02/13/25 05:07 02/13/25 05:07 Lab Results-Last 24 Hrs: Lab Results-Last 24 Hours 02/12/25 02/12/25 02/13/25 Range/Units 17:45 21:35 05:07 WBC 8.1 (4.23-9.07) x10^3/uL RBC 4.60 L (4.63-6.08) x10^6/uL Hgb 14.3 (13.7-17.5) g/dL Hct 44.8 (40.1-51.0) % MCV 97.4 H (79.0-92.2) fL MCH 31.1 (25.7-32.2) pg MCHC 31.9 L (32.3-36.5) g/dL RDW 15.0 H (11.6-14.4) % Plt Count 239 (163-337) x10^3/uL MPV 11.0 (9.4-12.4) fL Gran % 59.5 (34.0-67.9) % Immature Gran % (Auto) 0.5 H (0.001-0.429) % Nucleat RBC Rel Count 0.0 (0.00-0.2) % Eos # (Auto) 0.60 H (0.04-0.54) x10^3/uL Immature Gran # (Auto) 0.04 H (0.001-0.031) x10^3u/L Absolute Lymphs (auto) 1.81 (1.32-3.57) x10^3/uL Absolute Monos (auto) 0.74 (0.30-0.82) x10^3/uL Absolute Nucleated RBC 0.00 (0.00-0.012) x10^3u/L Lymphocytes % 22.4 (21.8-53.1) % Monocytes % 9.2 (5.3-12.2) % Eosinophils % 7.4 H (0.8-7.0) % Basophils % 1.0 (0.2-1.2) % Absolute Granulocytes 4.81 (1.78-5.38) x10^3/uL Basophils # 0.08 (0.01-0.08) x10^3/uL Sodium (135-145) mmol/L Potassium (3.5-5.1) mmol/L Chloride (98-107) mmol/L Carbon Dioxide (22-30) mmol/L Anion Gap (5-15) MEQ/L BUN (9-20) mg/dL Creatinine (0.66-1.25) mg/dL Estimated GFR ML/MIN Glucose (74-106) mg/dL POC Glucometer 165 H 96 (74 to 106) mg/dL Calcium (8.4-10.2) mg/dL Magnesium (1.6-2.3) mg/dL Total Bilirubin (0.2-1.3) mg/dL AST (17-59) U/L ALT (0-50) U/L Alkaline Phosphatase (38-126) U/L NT-Pro-B Natriuret Pep (<300) pg/mL Serum Total Protein (6.3-8.2) g/dL Albumin (3.5-5.0) g/dL 02/13/25 02/13/25 02/13/25 Range/Units 05:07 05:20 07:34 WBC (4.23-9.07) x10^3/uL RBC (4.63-6.08) x10^6/uL Hgb (13.7-17.5) g/dL Hct (40.1-51.0) % MCV (79.0-92.2) fL MCH (25.7-32.2) pg MCHC (32.3-36.5) g/dL RDW (11.6-14.4) % Plt Count (163-337) x10^3/uL MPV (9.4-12.4) fL Gran % (34.0-67.9) % Immature Gran % (Auto) (0.001-0.429) % Nucleat RBC Rel Count (0.00-0.2) % Eos # (Auto) (0.04-0.54) x10^3/uL Immature Gran # (Auto) (0.001-0.031) x10^3u/L Absolute Lymphs (auto) (1.32-3.57) x10^3/uL Absolute Monos (auto) (0.30-0.82) x10^3/uL Absolute Nucleated RBC (0.00-0.012) x10^3u/L Lymphocytes % (21.8-53.1) % Monocytes % (5.3-12.2) % Eosinophils % (0.8-7.0) % Basophils % (0.2-1.2) % Absolute Granulocytes (1.78-5.38) x10^3/uL Basophils # (0.01-0.08) x10^3/uL Sodium 138 (135-145) mmol/L Potassium 4.1 (3.5-5.1) mmol/L Chloride 105 (98-107) mmol/L Carbon Dioxide 18 L (22-30) mmol/L Anion Gap 18.9 H (5-15) MEQ/L BUN 28 H (9-20) mg/dL Creatinine 0.97 (0.66-1.25) mg/dL Estimated GFR 93.4 ML/MIN Glucose 211 H (74-106) mg/dL POC Glucometer 162 H (74 to 106) mg/dL Calcium 8.8 (8.4-10.2) mg/dL Magnesium 2.0 (1.6-2.3) mg/dL Total Bilirubin 0.50 (0.2-1.3) mg/dL AST 42 (17-59) U/L ALT 52 H (0-50) U/L Alkaline Phosphatase 97 (38-126) U/L NT-Pro-B Natriuret Pep 459 (<300) pg/mL Serum Total Protein 6.6 (6.3-8.2) g/dL Albumin 3.9 (3.5-5.0) g/dL 02/13/25 02/13/25 Range/Units 11:17 16:20 WBC (4.23-9.07) x10^3/uL RBC (4.63-6.08) x10^6/uL Hgb (13.7-17.5) g/dL Hct (40.1-51.0) % MCV (79.0-92.2) fL MCH (25.7-32.2) pg MCHC (32.3-36.5) g/dL RDW (11.6-14.4) % Plt Count (163-337) x10^3/uL MPV (9.4-12.4) fL Gran % (34.0-67.9) % Immature Gran % (Auto) (0.001-0.429) % Nucleat RBC Rel Count (0.00-0.2) % Eos # (Auto) (0.04-0.54) x10^3/uL Immature Gran # (Auto) (0.001-0.031) x10^3u/L Absolute Lymphs (auto) (1.32-3.57) x10^3/uL Absolute Monos (auto) (0.30-0.82) x10^3/uL Absolute Nucleated RBC (0.00-0.012) x10^3u/L Lymphocytes % (21.8-53.1) % Monocytes % (5.3-12.2) % Eosinophils % (0.8-7.0) % Basophils % (0.2-1.2) % Absolute Granulocytes (1.78-5.38) x10^3/uL Basophils # (0.01-0.08) x10^3/uL Sodium (135-145) mmol/L Potassium (3.5-5.1) mmol/L Chloride (98-107) mmol/L Carbon Dioxide (22-30) mmol/L Anion Gap (5-15) MEQ/L BUN (9-20) mg/dL Creatinine (0.66-1.25) mg/dL Estimated GFR ML/MIN Glucose (74-106) mg/dL POC Glucometer 103 115 H (74 to 106) mg/dL Calcium (8.4-10.2) mg/dL Magnesium (1.6-2.3) mg/dL Total Bilirubin (0.2-1.3) mg/dL AST (17-59) U/L ALT (0-50) U/L Alkaline Phosphatase (38-126) U/L NT-Pro-B Natriuret Pep (<300) pg/mL Serum Total Protein (6.3-8.2) g/dL Albumin (3.5-5.0) g/dL Micro Results-Entire Visit: Accuchecks Date 02/13/25 Date 02/13/25 Time 07:57 - Radiology Exams Ordered Rad Exams-Entire Visit: Radiology Procedures Category Date Time Status CHEST 1 VIEW (PORTABLE) Stat Exams 02/12/25 07:16 Completed - Procedures and Test Procedures and Tests throughout Hospitalization: Therapy Orders & Screens 02/12/25 12:46 EKG STAT Comment: Diagnosis: Afib RVR Discharge Exam General Appearance: no apparent distress, alert Neurologic Exam: alert, oriented x 3, cooperative, normal mood/affect, nml cerebellar function, sensation nml, No motor deficits Eye Exam: PERRL, EOMI, eyes nml inspection Ears, Nose, Throat Exam: normal ENT inspection, pharynx normal, moist mucous membranes Neck Exam: normal inspection, non-tender, supple, full range of motion Respiratory Exam: normal breath sounds, lungs clear, No respiratory distress Cardiovascular Exam: normal heart sounds, irregular Gastrointestinal/Abdomen Exam: soft, No tenderness, No mass Male Genitalia Exam: deferred Rectal Exam: deferred Back Exam: normal inspection, normal range of motion, No CVA tenderness, No vertebral tenderness Extremity Exam: normal inspection, normal range of motion Skin Exam: normal color, warm, dry Final Diagnosis/Problem List - Final Discharge Diagnosis/Problem (1) Atrial fibrillation with RVR Current Visit: Yes Status: Acute Code(s): I48.91 - UNSPECIFIED ATRIAL FIBRILLATION (2) Chronic HFrEF (heart failure with reduced ejection fraction) Current Visit: Yes Status: Acute Code(s): I50.22 - CHRONIC SYSTOLIC (CONGESTIVE) HEART FAILURE (3) CAD (coronary artery disease) Current Visit: No Status: Chronic Code(s): I25.10 - ATHSCL HEART DISEASE OF [place] CORONARY ARTERY W/O ANG PCTRS (4) Type 2 diabetes mellitus with diabetic chronic kidney disease Current Visit: Yes Status: Chronic Code(s): E11.22 - TYPE 2 DIABETES MELLITUS W DIABETIC CHRONIC KIDNEY DISEASE (5) HTN (hypertension) Current Visit: No Status: Chronic Code(s): I10 - ESSENTIAL (PRIMARY) HYPERTENSION (6) Congestive heart failure Current Visit: No Status: Chronic Code(s): I50.9 - HEART FAILURE, UNSPECIFIED (7) Obesity (BMI 30-39.9) Current Visit: Yes Status: Chronic Assessment & Plan: (1) Atrial fibrillation with RVR Current Visit: Yes Status: Acute Assessment & Plan: - Pt follows Dr. Vang- cardiology - ICU tele - EKG - EF 15-20% - Tele cardiology consult- reviewed note and agree with plan- Digoxin load started 5/ with 0.5 mg IV push. Coreg increased to 12.5 BID, digoxin 0.125 mg by mouth every 6 hours x 3 doses for a total of 1.25 mg (10 mcg/kg). Start maintenance dose on 56 - 0.125 mg by mouth daily. - Cardizem gtt stopped this AM - Eliquis - Increased HR with activity - Echo: TTE 01/25/2025: 1. Poor quality study with limited visualization of the endomyocardial border and cardiac structures. 2. LVEF is severely reduced, visually estimated to be 15-20%. Dilated LV cavity with normal wall thickness. 3. Grade 2 diastolic dysfunction. 4. Normal right ventricular size and function. 5. No obvious major valve abnormalities. 6. Insufficient TR to estimate RVSP. 7. IVC not well seen; unable to estimate RA pressure. Code(s): I48.91 - UNSPECIFIED ATRIAL FIBRILLATION (2) Chronic HFrEF (heart failure with reduced ejection fraction) Current Visit: Yes Status: Acute Assessment & Plan: - Per cardiology: EF 15-20%. S/P ICD 2014. PVR noted on CXR. Currently without symptoms oF CHF. No evidence of CHF on exam. Already on beta-gareth, SGLT2 inhibitor, and ARNI. Will optimize GDMT by adding spironolactone. It was previously stopped for unclear reasons. Will start at a low dose 12.5 mg daily. Will also change furosemide to torsemide 40 mg daily due to its superior bioavailability. Code(s): I50.22 - CHRONIC SYSTOLIC (CONGESTIVE) HEART FAILURE (3) CAD (coronary artery disease) Current Visit: No Status: Chronic Assessment & Plan: - Per cardiology: S/P PCI with multiple stents (last in 2016). [place] class 0 without symptoms of angina. On beta-gareth and nitrates. - Pt states he is not on a high intensity statin Op because he could not afford the one sent in. - Will start IP. Code(s): I25.10 - ATHSCL HEART DISEASE OF [place] CORONARY ARTERY W/O ANG PCTRS (4) Type 2 diabetes mellitus with diabetic chronic kidney disease Current Visit: Yes Status: Chronic Assessment & Plan: Blood sugars under suboptimal control 1. ADA diet 2. FSBS qAC/HS 3. HbA1c- 01/25/25- 8.0- uncontrolled - s/s insulin, 20 units AC Code(s): E11.22 - TYPE 2 DIABETES MELLITUS W DIABETIC CHRONIC KIDNEY DISEASE (5) HTN (hypertension) Current Visit: No Status: Chronic Qualifiers: Hypertension type: primary hypertension Qualified Code(s): I10 - Essential (primary) hypertension Assessment & Plan: Blood pressure under suboptimal control 1. Continue bp meds 2. Low Na+ diet Code(s): I10 - ESSENTIAL (PRIMARY) HYPERTENSION (6) Congestive heart failure Current Visit: No Status: Chronic Qualifiers: Heart failure chronicity: chronic Assessment & Plan: Appears euvolemic though with some LE edema 1. Diuretics prn 2. Continue Entresto 3. Follow I/Os, daily weights Code(s): I50.9 - HEART FAILURE, UNSPECIFIED (7) Obesity (BMI 30-39.9) Current Visit: Yes Status: Chronic Assessment & Plan: - Advised diet and exercise control Code(s): E66.9 - OBESITY, UNSPECIFIED - Discharge Discharge Date: 02/13/25 Disposition: Home, Self-Care Condition: Fair Prescriptions: New Atorvastatin Calcium [Lipitor 40Mg] 80 mg PO HS tablet Continue Sacubitril/Valsartan [Entresto 24 mg-26 mg Tablet] 24 - 26 mg PO BID Venlafaxine HCl [Venlafaxine HCl ER] 37.5 mg PO DAILY Pioglitazone 30 mg [Actos 30 MG] 30 mg PO DAILY Isosorbide Mononitrate 60 mg [Imdur 60MG] 1 tab PO DAILY Apixaban [Eliquis] 5 mg PO BID Magnesium Oxide [Magnesium] 250 mg PO DAILY Cyanocobalamin/Folic Acid [Q43-Xdlji Acid 2500-400 Mcg Tb] 2,500 mcg PO DAILY Hydrocodone/Acetaminophen [Hydrocodone-Acetamin 10-325 mg] 1 tab PO QIDPRN PRN PRN Reason: Pain Insulin Degludec [Tresiba Flextouch U-200] 100 unit SQ DAILY Acetaminophen 325 mg [Tylenol 325 mg] 650 mg PO Q6H PRN PRN tablet PRN Reason: Pain And/Or Fever [place]-3 Fatty Acids/Fish Oil [Fish Oil 1,000 mg Capsule] 1,000 mg PO BID Multivit-Min/Folic/Vit K/Lycop [Men's Daily Formula Tablet] 1 each PO DAILY Empagliflozin [Jardiance] 25 mg PO DAILY Potassium Chloride Tab* [Klor Con] 20 meq PO BID Insulin Aspart [Novolog] 75 unit SQ AC Carvedilol 3.125 mg [Coreg 3.125 MG] 6.25 mg PO BID Furosemide 40 mg PO BID Nitroglycerin 0.4 mg (Ed) [Nitrostat 0.4 MG (ED)] 0.4 mg SL Q5MIN PRN MR X 3 PRN PRN Reason: angina Follow up with: ANGIE CEBALLOS MD [Primary Care Provider, [facility]] - 02/21/25 11:00 am MAINOR VANG MD [CONSULTING PHYSICIAN, CARDIOLOGY] - 02/17/25
[2025-02-13 17:36] VITALS: RESP 19
[2025-02-13 19:34] VITALS: BP 123/98; PULSE 117
== END 2025-02-13 18:45 | disposition short-term general hospital (02) | DRG 309 ==
LOC: ED 22:46 → ICU 02-12 04:42 → OBSVTOIN 02-12 04:42
PROVIDERS: ADMIT Internal Medicine Nephrology; ATTEND Internal Medicine Nephrology
DX: I48.20 Chronic atrial fibrillation, unspecified (principal); I50.22 Chronic systolic (congestive) heart failure; Z59.19 Other inadequate housing; Z59.811 Housing instability, housed, with risk of homelessness; I25.10 Atherosclerotic heart disease of native coronary artery without angina pectoris; E11.22 Type 2 diabetes mellitus with diabetic chronic kidney disease; I11.0 Hypertensive heart disease with heart failure; I50.9 Heart failure, unspecified; E66.9 Obesity, unspecified; I25.2 Old myocardial infarction; Z79.01 Long term (current) use of anticoagulants; Z79.899 Other long term (current) drug therapy
CPT/HCPCS: 36415; 71045; 80053; 80307; 81001; 82947; 83735; 83880; 84439; 84443; 84484; 85025; 93005; 93041; 94760; 96374; 99285; J1160; J1817; A9270-GY

== ENCOUNTER 2025-07-29 17:52 | Emergency (ER) | payer MEDICARE ==
[2025-07-29 17:59] VITALS: TEMP 97.2; O2SAT 97
[2025-07-29] MEDS ORDERED: Cardizem IV 50 MG/10 ML IV ONE (18:04)
--- NOTE | 2025-07-29 18:21 | ERPHSYRPT ---
- History of Present Illness Time Seen by Provider: 07/29/25 18:13 Source: patient, family Exam Limitations: no limitations Physician History: Pt had onset of intermittent epsodes of afib and has been scheduled for ablation in October with compliance vice president. He has no CP but some SObreath. He had low BP and low HR earlier this am which resolved. He has been decreasing his amiardarone. we will reduce the cardizem dose for the Afib control due to this potential for interaction. He is already on elliqis. Discussed with pt and available family risks and benefits of testing/Tx including CBC, CMP, EKG, Trop, BNP, D-dimer, UA, Lipase, CT ( if indicated from d dimer) , CXR, swabs for Covid, RSV, Flu , T4 and TSH, , cardizem, Antibiotic and they wish to proceed so these are ordered. Results discussed with pt and available family. Timing/Duration: today Activities at Onset: none Quality: tightness Location: central Chest Pain Radiation: no radiation Severity of Pain-Max: none Severity of Pain-Current: none Modifying Factors: Improves With: nothing Nitro Today/Relief: no nitro taken today Aspirin Treatment Today: no aspirin today Associated Symptoms: shortness of breath Prior Chest Pain/Cardiac Workup: recently seen/treated Allergies/Adverse Reactions: No Known Drug Allergies Allergy (Verified 03/09/25 11:03) Home Medications: Sacubitril/Valsartan [Entresto 24 mg-26 mg Tablet] 24 - 26 mg PO BID 09/24/17 [History] Venlafaxine HCl [Venlafaxine HCl ER] 37.5 mg PO DAILY 11/23/17 [History] Pioglitazone 30 mg [Actos 30 MG] 30 mg PO DAILY 06/17/20 [History] Apixaban [Eliquis] 5 mg PO BID 02/27/24 [History] Isosorbide Mononitrate 60 mg [Imdur 60MG] 1 tab PO DAILY 02/27/24 [History] Cyanocobalamin/Folic Acid [[id number]-[id number] Acid 2500-400 Mcg Tb] 1,000 mcg PO BID 03/06/24 [History] Hydrocodone/Acetaminophen [Hydrocodone-Acetamin 10-325 mg] 10 - 325 mg PO QIDPRN PRN 03/06/24 [History] Magnesium Oxide [Magnesium] 400 mg PO BID 03/06/24 [History] Insulin Degludec [Tresiba Flextouch U-200] 100 unit SQ DAILY 08/21/24 [History] Carvedilol 3.125 mg [Coreg 3.125 MG] 25 mg PO BID 02/12/25 [History] Empagliflozin [Jardiance] 25 mg PO DAILY 02/12/25 [History] Furosemide 40 mg PO BID 02/12/25 [History] Insulin Aspart [Novolog] 75 unit SQ AC 02/12/25 [History] Multivit-Min/Folic/Vit K/Lycop [Men's Daily Formula Tablet] 1 each PO DAILY 02/12/25 [History] Nitroglycerin 0.4 mg (Ed) [Nitrostat 0.4 MG (ED)] 0.4 mg SL Q5MIN PRN MR X 3 PRN 02/12/25 [History] [place]-3 Fatty Acids/Fish Oil [Fish Oil 1,000 mg Capsule] 1,200 mg PO BID 02/12/25 [History] Potassium Chloride Tab* [Klor Con] 20 meq PO BID 02/12/25 [History] Amiodarone HCl 200 mg [Cordarone 200 MG] 400 mg PO DAILY 03/09/25 [History] Spironolactone 25 mg [Aldactone 25 MG] 25 mg PO DAILY 03/09/25 [History] Hx Tetanus, Diphtheria Vaccination/Date Given: No Hx Influenza Vaccination/Date Given: No Hx Pneumococcal Vaccination/Date Given: No Travel Risk - Emerging Infectious Disease Are you exhibiting symptoms associated with any current EIDs: Yes Symptoms: Shortness of Breath Comment: lower legs swelling - Review of Systems Constitutional: Weakness, No Fever, No Chills Eyes: No Symptoms Ears, Nose, & Throat: No Symptoms Respiratory: Dyspnea, No Cough Cardiac: Palpitations, Other (tightness), No Chest Pain, No Edema, No Syncope Abdominal/Gastrointestinal: No Abdominal Pain, No Nausea, No Vomiting, No Diarrhea Genitourinary Symptoms: No Dysuria Musculoskeletal: No Back Pain, No Neck Pain Skin: No Rash Neurological: No Dizziness, No Focal Weakness, No Sensory Changes Psychological: No Symptoms Endocrine: No Symptoms Hematologic/Lymphatic: No Symptoms Immunological/Allergic: No Symptoms All Other Systems: Reviewed and Negative - Past Medical History Pertinent Past Medical History: Yes Neurological History: No Pertinent History ENT History: No Pertinent History Cardiac History: Congestive Heart Failure, High Cholesterol, Hypertension, Myocardial Infarction (OR), Other Respiratory History: Other Endocrine Medical History: Diabetes Type II Musculoskeletal History: Osteoarthritis GI Medical History: Pancreatitis History: No Pertinent History Psycho-Social History: No Pertinent History Male Reproductive Disorders: No Pertinent History Other Medical History: PMHX: 7 OR's, PER PATIENT HAS 5 STENTS BUT NO CABG. HAS DEFIBRILLATOR PLACED 2014 WITH HX OF ACTIVATION PER PATIENT "A FEW TIMES". PER PATIENT HEART FUNCTION 15-20%. SEVERE OA LEFT KNEE - BONE ON BONE BUT UNABLE TO HAVE REPLACEMENT DUE TO HEART. 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 - Past Surgical History Past Surgical History: Yes Neuro Surgical History: No Pertinent History Cardiac: Angioplasty, Cardiac Catheterization, Cardiac Stent, Internal Defibrillator, Pacemaker Respiratory: No Pertinent History Gastrointestinal: Cholecystectomy, Hernia Repair Genitourinary: No Pertinent History Musculoskeletal: Orthopedic Surgery Male Surgical History: No Pertinent History Other Surgical History: elbow Significant Family History: heart disease, diabetes, hypertension - Social History Smoking Status: Never smoker How long have you smoked: 20+ Exposure to second hand smoke: No Drug Use: none - Social Determinants of Health Will the patient participate in the screening: Yes Do you worry about a steady place to live?: No In the past 12 months,have you had to go without utilities?: No Transportation Issues: No Has anyone in your support network made you feel unsafe?: No Have you or anyone in your house had to go w/o enough food: No - Nursing Vital Signs Nursing Vital Signs: Initial Vital Signs Temperature 97.2 F 07/29/25 17:53 Pulse Rate 132 H 07/29/25 17:53 Respiratory Rate 16 07/29/25 17:53 Blood Pressure 146/121 07/29/25 17:53 O2 Sat by Pulse Oximetry 97 07/29/25 17:53 Pain Scale Pain Intensity 0 - Physical Exam General Appearance: no apparent distress, alert Eye Exam: PERRL/EOMI, eyes nml inspection Ears, Nose, Throat Exam: normal ENT inspection, moist mucous membranes Neck Exam: normal inspection, non-tender, supple Respiratory Exam: normal breath sounds, lungs clear, airway intact, No respiratory distress, No diminished breath sounds, No accessory muscle use Cardiovascular Exam: regular rate/rhythm, normal heart sounds, tachycardia, No edema Gastrointestinal/Abdomen Exam: soft, No tenderness, No mass Rectal Exam: deferred Back Exam: normal inspection, No CVA tenderness, No vertebral tenderness Extremity Exam: normal inspection, normal range of motion Neurologic Exam: alert, oriented x 3, cooperative, normal mood/affect, nml cerebellar function, sensation nml, No motor deficits Skin Exam: normal color, warm, dry Lymphatic Exam: No adenopathy SpO2 Interpretation: normal SpO2: 97 O2 Delivery: Room Air - Course Nursing assessment & vital signs reviewed: Yes EKG Interpreted by Me: Right Balko Deviation, Right Bundle Branch Block, Non- specific ST Changes, Other (Aflutter 2:1 block and LPFB) Ordered Tests: Active Orders 24 hr Category Date Time Status Line Staker STAT Care 07/29/25 18:16 Active EKG-ER Only STAT Care 07/29/25 18:13 Active IV Insertion STAT Care 07/29/25 18:13 Active CHEST 1 VIEW (PORTABLE) Stat Exams 07/29/25 18:14 Taken CBC W DIFF Stat Lab 07/29/25 18:28 Completed CMP Stat Lab 07/29/25 18:28 Completed D-DIMER QUANTITATIVE Stat Lab 07/29/25 18:28 Completed LIPASE Stat Lab 07/29/25 18:28 Completed Lactic Acid Stat Lab 07/29/25 18:25 Completed NT PRO BNPII Stat Lab 07/29/25 18:28 Received TROPONIN Q4H Lab 07/29/25 18:28 Received TROPONIN Q4H Lab 07/29/25 22:15 Ordered TROPONIN Q4H Lab 07/30/25 02:15 Ordered TSH [TSH, 3RD Generation] Stat Lab 07/29/25 18:28 Received UA W/RFX UR CULTURE Stat Lab 07/29/25 18:14 Ordered Medication Summary Generic Name Dose Route Start Last Admin Trade Name Freq PRN Reason Stop Dose Admin Sodium Chloride 1,000 mls @ 100 mls/hr 07/29/25 18:15 07/29/25 18:19 Sodium Chloride 0.9% 1000 Ml IV 08/28/25 18:14 100 mls/hr .Q10H DESTINEE Administration Discontinued Medications Generic Name Dose Route Start Last Admin Trade Name Freq PRN Reason Stop Dose Admin Hydrocodone Bitart/Acetaminophen 1 tablet 07/29/25 18:50 07/29/25 18:53 Hydrocodone/Acetamin 10-325 Mg Tablet PO 07/29/25 18:51 1 tablet STAT ONE Administration Hydrocodone Bitart/Acetaminophen Confirm 07/29/25 18:53 Hydrocodone/Acetamin 10-325 Mg Tablet Administered 07/29/25 18:54 Dose 1 tablet .ROUTE .STK-MED ONE Diltiazem HCl Confirm 07/29/25 18:04 Diltiazem Hcl Iv 5 Mg/Ml Vial Administered 07/29/25 18:05 Dose 50 mg IV .STK-MED ONE Diltiazem HCl 5 mg 07/29/25 18:15 07/29/25 18:34 Diltiazem Hcl Iv 5 Mg/Ml Vial IV 07/29/25 18:16 5 mg STAT ONE Administration Diltiazem HCl 5 mg 07/29/25 18:49 07/29/25 18:50 Diltiazem Hcl Iv 5 Mg/Ml Vial IV 07/29/25 18:50 5 mg STAT ONE Administration Esmolol HCl 50 mg 07/29/25 18:45 Esmolol Hcl 10 Mg/Ml Vial IV 07/29/25 18:46 STAT ONE Lab/Rad Data: Laboratory Result Diagrams 07/29/25 18:28 07/29/25 18:28 Laboratory Results 07/29/25 07/29/25 07/29/25 Range/Units 18:28 18:28 18:28 WBC (4.23-9.07) x10^3/uL RBC (4.63-6.08) x10^6/uL Hgb (13.7-17.5) g/dL Hct (40.1-51.0) % MCV (79.0-92.2) fL MCH (25.7-32.2) pg MCHC (32.3-36.5) g/dL RDW (11.6-14.4) % Plt Count (163-337) x10^3/uL MPV (9.4-12.4) fL Gran % (34.0-67.9) % Immature Gran % (Auto) (0.001-0.429) % Nucleat RBC Rel Count (0.00-0.2) % Eos # (Auto) (0.04-0.54) x10^3/uL Immature Gran # (Auto) (0.001-0.031) x10^3u/L Absolute Lymphs (auto) (1.32-3.57) x10^3/uL Absolute Monos (auto) (0.30-0.82) x10^3/uL Absolute Nucleated RBC (0.00-0.012) x10^3u/L Lymphocytes % (21.8-53.1) % Monocytes % (5.3-12.2) % Eosinophils % (0.8-7.0) % Basophils % (0.2-1.2) % Absolute Granulocytes (1.78-5.38) x10^3/uL Basophils # (0.01-0.08) x10^3/uL D-Dimer < 0.19 (0.0-0.50) mg/L Sodium 140 (135-145) mmol/L Potassium 4.3 (3.5-5.1) mmol/L Chloride 109 H (98-107) mmol/L Carbon Dioxide 22 (22-30) mmol/L Anion Gap 13.6 (5-15) MEQ/L BUN 29 H (9-20) mg/dL Creatinine 1.24 (0.66-1.25) mg/dL Estimated GFR 69.1 ML/MIN Glucose 157 H (74-106) mg/dL Lactic Acid (0.4-2.0) Calcium 9.0 (8.4-10.2) mg/dL Total Bilirubin 0.40 (0.2-1.3) mg/dL AST 31 (17-59) U/L ALT 40 (0-50) U/L Alkaline Phosphatase 70 (38-126) U/L Troponin I < 0.012 (0.000-0.033) ng/mL NT-Pro-B Natriuret Pep 576 (<300) pg/mL Serum Total Protein 6.9 (6.3-8.2) g/dL Albumin 3.9 (3.5-5.0) g/dL Lipase 344 H (23-300) U/L 07/29/25 07/29/25 Range/Units 18:28 18:25 WBC 7.8 (4.23-9.07) x10^3/uL RBC 5.31 (4.63-6.08) x10^6/uL Hgb 16.3 (13.7-17.5) g/dL Hct 51.6 H (40.1-51.0) % MCV 97.2 H (79.0-92.2) fL MCH 30.7 (25.7-32.2) pg MCHC 31.6 L (32.3-36.5) g/dL RDW 15.3 H (11.6-14.4) % Plt Count 226 (163-337) x10^3/uL MPV 10.5 (9.4-12.4) fL Gran % 64.4 (34.0-67.9) % Immature Gran % (Auto) 0.6 H (0.001-0.429) % Nucleat RBC Rel Count 0.0 (0.00-0.2) % Eos # (Auto) 0.25 (0.04-0.54) x10^3/uL Immature Gran # (Auto) 0.05 H (0.001-0.031) x10^3u/L Absolute Lymphs (auto) 1.65 (1.32-3.57) x10^3/uL Absolute Monos (auto) 0.74 (0.30-0.82) x10^3/uL Absolute Nucleated RBC 0.00 (0.00-0.012) x10^3u/L Lymphocytes % 21.3 L (21.8-53.1) % Monocytes % 9.5 (5.3-12.2) % Eosinophils % 3.2 (0.8-7.0) % Basophils % 1.0 (0.2-1.2) % Absolute Granulocytes 4.98 (1.78-5.38) x10^3/uL Basophils # 0.08 (0.01-0.08) x10^3/uL D-Dimer (0.0-0.50) mg/L Sodium (135-145) mmol/L Potassium (3.5-5.1) mmol/L Chloride (98-107) mmol/L Carbon Dioxide (22-30) mmol/L Anion Gap (5-15) MEQ/L BUN (9-20) mg/dL Creatinine (0.66-1.25) mg/dL Estimated GFR ML/MIN Glucose (74-106) mg/dL Lactic Acid 1.4 (0.4-2.0) Calcium (8.4-10.2) mg/dL Total Bilirubin (0.2-1.3) mg/dL AST (17-59) U/L ALT (0-50) U/L Alkaline Phosphatase (38-126) U/L Troponin I (0.000-0.033) ng/mL NT-Pro-B Natriuret Pep (<300) pg/mL Serum Total Protein (6.3-8.2) g/dL Albumin (3.5-5.0) g/dL Lipase (23-300) U/L - Progress Progress: improved, re-examined Air Movement: good Progress Note: 07/29/25 18:47 theo failed to convert , will go with 5 mg more 07/29/25 18:56 Chest tightness is gone now. Last time the cardizem did not work and he had to have cardioversion. per pt report. We are contacting [facility] to request transfer for higher level of care - cardiology. 07/29/25 19:10 Theo worked on second dose down to 104. Dr. Newton at [facility] accepted pt for transfer after consultation and pt agrees as well. 07/29/25 19:13 Blood Culture(s) Obtained: No Antibiotics given: No Discussed with Dr.: Other (Dr. Newton at [facility] ) Will see patient in: ED Counseled pt/family regarding: lab results, diagnosis, need for follow-up, rad results Medical Desision Making - Independent Historian Additional History obtained from: Family - Discussion of managment Care discussed with:: specialist Reviewed:: Test results, Need for additional workup Agreed on:: Treatment plan, need for follow-up Will see patient: in ED - Diagnostic Testing Diagnostic test were ordered, analyzed, and reviewed by me: Yes Radiological Interpretation: Interpreted by me - Risk of complications The pt has a mod risk of morbidity or mortality based on: Need for prescription drug management The pt has a high risk of morbidity or mortality based on: Decision regarding hospitilization or escalation of hosp level of care - Departure Departure Disposition: Transfer Clinical Impression: Rapid Aflutter/fib Condition: Critical Critical Care Time: Yes Critical Care Time(excluding separately billable procedures): Critical 30-74 mins (65 minutes to get vascular access and treat for rapid a flutter.) Referrals: ANGIE CEBALLOS MD [Primary Care Provider, [facility]] - Follow up/PCP as directed
[2025-07-29 18:31] LABS: BASOPHIL % 1.0 % (0.2-1.2); Basophil (Absolute #) 0.08 x10^3/uL (0.01-0.08); Eosinophil (Absolute #) 0.25 x10^3/uL (0.04-0.54); Hematocrit 51.6 % (40.1-51.0); Hemoglobin 16.3 g/dL (13.7-17.5); IMMATURE GRAN # 0.05 x10^3u/L (0.001-0.031); IMMATURE GRAN % 0.6 % (0.001-0.429); Lymphocyte (Absolute #) 1.65 x10^3/uL (1.32-3.57); Mean Corpuscular Hemoglobin 30.7 pg (25.7-32.2); Mean Corpuscular Hgb Concent. 31.6 g/dL (32.3-36.5); Monocyte (Absolute #) 0.74 x10^3/uL (0.30-0.82); NUCLEATED RBC # 0.00 x10^3u/L (0.00-0.012); NUCLEATED RBC % 0.0 % (0.00-0.2); Platelet Count 226 x10^3/uL (163-337); Red Blood Count 5.31 x10^6/uL (4.63-6.08); White Blood Count 7.8 x10^3/uL (4.23-9.07)
[2025-07-29] MEDS: Cardizem IV 50 MG/10 ML IV ONE ×2 (18:34→18:50)
[2025-07-29 18:52] LABS: Calcium 9.0 mg/dL (8.4-10.2); Carbon Dioxide 22.0 mmol/L (22-30); Creatinine 1 1.24 mg/dL (0.66-1.25); EST GLOMERULAR FILTRATION RATE 69.1 ML/MIN; Glucose 157.0 mg/dL (74-106); Potassium 4.3 mmol/L (3.5-5.1); SGOT/AST 31.0 U/L (17-59); SGPT/ALT 40.0 U/L (0-50); Total Protein 6.9 g/dL (6.3-8.2)
[2025-07-29] MEDS: NORCO 10-325 MG PO ONE (18:53)
[2025-07-29] MEDS ORDERED: NORCO 10-325 MG ONE (18:53)
[2025-07-29 18:56] LABS: NT PRO BNPII 576 pg/mL (<300); TROPONIN < 0.012 ng/mL (0.000-0.033)
[2025-07-29] MEDS: BREVIBLOC 100 MG/10 ML IV ONE (19:11)
[2025-07-29 19:27] LABS: INFLUENZA A NEGATIVE (NEGATIVE); INFLUENZA B NEGATIVE (NEGATIVE); RESPIRATORY SYNCTIAL VIRUS NEGATIVE (NEGATIVE); SARS-CoV-2 Xpert Express NEGATIVE (NEGATIVE)
[2025-07-29 19:28] VITALS: BP 114/93; PULSE 107; RESP 20
--- NOTE | 2025-07-29 20:43 | XRAY ---
Indication: Atrial fibrillation. Short of breath. Comparison: March 11, 2025 Portable inflated and is now clear. Heart is now within normal limits again with left pacemaker. Bony thorax intact again with osteopenia and mild degenerative changes. Impression: Nonacute chest.
== END 2025-07-29 19:33 | disposition short-term general hospital (02) ==
LOC: ED 17:52
DX: I48.91 Unspecified atrial fibrillation (principal); I48.92 Unspecified atrial flutter; I48.20 Chronic atrial fibrillation, unspecified; I11.0 Hypertensive heart disease with heart failure; I50.9 Heart failure, unspecified; E11.9 Type 2 diabetes mellitus without complications; Z79.01 Long term (current) use of anticoagulants; Z79.84 Long term (current) use of oral hypoglycemic drugs; Z79.4 Long term (current) use of insulin; Z79.899 Other long term (current) drug therapy